=== PATIENT | male | born 1950 | race Caucasian/White ===

== ENCOUNTER 2020-03-23 11:56 | Inpatient (IN) ==
--- NOTE | 2020-03-23 12:41 | Emergency Department Note ---
Impression & Plan COVID-19, Breath shortness, Atrial fibrillation with RVR, Diarrhea, Febrile ED Provider Note NAME: HAILEE ROBERTS AGE: 69 SEX: M : 1950 ARRIVES VIA: Walk-In INFORMANT: Patient ED PROVIDER(S): Michael Tyler DO CHIEF COMPLAINT: Shortness of breath HPI: Patient is a 69-year-old male who presents to the ER for shortness of breath. This started a week ago. Has been fairly constant. He notes it is worse with up moving around. If he lays flat he also becomes short of breath. He denies any chest pain. No belly pain, nausea, vomiting or diarrhea. No dysuria, urgency or frequency. He was tested for Covid yesterday at [facility]. He does admit to a cough and congestion as well. He notes he is feeling very fatigued and rundown. He does get up and move around he becomes very lightheaded and feels as though he is going to pass out. Has not missed any doses of his Pradaxa. ROS: See above HPI for pertinent positives & negatives. A total of 10 systems reviewed and were otherwise negative. PAST MEDICAL HISTORY:See Below PAST SURGICAL HISTORY:See Below FAMILY HISTORY:See Below SOCIAL HISTORY:See Below HOME MEDICATIONS:See Below ALLERGIES:See Below VITALS:See Below PHYSICAL EXAMINATION: GENERAL: Sitting up in bed, alert, ill-appearing, slightly dyspneic with conversation EYE EXAM: normal conjunctiva. OROPHARYNX: no exudate, no erythema, lips, buccal mucosa, and tongue normal and mucous membranes are moist NECK: supple, no nuchal rigidity, no adenopathy, non-tender LUNGS: Clear to auscultation. Normal chest wall mechanics HEART: no murmurs, S1 normal and S2 normal ABDOMEN: abdomen soft, non-tender, normo-active bowel sounds, no masses, no rebound or guarding. UPPER EXTREMITIES: upper extremities are grossly normal. LOWER EXTREMITIES: mild Edema in bilateral lower extremities NEURO EXAM: Normal sensorium, cranial nerves II-XII grossly intact, normal speech, no gross weakness of arms, no gross weakness of legs. MEDICAL DECISION MAKING: Patient is a 69-year-old male who presents the ER for diarrhea, shortness of breath, dizziness without moving around associated with weakness. IV was established blood work was obtained. 90 to 93% on room air. When he ambulated he nearly passed out. Labs show no significant leukocytosis or anemia. INR 1.3. D-dimer was elevated. BMP with mild hyponatremia at 130. Lactate was normal. Troponin was detectable but not positive. Lipase was normal. Tony navirus was positive. He was given IV fluids and his heart rate trended down from the 120s A. fib RVR to 100-1 10. Chest x-ray supports infiltrates in the bases. CT angio confirms no PEs but bilateral infiltrates. He was covered with IV Levaquin. Discussed with the hospitalist for admission and further work-up. EKG was nondiagnostic. Sepsis work-up was not initially ordered as patient did not become febrile until just prior to admission. Triage Nursing notes reviewed. Prior medical records reviewed Vital Signs: reviewed and remarkable for tachy Differential diagnosis: Differential diagnosis includes etiologies such as sepsis, UTI, pneumonia, metabolic, electrolyte abnormalities, cardiac sources, intracerebral event, toxicologic, neurological, as well as others were entertained. ER treatment provided: See below Diagnostics interpreted by me: ECG: A. fib RVR rate 124 Left axis Septal Q waves No PVCs Cardiac Monitoring: An order was placed for continuous cardiac monitoring. The monitor shows a rate of 110 with A. fib RVR rhythm. Laboratory studies: As stated above and show below. Imaging studies: CT angio with bilateral infiltrates Double AP upright 1 view of the chest shows lower lobe infiltrates Consultation(s): Discussed with Dr. Erlinda Pereira for further evaluation ED COURSE: Procedures: none Critical Care: None Past Med/Surg History Medical History (Updated 03/23/20 @ 17:02 by Erlinda Pereira MD) Atrial fibrillation Basal cell carcinoma of dorsum of nose BPH (benign prostatic hyperplasia) Chronic diastolic heart failure due to hypertrophic obstructive cardiomyopathy Congestive heart failure Elevated PSA GERD (gastroesophageal reflux disease) Gout Hyperlipidemia Hypertension Idiopathic peripheral neuropathy Polyp of colon Vitamin D deficiency Surgical History History of left knee replacement Family History Family/Other Prostate cancer cousin on fathers side Family/Other Hypertension paternal aunts Mother , age 75 COPD No problems noted. Father , age 41 complications of jungle rot WW2 Heart disease Son No problems noted. Son No problems noted. Daughter No problems noted. 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 Feels Safe at Home: Yes Childhood Exposure to Second-Hand Smoke: Yes caffeine: Yes (one cup coffee per day) during the past year weight has: remained stable Dental Care, Regularly: Yes Physical Activity Frequency: Daily Seatbelt Use: always Sunscreen Use: Yes Allergies Allergies Allergy/AdvReac Type Severity Reaction Status Date / Time amiodarone AdvReac Severe Pneumonitis Unverified 03/23/20 15:16 Home Meds Home Medications Medication Instructions Recorded Confirmed atorvastatin 20 mg tablet 20 mg PO HS 09/23/19 03/23/20 dabigatran etexilate 150 mg capsule 150 mg PO QAM 09/23/19 03/23/20 diltiazem HCl 120 mg 120 mg PO QAM 09/23/19 03/23/20 capsule,extended release 24 hr allopurinol 100 mg tablet 200 mg PO QAM 10/21/19 03/23/20 Super Beta Prostate 1 cap PO QAM 03/23/20 03/23/20 azithromycin 250 mg PO UD 03/23/20 03/23/20 bicalutamide 50 mg PO QAM 03/23/20 03/23/20 calcium carbonate 500 mg PO BID 03/23/20 03/23/20 cholecalciferol (vitamin D3) 1,000 unit PO QAM 03/23/20 03/23/20 colchicine [Colcrys] 0.6 mg PO UD 03/23/20 03/23/20 metoprolol succinate 100 mg PO QAM 03/23/20 03/23/20 Results & Data (ED) Vital Signs Vital Signs - 24 hr 03/23/20 12:01 03/23/20 12:14 03/23/20 12:26 Temperature 36.7 C Temperature Source Oral Pulse Rate 114 H 126 H Pulse Rate from SpO2 Sensor 114 H Respiratory Rate 22 15 Respiratory Effort / Characteristics Non-Labored Respiratory Depth Normal Blood Pressure 129/76 151/110 H Blood Pressure Mean 93 121 Pulse Oximetry 92 93 Oxygen Delivery Method Room Air Room Air Room Air Sepsis Recent Fever Within 48 Hours No Sepsis New/Unexplained Change in Mental Status N/A Sepsis Action Taken by Nursing No Action Required 03/23/20 12:30 03/23/20 13:00 03/23/20 13:15 Temperature Temperature Source Pulse Rate 128 H Pulse Rate from SpO2 Sensor 102 H Respiratory Rate 20 Respiratory Effort / Characteristics Spontaneous Respiratory Depth Blood Pressure 128/79 Blood Pressure Mean 85 Pulse Oximetry 92 92 Oxygen Delivery Method Room Air Room Air Room Air Sepsis Recent Fever Within 48 Hours Sepsis New/Unexplained Change in Mental Status Sepsis Action Taken by Nursing 03/23/20 13:27 03/23/20 13:35 03/23/20 14:00 Temperature Temperature Source Pulse Rate 108 H 115 H 119 H Pulse Rate from SpO2 Sensor 91 H 106 H Respiratory Rate 23 32 H 21 Respiratory Effort / Characteristics Respiratory Depth Blood Pressure 137/86 155/82 H 160/85 H Blood Pressure Mean 91 101 95 Pulse Oximetry 92 92 93 Oxygen Delivery Method Room Air Room Air Room Air Sepsis Recent Fever Within 48 Hours Sepsis New/Unexplained Change in Mental Status Sepsis Action Taken by Nursing 03/23/20 14:25 03/23/20 14:30 03/23/20 15:00 Temperature 39.5 C H Temperature Source Oral Pulse Rate 110 H 103 H Pulse Rate from SpO2 Sensor 123 H 104 H Respiratory Rate 24 22 Respiratory Effort / Characteristics Respiratory Depth Blood Pressure 169/104 H 178/110 H Blood Pressure Mean 139 147 Pulse Oximetry 92 95 Oxygen Delivery Method Sepsis Recent Fever Within 48 Hours Sepsis New/Unexplained Change in Mental Status Sepsis Action Taken by Nursing 03/23/20 15:49 03/23/20 15:50 03/23/20 16:00 Temperature Temperature Source Pulse Rate 119 H 110 H Pulse Rate from SpO2 Sensor 106 H 113 H 108 H Respiratory Rate 13 18 Respiratory Effort / Characteristics Respiratory Depth Blood Pressure 156/105 H 144/102 H Blood Pressure Mean 131 128 Pulse Oximetry 92 90 92 Oxygen Delivery Method Sepsis Recent Fever Within 48 Hours Sepsis New/Unexplained Change in Mental Status Sepsis Action Taken by Nursing Laboratory Data Result diagrams: 03/23/20 12:41 03/23/20 13:30 Lab Results 03/23/20 03/23/20 03/23/20 Range/Units 12:41 13:30 13:30 WBC 7.03 (4.8-10.8) K/uL RBC 4.83 (4.7-6.1) M/uL Hgb 16.1 (14.0-18.0) g/dL Hct 45.6 (42-52) % MCV 94.4 (80-100) fL MCH 33.3 (25-34) pg MCHC 35.3 (32-36) g/dL RDW Std Deviation 46.3 (36.4-46.3) fL RDW Coeff of Phyllis 13.3 (11.5-14.5) % Plt Count 144 (130-400) K/uL MPV 10.2 (7.4-10.4) fL Immature Gran % (Auto) 0.1 % Neut % (Auto) 71.9 % Lymph % (Auto) 16.1 % [place] % (Auto) 11.8 % Eos % (Auto) 0.0 % Baso % (Auto) 0.1 % Neut # (Auto) 5.05 (1.4-6.5) K/uL Lymph # (Auto) 1.13 L (1.2-3.4) K/uL [place] # (Auto) 0.83 H (0.11-0.59) K/uL Eos # (Auto) 0.00 (0-0.5) K/uL Baso # (Auto) 0.01 (0-0.2) K/uL Immature Gran # (Auto) 0.01 (0.00-0.02) K/uL PT 13.6 H (9.0-12.0) Seconds INR 1.3 H (0.9-1.1) APTT 38.4 H (21.0-31.0) Seconds PTT Ratio 1.4 D-Dimer 600 H* (0-500) ug/L FEU Sodium 130 L (136-145) mmol/L Potassium 4.1 (3.5-5.1) mmol/L Chloride 97 L (98-107) mmol/L Carbon Dioxide 25 (21-32) mmol/L Anion Gap 8.0 (3-11) BUN 27 H (7-18) mg/dl Creatinine 1.17 (0.6-1.4) mg/dl Est Cr Clr Drug Dosing 75.7 ml/min Est GFR ( Amer) 73.3 Est GFR (Non-Af Amer) 63.2 BUN/Creatinine Ratio 23.4 H (10-20) Glucose 103 H (70-99) mg/dl Lactate (0.4-2.0) mmol/L Calcium 8.5 (8.5-10.1) mg/dl Total Bilirubin 0.8 (0.2-1) mg/dl AST 71 H (15-37) U/L ALT 44 (12-78) U/L Alkaline Phosphatase 62 (45-117) U/L Troponin I 0.016 (0-0.045) ng/ml Total Protein 8.3 H (6.4-8.2) gm/dl Albumin 3.1 L (3.4-5.0) gm/dl Globulin 5.2 H (2.5-4.0) gm/dl Albumin/Globulin Ratio 0.6 L (0.9-2) Lipase 190 (73-393) U/L COVID-19 Eval Order SARS-CoV-2, RNA, NAAT (NEGATIVE) 03/23/20 03/23/20 03/23/20 Range/Units 14:05 14:05 14:42 WBC (4.8-10.8) K/uL RBC (4.7-6.1) M/uL Hgb (14.0-18.0) g/dL Hct (42-52) % MCV (80-100) fL MCH (25-34) pg MCHC (32-36) g/dL RDW Std Deviation (36.4-46.3) fL RDW Coeff of Phyllis (11.5-14.5) % Plt Count (130-400) K/uL MPV (7.4-10.4) fL Immature Gran % (Auto) % Neut % (Auto) % Lymph % (Auto) % [place] % (Auto) % Eos % (Auto) % Baso % (Auto) % Neut # (Auto) (1.4-6.5) K/uL Lymph # (Auto) (1.2-3.4) K/uL [place] # (Auto) (0.11-0.59) K/uL Eos # (Auto) (0-0.5) K/uL Baso # (Auto) (0-0.2) K/uL Immature Gran # (Auto) (0.00-0.02) K/uL PT (9.0-12.0) Seconds INR (0.9-1.1) APTT (21.0-31.0) Seconds PTT Ratio D-Dimer (0-500) ug/L FEU Sodium (136-145) mmol/L Potassium (3.5-5.1) mmol/L Chloride (98-107) mmol/L Carbon Dioxide (21-32) mmol/L Anion Gap (3-11) BUN (7-18) mg/dl Creatinine (0.6-1.4) mg/dl Est Cr Clr Drug Dosing ml/min Est GFR ( Amer) Est GFR (Non-Af Amer) BUN/Creatinine Ratio (10-20) Glucose (70-99) mg/dl Lactate 2.0 (0.4-2.0) mmol/L Calcium (8.5-10.1) mg/dl Total Bilirubin (0.2-1) mg/dl AST (15-37) U/L ALT (12-78) U/L Alkaline Phosphatase (45-117) U/L Troponin I (0-0.045) ng/ml Total Protein (6.4-8.2) gm/dl Albumin (3.4-5.0) gm/dl Globulin (2.5-4.0) gm/dl Albumin/Globulin Ratio (0.9-2) Lipase (73-393) U/L COVID-19 Eval Order Covid19 IDNow at[facility] SARS-CoV-2, RNA, NAAT POSITIVE A* (NEGATIVE) Administered Medications Diltiazem HCl 125 mg/ Dextrose 125 mls @ 5 mls/hr IV .Q24H ALAYNA; Protocol Stop: 04/22/20 13:59 Last Admin: 03/23/20 15:11 Dose: Not Given Documented by: [id number] Discontinued Medications Acetaminophen (Acetaminophen 500 Mg Tab) 1,000 mg PO NOW STA Stop: 03/23/20 14:30 Last Admin: 03/23/20 16:01 Dose: 1,000 mg Documented by: [id number] Dexamethasone (Dexamethasone Sod Inj 10 Mg/Ml Vial) 6 mg IV NOW ONE Stop: 03/23/20 16:16 Last Admin: 03/23/20 16:50 Dose: 6 mg Documented by: [id number] Diltiazem HCl (Diltiazem Hcl 5 Mg/Ml 5 Ml Vial) 10 mg IV NOW STA Stop: 03/23/20 13:59 Last Admin: 03/23/20 16:51 Dose: Not Given Documented by: [id number] Sodium Chloride (Nss 1000ml) 1,000 mls @ 999 mls/hr IV .Q1H1M ONE Stop: 03/23/20 14:58 Last Infusion: 03/23/20 16:01 Dose: 0 mls/hr Documented by: [id number] Admin: 03/23/20 14:26 Dose: 999 mls/hr Documented by: [id number] Levofloxacin/Dextrose (Levaquin/D5w) 750 mg in 150 mls @ 100 mls/hr IV NOW STA Stop: 03/23/20 15:58 Last Admin: 03/23/20 16:01 Dose: 100 mls/hr Documented by: [id number] Ioversol (Optiray 320 125ml) 120 ml IV ONCE ONE Stop: 03/23/20 15:30 Last Admin: 03/23/20 15:29 Dose: 120 ml Documented by: [id number] Miscellaneous (Stat Iv Infusion Titration Per Protocol) 1 ea N/A NOW STA Stop: 03/23/20 13:59 Last Admin: 03/23/20 15:11 Dose: Not Given Documented by: [id number] Discharge Plan Visit Data Chief Complaint: Shortness of Breath/Dyspnea Stated Complaint: CONGESTED, SOB, COUGH, FATIGUED, PENDING COVID ED Provider: Michael Tyler Discharge Problem: COVID-19, Breath shortness, Atrial fibrillation with RVR, Diarrhea, Febrile Forms Stand Alone Forms: My [facility] Prescriptions Prescriptions: No Action allopurinol 100 mg tablet 200 mg PO QAM RF: 0 Pradaxa 150 mg capsule 150 mg PO QAM RF: 0 diltiazem HCl [Cartia XT] 120 mg capsule,extended release 24hr 120 mg PO QAM RF: 0 atorvastatin [Lipitor] 20 mg tablet 20 mg PO HS RF: 0 bicalutamide 50 mg tablet 50 mg PO QAM RF: 0 azithromycin 250 mg tablet 250 mg PO UD RF: 0 metoprolol succinate 100 mg tablet extended release 24 hr 100 mg PO QAM RF: 0 calcium carbonate 500 mg calcium (1,250 mg) tablet 500 mg PO BID RF: 0 colchicine [Colcrys] 0.6 mg Tablet 0.6 mg PO UD RF: 0 cholecalciferol (vitamin D3) 25 mcg (1,000 unit) capsule 1,000 unit PO QAM RF: 0 Super Beta Prostate 1 cap PO QAM RF: 0 Discharge Problem: Diarrhea Qualifiers: Diarrhea type: unspecified type Qualified Code(s): R19.7 - Diarrhea, unspecified Febrile Qualifiers: Fever type: unspecified Qualified Code(s): R50.9 - Fever, unspecified
[2020-03-23] MEDS ORDERED: dilTIAZem HCl 5 MG/ML 5 ML VIAL IV STA (13:58)
[2020-03-23] MEDS ORDERED: SODIUM CHLORIDE 0.9% 1000ML 1,000 ML IV ONE (13:58)
[2020-03-23] MEDS ORDERED: STAT IV Infusion **Titration per Protocol STA (13:58)
[2020-03-23 14:00] LABS: INR 1.3 (0.9-1.1); Partial Thromboplastin Ratio 1.4; Partial Thromboplastin Time 38.4 Seconds (21.0-31.0); Prothrombin Time 13.6 Seconds (9.0-12.0)
[2020-03-23] MEDS ORDERED: dilTIAZem HCL 125 MG in DEXTROSE 5% 100 ML IV SCH (14:00)
[2020-03-23 14:05] LABS: D Dimer 600 ug/L FEU (0-500)
[2020-03-23 14:24] LABS: Albumin Globulin Ratio 0.6 (0.9-2); Albumin Level 3.1 gm/dl (3.4-5.0); BUN Creatinine Ratio 23.4 (10-20); Bilirubin,Total 0.8 mg/dl (0.2-1); Calcium 8.5 mg/dl (8.5-10.1); Creatinine Clr Calc Pharmacy 75.7 ml/min; Est GFR (African American) 73.3; Est GFR (Non-African American) 63.2; Globulin 5.2 gm/dl (2.5-4.0); Potassium 4.1 mmol/L (3.5-5.1); Total Protein 8.3 gm/dl (6.4-8.2); Troponin I 0.016 ng/ml (0-0.045)
--- NOTE | 2020-03-23 14:27 | XRay Report ---
XR chest 1V portable CLINICAL HISTORY: Chest Pain COMPARISON STUDY: Chest radiograph December 26, 2016. FINDINGS: There is mild elevation of the left hemidiaphragm. Linear left basilar opacity favors atele ctasis. There is minimal right basilar opacity. Note is made of cardiomegaly without evidence for pul monary edema. Note is made of a sclerotic lesion within the coracoid process of the right scapula whi ch corresponds to a focus of radiotracer uptake on bone scan of October 20, 2019. This represents metast atic disease. IMPRESSION: 1. Mild bibasilar opacities. Left basilar opacity favors atelectasis. Right basilar opacity favors at electasis although an infectious process could appear similar. 2. Cardiomegaly without evidence for pulmonary edema. 3. Sclerotic metastasis within the coracoid process of the right scapula. ACT 112: Negative or not required by law. Electronically signed by: Fred Hensley M.D. 03/23/2020 2:25 PM
[2020-03-23] MEDS ORDERED: levoFLOXacin/D5W 750 MG/150 ML BAG IV STA (14:29)
[2020-03-23] MEDS ORDERED: ACETAMINOPHEN 500 MG TAB PO STA (14:29)
[2020-03-23 14:30] LABS: Basophils # (auto) 0.01 K/uL (0-0.2); Basophils % (auto) 0.1 %; Hematocrit (blood only) 45.6 % (42-52); Hemoglobin 16.1 g/dL (14.0-18.0); Immature Granulocytes # (auto) 0.01 K/uL (0.00-0.02); Immature Granulocytes % (auto) 0.1 %; Lymphocytes # (auto) 1.13 K/uL (1.2-3.4); Lymphocytes % (auto) 16.1 %; Mean Corpuscular Hemoglobin 33.3 pg (25-34); Mean Corpuscular Hgb Conc 35.3 g/dL (32-36); Mean Corpuscular Volume 94.4 fL (80-100); Mean Platelet Volume 10.2 fL (7.4-10.4); Monocytes # (auto) 0.83 K/uL (0.11-0.59); Monocytes % (auto) 11.8 %; Neutrophils # (auto) 5.05 K/uL (1.4-6.5); Neutrophils % (auto) 71.9 %; Platelet Count 144 K/uL (130-400); RDW Coefficient of Variation 13.3 % (11.5-14.5); RDW Standard Deviation 46.3 fL (36.4-46.3); Red Blood Count 4.83 M/uL (4.7-6.1); White Blood Count 7.03 K/uL (4.8-10.8)
[2020-03-23] MEDS ORDERED: OPTIRAY 320 125ml IV ONE (15:29)
--- NOTE | 2020-03-23 15:44 | CT Scan Report ---
CT ANGIOGRAPHY OF THE CHEST, PULMONARY EMBOLUS PROTOCOL CLINICAL HISTORY: Covid. Chest pain. COMPARISON STUDY: Chest radiograph December 26, 2006 and March 23, 2020. TECHNIQUE: Following IV administration of Optiray-320, helical axial images of the chest were obtaine d utilizing the pulmonary embolus protocol. Maximal intensity projections and sagittal and coronal r eformats were viewed on an independent 3D workstation. IV contrast was administered without complica tion. Automated exposure control was utilized for the study. A dose lowering technique was utilized adhering to the principles of ALARA. CT DOSE: 759.19 mGy.cm FINDINGS: No pulmonary emboli are identified. There is moderate cardiomegaly. No pericardial effusio n is present. Ascending aorta is dilated, measuring 4.4 cm at the level of the main pulmonary artery. There is extensive coronary artery calcification. There are multiple mildly enlarged mediastinal lym ph nodes. Index right paratracheal lymph node on image 181 of 273 measures 2.6 x 1.2 cm. Prominent ri ght hilar lymph nodes are noted. No pneumothorax or pleural effusion is noted. The central airways ar e patent. Extensive multifocal groundglass opacities within the lungs are noted. There is no confluen t consolidation. Note is made of numerous sclerotic skeletal lesions, the largest of which is partial ly imaged within the right scapula. No pathologic fracture is identified. Visualized portions of the upper abdomen demonstrate hepatic steatosis. IMPRESSION: 1. No pulmonary emboli identified. 2. Extensive multifocal groundglass opacities within the lungs consistent with viral pneumonia. 3. Numerous blastic skeletal metastases. 4. Moderate cardiomegaly and extensive coronary artery calcification. 5. Mildly enlarged mediastinal and right hilar lymph nodes. These are nonspecific and may be reactive . A follow-up chest CT in 6 months is recommended. 6. Mildly dilated ascending aorta, measuring 4.4 cm. ACT 112: Negative or not required by law. Electronically signed by: Fred Hensley M.D. 03/23/2020 3:42 PM
--- NOTE | 2020-03-23 16:03 | History & Physical Report ---
Date of Service March 23, 2020 History of Present Illness Primary Care Provider: Shyann Kwon MD Allergies Allergy/AdvReac Type Severity Reaction Status Date / Time amiodarone AdvReac Severe Pneumonitis Unverified 03/23/20 15:16 Home Medications Medication Instructions Recorded Confirmed Type atorvastatin 20 mg tablet 20 mg PO HS 09/23/19 03/23/20 History dabigatran etexilate 150 mg capsule 150 mg PO QAM 09/23/19 03/23/20 History diltiazem HCl 120 mg 120 mg PO QAM 09/23/19 03/23/20 History capsule,extended release 24 hr allopurinol 100 mg tablet 200 mg PO QAM 10/21/19 03/23/20 History Super Beta Prostate 1 cap PO QAM 03/23/20 03/23/20 History azithromycin 250 mg PO UD 03/23/20 03/23/20 History bicalutamide 50 mg PO QAM 03/23/20 03/23/20 History calcium carbonate 500 mg PO BID 03/23/20 03/23/20 History cholecalciferol (vitamin D3) 1,000 unit PO QAM 03/23/20 03/23/20 History colchicine [Colcrys] 0.6 mg PO UD 03/23/20 03/23/20 History metoprolol succinate 100 mg PO QAM 03/23/20 03/23/20 History Past Med/Surg History Medical History Atrial fibrillation Basal cell carcinoma of dorsum of nose BPH (benign prostatic hyperplasia) Chronic diastolic heart failure due to hypertrophic obstructive cardiomyopathy Congestive heart failure Elevated PSA GERD (gastroesophageal reflux disease) Gout Hyperlipidemia Hypertension Idiopathic peripheral neuropathy Polyp of colon Vitamin D deficiency Surgical History History of left knee replacement Family History Family/Other Prostate cancer cousin on fathers side Family/Other Hypertension paternal aunts Mother , age 75 COPD No problems noted. Father , age 41 complications of jungle rot WW2 Heart disease Son No problems noted. Son No problems noted. Daughter No problems noted. 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 Feels Safe at Home: Yes Childhood Exposure to Second-Hand Smoke: Yes caffeine: Yes (one cup coffee per day) during the past year weight has: remained stable Dental Care, Regularly: Yes Physical Activity Frequency: Daily Seatbelt Use: always Sunscreen Use: Yes Results & Data Results & Data ([facility]) Vital Signs (Past 12 Hours) Vital Signs Temp Pulse Resp BP Pulse Ox 03/23/20 15:00 103 H 22 178/110 H 95 03/23/20 14:30 110 H 24 169/104 H 92 03/23/20 14:25 39.5 C H 03/23/20 14:00 119 H 21 160/85 H 93 03/23/20 13:35 115 H 32 H 155/82 H 92 03/23/20 13:27 108 H 23 137/86 92 03/23/20 13:15 92 03/23/20 12:30 128 H 20 128/79 92 03/23/20 12:14 126 H 15 151/110 H 93 03/23/20 12:01 36.7 C 114 H 22 129/76 92 PG Care Time/CCT Total # of Minutes Spent Total Time Spent with Patient: Total time spent is greater than 50% in coordination of care (as documented) at patient's floor/unit and/or counseling patient: Coding
[2020-03-23] MEDS ORDERED: DEXAMETHASONE SOD INJ 10 MG/ML VIAL IV ONE (16:15)
--- NOTE | 2020-03-23 16:22 | History & Physical Report ---
Date of Service March 23, 2020 Assessment & Plan (1) COVID-19: Symptoms of shortness of breath and fatigue along with diarrhea seem to have started within 1 week of admission. He tested positive for Covid-19 initially on 03/22 at [facility]. He has no idea where he got Covid-19. He reports that his at home is not sick. Here with mild hypoxia down to 90% on room air at rest but apparently dropped to the mid 80s with ambulation and almost passed out in the ER. He is febrile here in the ER. Procalcitonin is negative, lactate is negative, and he has a normal WBC count with lymphopenia. AST mildly elevated and D-dimer elevated at 600. Troponin within normal limits. With underlying restrictive lung disease, chronic diastolic CHF, metastatic prostate cancer on chemotherapy, hypertension, rapid atrial fibrillation here, and obesity-he has many risk factors for severe disease. -Admit to PCU for telemetry monitoring given rapid A. fib which is now improved with IV fluid hydration and IV diltiazem -Meets criteria for severe disease-he is agreeable to receiving convalescent plasma, remdesivir x5-day course, and IV dexamethasone x10-day course -Supplemental O2 as needed to keep pulse ox greater than 92% -Give IV fluids for mild dehydration from fever and diarrhea and tachycardia -Tylenol as needed for fever or pain/myalgias -He does not need any further antibiotics as procalcitonin is negative and this is not likely bacterial pneumonia-he did receive 1 dose of IV Levaquin in the ER -Follow daily CBC, CMP, ESR, CRP, ferritin, LDH, D-dimer, magnesium, phosphorus (2) Acute respiratory failure with hypoxia: As noted above, secondary to Covid-19, dropped pulse ox to the mid 80s with minimal ambulation Supplemental O2 as needed Treating with dexamethasone and Remdesivir as above (3) Atrial fibrillation with RVR: With rapid atrial fibrillation to the 120s upon admission secondary to fever and dehydration Treated initially with IV diltiazem which is now been discontinued, as well as IV fluids Continue IV fluids Monitor on telemetry Continue home p.o. diltiazem and metoprolol Continue Pradaxa for anticoagulation (4) Hyponatremia: Sodium 130 upon admission, likely secondary to dehydration Hydrated with normal saline Follow BMP in the morning (5) Diarrhea: Secondary to Covid-19 as above IV fluids and supportive care Monitor electrolytes Could give Imodium as needed if severe (6) Prostate cancer: Continue daily bicalutamide, Lupron as an outpatient No acute issues (7) Vitamin D deficiency: Continue home vitamin D supplementation (8) Hypertension: Blood pressures are mildly elevated Continue home diltiazem and metoprolol (9) Gout: No acute issues Continue allopurinol (10) Hyperlipidemia: Continue atorvastatin (11) GERD (gastroesophageal reflux disease): Not on medications currently for this We will start him on daily Protonix especially in the setting of receiving daily corticosteroids (12) Restrictive lung disease: Noted on PFTs in outpatient PCP notes. PFTs also noted that he was responsive to bronchodilators We will give albuterol every 6 hours (13) Chronic diastolic CHF (congestive heart failure): He is dehydrated at this time-hold chlorthalidone He follows with Dr. Patterson for cardiology PCP notes state that most recent echocardiogram from 2018 shows LVEF 50%, no valvular disease, diastolic dysfunction Follow I's and O's, daily weights Okay to give IV fluids for now (14) DVT prophylaxis: Pradaxa Disposition-admit to PCU Full code History of Present Illness Chief Complaint: Dizziness, shortness of breath, fever Primary Care Provider: Shyann Kwon MD This patient is a 69-year-old male with a history of metastatic prostate cancer on Lupron therapy in October 2019 and Xgeva in November with monthly Xgeva injections and daily Biclutamide. Next dose of Lupron per chart review is scheduled for April. Patient also has history of HLD, HTN, Afib on Pradaxa and diltiazem (amiodarone DC'd secondary to restrictive lung disease), Colon polyps, GERD, and Gout. Patient came to the EMD today for worsening shortness of breath and feeling very fatigued as well as dizziness with walking. The shortness of breath has been ongoing for 1 week. Patient notes that it is worse when up and moving around and improves when he is at rest. Patient was tested for COVID-19 in [place] on Mar 22, 2020 and was positive. Patient symptoms are associated with mildly productive cough and dizziness. He denies any nausea or vomiting, but did start having some nonbloody diarrhea. He feels quite fatigued. He has low appetite but has been eating and drinking. He is making urine. In the ER, when he ambulated to the bathroom in his room, his pulse ox dropped to the mid 80s although it is not documented and he had near syncope as per ER MD. In the EMD patient was given 1 L of 0.9% Saline, tylenol, 10mg diltiazem bolus followed by drip at 5mg/hour for rate control <110 which was then quickly discontinued. CTA of the chest was performed and negative for pulmonary embolism, however did show bilateral ground glass opacities throughout. Patient was also given a dose of Levaquin 750 mg IV and started on Decadron 6mg IV for COVID-19 with hypoxia. Patient will be admitted to COVID 19 PCU negative pressure room as available. Continue with supportive care, patient to self rotate in bed to help with lung r ecruitment, rate control, and will be typed and crossed for convalescent plasma as well as treated with Remdesivir and dexamethasone as per our discussion. Allergies Allergy/AdvReac Type Severity Reaction Status Date / Time amiodarone AdvReac Severe Pneumonitis Unverified 03/23/20 15:16 Home Medications Medication Instructions Recorded Confirmed Type atorvastatin 20 mg tablet 20 mg PO HS 09/23/19 03/23/20 History dabigatran etexilate 150 mg capsule 150 mg PO BID 09/23/19 03/23/20 History diltiazem HCl 120 mg 120 mg PO QAM 09/23/19 03/23/20 History capsule,extended release 24 hr allopurinol 100 mg tablet 200 mg PO QAM 10/21/19 03/23/20 History Super Beta Prostate 1 cap PO QAM 03/23/20 03/23/20 History azithromycin 250 mg PO UD 03/23/20 03/23/20 History bicalutamide 50 mg PO QAM 03/23/20 03/23/20 History calcium carbonate 500 mg PO BID 03/23/20 03/23/20 History cholecalciferol (vitamin D3) 1,000 unit PO QAM 03/23/20 03/23/20 History colchicine [Colcrys] 0.6 mg PO UD 03/23/20 03/23/20 History metoprolol succinate 100 mg PO QAM 03/23/20 03/23/20 History Past Med/Surg History Medical History (Updated 03/24/20 @ 00:52 by Erlinda Pereira MD) Atrial fibrillation Basal cell carcinoma of dorsum of nose BPH (benign prostatic hyperplasia) Chronic diastolic CHF (congestive heart failure) Chronic diastolic heart failure due to hypertrophic obstructive cardiomyopathy Congestive heart failure Elevated PSA GERD (gastroesophageal reflux disease) Gout Hyperlipidemia Hypertension Idiopathic peripheral neuropathy Polyp of colon Prostate cancer Restrictive lung disease Vitamin D deficiency Surgical History History of left knee replacement Family History Family/Other Prostate cancer cousin on fathers side Family/Other Hypertension paternal aunts Mother , age 75 COPD No problems noted. Father , age 41 complications of jungle rot WW2 Heart disease Son No problems noted. Son No problems noted. Daughter No problems noted. 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 Feels Safe at Home: Yes Childhood Exposure to Second-Hand Smoke: Yes caffeine: Yes (one cup coffee per day) during the past year weight has: remained stable Dental Care, Regularly: Yes Physical Activity Frequency: Daily Seatbelt Use: always Sunscreen Use: Yes Assistive Devices: Denture - Upper and Denture - Lower Review of Systems Review of Systems: All systems reviewed & are unremarkable except as noted in HPI & below Physical Exam Constitutional: WD/WN, vitals as above + ill appearing (Mildly ill- appearing), + obese and cooperative; no acute distress, no altered mental status and not lethargic Eyes: PERRL, conjunctivae normal, anicteric sclerae ENMT: external ear and nose normal, oropharynx normal Neck: trachea midline, no thyromegaly Respiratory: normal respiratory effort; no cough Auscultation: + crackles (Mild at the bases); no rhonchi and no wheezes Cardiovascular: Rate/Rhythm: + tachycardic and + irregularly irregular Heart Sounds: no murmur Extremities: no calf tenderness and no edema Chest (Breasts): Chest: normal inspection of chest Gastrointestinal (Abdomen): normal bowel sounds, soft, nontender, no hepatosplenomegaly Musculoskeletal: Extremities: extremities normal to inspection; no cyanosis and no clubbing Skin: no rashes, warm and dry Neurologic: moves all extremities and awake; no focal motor deficits Psychiatric: A+Ox3, euthymic affect Lymphatic: no lymphedema Results & Data Results & Data ([facility]) Vital Signs (Past 12 Hours) Vital Signs Temp Pulse Resp BP Pulse Ox 03/23/20 16:00 110 H 18 144/102 H 92 03/23/20 15:50 119 H 13 156/105 H 90 03/23/20 15:49 92 03/23/20 15:00 103 H 22 178/110 H 95 03/23/20 14:30 110 H 24 169/104 H 92 03/23/20 14:25 39.5 C H 03/23/20 14:00 119 H 21 160/85 H 93 03/23/20 13:35 115 H 32 H 155/82 H 92 03/23/20 13:27 108 H 23 137/86 92 03/23/20 13:15 92 03/23/20 12:30 128 H 20 128/79 92 03/23/20 12:14 126 H 15 151/110 H 93 03/23/20 12:01 36.7 C 114 H 22 129/76 92 Laboratory Results 03/23/20 03/23/20 03/23/20 Range/Units 14:42 14:05 14:05 WBC (4.8-10.8) K/uL RBC (4.7-6.1) M/uL Hgb (14.0-18.0) g/dL Hct (42-52) % MCV (80-100) fL MCH (25-34) pg MCHC (32-36) g/dL RDW Std Deviation (36.4-46.3) fL RDW Coeff of Phyllis (11.5-14.5) % Plt Count (130-400) K/uL MPV (7.4-10.4) fL Immature Gran % (Auto) % Neut % (Auto) % Lymph % (Auto) % [place] % (Auto) % Eos % (Auto) % Baso % (Auto) % Neut # (Auto) (1.4-6.5) K/uL Lymph # (Auto) (1.2-3.4) K/uL [place] # (Auto) (0.11-0.59) K/uL Eos # (Auto) (0-0.5) K/uL Baso # (Auto) (0-0.2) K/uL Immature Gran # (Auto) (0.00-0.02) K/uL PT (9.0-12.0) Seconds INR (0.9-1.1) APTT (21.0-31.0) Seconds PTT Ratio D-Dimer (0-500) ug/L FEU Sodium (136-145) mmol/L Potassium (3.5-5.1) mmol/L Chloride (98-107) mmol/L Carbon Dioxide (21-32) mmol/L Anion Gap (3-11) BUN (7-18) mg/dl Creatinine (0.6-1.4) mg/dl Est Cr Clr Drug Dosing ml/min Est GFR ( Amer) Est GFR (Non-Af Amer) BUN/Creatinine Ratio (10-20) Glucose (70-99) mg/dl Lactate 2.0 (0.4-2.0) mmol/L Calcium (8.5-10.1) mg/dl Total Bilirubin (0.2-1) mg/dl AST (15-37) U/L ALT (12-78) U/L Alkaline Phosphatase (45-117) U/L Troponin I (0-0.045) ng/ml Total Protein (6.4-8.2) gm/dl Albumin (3.4-5.0) gm/dl Globulin (2.5-4.0) gm/dl Albumin/Globulin Ratio (0.9-2) Lipase (73-393) U/L COVID-19 Eval Order Covid19 [facility]Now [facility] SARS-CoV-2, RNA, NAAT POSITIVE A* (NEGATIVE) 03/23/20 03/23/20 03/23/20 Range/Units 13:30 13:30 12:41 WBC 7.03 (4.8-10.8) K/uL RBC 4.83 (4.7-6.1) M/uL Hgb 16.1 (14.0-18.0) g/dL Hct 45.6 (42-52) % MCV 94.4 (80-100) fL MCH 33.3 (25-34) pg MCHC 35.3 (32-36) g/dL RDW Std Deviation 46.3 (36.4-46.3) fL RDW Coeff of Phyllis 13.3 (11.5-14.5) % Plt Count 144 (130-400) K/uL MPV 10.2 (7.4-10.4) fL Immature Gran % (Auto) 0.1 % Neut % (Auto) 71.9 % Lymph % (Auto) 16.1 % [place] % (Auto) 11.8 % Eos % (Auto) 0.0 % Baso % (Auto) 0.1 % Neut # (Auto) 5.05 (1.4-6.5) K/uL Lymph # (Auto) 1.13 L (1.2-3.4) K/uL [place] # (Auto) 0.83 H (0.11-0.59) K/uL Eos # (Auto) 0.00 (0-0.5) K/uL Baso # (Auto) 0.01 (0-0.2) K/uL Immature Gran # (Auto) 0.01 (0.00-0.02) K/uL PT 13.6 H (9.0-12.0) Seconds INR 1.3 H (0.9-1.1) APTT 38.4 H (21.0-31.0) Seconds PTT Ratio 1.4 D-Dimer 600 H* (0-500) ug/L FEU Sodium 130 L (136-145) mmol/L Potassium 4.1 (3.5-5.1) mmol/L Chloride 97 L (98-107) mmol/L Carbon Dioxide 25 (21-32) mmol/L Anion Gap 8.0 (3-11) BUN 27 H (7-18) mg/dl Creatinine 1.17 (0.6-1.4) mg/dl Est Cr Clr Drug Dosing 75.7 ml/min Est GFR ( Amer) 73.3 Est GFR (Non-Af Amer) 63.2 BUN/Creatinine Ratio 23.4 H (10-20) Glucose 103 H (70-99) mg/dl Lactate (0.4-2.0) mmol/L Calcium 8.5 (8.5-10.1) mg/dl Total Bilirubin 0.8 (0.2-1) mg/dl AST 71 H (15-37) U/L ALT 44 (12-78) U/L Alkaline Phosphatase 62 (45-117) U/L Troponin I 0.016 (0-0.045) ng/ml Total Protein 8.3 H (6.4-8.2) gm/dl Albumin 3.1 L (3.4-5.0) gm/dl Globulin 5.2 H (2.5-4.0) gm/dl Albumin/Globulin Ratio 0.6 L (0.9-2) Lipase 190 (73-393) U/L COVID-19 Eval Order SARS-CoV-2, RNA, NAAT (NEGATIVE) Diagnostic Findings CT ANGIOGRAPHY OF THE CHEST, PULMONARY EMBOLUS PROTOCOL CLINICAL HISTORY: Covid. Chest pain. COMPARISON STUDY: Chest radiograph December 26, 2006 and March 23, 2020. TECHNIQUE: Following IV administration of Optiray-320, helical axial images of the chest were obtained utilizing the pulmonary embolus protocol. Maximal intensity projections and sagittal and coronal reformats were viewed on an independent 3D workstation. IV contrast was administered without complication. Automated exposure control was utilized for the study. A dose lowering technique was utilized adhering to the principles of ALARA. CT DOSE: 759.19 mGy.cm FINDINGS: No pulmonary emboli are identified. There is moderate cardiomegaly. No pericardial effusion is present. Ascending aorta is dilated, measuring 4.4 cm at the level of the main pulmonary artery. There is extensive coronary artery calcification. There are multiple mildly enlarged mediastinal lymph nodes. Index right paratracheal lymph node on image 181 of 273 measures 2.6 x 1.2 cm. Prominent right hilar lymph nodes are noted. No pneumothorax or pleural effusion is noted. The central airways are patent. Extensive multifocal groundglass opacities within the lungs are noted. There is no confluent consolidation. Note is made of numerous sclerotic skeletal lesions, the largest of which is parti ally imaged within the right scapula. No pathologic fracture is identified. Visualized portions of the upper abdomen demonstrate hepatic steatosis. IMPRESSION: 1. No pulmonary emboli identified. 2. Extensive multifocal groundglass opacities within the lungs consistent with viral pneumonia. 3. Numerous blastic skeletal metastases. 4. Moderate cardiomegaly and extensive coronary artery calcification. 5. Mildly enlarged mediastinal and right hilar lymph nodes. These are nonspecific and may be reactive. A follow-up chest CT in 6 months is recommended. 6. Mildly dilated ascending aorta, measuring 4.4 cm. Chest x-ray image personally reviewed by me and agree with the following report: XR chest 1V portable CLINICAL HISTORY: Chest Pain COMPARISON STUDY: Chest radiograph December 26, 2016. FINDINGS: There is mild elevation of the left hemidiaphragm. Linear left basilar opacity favors atelectasis. There is minimal right basilar opacity. Note is made of cardiomegaly without evidence for pulmonary edema. Note is made of a sclerotic lesion within the coracoid process of the right scapula which corresponds to a focus of radiotracer uptake on bone scan of October 20, 2019. This represents metastatic disease. IMPRESSION: 1. Mild bibasilar opacities. Left basilar opacity favors atelectasis. Right basilar opacity favors atelectasis although an infectious process could appear similar. 2. Cardiomegaly without evidence for pulmonary edema. 3. Sclerotic metastasis within the coracoid process of the right scapula. ECG Additional Comments: ECG on 03/23/2020 at 1324 with atrial fibrillation with RVR, rate 124, left axis deviation, no ischemic changes Code Status & VTE Plan Code Status Full code VTE Prophylaxis Plan VTE Prophylaxis will be ordered: Yes PG Care Time/CCT Total # of Minutes Spent Total Time Spent with Patient: Total time spent is greater than 50% in coordination of care (as documented) at patient's floor/unit and/or counseling patient: Coding Level of Care Code 08125 Initial Inpt Care Lvl 3 Diagnoses COVID-19 U07.1 Acute respiratory failure with hypoxia J96.01 Atrial fibrillation with RVR I48.91 Hyponatremia E87.1 Diarrhea R19.7 Diarrhea type: unspecified type Prostate cancer C61 Vitamin D deficiency E55.9 Hypertension I10 Gout M10.9 Hyperlipidemia E78.5 GERD (gastroesophageal reflux disease) K21.9 Restrictive lung disease J98.4 Chronic diastolic CHF (congestive heart failure) I50.32 DVT prophylaxis Z29.9 (1) Diarrhea Diarrhea type: unspecified type Qualified Code(s): R19.7 - Diarrhea, unspecified
[2020-03-23] MEDS ORDERED: SODIUM CHLORIDE 0.9% 500 ML IV ONE (16:59)
--- NOTE | 2020-03-23 17:04 | Electrocardiogram Report ---
Test Reason : Blood Pressure : / mmHG Vent. Rate : 124 BPM Atrial Rate : 125 BPM P-R Int : 000 ms QRS Dur : 114 ms QT Int : 344 ms P-R-T Axes : 000 -44 005 degrees QTc Int : 494 ms Atrial fibrillation with rapid ventricular response Left axis deviation Abnormal ECG When compared with ECG of 26-DEC-2006 16:17, Atrial fibrillation has replaced Sinus rhythm Vent. rate has increased BY 53 BPM Confirmed by Walter Hobson ([id number]) on 03/23/2020 5:03:44 PM Referred By: REFERRED SELF Confirmed By:Walter Hobson
[2020-03-23] MEDS ORDERED: REMDESIVIR 200 MG in SODIUM CHLORIDE 0.9% 210 ML IV STA (17:41)
[2020-03-23] MEDS ORDERED: ACETAMINOPHEN 325 MG TAB PO PRN (21:15)
[2020-03-23] MEDS ORDERED: ONDANSETRON INJ 2 MG/ML 2 ML VIAL IV PRN (21:15)
[2020-03-23] MEDS ORDERED: SODIUM CHLORIDE 0.9% 1000ML 1,000 ML IV SCH (21:15)
[2020-03-23] MEDS: SODIUM CHLORIDE 0.9% 10ML FLUSH IV SCH (21:16)
[2020-03-23] MEDS: CALCIUM 600MG + VIT D 400 IU TAB PO SCH (22:11)
[2020-03-23] MEDS: ATORVASTATIN 20 MG TAB PO SCH (22:11)
[2020-03-23] MEDS: DABIGATRAN ETEXILATE 75 MG CAP PO SCH (22:12)
[2020-03-24] MEDS: ALBUTEROL HFA 8 GM INHALER INH SCH ×4 (01:59→20:17)
[2020-03-24 07:55] LABS: Basophils # (auto) 0.01 K/uL (0-0.2); Basophils % (auto) 0.2 %; Hematocrit (blood only) 45.5 % (42-52); Immature Granulocytes # (auto) 0.01 K/uL (0.00-0.02); Immature Granulocytes % (auto) 0.2 %; Lymphocytes # (auto) 0.93 K/uL (1.2-3.4); Lymphocytes % (auto) 20.7 %; Mean Corpuscular Hemoglobin 33.4 pg (25-34); Mean Corpuscular Hgb Conc 35.2 g/dL (32-36); Mean Platelet Volume 10.5 fL (7.4-10.4); Monocytes # (auto) 0.58 K/uL (0.11-0.59); Monocytes % (auto) 12.9 %; Neutrophils # (auto) 2.96 K/uL (1.4-6.5); Platelet Count 150 K/uL (130-400); RDW Coefficient of Variation 13.5 % (11.5-14.5); RDW Standard Deviation 46.6 fL (36.4-46.3); Red Blood Count 4.79 M/uL (4.7-6.1); White Blood Count 4.49 K/uL (4.8-10.8)
[2020-03-24] MEDS: DABIGATRAN ETEXILATE 75 MG CAP PO SCH ×2 (08:10→20:09)
[2020-03-24] MEDS: allopurinoL 100 MG TAB PO SCH (08:11)
[2020-03-24] MEDS: CHOLECALCIFEROL 1,000 UNITS 25 MCG TAB PO SCH (08:11)
[2020-03-24] MEDS: BICALUTAMIDE 50 MG TAB PO SCH (08:11)
[2020-03-24] MEDS: dilTIAZem HCL 120 MG CAPCR PO SCH (08:12)
[2020-03-24] MEDS: CALCIUM 600MG + VIT D 400 IU TAB PO SCH ×2 (08:12→20:08)
[2020-03-24] MEDS: METOPROLOL SUCC 50MG EXT REL TAB PO SCH (08:12)
[2020-03-24 08:21] LABS: D Dimer 520 ug/L FEU (0-500)
[2020-03-24 08:32] LABS: Albumin Globulin Ratio 0.6 (0.9-2); Albumin Level 2.8 gm/dl (3.4-5.0); BUN Creatinine Ratio 22.2 (10-20); Bilirubin,Total 0.5 mg/dl (0.2-1); C Reactive Protein 4.92 mg/dl (0-0.29); Calcium 8.3 mg/dl (8.5-10.1); Creatinine Clr Calc Pharmacy 115.3 ml/min; Est GFR (African American) 107.3; Est GFR (Non-African American) 92.6; Ferritin 2570.6 ng/ml (8-388); Magnesium 2.1 mg/dl (1.8-2.4); Phosphorus 2.3 mg/dl (2.5-4.9); Potassium 4.4 mmol/L (3.5-5.1); Total Protein 7.8 gm/dl (6.4-8.2)
[2020-03-24] MEDS: PANTOprazole 40 MG TAB PO SCH (11:18)
[2020-03-24] MEDS: REMDESIVIR 100 MG in SODIUM CHLORIDE 0.9% 230 ML IV SCH (17:15)
[2020-03-24] MEDS: dexAMETHasone 6 MG in SYRINGE 0 ML IV SCH (17:16)
[2020-03-24] MEDS: SODIUM CHLORIDE 0.9% 10ML FLUSH IV SCH (19:56)
[2020-03-24] MEDS: ATORVASTATIN 20 MG TAB PO SCH (20:08)
--- NOTE | 2020-03-24 20:23 | Hospitalist Progress Note ---
Date of Service March 24, 2020 Assessment & Plan (1) Acute respiratory failure with hypoxia: Secondary to Covid-19 pneumonia. Wean O2 as tolerated. (2) Pneumonia due to COVID-19 virus: Extensive, but clinically stable. s/p convalescent plasma. Day #2 of 10 - decadron. Day #2 of 5 - remdesivir. Cont pulmonary toilet. Incentive michael/flutter valve. Wean O2 as tolerated. (3) Atrial fibrillation with RVR: Improved with resolution of fever. Cont diltiazem and metoprolol Cont Pradaxa for anticoagulation (4) Hyponatremia: Sodium 130 upon admission Now 134 stop IVF BMP am (5) Diarrhea: Secondary to Covid-19 Improving (6) Prostate cancer: stage 4, mets to bones. Continue daily bicalutamide (7) Vitamin D deficiency: Continue home vitamin D supplementation (8) Hypertension: Continue home diltiazem and metoprolol (9) Gout: Continue allopurinol prophylaxis (10) Hyperlipidemia: Continue atorvastatin (11) GERD (gastroesophageal reflux disease): Not on medications for this at home. Cont daily Protonix in the setting of receiving daily corticosteroids for COVID. (12) Restrictive lung disease: Noted on PFTs in outpatient PCP notes. PFTs also noted that he was responsive to bronchodilators Cont albuterol every 6 hours (13) Chronic diastolic CHF (congestive heart failure): Hold diuretics Was dehydrated on admission compensated today (14) DVT prophylaxis: Pradaxa PT, OT evals updated pt's by phone this evening Admission and Anticipated Discharge Date Admission Date: March 23, 2020 Subjective tele overnight - a.fib,rates improved to <100. patient states "I feel a little better today." still coughing. but dyspnea improved. no chest tightness/pain. no vomiting or diarrhea. appetite still poor. Review of Systems 2 Constitutional: + fatigue and + anorexia; no fever and no chills Ear, Nose, Mouth, Throat: loss of taste/smell improved Respiratory: no wheezing Cardiovascular: no chest pain Gastrointestinal: no abdominal pain Physical Exam Constitutional: + obese; no acute distress and no altered mental status looks good today ENMT: external ear and nose normal, oropharynx normal Respiratory: no respiratory distress Auscultation: + rales (diffuse b/l, multiple lung segments); no wheezes Cardiovascular: Rate/Rhythm: regular rate and + irregularly irregular Heart Sounds: normal S1 and normal S2; no murmur Vessels: posterior tibial pulses present and dorsalis pedis pulses present; no JVD Extremities: no edema Gastrointestinal (Abdomen): normal bowel sounds, soft, nontender, no hepatosplenomegaly Psychiatric: A+Ox3, euthymic affect Results & Data Results & Data ([facility]) Vital Signs (Past 12 Hours) Vital Signs Temp Pulse Resp BP Pulse Ox 03/24/20 20:17 96 H 20 95 03/24/20 18:39 137/87 03/24/20 16:03 36.5 C 90 20 168/109 H 94 03/24/20 15:06 90 18 92 03/24/20 11:57 36.6 C 85 19 151/86 H 95 labs reviewed - dimer about 500 lymphopenic Na 134 PG Care Time/CCT Total # of Minutes Spent Total Time Spent with Patient: Total time spent is greater than 50% in coordination of care (as documented) at patient's floor/unit and/or counseling patient: Coding Level of Care Code 53299 Subseq Hosp Care Lvl 3 Diagnoses Acute respiratory failure with hypoxia J96.01 Pneumonia due to COVID-19 virus U07.1; J12.89 Atrial fibrillation with RVR I48.91 Hyponatremia E87.1 Diarrhea R19.7 Diarrhea type: unspecified type Prostate cancer C61 Vitamin D deficiency E55.9 Hypertension I10 Gout M10.9 Hyperlipidemia E78.5 GERD (gastroesophageal reflux disease) K21.9 Restrictive lung disease J98.4 Chronic diastolic CHF (congestive heart failure) I50.32 DVT prophylaxis Z29.9 (1) Diarrhea Diarrhea type: unspecified type Qualified Code(s): R19.7 - Diarrhea, unspecified
[2020-03-24] MEDS ORDERED: KETOROLAC TROMETHAMINE 15 MG/ML VIAL IV ONE (21:50)
[2020-03-25] MEDS: ALBUTEROL HFA 8 GM INHALER INH SCH ×4 (00:22→19:22)
[2020-03-25 07:29] LABS: Basophils # (auto) 0.02 K/uL (0-0.2); Basophils % (auto) 0.2 %; Hematocrit (blood only) 44.5 % (42-52); Hemoglobin 15.4 g/dL (14.0-18.0); Immature Granulocytes # (auto) 0.04 K/uL (0.00-0.02); Immature Granulocytes % (auto) 0.5 %; Lymphocytes # (auto) 0.88 K/uL (1.2-3.4); Mean Corpuscular Hemoglobin 32.8 pg (25-34); Mean Corpuscular Hgb Conc 34.6 g/dL (32-36); Mean Corpuscular Volume 94.7 fL (80-100); Mean Platelet Volume 10.4 fL (7.4-10.4); Monocytes # (auto) 0.71 K/uL (0.11-0.59); Monocytes % (auto) 8.1 %; Neutrophils # (auto) 7.16 K/uL (1.4-6.5); Neutrophils % (auto) 81.2 %; Platelet Count 166 K/uL (130-400); RDW Coefficient of Variation 13.5 % (11.5-14.5); RDW Standard Deviation 47.2 fL (36.4-46.3); White Blood Count 8.81 K/uL (4.8-10.8)
[2020-03-25 07:32] LABS: D Dimer 400 ug/L FEU (0-500)
[2020-03-25] MEDS: DABIGATRAN ETEXILATE 75 MG CAP PO SCH ×2 (07:39→20:43)
[2020-03-25] MEDS: BICALUTAMIDE 50 MG TAB PO SCH (07:40)
[2020-03-25] MEDS: PANTOprazole 40 MG TAB PO SCH (07:40)
[2020-03-25] MEDS: METOPROLOL SUCC 50MG EXT REL TAB PO SCH (07:40)
[2020-03-25] MEDS: allopurinoL 100 MG TAB PO SCH (07:40)
[2020-03-25] MEDS: dilTIAZem HCL 120 MG CAPCR PO SCH (07:41)
[2020-03-25] MEDS: CHOLECALCIFEROL 1,000 UNITS 25 MCG TAB PO SCH (07:42)
[2020-03-25] MEDS: CALCIUM 600MG + VIT D 400 IU TAB PO SCH ×2 (07:42→20:44)
[2020-03-25 07:52] LABS: Creatinine Clr Calc Pharmacy 115.7 ml/min; Est GFR (African American) 107.3; Est GFR (Non-African American) 92.6
[2020-03-25 07:53] LABS: Creatinine Clr Calc Pharmacy 115.7 ml/min; Est GFR (African American) 107.3; Est GFR (Non-African American) 92.6; Potassium 4.5 mmol/L (3.5-5.1)
[2020-03-25] MEDS ORDERED: SENNA 8.6 MG TAB PO PRN (16:07)
[2020-03-25] MEDS: SODIUM CHLORIDE 0.9% 10ML FLUSH IV SCH (17:45)
[2020-03-25] MEDS: dexAMETHasone 6 MG in SYRINGE 0 ML IV SCH (18:00)
[2020-03-25] MEDS: REMDESIVIR 100 MG in SODIUM CHLORIDE 0.9% 230 ML IV SCH (18:28)
--- NOTE | 2020-03-25 20:29 | Hospitalist Progress Note ---
Date of Service March 25, 2020 Assessment & Plan (1) Acute respiratory failure with hypoxia: Secondary to Covid-19 pneumonia. Wean O2 as tolerated. Slowly improving. (2) Pneumonia due to COVID-19 virus: Extensive, but clinically stable and improving slowly. s/p convalescent plasma. Day #3 of 10 - decadron. Day #3 of 5 - remdesivir. Cont pulmonary toilet. Incentive michael/flutter valve. Wean O2 as tolerated. (3) Atrial fibrillation with RVR: Resolved. Rates controlled. Cont diltiazem and metoprolol. Cont Pradaxa for anticoagulation. (4) Hyponatremia: Sodium 130 upon admission resolved BMP am (5) Diarrhea: 2nd COVID resolved (6) Prostate cancer: stage 4, mets to bones. Continue daily bicalutamide (7) Vitamin D deficiency: Continue home vitamin D supplementation (8) Hypertension: Continue home diltiazem and metoprolol (9) Gout: Continue allopurinol prophylaxis (10) Hyperlipidemia: Continue atorvastatin daily AST/ALT due to remdesivir Rx (11) GERD (gastroesophageal reflux disease): Cont daily Protonix in the setting of receiving daily corticosteroids for COVID (12) Restrictive lung disease: Noted on PFTs in outpatient PCP notes. PFTs also noted that he was responsive to bronchodilators Cont albuterol every 6 hours (13) Chronic diastolic CHF (congestive heart failure): compensated (14) DVT prophylaxis: Pradaxa PT, OT evals appreciated updated pt's by phone 03/24 and 03/25 Admission and Anticipated Discharge Date Admission Date: March 23, 2020 Subjective patient again feeling better. appetite for the first time in several days modestly improved. still coughing. no sputum. minimal HARRISON. no dyspnea at rest. no abdominal pain, nausea, emesis. tele - a.fib with rates <100. Review of Systems Constitutional: + fatigue; no fever, no chills and no weakness Respiratory: + cough; no wheezing Cardiovascular: no chest pain Gastrointestinal: no abdominal pain, no nausea and no vomiting Physical Exam Constitutional: + obese; no acute distress and no altered mental status ENMT: external ear and nose normal, oropharynx normal Respiratory: no respiratory distress Auscultation: + rales (b/l - modestly improved ); no wheezes Cardiovascular: Rate/Rhythm: regular rate and + irregularly irregular Heart Sounds: normal S1 and normal S2; no murmur Vessels: posterior tibial pulses present and dorsalis pedis pulses present; no JVD Extremities: no edema Gastrointestinal (Abdomen): normal bowel sounds, soft, nontender, no hepatosplenomegaly Psychiatric: A+Ox3, euthymic affect Results & Data Results & Data ([facility]) Vital Signs (Past 12 Hours) Vital Signs Temp Pulse Pulse Resp BP BP Pulse Ox 03/25/20 19:28 36.5 C 89 20 127/73 92 03/25/20 19:22 83 16 93 03/25/20 16:00 99 H 03/25/20 15:26 36.5 C 89 20 113/61 92 03/25/20 13:35 97 H 18 90 03/25/20 12:14 36.5 C 85 21 163/99 H 93 Laboratory Results Laboratory Results - last 24 hr 03/23/20 03/25/20 03/25/20 19:34 06:21 06:21 WBC 8.81 RBC 4.70 Hgb 15.4 Hct 44.5 MCV 94.7 MCH 32.8 MCHC 34.6 RDW Std Deviation 47.2 H RDW Coeff of Phyllis 13.5 Plt Count 166 MPV 10.4 Immature Gran % (Auto) 0.5 Neut % (Auto) 81.2 Lymph % (Auto) 10.0 [place] % (Auto) 8.1 Eos % (Auto) 0.0 Baso % (Auto) 0.2 Neut # (Auto) 7.16 H Lymph # (Auto) 0.88 L [place] # (Auto) 0.71 H Eos # (Auto) 0.00 Baso # (Auto) 0.02 Immature Gran # (Auto) 0.04 H D-Dimer Sodium Potassium Chloride Carbon Dioxide Anion Gap BUN Creatinine 0.77 Est Cr Clr Drug Dosing 115.7 Est GFR ( Amer) 107.3 Est GFR (Non-Af Amer) 92.6 BUN/Creatinine Ratio Glucose Calcium AST 51 H ALT 38 Blood Type A Positive Antibody Screen NEGATIVE 03/25/20 03/25/20 06:21 06:21 WBC RBC Hgb Hct MCV MCH MCHC RDW Std Deviation RDW Coeff of Phyllis Plt Count MPV Immature Gran % (Auto) Neut % (Auto) Lymph % (Auto) [place] % (Auto) Eos % (Auto) Baso % (Auto) Neut # (Auto) Lymph # (Auto) [place] # (Auto) Eos # (Auto) Baso # (Auto) Immature Gran # (Auto) D-Dimer 400 Sodium 136 Potassium 4.5 Chloride 105 Carbon Dioxide 26 Anion Gap 5.0 BUN 17 Creatinine 0.77 Est Cr Clr Drug Dosing 115.7 Est GFR ( Amer) 107.3 Est GFR (Non-Af Amer) 92.6 BUN/Creatinine Ratio 22.0 H Glucose 140 H Calcium 8.0 L AST ALT Blood Type Antibody Screen PG Care Time/CCT Total # of Minutes Spent Total Time Spent with Patient: Total time spent is greater than 50% in coordination of care (as documented) at patient's floor/unit and/or counseling patient: Coding Level of Care Code 32361 Subseq Hosp Care Lvl 2 Diagnoses Acute respiratory failure with hypoxia J96.01 Pneumonia due to COVID-19 virus U07.1; J12.89 Atrial fibrillation with RVR I48.91 Hyponatremia E87.1 Diarrhea R19.7 Diarrhea type: unspecified type Prostate cancer C61 Vitamin D deficiency E55.9 Hypertension I10 Gout M10.9 Hyperlipidemia E78.5 GERD (gastroesophageal reflux disease) K21.9 Restrictive lung disease J98.4 Chronic diastolic CHF (congestive heart failure) I50.32 DVT prophylaxis Z29.9 (1) Diarrhea Diarrhea type: unspecified type Qualified Code(s): R19.7 - Diarrhea, unspecified
[2020-03-25] MEDS: ATORVASTATIN 20 MG TAB PO SCH (20:42)
[2020-03-26] MEDS: ALBUTEROL HFA 8 GM INHALER INH SCH ×4 (00:02→19:23)
[2020-03-26 07:20] LABS: Creatinine Clr Calc Pharmacy 101.2 ml/min; Est GFR (African American) 101.6; Est GFR (Non-African American) 87.6
[2020-03-26] MEDS: allopurinoL 100 MG TAB PO SCH (08:00)
[2020-03-26] MEDS: BICALUTAMIDE 50 MG TAB PO SCH (08:02)
[2020-03-26] MEDS: DABIGATRAN ETEXILATE 75 MG CAP PO SCH ×2 (08:02→21:00)
[2020-03-26] MEDS: PANTOprazole 40 MG TAB PO SCH (08:03)
[2020-03-26] MEDS: dilTIAZem HCL 120 MG CAPCR PO SCH (08:03)
[2020-03-26] MEDS: CHOLECALCIFEROL 1,000 UNITS 25 MCG TAB PO SCH (08:03)
[2020-03-26] MEDS: CALCIUM 600MG + VIT D 400 IU TAB PO SCH ×2 (08:03→21:25)
[2020-03-26] MEDS: METOPROLOL SUCC 50MG EXT REL TAB PO SCH (08:04)
[2020-03-26] MEDS: REMDESIVIR 100 MG in SODIUM CHLORIDE 0.9% 230 ML IV SCH (17:52)
[2020-03-26] MEDS: dexAMETHasone 6 MG in SYRINGE 0 ML IV SCH (17:52)
--- NOTE | 2020-03-26 20:38 | Hospitalist Progress Note ---
Date of Service March 26, 2020 Assessment & Plan (1) Acute respiratory failure with hypoxia: Secondary to Covid-19 pneumonia. Improving nicely. Still requiring minimal amount of O2. Continue to wean O2 as tolerated. (2) Pneumonia due to COVID-19 virus: Extensive radiographically, but clinically stable and improving very nicely. s/p convalescent plasma. Day #4 of 10 - decadron. Day #4 of 5 - remdesivir. Cont pulmonary toilet. Incentive michael/flutter valve. Wean O2 as tolerated. (3) Atrial fibrillation with RVR: Resolved. Rates controlled. Cont diltiazem and metoprolol. Cont Pradaxa for anticoagulation. (4) Hyponatremia: Sodium 130 upon admission resolved BMP am (5) Diarrhea: 2nd COVID resolved (6) Prostate cancer: stage 4, mets to bones. Continue daily bicalutamide (7) Vitamin D deficiency: Continue home vitamin D supplementation (8) Hypertension: Continue home diltiazem and metoprolol (9) Gout: Continue allopurinol prophylaxis (10) Hyperlipidemia: Continue atorvastatin daily AST/ALT due to remdesivir Rx (11) GERD (gastroesophageal reflux disease): Cont daily Protonix in the setting of receiving daily corticosteroids for COVID (12) Restrictive lung disease: Noted on PFTs in outpatient PCP notes. PFTs also noted that he was responsive to bronchodilators Cont albuterol every 6 hours (13) Chronic diastolic CHF (congestive heart failure): remains compensated (14) DVT prophylaxis: Pradaxa PT, OT evals appreciated - cleared for home updated pt's by phone 03/24, 03/25 and 03/26 home tomorrow following last dose of remdesivir?? Admission and Anticipated Discharge Date Admission Date: March 23, 2020 Subjective tele - rate controlled a.fib "I'm feeling good - back to normal" eating better minimal cough scant HARRISON with walking with PT did have desats to upper 80s in RA with working with PT no abd pain no nausea no emesis no diarrhea moving bowels Review of Systems Constitutional: no fever, no chills, no body aches, no fatigue, no weakness and no anorexia Ear, Nose, Mouth, Throat: no nasal congestion and no sore throat Respiratory: no wheezing Cardiovascular: no chest pain Physical Exam Constitutional: + obese; no acute distress and no altered mental status ENMT: external ear and nose normal, oropharynx normal Respiratory: no respiratory distress Auscultation: + rales (b/l - bases - soft/faint); no diminished lung sounds and no wheezes Cardiovascular: Rate/Rhythm: regular rate and + irregularly irregular Heart Sounds: normal S1 and normal S2; no murmur Vessels: posterior tibial pulses present and dorsalis pedis pulses present; no JVD Extremities: + edema (trace b/l ) Gastrointestinal (Abdomen): normal bowel sounds, soft, nontender, no hepatosplenomegaly Psychiatric: A+Ox3, euthymic affect Results & Data Results & Data ([facility]) Vital Signs (Past 12 Hours) Vital Signs Temp Pulse Resp BP Pulse Ox 03/26/20 19:46 36.6 C 85 21 141/82 H 92 03/26/20 15:59 36.6 C 74 20 123/67 92 03/26/20 13:53 72 16 93 03/26/20 11:32 36.6 C 79 18 106/72 91 Laboratory Results Laboratory Results - last 24 hr 03/23/20 03/26/20 19:34 06:25 Creatinine 0.88 Est Cr Clr Drug Dosing 101.2 Est GFR ( Amer) 101.6 Est GFR (Non-Af Amer) 87.6 AST 54 H ALT 41 Blood Type A Positive Antibody Screen NEGATIVE PG Care Time/CCT Total # of Minutes Spent Total Time Spent with Patient: Total time spent is greater than 50% in coordination of care (as documented) at patient's floor/unit and/or counseling patient: Coding Level of Care Code 56160 Subseq Hosp Care Lvl 2 Diagnoses Acute respiratory failure with hypoxia J96.01 Pneumonia due to COVID-19 virus U07.1; J12.89 Atrial fibrillation with RVR I48.91 Hyponatremia E87.1 Diarrhea R19.7 Diarrhea type: unspecified type Prostate cancer C61 Vitamin D deficiency E55.9 Hypertension I10 Gout M10.9 Hyperlipidemia E78.5 GERD (gastroesophageal reflux disease) K21.9 Restrictive lung disease J98.4 Chronic diastolic CHF (congestive heart failure) I50.32 DVT prophylaxis Z29.9 (1) Diarrhea Diarrhea type: unspecified type Qualified Code(s): R19.7 - Diarrhea, unspecified
[2020-03-26] MEDS: ATORVASTATIN 20 MG TAB PO SCH (21:25)
[2020-03-26] MEDS: SODIUM CHLORIDE 0.9% 10ML FLUSH IV SCH (21:27)
[2020-03-27] MEDS: ALBUTEROL HFA 8 GM INHALER INH SCH ×3 (01:12→13:22)
[2020-03-27 07:25] LABS: BUN Creatinine Ratio 24.1 (10-20); Calcium 8.6 mg/dl (8.5-10.1); Creatinine Clr Calc Pharmacy 98.9 ml/min; Est GFR (African American) 100.6; Est GFR (Non-African American) 86.8; Potassium 4.2 mmol/L (3.5-5.1)
[2020-03-27] MEDS: PANTOprazole 40 MG TAB PO SCH (08:36)
[2020-03-27] MEDS: allopurinoL 100 MG TAB PO SCH (08:36)
[2020-03-27] MEDS: CHOLECALCIFEROL 1,000 UNITS 25 MCG TAB PO SCH (08:37)
[2020-03-27] MEDS: dilTIAZem HCL 120 MG CAPCR PO SCH (08:37)
[2020-03-27] MEDS: BICALUTAMIDE 50 MG TAB PO SCH (08:37)
[2020-03-27] MEDS: METOPROLOL SUCC 50MG EXT REL TAB PO SCH (08:37)
[2020-03-27] MEDS: CALCIUM 600MG + VIT D 400 IU TAB PO SCH (08:38)
[2020-03-27] MEDS: DABIGATRAN ETEXILATE 75 MG CAP PO SCH (08:38)
--- NOTE | 2020-03-27 14:50 | Discharge Summary ---
Date of Service date of admission - March 23, 2020 date of discharge - March 27, 2020 Admission HPI Per Admitting Provider This patient is a 69-year-old male with a history of metastatic prostate cancer on Lupron therapy in October 2019 and Xgeva in November with monthly Xgeva injections and daily Biclutamide. Next dose of Lupron per chart review is scheduled for April. Patient also has history of HLD, HTN, Afib on Pradaxa and diltiazem (amiodarone DC'd secondary to restrictive lung disease), Colon polyps, GERD, and Gout. Patient came to the EMD today for worsening shortness of breath and feeling very fatigued as well as dizziness with walking. The shortness of breath has been ongoing for 1 week. Patient notes that it is worse when up and moving around and improves when he is at rest. Patient was tested for COVID-19 in [place] on Mar 22, 2020 and was positive. Patient symptoms are associated with mildly productive cough and dizziness. He denies any nausea or vomiting, but did start having some nonbloody diarrhea. He feels quite fatigued. He has low appetite but has been eating and drinking. He is making urine. In the ER, when he ambulated to the bathroom in his room, his pulse ox dropped to the mid 80s although it is not documented and he had near syncope as per ER MD. In the EMD patient was given 1 L of 0.9% Saline, tylenol, 10mg diltiazem bolus followed by drip at 5mg/hour for rate control <110 which was then quickly discontinued. CTA of the chest was performed and negative for pulmonary embolism, however did show bilateral ground glass opacities throughout. Patient was also given a dose of Levaquin 750 mg IV and started on Decadron 6mg IV for COVID-19 with hypoxia. Patient will be admitted to COVID 19 PCU negative pressure room as available. Continue with supportive care, patient to self rotate in bed to help with lung recruitment, rate control, and will be typed and crossed for convalescent plasma as well as treated with Remdesivir and dexamethasone as per our discussion. Principal Diagnosis acute hypoxic respiratory failure 2nd to COVID-19 pneumonia Discharge Exam Constitutional + obese; no acute distress and no altered mental status ENMT external ear and nose normal, oropharynx normal Respiratory no respiratory distress Auscultation: + rales (b/l - bases - soft/faint); no diminished lung sounds and no wheezes Cardiovascular Rate/Rhythm: regular rate and + irregularly irregular Heart Sounds: normal S1 and normal S2; no murmur Vessels: posterior tibial pulses present and dorsalis pedis pulses present; no JVD Extremities: + edema (trace b/l ) Gastrointestinal (Abdomen) normal bowel sounds, soft, nontender, no hepatosplenomegaly Psychiatric A+Ox3, euthymic affect Discharge Data Allergies Allergy/AdvReac Type Severity Reaction Status Date / Time amiodarone AdvReac Severe Pneumonitis Unverified 03/23/20 15:16 Consultations PT, OT Procedures Performed 1. convalescent plasma 2. remdesivir treatment x 5 days 3. two-step oxygen test showing need for ambulatory oxygen, 2 liters, with walking Ordered Studies 03/23/20 14:14 CT angio chest PE protocol Stat IMPRESSION: 1. No pulmonary emboli identified. 2. Extensive multifocal groundglass opacities within the lungs consistent with viral pneumonia. 3. Numerous blastic skeletal metastases. 4. Moderate cardiomegaly and extensive coronary artery calcification. 5. Mildly enlarged mediastinal and right hilar lymph nodes. These are nonspecific and may be reactive. A follow-up chest CT in 6 months is recommended. 6. Mildly dilated ascending aorta, measuring 4.4 cm. Hospital Course (1) Acute respiratory failure with hypoxia: Secondary to Covid-19 pneumonia. Improved with supportive care, steroids, remdesivir, etc. Still requiring minimal amount of O2 at discharge; 2-step showed need for 2 L NC O2 with ambulation. (2) Pneumonia due to COVID-19 virus: Extensive radiographically, but clinically stable and improved during his stay. s/p convalescent plasma. s/p 5-day course of remdesivir. Received 5 days of IV/PO decadron - will finish 5 days more after discharge. No obvious superimposed bacterial pneumonia. 2-step oxygen test showed need for ambulatory oxygen, 2 L NC O2 with activity. (3) Atrial fibrillation with RVR: Resolved. Rates controlled with diltiazem and metoprolol. Cont Pradaxa for anticoagulation. (4) Hyponatremia: Sodium 130 upon admission Sodium 137 at discharge Hypovolemic hyponatremia (5) Prostate cancer: stage 4, mets to bones. Continue daily bicalutamide (6) Vitamin D deficiency: Continue home vitamin D supplementation (7) Hypertension: Continue home diltiazem and metoprolol (8) Gout: Continue allopurinol prophylaxis (9) Hyperlipidemia: Continue atorvastatin daily AST/ALT due to remdesivir showed mild transaminitis (10) GERD (gastroesophageal reflux disease): Cont daily Protonix in the setting of receiving daily corticosteroids for COVID (11) Restrictive lung disease: Noted on PFTs in outpatient PCP notes. PFTs also noted that he was responsive to bronchodilators Cont albuterol every 6 hours (12) Chronic diastolic CHF (congestive heart failure): compensated during the stay (13) Transaminitis: mild elevation in AST during the stay likely due to COVID-19 infection itself monitor as outpatient for resolution (14) Ascending aortic aneurysm: 4.4cm recommend ongoing surveillance Total Time Total Time Spent Total Time Spent (In Minutes): 45 Total Time Includes: Examination of the Patient, Discharge Planning and Medication Reconciliation Discharge Plan Discharge Items Patient Disposition: Home - Self-Care Reason For Visit: COVID-19 Pneumonia Discharge Diagnosis: COVID-19 (coronavirus) pneumonia - improved/resolving Activity: As commented below Activity Comment: GRADUALLY increase your activities over the next 7 days Non-emergency contact: Primary Care Provider Call non-emergency contact if: you have any medication questions, your symptoms worsen and you have a fever Follow-up/Referrals: Shyann Kwon MD [Primary Care Provider] - (please schedule a virtual or "telehealth" visit within [address] Kwon) Diet: Heart Healthy Addtl Attending Provider Instructions: You were treated for pneumonia and dehydration both due to COVID-19 infection. You received plasma, remdesivir, and steroids for the COVID-19. IV fluids were given for your dehydration. All of your labs normalized. Your a.fib was largely under good control while here. We were able to wean you off oxygen at rest. However, you will need to use 2 liters of oxygen with walking and ambulation. You may need this for the next few weeks. It is challenging to know when you are no longer contagious to others. I would plan on spending the NEXT 3 DAYS in isolation at home to be on the safe side. Please avoid others during this time period, do not have visitors, and do not leave your home. After 3 days you can begin to leave your home but please continue to wear a mask at all times. In a few weeks please consider getting a flu shot. Medication recommendations: 1. dexamethasone steroid - 6mg daily for 5 days starting TOMORROW. Take with food. 2. omeprazole 40mg once daily for 7 days to protect your stomach. Start this TOMORROW. 3. albuterol via spacer device - 2 puffs every 6 hours as needed for cough, wheeze, shortness of breath. 4. oxygen, 2 liters, with ambulation/walking. Ok to take off at rest and while sleeping. 5. stop any previously given antibiotic. Follow-up - please schedule a "virtual" visit with your family doctor within 5 days. Return to any hospital if - * you experience recurrent fevers over 100 degrees * you develop recurrent, worsening shortness of breath * you have chest pain * any other concerns It was my pleasure caring for you! Continue to feel better! Stay well! -Dr Mason Pending Studies at Discharge: No Stand-Alone Forms: My [facility] [email or web address], Smoking Cessation Medications and DC Order Prescriptions: New (DME) Oxygen Home Liters Per Minute 1 ea .Route .prn Qty: 1 RF: 0 albuterol sulfate [Ventolin HFA] 90 mcg/actuation HFA aerosol inhaler 2 inh inhalation Q6H PRN (Reason: shortness of breath or wheezing) Qty: 18 RF: 0 Continued allopurinol 100 mg tablet 200 mg PO QAM RF: 0 Pradaxa 150 mg capsule 150 mg PO BID RF: 0 diltiazem HCl [Cartia XT] 120 mg capsule,extended release 24hr 120 mg PO QAM RF: 0 atorvastatin [Lipitor] 20 mg tablet 20 mg PO HS RF: 0 bicalutamide 50 mg tablet 50 mg PO QAM RF: 0 metoprolol succinate 100 mg tablet extended release 24 hr 100 mg PO QAM RF: 0 calcium carbonate 500 mg calcium (1,250 mg) tablet 500 mg PO BID RF: 0 colchicine [Colcrys] 0.6 mg Tablet 0.6 mg PO UD RF: 0 cholecalciferol (vitamin D3) 25 mcg (1,000 unit) capsule 1,000 unit PO QAM RF: 0 Super Beta Prostate 1 cap PO QAM RF: 0 Discontinued azithromycin 250 mg tablet 250 mg PO UD RF: 0 Discharge Orders: Discharge Order (Routine); Ordered 03/27/20 Ordered By: Kade Mason Admission Data Admit Date/Time: 03/23/20 17:41 Attending Provider: Kade Mason Admit Provider: Erlinda Pereira Primary Care Provider: Shyann Kwon Other Providers: Erlinda Pereira Other Interventions: Discharge Summary Assessment (RN) Last Done: 03/27/20 16:33 Coding Level of Care Code D/C Day Management >30 mins Diagnoses Acute respiratory failure with hypoxia J96.01 Pneumonia due to COVID-19 virus U07.1; J12.89 Atrial fibrillation with RVR I48.91 Hyponatremia E87.1 Prostate cancer C61 Vitamin D deficiency E55.9 Hypertension I10 Gout M10.9 Hyperlipidemia E78.5 GERD (gastroesophageal reflux disease) K21.9 Restrictive lung disease J98.4 Chronic diastolic CHF (congestive heart failure) I50.32 Transaminitis R74.01 Ascending aortic aneurysm I71.2
[2020-03-27] MEDS: REMDESIVIR 100 MG in SODIUM CHLORIDE 0.9% 230 ML IV SCH (15:17)
== END 2020-03-27 18:22 | disposition home or self-care (01) | DRG 177 ==
LOC: ED 11:56 → 2E 17:41 → SUATTDRO 17:41 → 2E 18:49

== ENCOUNTER 2021-01-17 00:33 | Inpatient (IN) ==
[2021-01-17] MEDS ORDERED: ACETAMINOPHEN 500 MG TAB PO STA (01:10)
[2021-01-17 01:11] LABS: Basophils # (auto) 0.02 K/uL (0-0.2); Basophils % (auto) 0.1 %; Eosinophils # (auto) 0.01 K/uL (0-0.5); Eosinophils % (auto) 0.1 %; Hematocrit (blood only) 43.4 % (42-52); Hemoglobin 15.2 g/dL (14.0-18.0); Immature Granulocytes # (auto) 0.03 K/uL (0.00-0.02); Immature Granulocytes % (auto) 0.2 %; Lymphocytes # (auto) 0.96 K/uL (1.2-3.4); Lymphocytes % (auto) 5.8 %; Mean Corpuscular Hemoglobin 33.3 pg (25-34); Mean Platelet Volume 9.1 fL (7.4-10.4); Monocytes # (auto) 1.37 K/uL (0.11-0.59); Monocytes % (auto) 8.3 %; Neutrophils # (auto) 14.13 K/uL (1.4-6.5); Neutrophils % (auto) 85.5 %; Platelet Count 260 K/uL (130-400); RDW Coefficient of Variation 13.3 % (11.5-14.5); Red Blood Count 4.57 M/uL (4.7-6.1); White Blood Count 16.52 K/uL (4.8-10.8)
[2021-01-17 01:30] LABS: Albumin Level 3.6 gm/dl (3.4-5.0); BUN Creatinine Ratio 17.9 (10-20); Calcium 9.2 mg/dl (8.5-10.1); Creatinine Clr Calc Pharmacy 80.9 ml/min; Est GFR (African American) 78.4 ml/min; Est GFR (Non-African American) 67.7 ml/min
[2021-01-17 01:33] LABS: Albumin Globulin Ratio 0.7 (0.9-2); Bilirubin,Total 0.9 mg/dl (0.2-1); Globulin 4.8 gm/dl (2.5-4.0); Total Protein 8.4 gm/dl (6.4-8.2)
[2021-01-17] MEDS ORDERED: SODIUM CHLORIDE 0.9% 1000ML 1,000 ML IV ONE (02:31)
[2021-01-17] MEDS ORDERED: CEFEPIME 2,000 MG/20 ML VIAL IV STA (02:32)
[2021-01-17 03:46] LABS: Appearance Urine Clear (Clear); Bacteria Urine Automated Negative (Negative); Bilirubin Urine Negative (Negative); Blood Urine 2+ (Negative); Color Urine Yellow; Epithelial Cell Urine Auto 0-5 /lpf (0-5); Glucose Urine UA Negative (Negative); Ketones Urine Trace (Negative); Leukocyte Esterase Urine Negative (Negative); Nitrite Urine Negative (Negative); Protein Urine 1+ (Negative); Specific Gravity Urine 1.025 (1.000-1.030); Urobilinogen Urine Negative (Negative); WBC Urine Automated 0 /hpf (0-5)
--- NOTE | 2021-01-17 04:56 | History & Physical Report ---
Date of Service January 17, 2021 Assessment & Plan (1) Sepsis: Plan: 70-year-old male presenting with sepsisfever, tachycardia, leukocytosis (WBC = 16.52 with elevated neutrophils, decreased lymphocytes) elevated lactate initially of 2.8. Unclear source at this time. Patient's history does not suggest a source of infection. Chest x-ray and urinalysis did not suggest infection. Question of tickborne illness versus developing a right lower extremity cellulitis. Of note, patient states that he was bitten by a rattlesnake on the right lower extremity when he was a child and he has chronic edema and redness. He does not feel that his current presentation is much of baseline. Repeat lactate normal at 1.6 after receiving approximately 300 mL of IV fluid. Covid testing is negative. Admit to medical with telemetry Follow cultures Marked area of redness on right lower extremity to monitor for possible infection source Check Lyme and anaplasmosis Empiric doxycycline 100 mg twice daily (2) Atrial fibrillation: Plan: Patient with longstanding history of atrial fibrillation, presently in RVR with heart rate of 130. Heart rate did improve with IV fluids administered in ER. During my encounter, rate was in the 1 teens. Patient did not get his evening medications. Continue IV fluids, LR at 125 x 1 L Continue Toprol-XL 100 mg p.o. every morning. Will administer now Continue diltiazem 120 mg p.o. daily Continue dabigatran 150 mg p.o. twice daily for anticoagulation (3) Prostate cancer: Plan: Patient with history of metastatic prostate cancer on bicalutamide 50 mg p.o. daily as well as Xgeva injections monthly and Lupron injections every 3 months. He follows with both urology and oncology/hematology. Continue bicalutamide Continue outpatient follow-up as arranged (4) Chronic diastolic heart failure due to hypertrophic obstructive cardiomyopathy: Plan: Patient appears clinically dry at present Continue metoprolol Cautious use of IV fluids (5) Gout: Plan: Chronic. Continue allopurinol 200 mg p.o. every morning Plan: FENLR at 125 mL/h x 1 L, electrolytes within normal limits, heart healthy diet as tolerated Prophylaxispatient on dabigatran anticoagulation for history of atrial fibrillation. We will continue Codefull per discussion with patient Dispoobservation to medical with telemetry History of Present Illness Chief Complaint: Fever, rigors Primary Care Provider: Shyann Kwon MD Last [place] is a pleasant 70-year-old male with history of atrial fibrillation on dabigatran anticoagulation, prostate cancer, prior Covid infection in March and CHF presenting with acute onset rigors, confusion and fever. Patient was in his usual state of health today. 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 He took a nap and felt slightly better however, became confused again after he woke up. He reports fevers, chills, rigors and stuffy nose. Otherwise denies headache, visual changes, pain or stiffness in the neck, chest pain, palpitations, shortness of breath, cough, wheeze, abdominal pain, nausea, vomiting, diarrhea, constipation, dysuria, rashes, joint pain. No dental pain. No tick bites recently however, he has had tick bites in the past. No additional complaints at this time. In the ER he was febrile, tachycardic, blood pressure stable. He was administered cefepime and normal saline. States that he feels much better after these therapies. ER course: Cefepime, normal saline, Tylenol Allergies Allergy/AdvReac Type Severity Reaction Status Date / Time amiodarone AdvReac Severe Pneumonitis Unverified 01/17/21 02:52 Home Medications Medication Instructions Recorded Confirmed Type atorvastatin 20 mg tablet (Lipitor) 20 mg PO HS 09/23/19 01/17/21 History dabigatran etexilate 150 mg 150 mg PO BID 09/23/19 01/17/21 History capsule (Pradaxa) diltiazem HCl 120 mg 120 mg PO QAM 09/23/19 01/17/21 History capsule,extended release 24 hr (Cartia XT) allopurinol 100 mg tablet 200 mg PO QAM 10/21/19 01/17/21 History bicalutamide 50 mg tablet 50 mg PO QAM 03/23/20 01/17/21 History calcium carbonate 500 mg calcium 500 mg PO BID 03/23/20 01/17/21 History (1,250 mg) tablet cholecalciferol (vitamin D3) 25 1,000 unit PO QAM 03/23/20 01/17/21 History mcg (1,000 unit) capsule colchicine 0.6 mg tablet (Colcrys) 0.6 mg PO UD 03/23/20 01/17/21 History metoprolol succinate 100 mg 100 mg PO QAM 03/23/20 01/17/21 History tablet,extended release 24 hr Oxygen Home #1 ea 03/27/20 01/17/21 Rx albuterol sulfate 90 mcg/actuation 2 inh INHALATION Q6H PRN #18 g 03/27/20 01/17/21 Rx aerosol inhaler (Ventolin HFA) Past Med/Surg History Medical History (Updated 01/17/21 @ 05:12 by Nimo Cardenas DO) Atrial fibrillation Atrial fibrillation with RVR Basal cell carcinoma of dorsum of nose BPH (benign prostatic hyperplasia) Chronic diastolic heart failure due to hypertrophic obstructive cardiomyopathy Congestive heart failure Elevated PSA Gout Idiopathic peripheral neuropathy Polyp of colon Prostate cancer Surgical History History of left knee replacement Family History Family/Other Prostate cancer cousin on fathers side Family/Other Hypertension paternal aunts Mother , age 75 COPD No problems noted. Father , age 41 complications of jungle rot WW2 Heart disease Son No problems noted. Son No problems noted. Daughter No problems noted. 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 Redness and warmth of right lower extremity. Nontender. Patient states this is chronic and unchanged from baseline. HEENT: NC/AT, PERRL, EOMI, anicteric sclera, conjunctiva without injection, external ear normal to inspection and nontender, nares patent, dry mucus membranes, edentulous, no oropharyngeal lesions, neck supple, trachea midline, no LAD, no thyromegaly, no JVD Heart: +S1/S2, irregularly irregular, tachycardic, no m/r/g Lungs: equal air entry bilaterally, faint crackles in bilateral bases, no rhonchi or wheezes Abd: +BS, soft, NT/ND, no masses/organomegaly/ascites Ext: warm, 2+ pulses in UE/LE bilaterally, trace pitting edema, redness and warmth of right lower extremity to mid calf, nontender Neuro: nonfocal, patient AA&O x 4, speech intact, no facial droop, moving all extremities on command with equal strength 5/5 Results & Data Results & Data ([facility]) Vital Signs (Past 12 Hours) Vital Signs Temp Pulse Pulse Resp BP BP Pulse Ox 01/17/21 03:37 38.2 C H 01/17/21 03:31 130 H 119/84 94 01/17/21 03:00 130 H 21 131/83 93 01/17/21 02:31 130 H 148/89 H 93 01/17/21 02:17 144 H 30 H 148/97 H 92 01/17/21 02:16 39.4 C H 131 H 28 H 148/97 H 93 01/17/21 01:03 92 01/17/21 00:43 39.5 C H 135 H 20 191/105 H 90 Laboratory Results Laboratory Results WBC 16.52 K/uL (4.8-10.8) H 01/17/21 00:59 RBC 4.57 M/uL (4.7-6.1) L 01/17/21 00:59 Hgb 15.2 g/dL (14.0-18.0) 01/17/21 00:59 Hct 43.4 % (42-52) 01/17/21 00:59 MCV 95.0 fL (80-100) 01/17/21 00:59 MCH 33.3 pg (25-34) 01/17/21 00:59 MCHC 35.0 g/dL (32-36) 01/17/21 00:59 RDW Std Deviation 46.0 fL (36.4-46.3) 01/17/21 00:59 RDW Coeff of Phyllis 13.3 % (11.5-14.5) 01/17/21 00:59 Plt Count 260 K/uL (130-400) 01/17/21 00:59 MPV 9.1 fL (7.4-10.4) 01/17/21 00:59 Immature Gran % (Auto) 0.2 % 01/17/21 00:59 Neut % (Auto) 85.5 % 01/17/21 00:59 Lymph % (Auto) 5.8 % 01/17/21 00:59 [place] % (Auto) 8.3 % 01/17/21 00:59 Eos % (Auto) 0.1 % 01/17/21 00:59 Baso % (Auto) 0.1 % 01/17/21 00:59 Neut # (Auto) 14.13 K/uL (1.4-6.5) H 01/17/21 00:59 Lymph # (Auto) 0.96 K/uL (1.2-3.4) L 01/17/21 00:59 [place] # (Auto) 1.37 K/uL (0.11-0.59) H 01/17/21 00:59 Eos # (Auto) 0.01 K/uL (0-0.5) 01/17/21 00:59 Baso # (Auto) 0.02 K/uL (0-0.2) 01/17/21 00:59 Immature Gran # (Auto) 0.03 K/uL (0.00-0.02) H 01/17/21 00:59 Sodium 135 mmol/L (136-145) L 01/17/21 00:59 Potassium 4.0 mmol/L (3.5-5.1) 01/17/21 00:59 Chloride 100 mmol/L (98-107) 01/17/21 00:59 Carbon Dioxide 25 mmol/L (21-32) 01/17/21 00:59 Anion Gap 10.0 (3-11) 01/17/21 00:59 BUN 20 mg/dl (7-18) H 01/17/21 00:59 Creatinine 1.10 mg/dl (0.6-1.4) 01/17/21 00:59 Est Cr Clr Drug Dosing 80.9 ml/min 01/17/21 00:59 Est GFR ( Amer) 78.4 ml/min 01/17/21 00:59 Est GFR (Non-Af Amer) 67.7 ml/min 01/17/21 00:59 BUN/Creatinine Ratio 17.9 (10-20) 01/17/21 00:59 Glucose 114 mg/dl (70-99) H 01/17/21 00:59 Lactate 1.6 mmol/L (0.4-2.0) 01/17/21 04:13 Calcium 9.2 mg/dl (8.5-10.1) 01/17/21 00:59 Total Bilirubin 0.9 mg/dl (0.2-1) 01/17/21 00:59 AST 23 U/L (15-37) 01/17/21 00:59 ALT 25 U/L (12-78) 01/17/21 00:59 Alkaline Phosphatase 83 U/L (45-117) 01/17/21 00:59 Troponin I < 0.015 ng/ml (0-0.045) 01/17/21 04:13 Total Protein 8.4 gm/dl (6.4-8.2) H 01/17/21 00:59 Albumin 3.6 gm/dl (3.4-5.0) 01/17/21 00:59 Globulin 4.8 gm/dl (2.5-4.0) H 01/17/21 00:59 Albumin/Globulin Ratio 0.7 (0.9-2) L 01/17/21 00:59 Urine Color Yellow 01/17/21 03:30 Urine Appearance Clear (Clear) 01/17/21 03:30 Urine pH 6.0 (4.5-7.5) 01/17/21 03:30 Ur Specific [place] 1.025 (1.000-1.030) 01/17/21 03:30 Urine Protein 1+ (Negative) H 01/17/21 03:30 Urine Glucose (UA) Negative (Negative) 01/17/21 03:30 Urine Ketones Trace (Negative) H 01/17/21 03:30 Urine Blood 2+ (Negative) H 01/17/21 03:30 Urine Nitrite Negative (Negative) 01/17/21 03:30 Urine Bilirubin Negative (Negative) 01/17/21 03:30 Urine Urobilinogen Negative (Negative) 01/17/21 03:30 Ur Leukocyte Esterase Negative (Negative) 01/17/21 03:30 Urine WBC (Auto) 0 /hpf (0-5) 01/17/21 03:30 Urine RBC (Auto) 10-30 /hpf (0-4) H 01/17/21 03:30 U Hyaline Cast (Auto) 1-5 /lpf (0-5) 01/17/21 03:30 U Epithel Cells (Auto) 0-5 /lpf (0-5) 01/17/21 03:30 Urine Bacteria (Auto) Negative (Negative) 01/17/21 03:30 COVID-19 Eval Order Covid19 at [facility] 01/17/21 01:11 SARS-CoV-2 (PCR) NEGATIVE (Negative) 01/17/21 01:11 Code Status & VTE Plan VTE Prophylaxis Plan VTE Prophylaxis will be ordered: Yes PG Care Time/CCT Total # of Minutes Spent Total Time Spent with Patient: Total time spent is greater than 50% in c oordination of care (as documented) at patient's floor/unit and/or counseling patient: Coding Level of Care Code INT OBSERVATION CARE 70M LVL 3 Diagnoses Chronic diastolic heart failure due to hypertrophic obstructive cardiomyopathy I50.32; I42.1 Atrial fibrillation I48.91 Sepsis A41.9 Gout M10.9 Prostate cancer C61
[2021-01-17] MEDS ORDERED: ONDANSETRON INJ 2 MG/ML 2 ML VIAL IV PRN (06:02)
[2021-01-17] MEDS ORDERED: LACTATED RINGER'S 1,000 ML IV SCH (06:02)
[2021-01-17] MEDS ORDERED: ALBUTEROL HFA 8 GM INHALER INH PRN (06:02)
--- NOTE | 2021-01-17 06:39 | Emergency Department Note ---
Impression & Plan Sepsis, Atrial fibrillation with rapid ventricular response Admit to the [facility] ED Provider Note NAME: HAILEE ROBERTS AGE: 70 SEX: M ARRIVES VIA: Ambulance INFORMANT: Patient, and his daughter ED PROVIDER(S): Kisha Saldana DO CHIEF COMPLAINT: Weakness and fever PLAN: Disposition: Admit to the [facility] Condition: Stable MEDICAL DECISION MAKING: This is a 70-year-old male patient who presents to the emergency department with sudden onset of weakness, shakiness and altered mental status. The patient was found to be septic with no specific source identified. The patient was treated with IV cefepime and normal saline. Patient has a history of A. fib and was then a rapid rate. He is receiving IV fluids. I discussed the case with the [facility] and they will evaluate for further management. Triage Nursing notes reviewed and agree with them. Additional history obtained from the patient's daughter Prior medical records reviewed Vital Signs: reviewed and remarkable for fever and tachycardia Differential diagnosis: A. fib with RVR, cardiac ischemia, sepsis, UTI, pneumonia, COVID-19, cellulitis ER treatment provided: IV normal saline IV cefepime Tylenol p.o. Diagnostics interpreted by me: ECG: Atrial fibrillation with rapid ventricular response at a rate of 152. There is no obvious ST segment elevation or signs of ischemia. There is no ectopy. Cardiac Monitoring: A. fib at 122 Laboratory studies: See below Imaging studies: As per my interpretation Chest x-ray: No acute pulmonary infiltrates appreciated. There is cardiomegaly HPI: 70/M arrives for evaluation of altered mental status and weakness. 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 His altered mental status persisted and he was transported here for evaluation. The patient had COVID-19 in March 2020. He had plan to get the Covid vaccine this fall prior to going on a hunting trip. ROS: See above HPI for pertinent positives & negatives. A total of 10 systems reviewed and were otherwise negative. PAST MEDICAL HISTORY:See Below PAST SURGICAL HISTORY:See Below FAMILY HISTORY:See Below SOCIAL HISTORY:See Below HOME MEDICATIONS:See list ALLERGIES:See list VITALS:See Below PHYSICAL EXAMINATION: HEENT: Head - normocephalic and atraumatic. Pupils are equal, round, and reactive to light. Extraocular eye muscles are intact, and sclera are anicteric. Nose - moist nasal mucosa without discharge. Mouth - moist buccal mucosa. Oropharynx is nonerythematous and there is no tonsillar exudate or edema noted. Neck: Supple; no JVD, nuchal rigidity, cervical lymphadenopathy, or auscultated bruits. Heart: Tachycardic rate irregularly irregular rhythm. There is a normal S1 and S2 with no murmurs, clicks, or gallops appreciated. Lungs: Clear to auscultation bilaterally with no wheezes, rales, or rhonchi. Abdomen: Soft, completely nontender, nondistended, with good bowel sounds. There are no palpable pulsatile masses or hepatosplenomegaly. There is no guarding, rigidity, or rebound noted. Extremities: No evidence of cyanosis, clubbing, or edema. There are easily palpable peripheral pulses. Skin: warm and dry with good turgor and no rashes. Neuro: The patient is awake and alert. He is oriented to date time and place. His neuro exam is nonfocal. ED COURSE: Times/Reassessments: 0120: The patient was evaluated in room A4. A complete history and physical was performed. A septic protocol was performed. Laboratory studies were drawn as above. An order was placed for continuous cardiac monitoring. The patient was in a rapid A. fib at a rate of 122. A portable chest x-ray was performed. I do not complete PPE as there was concern for COVID-19. The patient was swabbed for Covid. The patient was bolused with normal saline solution. He was given Tylenol for his fever. He was started on cefepime. He was reevaluated and given results. He remained hemodynamically stable. I have personally spent greater than 45 minutes of critical care time in the direct management of this patient. This includes bedside care, interpretation of diagnostic studies, and testing, discussion with consultants, patient, and family members, and other required patient management activities. This 45 minutes is in excess of all separately billable procedures. Kisha Saldana DO Past Med/Surg History Medical History (Updated 01/18/21 @ 16:13 by Kisha Saldana DO) Atrial fibrillation Atrial fibrillation with RVR Basal cell carcinoma of dorsum of nose BPH (benign prostatic hyperplasia) Chronic diastolic heart failure due to hypertrophic obstructive cardiomyopathy Congestive heart failure Elevated PSA Gout Idiopathic peripheral neuropathy Polyp of colon Prostate cancer Surgical History History of left knee replacement Family History Family/Other Prostate cancer cousin on fathers side Family/Other Hypertension paternal aunts Mother , age 75 COPD No problems noted. Father , age 41 complications of jungle rot WW2 Heart disease Son No problems noted. Son No problems noted. Daughter No problems noted. 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 Feels Safe at Home: Yes Childhood Exposure to Second-Hand Smoke: Yes caffeine: Yes (one cup coffee per day) during the past year weight has: remained stable Dental Care, Regularly: Yes Physical Activity Frequency: Daily Seatbelt Use: always Sunscreen Use: Yes Assistive Devices: None Allergies Allergies Allergy/AdvReac Type Severity Reaction Status Date / Time amiodarone AdvReac Severe Pneumonitis Unverified 01/17/21 02:52 Home Meds Home Medications Medication Instructions Recorded Confirmed atorvastatin 20 mg tablet (Lipitor) 20 mg PO HS 09/23/19 01/17/21 dabigatran etexilate 150 mg 150 mg PO BID 09/23/19 01/17/21 capsule (Pradaxa) diltiazem HCl 120 mg 120 mg PO QAM 09/23/19 01/17/21 capsule,extended release 24 hr (Cartia XT) allopurinol 100 mg tablet 200 mg PO QAM 10/21/19 01/17/21 bicalutamide 50 mg tablet 50 mg PO QAM 03/23/20 01/17/21 calcium carbonate 500 mg calcium 500 mg PO BID 03/23/20 01/17/21 (1,250 mg) tablet cholecalciferol (vitamin D3) 25 1,000 unit PO QAM 03/23/20 01/17/21 mcg (1,000 unit) capsule colchicine 0.6 mg tablet (Colcrys) 0.6 mg PO UD 03/23/20 01/17/21 metoprolol succinate 100 mg 100 mg PO QAM 03/23/20 01/17/21 tablet,extended release 24 hr Previous Rx's Medication Instructions Recorded Oxygen Home #1 ea 03/27/20 albuterol sulfate 90 mcg/actuation 2 inh INHALATION Q6H PRN #18 g 03/27/20 aerosol inhaler (Ventolin HFA) Results & Data (ED) Vital Signs Vital Signs - 24 hr 01/17/21 00:43 01/17/21 01:03 01/17/21 02:16 Temperature 39.5 C H 39.4 C H Temperature Source Oral Oral Pulse Rate 135 H Pulse Rate [Apical] 131 H Pulse Rate from SpO2 Sensor Respiratory Rate 20 28 H Blood Pressure 191/105 H Blood Pressure [Right Arm] 148/97 H Blood Pressure Mean 133 Blood Pressure Mean [Right Arm] 114 Blood Pressure Position Lying Blood Pressure Position [Right Arm] Lying Pulse Oximetry 90 92 93 Oxygen Delivery Method Room Air Room Air Room Air Sepsis Recent Fever Within 48 Hours Yes Sepsis New/Unexplained Change in Mental Status No Sepsis Action Taken by Nursing No Action Required 01/17/21 02:17 01/17/21 02:31 01/17/21 03:00 Temperature Temperature Source Pulse Rate 144 H 130 H 130 H Pulse Rate [Apical] Pulse Rate from SpO2 Sensor 121 H 110 H 130 H Respiratory Rate 30 H 21 Blood Pressure 148/97 H 148/89 H 131/83 Blood Pressure [Right Arm] Blood Pressure Mean 114 108 99 Blood Pressure Mean [Right Arm] Blood Pressure Position Blood Pressure Position [Right Arm] Pulse Oximetry 92 93 93 Oxygen Delivery Method Sepsis Recent Fever Within 48 Hours Sepsis New/Unexplained Change in Mental Status Sepsis Action Taken by Nursing 01/17/21 03:31 01/17/21 03:37 01/17/21 04:30 Temperature 38.2 C H Temperature Source Oral Pulse Rate 130 H 121 H Pulse Rate [Apical] Pulse Rate from SpO2 Sensor 112 H Respiratory Rate 22 Blood Pressure 119/84 Blood Pressure [Right Arm] Blood Pressure Mean 95 Blood Pressure Mean [Right Arm] Blood Pressure Position Blood Pressure Position [Right Arm] Pulse Oximetry 94 93 Oxygen Delivery Method Room Air Sepsis Recent Fever Within 48 Hours Sepsis New/Unexplained Change in Mental Status Sepsis Action Taken by Nursing Laboratory Data Result diagrams: 01/18/21 05:49 01/18/21 05:49 Lab Results 01/17/21 01/17/21 01/17/21 Range/Units 00:59 00:59 00:59 WBC 16.52 H (4.8-10.8) K/uL RBC 4.57 L (4.7-6.1) M/uL Hgb 15.2 (14.0-18.0) g/dL Hct 43.4 (42-52) % MCV 95.0 (80-100) fL MCH 33.3 (25-34) pg MCHC 35.0 (32-36) g/dL RDW Std Deviation 46.0 (36.4-46.3) fL RDW Coeff of Phyllis 13.3 (11.5-14.5) % Plt Count 260 (130-400) K/uL MPV 9.1 (7.4-10.4) fL Immature Gran % (Auto) 0.2 % Neut % (Auto) 85.5 % Lymph % (Auto) 5.8 % Blanco % (Auto) 8.3 % Eos % (Auto) 0.1 % Baso % (Auto) 0.1 % Neut # (Auto) 14.13 H (1.4-6.5) K/uL Lymph # (Auto) 0.96 L (1.2-3.4) K/uL [place] # (Auto) 1.37 H (0.11-0.59) K/uL Eos # (Auto) 0.01 (0-0.5) K/uL Baso # (Auto) 0.02 (0-0.2) K/uL Immature Gran # (Auto) 0.03 H (0.00-0.02) K/uL Sodium 135 L (136-145) mmol/L Potassium 4.0 (3.5-5.1) mmol/L Chloride 100 (98-107) mmol/L Carbon Dioxide 25 (21-32) mmol/L Anion Gap 10.0 (3-11) BUN 20 H (7-18) mg/dl Creatinine 1.10 (0.6-1.4) mg/dl Est Cr Clr Drug Dosing 80.9 ml/min Est GFR ( Amer) 78.4 ml/min Est GFR (Non-Af Amer) 67.7 ml/min BUN/Creatinine Ratio 17.9 (10-20) Glucose 114 H (70-99) mg/dl Lactate (0.4-2.0) mmol/L Calcium 9.2 (8.5-10.1) mg/dl Magnesium (1.8-2.4) mg/dl Total Bilirubin 0.9 (0.2-1) mg/dl AST 23 (15-37) U/L ALT 25 (12-78) U/L Alkaline Phosphatase 83 (45-117) U/L Troponin I (0-0.045) ng/ml Total Protein 8.4 H (6.4-8.2) gm/dl Albumin 3.6 (3.4-5.0) gm/dl Globulin 4.8 H (2.5-4.0) gm/dl Albumin/Globulin Ratio 0.7 L (0.9-2) Urine Color Urine Appearance (Clear) Urine pH (4.5-7.5) Ur Specific [place] (1.000-1.030) Urine Protein (Negative) Urine Glucose (UA) (Negative) Urine Ketones (Negative) Urine Blood (Negative) Urine Nitrite (Negative) Urine Bilirubin (Negative) Urine Urobilinogen (Negative) Ur Leukocyte Esterase (Negative) Urine WBC (Auto) (0-5) /hpf Urine RBC (Auto) (0-4) /hpf U Hyaline Cast (Auto) (0-5) /lpf U Epithel Cells (Auto) (0-5) /lpf Urine Bacteria (Auto) (Negative) Anaplasma Smear See Comment Lyme Disease IgG Ab (Negative) Lyme Disease IgM Ab (Negative) COVID-19 Eval Order SARS-CoV-2 (PCR) (Negative) 01/17/21 01/17/21 01/17/21 Range/Units 01:11 01:11 01:32 WBC (4.8-10.8) K/uL RBC (4.7-6.1) M/uL Hgb (14.0-18.0) g/dL Hct (42-52) % MCV (80-100) fL MCH (25-34) pg MCHC (32-36) g/dL RDW Std Deviation (36.4-46.3) fL RDW Coeff of Phyllis (11.5-14.5) % Plt Count (130-400) K/uL MPV (7.4-10.4) fL Immature Gran % (Auto) % Neut % (Auto) % Lymph % (Auto) % [place] % (Auto) % Eos % (Auto) % Baso % (Auto) % Neut # (Auto) (1.4-6.5) K/uL Lymph # (Auto) (1.2-3.4) K/uL [place] # (Auto) (0.11-0.59) K/uL Eos # (Auto) (0-0.5) K/uL Baso # (Auto) (0-0.2) K/uL Immature Gran # (Auto) (0.00-0.02) K/uL Sodium (136-145) mmol/L Potassium (3.5-5.1) mmol/L Chloride (98-107) mmol/L Carbon Dioxide (21-32) mmol/L Anion Gap (3-11) BUN (7-18) mg/dl Creatinine (0.6-1.4) mg/dl Est Cr Clr Drug Dosing ml/min Est GFR ( Amer) ml/min Est GFR (Non-Af Amer) ml/min BUN/Creatinine Ratio (10-20) Glucose (70-99) mg/dl Lactate (0.4-2.0) mmol/L Calcium (8.5-10.1) mg/dl Magnesium (1.8-2.4) mg/dl Total Bilirubin (0.2-1) mg/dl AST (15-37) U/L ALT (12-78) U/L Alkaline Phosphatase (45-117) U/L Troponin I (0-0.045) ng/ml Total Protein (6.4-8.2) gm/dl Albumin (3.4-5.0) gm/dl Globulin (2.5-4.0) gm/dl Albumin/Globulin Ratio (0.9-2) Urine Color Urine Appearance (Clear) Urine pH (4.5-7.5) Ur Specific [place] (1.000-1.030) Urine Protein (Negative) Urine Glucose (UA) (Negative) Urine Ketones (Negative) Urine Blood (Negative) Urine Nitrite (Negative) Urine Bilirubin (Negative) Urine Urobilinogen (Negative) Ur Leukocyte Esterase (Negative) Urine WBC (Auto) (0-5) /hpf Urine RBC (Auto) (0-4) /hpf U Hyaline Cast (Auto) (0-5) /lpf U Epithel Cells (Auto) (0-5) /lpf Urine Bacteria (Auto) (Negative) Anaplasma Smear Lyme Disease IgG Ab Negative (Negative) Lyme Disease IgM Ab Negative (Negative) COVID-19 Eval Order Covid19 at [facility] SARS-CoV-2 (PCR) NEGATIVE (Negative) 01/17/21 01/17/21 01/17/21 Range/Units 01:38 03:30 04:13 WBC (4.8-10.8) K/uL RBC (4.7-6.1) M/uL Hgb (14.0-18.0) g/dL Hct (42-52) % MCV (80-100) fL MCH (25-34) pg MCHC (32-36) g/dL RDW Std Deviation (36.4-46.3) fL RDW Coeff of Phyllis (11.5-14.5) % Plt Count (130-400) K/uL MPV (7.4-10.4) fL Immature Gran % (Auto) % Neut % (Auto) % Lymph % (Auto) % [place] % (Auto) % Eos % (Auto) % Baso % (Auto) % Neut # (Auto) (1.4-6.5) K/uL Lymph # (Auto) (1.2-3.4) K/uL [place] # (Auto) (0.11-0.59) K/uL Eos # (Auto) (0-0.5) K/uL Baso # (Auto) (0-0.2) K/uL Immature Gran # (Auto) (0.00-0.02) K/uL Sodium (136-145) mmol/L Potassium (3.5-5.1) mmol/L Chloride (98-107) mmol/L Carbon Dioxide (21-32) mmol/L Anion Gap (3-11) BUN (7-18) mg/dl Creatinine (0.6-1.4) mg/dl Est Cr Clr Drug Dosing ml/min Est GFR ( Amer) ml/min Est GFR (Non-Af Amer) ml/min BUN/Creatinine Ratio (10-20) Glucose (70-99) mg/dl Lactate 2.8 H* 1.6 (0.4-2.0) mmol/L Calcium (8.5-10.1) mg/dl Magnesium (1.8-2.4) mg/dl Total Bilirubin (0.2-1) mg/dl AST (15-37) U/L ALT (12-78) U/L Alkaline Phosphatase (45-117) U/L Troponin I (0-0.045) ng/ml Total Protein (6.4-8.2) gm/dl Albumin (3.4-5.0) gm/dl Globulin (2.5-4.0) gm/dl Albumin/Globulin Ratio (0.9-2) Urine Color Yellow Urine Appearance Clear (Clear) Urine pH 6.0 (4.5-7.5) Ur Specific [place] 1.025 (1.000-1.030) Urine Protein 1+ H (Negative) Urine Glucose (UA) Negative (Negative) Urine Ketones Trace H (Negative) Urine Blood 2+ H (Negative) Urine Nitrite Negative (Negative) Urine Bilirubin Negative (Negative) Urine Urobilinogen Negative (Negative) Ur Leukocyte Esterase Negative (Negative) Urine WBC (Auto) 0 (0-5) /hpf Urine RBC (Auto) 10-30 H (0-4) /hpf U Hyaline Cast (Auto) 1-5 (0-5) /lpf U Epithel Cells (Auto) 0-5 (0-5) /lpf Urine Bacteria (Auto) Negative (Negative) Anaplasma Smear Lyme Disease IgG Ab (Negative) Lyme Disease IgM Ab (Negative) COVID-19 Eval Order SARS-CoV-2 (PCR) (Negative) 01/17/21 01/17/21 Range/Units 04:13 04:13 WBC (4.8-10.8) K/uL RBC (4.7-6.1) M/uL Hgb (14.0-18.0) g/dL Hct (42-52) % MCV (80-100) fL MCH (25-34) pg MCHC (32-36) g/dL RDW Std Deviation (36.4-46.3) fL RDW Coeff of Phyllis (11.5-14.5) % Plt Count (130-400) K/uL MPV (7.4-10.4) fL Immature Gran % (Auto) % Neut % (Auto) % Lymph % (Auto) % [place] % (Auto) % Eos % (Auto) % Baso % (Auto) % Neut # (Auto) (1.4-6.5) K/uL Lymph # (Auto) (1.2-3.4) K/uL [place] # (Auto) (0.11-0.59) K/uL Eos # (Auto) (0-0.5) K/uL Baso # (Auto) (0-0.2) K/uL Immature Gran # (Auto) (0.00-0.02) K/uL Sodium (136-145) mmol/L Potassium (3.5-5.1) mmol/L Chloride (98-107) mmol/L Carbon Dioxide (21-32) mmol/L Anion Gap (3-11) BUN (7-18) mg/dl Creatinine (0.6-1.4) mg/dl Est Cr Clr Drug Dosing ml/min Est GFR ( Amer) ml/min Est GFR (Non-Af Amer) ml/min BUN/Creatinine Ratio (10-20) Glucose (70-99) mg/dl Lactate (0.4-2.0) mmol/L Calcium (8.5-10.1) mg/dl Magnesium 1.6 L (1.8-2.4) mg/dl Total Bilirubin (0.2-1) mg/dl AST (15-37) U/L ALT (12-78) U/L Alkaline Phosphatase (45-117) U/L Troponin I < 0.015 (0-0.045) ng/ml Total Protein (6.4-8.2) gm/dl Albumin (3.4-5.0) gm/dl Globulin (2.5-4.0) gm/dl Albumin/Globulin Ratio (0.9-2) Urine Color Urine Appearance (Clear) Urine pH (4.5-7.5) Ur Specific [place] (1.000-1.030) Urine Protein (Negative) Urine Glucose (UA) (Negative) Urine Ketones (Negative) Urine Blood (Negative) Urine Nitrite (Negative) Urine Bilirubin (Negative) Urine Urobilinogen (Negative) Ur Leukocyte Esterase (Negative) Urine WBC (Auto) (0-5) /hpf Urine RBC (Auto) (0-4) /hpf U Hyaline Cast (Auto) (0-5) /lpf U Epithel Cells (Auto) (0-5) /lpf Urine Bacteria (Auto) (Negative) Anaplasma Smear Lyme Disease IgG Ab (Negative) Lyme Disease IgM Ab (Negative) COVID-19 Eval Order SARS-CoV-2 (PCR) (Negative) Administered Medications Acetaminophen (Acetaminophen 325 Mg Tab) 650 mg PO Q4H PRN PRN Reason: pain or fever Stop: 02/16/21 06:01 Last Admin: 01/17/21 15:53 Dose: 650 mg Documented by: [id number] Admin: 01/17/21 11:07 Dose: 650 mg Documented by: [id number] Allopurinol (Allopurinol 100 Mg Tab) 200 mg PO QAM [facility] Stop: 02/16/21 08:59 Last Admin: 01/18/21 08:50 Dose: 200 mg Documented by: [id number] Cosigned by: [id number] Admin: 01/17/21 09:34 Dose: 200 mg Documented by: [id number] Atorvastatin Calcium (Atorvastatin 20 Mg Tab) 20 mg PO HS [facility] Stop: 02/16/21 20:59 Last Admin: 01/17/21 20:03 Dose: 20 mg Documented by: [id number] Bicalutamide (Bicalutamide 50 Mg Tab) 50 mg PO QAM [facility] Stop: 02/16/21 08:59 Last Admin: 01/18/21 08:51 Dose: 50 mg Documented by: [id number] Cosigned by: [id number] Admin: 01/17/21 10:16 Dose: 50 mg Documented by: [id number] Cosigned by: [id number] Dabigatran (Dabigatran Etexilate 75 Mg Cap) 150 mg PO BID [facility] Stop: 02/16/21 08:59 Last Admin: 01/18/21 08:51 Dose: 150 mg Documented by: [id number] Cosigned by: [id number] Admin: 01/17/21 20:03 Dose: 150 mg Documented by: [id number] Admin: 01/17/21 09:35 Dose: 150 mg Documented by: [id number] Diltiazem HCl (Diltiazem Hcl 120 Mg Capcr) [facility] [place] Stop: 02/16/21 08:59 Last Admin: 01/18/21 08:50 Dose: 120 mg Documented by: [id number] Cosigned by: [id number] Admin: 01/17/21 09:35 Dose: 120 mg Documented by: [id number] Ceftriaxone Sodium 2,000 mg/ (Dextrose) 70 mls @ 100 mls/hr IV Q24H ALAYNA; Protocol Stop: 01/31/21 14:59 Last Infusion: 01/18/21 15:26 Dose: 0 mls/hr Documented by: [id number] Admin: 01/18/21 14:40 Dose: 100 mls/hr Documented by: [id number] Infusion: 01/17/21 16:10 Dose: 0 mls/hr Documented by: [id number] Admin: 01/17/21 15:27 Dose: 100 mls/hr Documented by: [id number] Metoprolol Succinate (Metoprolol Succ 50mg Ext Rel Tab) 100 mg PO QAM ALAYNA Stop: 02/16/21 06:29 Last Admin: 01/18/21 08:51 Dose: 100 mg Documented by: [id number] Cosigned by: [id number] Admin: 01/17/21 07:07 Dose: 100 mg Documented by: [id number] Discontinued Medications Acetaminophen (Acetaminophen 500 Mg Tab) 1,000 mg PO NOW STA Stop: 01/17/21 01:11 Last Admin: 01/17/21 01:36 Dose: 1,000 mg Documented by: [id number] Doxycycline Hyclate (Doxycycline Hyclate 100 Mg Cap) 100 mg PO BID ALAYNA Stop: 01/19/21 08:59 Last Admin: 01/17/21 20:03 Dose: 100 mg Documented by: [id number] Admin: 01/17/21 09:34 Dose: 100 mg Documented by: [id number] Sodium Chloride (Nss 1000ml) 1,000 mls @ 999 mls/hr IV .Q1H1M ONE Stop: 01/17/21 03:31 Last Infusion: 01/17/21 04:35 Dose: 0 mls/hr Documented by: [id number] Admin: 01/17/21 03:03 Dose: 999 mls/hr Documented by: [id number] Cefepime HCl (Maxipime) 2,000 mg in 20 mls @ 5 mls/min IV NOW STA; Protocol Stop: 01/17/21 02:35 Last Admin: 01/17/21 02:59 Dose: 5 mls/min Documented by: [id number] Lactated Ringer's (Lr) 1,000 mls @ 125 mls/hr IV .Q8H ALAYNA Stop: 01/17/21 14:01 Last Infusion: 01/17/21 14:34 Dose: 0 mls/hr Documented by: [id number] Admin: 01/17/21 06:18 Dose: 125 mls/hr Documented by: [id number] Magnesium Sulfate/Dextrose (Magnesium Sulfate / D5w) 1 gm in 100 mls @ 50 mls/hr IV Q2H ALAYNA Stop: 01/17/21 14:49 Last Infusion: 01/17/21 15:22 Dose: 0 mls/hr Documented by: [id number] Admin: 01/17/21 13:08 Dose: 50 mls/hr Documented by: [id number] Infusion: 01/17/21 13:08 Dose: 0 mls/hr Documented by: [id number] Admin: 01/17/21 11:08 Dose: 50 mls/hr Documented by: [id number] Cefazolin Sodium (Ancef 2000mg) 2,000 mg in 15 mls @ 3.75 mls/min IV Q8H ALAYNA Stop: 01/31/21 14:29 Last Admin: 01/17/21 14:50 Dose: Not Given Documented by: [id number] Vancomycin HCl 2,500 mg/ (Sodium Chloride) 550 mls @ 180 mls/hr IV NOW ONE Stop: 01/17/21 17:48 Last Infusion: 01/17/21 19:51 Dose: 0 mls/hr Documented by: [id number] Admin: 01/17/21 16:19 Dose: 180 mls/hr Documented by: [id number] Vancomycin HCl 1,250 mg/ (Sodium Chloride) 275 mls @ 200 mls/hr IV Q12H ALAYNA Stop: 02/01/21 02:59 Last Admin: 01/18/21 15:05 Dose: Not Given Documented by: [id number] Infusion: 01/18/21 04:40 Dose: 0 mls/hr Documented by: [id number] Admin: 01/18/21 02:17 Dose: 200 mls/hr Documented by: [id number] Discharge Plan Visit Data Chief Complaint: Weakness Stated Complaint: WEAKNESS ED Provider: Kisha Saldana Discharge Problem: Sepsis, Atrial fibrillation with rapid ventricular response Patient Disposition: Admitted As Inpatient Discharge Instructions Interventions: ED Discharge Assessment Last Done: 01/17/21 05:56 Discharge Problem: Sepsis Qualifiers: Sepsis type: sepsis due to unspecified organism Sepsis acute organ dysfunction status: without acute organ dysfunction Qualified Code(s): A41.9 - Sepsis, unspecified organism
[2021-01-17] MEDS: METOPROLOL SUCC 50MG EXT REL TAB PO SCH (07:07)
[2021-01-17 07:21] LABS: Lyme Ab IgG w/WB Rflx Negative (Negative); Lyme Ab IgM w/WB Rflx Negative (Negative)
--- NOTE | 2021-01-17 07:21 | XRay Report ---
XR chest 1V portable HISTORY: 70 years-old Male Fever acute fever COMPARISON: Chest radiograph and CTA chest 03/23/2020 TECHNIQUE: Portable AP view of the chest FINDINGS: Cardiac silhouette is enlarged. No pneumothorax, large pleural effusion or overt pulmonary edema. Unc hanged left hemidiaphragmatic elevation with left greater than right bibasilar atelectasis. No lobar airspace consolidation. Degenerative changes of the shoulders and spine. Sclerotic metastasis of the right scapula redemonstrated. IMPRESSION: 1. Cardiomegaly without overt pulmonary edema. 2. Unchanged left hemidiaphragm elevation with bibasilar atelectasis. 3. Sclerotic osseous metastasis redemonstrated. ACT 112: Negative or not required by law. The above report was generated using voice recognition software. It may contain grammatical, syntax o r spelling errors. Electronically signed by: Jose Molina M.D. 01/17/2021 7:20 AM
[2021-01-17] MEDS: DOXYCYCLINE HYCLATE 100 MG CAP PO SCH ×2 (09:34→20:03)
[2021-01-17] MEDS: allopurinoL 100 MG TAB PO SCH (09:34)
[2021-01-17] MEDS: dilTIAZem HCL 120 MG CAPCR PO SCH (09:35)
[2021-01-17] MEDS: DABIGATRAN ETEXILATE 75 MG CAP PO SCH ×2 (09:35→20:03)
[2021-01-17] MEDS: BICALUTAMIDE 50 MG TAB PO SCH (10:16)
[2021-01-17] MEDS: ACETAMINOPHEN 325 MG TAB PO PRN ×2 (11:07→15:53)
[2021-01-17] MEDS: MAGNESIUM SULFATE / D5W 1 GM/100 ML BAG IV SCH ×2 (11:08→13:08)
[2021-01-17] MEDS ORDERED: ceFAZolin 2000MG 2,000 MG/15 ML SYR IV SCH (14:30)
[2021-01-17] MEDS ORDERED: VANCOMYCIN CONSULT ACTIVE PRN (14:36)
[2021-01-17] MEDS ORDERED: VANCOMYCIN HCL 2,500 MG in SODIUM CHLORIDE 0.9% 500 ML IV ONE (14:45)
[2021-01-17] MEDS ORDERED: DAPTOmycin 550 MG in SYRINGE 0 ML IV ONE (15:00)
--- NOTE | 2021-01-17 15:11 | Pharmacy Report ---
Pharmacy Abx Dose Short Note - Date of Service January 17, 2021 - Assessment & Plan Assessment 70 year old M receiving ceftriaxone/vancomycin/doxy for treatment of bacteremia/sepsis- unknown source Day # 1 of antimicrobial therapy. Tmax 39.5,tachycardic, WBC 16.5. Unknown source, covering for tick born illness, ? possible developing cellulitis. 1/4 blood cultures gram positive cocci in chains. Plan Vancomycin * Loading dose of 2500 mg x1 * Start maintenance dose of 1250 mg q12H (10 mg/kg) * patient at risk for accumulation d/t BMI > 35, crcl is likely an overestimate of renal function * Goal trough level for 15-20 mcg/mL * Will reassess in AM and order level prior to steady state if vancomycin continued. Pharmacy will continue to follow and will adjust dose/frequency as necessary. Thank you.
[2021-01-17] MEDS: cefTRIAXone SODIUM 2,000 MG in DEXTROSE 5% 50 ML IV SCH (15:27)
--- NOTE | 2021-01-17 15:37 | Electrocardiogram Report ---
Test Reason : Blood Pressure : / mmHG Vent. Rate : 152 BPM Atrial Rate : 250 BPM P-R Int : 000 ms QRS Dur : 104 ms QT Int : 310 ms P-R-T Axes : 000 -43 034 degrees QTc Int : 492 ms Atrial fibrillation with rapid ventricular response Left axis deviation Nonspecific ST abnormality Abnormal ECG When compared with ECG of 23-MAR-2020 13:24, No significant change was found Confirmed by Walter Hobson ([id number]) on 01/17/2021 3:37:16 PM Referred By: REFERRED SELF Confirmed By:Walter Hobson
--- NOTE | 2021-01-17 15:46 | Electrocardiogram Report ---
Test Reason : Blood Pressure : / mmHG Vent. Rate : 123 BPM Atrial Rate : 468 BPM P-R Int : 000 ms QRS Dur : 106 ms QT Int : 342 ms P-R-T Axes : 000 089 072 degrees QTc Int : 489 ms Atrial fibrillation with rapid ventricular response Nonspecific ST abnormality Abnormal ECG When compared with ECG of 17-JAN-2021 00:41, (unconfirmed) QRS axis Shifted right Confirmed by Walter Hobson ([id number]) on 01/17/2021 3:45:53 PM Referred By: REFERRED SELF Confirmed By:Walter Hobson
[2021-01-17] MEDS: ATORVASTATIN 20 MG TAB PO SCH (20:03)
[2021-01-18] MEDS: VANCOMYCIN HCL 1,250 MG in SODIUM CHLORIDE 0.9% 250 ML IV SCH ×2 (02:17→15:05)
[2021-01-18 06:22] LABS: Basophils # (auto) 0.01 K/uL (0-0.2); Basophils % (auto) 0.1 %; Hematocrit (blood only) 41.5 % (42-52); Hemoglobin 14.4 g/dL (14.0-18.0); Immature Granulocytes # (auto) 0.03 K/uL (0.00-0.02); Immature Granulocytes % (auto) 0.2 %; Lymphocytes # (auto) 1.28 K/uL (1.2-3.4); Lymphocytes % (auto) 10.5 %; Mean Corpuscular Hgb Conc 34.7 g/dL (32-36); Mean Platelet Volume 9.1 fL (7.4-10.4); Monocytes # (auto) 1.35 K/uL (0.11-0.59); Monocytes % (auto) 11.1 %; Neutrophils # (auto) 9.48 K/uL (1.4-6.5); Neutrophils % (auto) 78.1 %; Platelet Count 222 K/uL (130-400); RDW Coefficient of Variation 13.4 % (11.5-14.5); RDW Standard Deviation 46.7 fL (36.4-46.3); Red Blood Count 4.37 M/uL (4.7-6.1); White Blood Count 12.15 K/uL (4.8-10.8)
[2021-01-18 06:55] LABS: BUN Creatinine Ratio 15.3 (10-20); Calcium 8.4 mg/dl (8.5-10.1); Creatinine Clr Calc Pharmacy 41.2 ml/min; Est GFR (African American) 100.4 ml/min; Est GFR (Non-African American) 86.6 ml/min; Magnesium 2.1 mg/dl (1.8-2.4); Potassium 3.9 mmol/L (3.5-5.1)
--- NOTE | 2021-01-18 07:27 | Communication Note ---
Date of Service: January 17, 2021 Patient and seen and examined the same day as admission therefore no billing for this encounter. GPC in chains in blood cultures. Most likely source is his leg with cellulitis. Switched antibiotics to vancomycin and ceftriaxone. No symptoms or signs of meningitis.
[2021-01-18] MEDS: dilTIAZem HCL 120 MG CAPCR PO SCH (08:50)
[2021-01-18] MEDS: allopurinoL 100 MG TAB PO SCH (08:50)
[2021-01-18] MEDS: METOPROLOL SUCC 50MG EXT REL TAB PO SCH (08:51)
[2021-01-18] MEDS: DABIGATRAN ETEXILATE 75 MG CAP PO SCH ×2 (08:51→20:44)
[2021-01-18] MEDS: BICALUTAMIDE 50 MG TAB PO SCH (08:51)
[2021-01-18] MEDS: cefTRIAXone SODIUM 2,000 MG in DEXTROSE 5% 50 ML IV SCH (14:40)
--- NOTE | 2021-01-18 15:08 | Hospitalist Progress Note ---
Date of Service January 18, 2021 Assessment & Plan (1) Sepsis: Plan: Source - cellulitis RLE although mostly resolved today with just underlying venous stasis changes now present (2) Bacteremia: Plan: Group G strep 1/2 blood cultures. However given patient improvement would consider this a true bacteremia. Stop vancomycin. Continue on ceftriaxone 2g IV daily. Repeat blood cultures in AM TTE ordered to assess for endocarditis Consult ID (3) Atrial fibrillation: Plan: Rate controlled Continue Toprol-XL 100 mg p.o. every morning. Continue diltiazem 120 mg p.o. daily Continue dabigatran 150 mg p.o. twice daily for anticoagulation (4) Prostate cancer: Plan: Patient with history of metastatic prostate cancer on bicalutamide 50 mg p.o. daily as well as Xgeva injections monthly and Lupron injections every 3 months. He follows with both urology and oncology/hematology. Continue bicalutamide Continue outpatient follow-up as arranged (5) Chronic diastolic heart failure due to hypertrophic obstructive cardiomyopathy: Plan: Currently euvolemic Continue metoprolol Cautious use of IV fluids, stopped for now (6) Gout: Plan: Chronic. Continue allopurinol 200 mg p.o. every morning Plan: FEN heart healthy diet as tolerated Prophylaxispatient on dabigatran anticoagulation for history of atrial fibrillation. We will continue Codefull per prior provider discussion Dispocontinue on med/tele Admission and Anticipated Discharge Date Admission Date: January 17, 2021 Subjective Much improved overnight. Alert and much more awake in chair today. Bright erythema on admission resolved today. Review of Systems Review of Systems: All systems reviewed & are unremarkable except as noted in HPI & below Physical Exam Constitutional: WD/WN, vitals as above Cardiovascular: Rate/Rhythm: regular rate and + irregularly irregular Heart Sounds: no murmur Extremities: + pedal edema (1+ pre-tibial b/l equal) Skin: petechiae present on bilateral upper extremities - pt reports new with current illness. No splinter hemorrhages or [place] lesions on fingers/toes Psychiatric: A+Ox3, euthymic affect Results & Data Results & Data ([facility]) Vital Signs (Past 12 Hours) Vital Signs Temp Pulse Resp BP Pulse Ox 01/18/21 11:07 36.7 C 97 H 20 114/77 95 01/18/21 08:01 36.9 C 113 H 20 118/72 94 09/14/21 04:56 37.9 C H 102 H 22 158/83 H 91 PG Care Time/CCT Total # of Minutes Spent Total Time Spent with Patient: Total time spent is greater than 50% in coordination of care (as documented) at patient's floor/unit and/or counseling patient: Coding Level of Care Code 51404 Subseq Hosp Care Lvl 2 Diagnoses Sepsis A41.9 Atrial fibrillation I48.91 Prostate cancer C61 Chronic diastolic heart failure due to hypertrophic obstructive cardiomyopathy I50.32; I42.1 Gout M10.9 Bacteremia R78.81
[2021-01-18] MEDS: ACETAMINOPHEN 325 MG TAB PO PRN (20:43)
[2021-01-18] MEDS: ATORVASTATIN 20 MG TAB PO SCH (20:44)
[2021-01-19] MEDS: dilTIAZem HCL 120 MG CAPCR PO SCH (07:58)
[2021-01-19] MEDS: BICALUTAMIDE 50 MG TAB PO SCH (07:58)
[2021-01-19] MEDS: allopurinoL 100 MG TAB PO SCH (07:58)
[2021-01-19] MEDS: DABIGATRAN ETEXILATE 75 MG CAP PO SCH ×2 (07:59→19:55)
[2021-01-19] MEDS: METOPROLOL SUCC 50MG EXT REL TAB PO SCH (07:59)
[2021-01-19 09:14] LABS: BUN Creatinine Ratio 18.6 (10-20); Calcium 8.9 mg/dl (8.5-10.1); Creatinine Clr Calc Pharmacy 93.1 ml/min; Est GFR (African American) 94.8 ml/min; Est GFR (Non-African American) 81.8 ml/min; Potassium 3.8 mmol/L (3.5-5.1)
--- NOTE | 2021-01-19 11:15 | Hospitalist Progress Note ---
Date of Service January 19, 2021 Assessment & Plan (1) Sepsis: Plan: Source - cellulitis RLE although now appears resolved he was bacteremic therefore will continue on IV antibiotics with repeat blood cultures taken today pending ID consult (see below) XR 1st toe to assess for osteomyelitis (2) Bacteremia: Plan: Group G strep 1/2 blood cultures. However given patient improvement would consider this a true bacteremia. Continue on ceftriaxone 2g IV daily. Repeat blood cultures 01/19 pending TTE - no valvular vegetations identified ID consult pending (3) Atrial fibrillation: Plan: Rate controlled Continue Toprol-XL 100 mg p.o. every morning. Continue diltiazem 120 mg p.o. daily Continue dabigatran 150 mg p.o. twice daily for anticoagulation (4) Prostate cancer: Plan: Patient with history of metastatic prostate cancer on bicalutamide 50 mg p.o. daily as well as Xgeva injections monthly and Lupron injections every 3 months. He follows with both urology and oncology/hematology. Continue bicalutamide Continue outpatient follow-up as arranged (5) Chronic diastolic heart failure due to hypertrophic obstructive cardiomyopathy: Plan: Currently euvolemic Continue metoprolol (6) Gout: Plan: Chronic. Continue allopurinol 200 mg p.o. every morning Plan: FEN heart healthy diet as tolerated VTE Prophylaxisdabigatran as above Codefull Dispostable for transfer off telemetry Admission and Anticipated Discharge Date Admission Date: January 17, 2021 Subjective Patient feeling mostly back to his baseline. Alert and much more awake in chair today. Noted ulcer on 1st toe has been ongoing for a long time but was draining for the day prior to admission. Telemetry: a. fib in 80s Review of Systems Review of Systems: All systems reviewed & are unremarkable except as noted in HPI & below Physical Exam Constitutional: WD/WN, vitals as above Respiratory: normal respiratory effort, lungs clear to auscultation Cardiovascular: Rate/Rhythm: regular rate and + irregularly irregular Heart Sounds: no murmur Extremities: + pedal edema (1+ pre-tibial b/l equal) Gastrointestinal (Abdomen): normal bowel sounds, soft, nontender, no hepatosplenomegaly Skin: Cellulitis area around venous stasis up to knee has now resolved leaving just venous stasis pre-tibial discoloration Notable area originally did not appear to originate from 1st toe although there is a soft tissue ulcer on medial 1st toe without surrounding erythema Psychiatric: A+Ox3, euthymic affect Results & Data Results & Data ([facility]) Vital Signs (Past 12 Hours) Vital Signs Temp Pulse Resp BP BP Pulse Ox 01/19/21 07:02 36.3 C L 87 20 127/91 96 01/19/21 03:24 36.4 C L 88 18 145/74 H 94 PG Care Time/CCT Total # of Minutes Spent Total Time Spent with Patient: Total time spent is greater than 50% in coordination of care (as documented) at patient's floor/unit and/or counseling patient: Coding Level of Care Code 15502 Subseq Hosp Care Lvl 2 Diagnoses Sepsis A41.9 Bacteremia R78.81 Atrial fibrillation I48.91 Prostate cancer C61 Chronic diastolic heart failure due to hypertrophic obstructive cardiomyopathy I50.32; I42.1 Gout M10.9
--- NOTE | 2021-01-19 13:25 | XCELERA ---
[id number]
[2021-01-19] MEDS ORDERED: POLYETHYLENE (MIRALAX) 17 GM PACK PO PRN (13:37)
[2021-01-19] MEDS ORDERED: VANCOMYCIN TROUGH ONE (14:30)
[2021-01-19] MEDS: cefTRIAXone SODIUM 2,000 MG in DEXTROSE 5% 50 ML IV SCH (15:27)
--- NOTE | 2021-01-19 15:39 | XRay Report ---
XR toe(s) RT min 2V HISTORY: 70 years-old Male right distal 1st toe ulcer ?osteomyelitis patient presents with soft tiss ue ulcer of the right great toe COMPARISON: None TECHNIQUE: 3 views of the right great toe FINDINGS: Moderate hallux without venous. Mild multifocal osteoarthritis. Body and formation of the first metat arsal head with a few adjacent punctate soft tissue calcifications. There is a suggested soft tissue ulcer of the medial great toe at the level of the interphalangeal joint. No acute fracture, dislocati on or osseous erosion identified. Arterial calcifications. IMPRESSION: 1. Soft tissue ulcer of the medial great toe at the level of the interphalangeal joint. No evidence o f osteomyelitis. 2. Moderate hallux valgus. ACT 112: Negative or not required by law. The above report was generated using voice recognition software. It may contain grammatical, syntax o r spelling errors. Electronically signed by: Jose Molina M.D. 01/19/2021 3:37 PM
[2021-01-19] MEDS: ATORVASTATIN 20 MG TAB PO SCH (19:57)
[2021-01-19] MEDS: ACETAMINOPHEN 325 MG TAB PO PRN (20:11)
[2021-01-20 06:51] LABS: Basophils # (auto) 0.04 K/uL (0-0.2); Basophils % (auto) 0.5 %; Eosinophils # (auto) 0.15 K/uL (0-0.5); Eosinophils % (auto) 1.7 %; Hematocrit (blood only) 40.1 % (42-52); Immature Granulocytes # (auto) 0.03 K/uL (0.00-0.02); Immature Granulocytes % (auto) 0.3 %; Lymphocytes # (auto) 1.91 K/uL (1.2-3.4); Lymphocytes % (auto) 21.7 %; Mean Corpuscular Hemoglobin 32.9 pg (25-34); Mean Corpuscular Hgb Conc 34.9 g/dL (32-36); Mean Corpuscular Volume 94.1 fL (80-100); Mean Platelet Volume 9.1 fL (7.4-10.4); Monocytes # (auto) 1.14 K/uL (0.11-0.59); Neutrophils # (auto) 5.52 K/uL (1.4-6.5); Neutrophils % (auto) 62.8 %; Platelet Count 234 K/uL (130-400); RDW Coefficient of Variation 13.8 % (11.5-14.5); RDW Standard Deviation 47.2 fL (36.4-46.3); Red Blood Count 4.26 M/uL (4.7-6.1); White Blood Count 8.79 K/uL (4.8-10.8)
[2021-01-20 07:19] LABS: BUN Creatinine Ratio 19.9 (10-20); Calcium 8.8 mg/dl (8.5-10.1); Creatinine Clr Calc Pharmacy 104.2 ml/min; Est GFR (African American) 102.8 ml/min; Est GFR (Non-African American) 88.7 ml/min
[2021-01-20] MEDS: allopurinoL 100 MG TAB PO SCH (09:05)
[2021-01-20] MEDS: BICALUTAMIDE 50 MG TAB PO SCH (09:05)
[2021-01-20] MEDS: DABIGATRAN ETEXILATE 75 MG CAP PO SCH ×2 (09:06→21:02)
[2021-01-20] MEDS: dilTIAZem HCL 120 MG CAPCR PO SCH (09:06)
[2021-01-20] MEDS: METOPROLOL SUCC 50MG EXT REL TAB PO SCH (09:06)
[2021-01-20] MEDS: cefTRIAXone SODIUM 2,000 MG in DEXTROSE 5% 50 ML IV SCH (15:23)
--- NOTE | 2021-01-20 16:24 | Hospitalist Progress Note ---
Date of Service January 20, 2021 Assessment & Plan (1) Sepsis: Plan: Source - cellulitis RLE although now appears resolved he was bacteremic therefore will continue on IV antibiotics with repeat blood cultures taken today pending ID consult (see below) XR toe negative for osteomyelitis (2) Bacteremia: Plan: Group G strep 1/2 blood cultures. However given patient improvement would consider this a true bacteremia. Continue on ceftriaxone 2g IV daily. Repeat blood cultures 01/19 pending TTE - no valvular vegetations identified ID consult - requesting MRI cervical/thoracic/lumbar spine to assess for deep seated infection (3) Atrial fibrillation: Plan: Rate controlled Continue Toprol-XL 100 mg p.o. every morning. Continue diltiazem 120 mg p.o. daily Continue dabigatran 150 mg p.o. twice daily for anticoagulation (4) Prostate cancer: Plan: Patient with history of metastatic prostate cancer on bicalutamide 50 mg p.o. daily as well as Xgeva injections monthly and Lupron injections every 3 months. He follows with both urology and oncology/hematology. Continue bicalutamide Continue outpatient follow-up as arranged (5) Chronic diastolic heart failure due to hypertrophic obstructive cardiomyopathy: Plan: Currently euvolemic Continue metoprolol (6) Gout: Plan: Chronic. Continue allopurinol 200 mg p.o. every morning Plan: FEN heart healthy diet as tolerated VTE Prophylaxisdabigatran as above Codefull Dispocontinue on med/surg Admission and Anticipated Discharge Date Admission Date: January 19, 2021 Subjective Patient reports feeling at baseline. He has some back pain but reports this is chronic and he has known metastatic disease in his back. Review of Systems Review of Systems: All systems reviewed & are unremarkable except as noted in HPI & below Physical Exam Constitutional: WD/WN, vitals as above Respiratory: normal respiratory effort, lungs clear to auscultation Cardiovascular: Rate/Rhythm: regular rate and + irregularly irregular Heart Sounds: no murmur Extremities: + pedal edema (1+ pre-tibial b/l equal) Gastrointestinal (Abdomen): normal bowel sounds, soft, nontender, no hepatosplenomegaly Skin: venous stasis changes b/l LE R more erythematous than left. cracked ulcer on tip of 1st right toe Psychiatric: A+Ox3, euthymic affect Results & Data Results & Data ([facility]) Vital Signs (Past 12 Hours) Vital Signs Temp Pulse Resp BP Pulse Ox 01/20/21 16:12 36.5 C 80 16 119/78 93 01/20/21 07:54 36.6 C 101 H 16 166/96 H 94 PG Care Time/CCT Total # of Minutes Spent Total Time Spent with Patient: Total time spent is greater than 50% in coordination of care (as documented) at patient's floor/unit and/or counseling patient: Coding Level of Care Code 51996 Subseq Hosp Care Lvl 2 Diagnoses Sepsis A41.9 Bacteremia R78.81 Atrial fibrillation I48.91 Prostate cancer C61 Chronic diastolic heart failure due to hypertrophic obstructive cardiomyopathy I50.32; I42.1 Gout M10.9
[2021-01-20] MEDS ORDERED: LORazepam 0.5 MG/1 ML VIAL IV PRN (19:52)
[2021-01-20] MEDS: ATORVASTATIN 20 MG TAB PO SCH (21:01)
--- NOTE | 2021-01-21 08:21 | Magnetic Resonance Report ---
MRI OF THE THORACIC SPINE WITHOUT CONTRAST CLINICAL HISTORY: bacteremia ?source, ?discitis. Prostate cancer. COMPARISON: Bone scan October 20, 2019. Chest CT March 23, 2020. TECHNIQUE: Utilizing a 1.5 Chelsi magnet and dedicated coil, multiplanar, multiecho imaging of the th oracic spine was performed without IV contrast. FINDINGS: A 2.8 cm T1 and T2 hypointense lesion within the right anterior aspect of the T12 vertebral body is similar to CT of March 23, 2020. This represents a skeletal metastasis. No additional foc i of suspicious marrow replacement within the thoracic spine are present. Exam is mildly compromised by motion artifact although is diagnostic. Thoracic cord signal and caliber are normal. There is no i ntracanalicular mass or fluid collection. Paravertebral soft tissues are unremarkable. Note is made o f a central disc protrusion at T12-L1 indents the ventral aspect of the cord. This results in moderat e central canal stenosis. There is increased T2 signal within the T8-T9 disc. However, the adjacent e ndplates are intact. There is no paravertebral edema. There is no convincing evidence for discitis wi thin the thoracic spine. IMPRESSION: 1. No definite evidence for an acute infectious process within the thoracic spine by MRI. 2. Increased T2 signal within the T8-T9 disc. However, adjacent endplates are intact and there is no paravertebral edema. Discitis is considered unlikely however if progressive back pain, short-term fol low-up MRI of the thoracic spine is recommended. 3. Redemonstration of the T12 vertebral body metastasis, similar to chest CT of March 23, 2020. 4. Central disc protrusion at T12-L1 results in moderate central canal stenosis. ACT 112: Negative or not required by law. Electronically signed by: Fred Hensley M.D. 01/21/2021 8:20 AM
[2021-01-21] MEDS: allopurinoL 100 MG TAB PO SCH (09:47)
[2021-01-21] MEDS: BICALUTAMIDE 50 MG TAB PO SCH (09:47)
[2021-01-21] MEDS: DABIGATRAN ETEXILATE 75 MG CAP PO SCH (09:47)
[2021-01-21] MEDS: METOPROLOL SUCC 50MG EXT REL TAB PO SCH (09:48)
[2021-01-21] MEDS: dilTIAZem HCL 120 MG CAPCR PO SCH (09:48)
--- NOTE | 2021-01-21 13:52 | Magnetic Resonance Report ---
MR CERVICAL SPINE WO CON HISTORY: 70 years-old Male bacteremia ?source, ?discitis acute bacteremia with possible discitis. Hi story of metastatic prostate cancer. COMPARISON: MRI thoracic spine study of same day, CTA of the chest 03/23/2020, bone scan 10/20/2019 TECHNIQUE: Multiplanar multisequence MRI of the cervical spine was obtained without the use of IV con trast. FINDINGS: Mildly motion degraded exam. Signal within the brainstem, cervical and imaged thoracic spinal cord is within normal limits. No acute fracture, subluxation, bone marrow or soft tissue edema. Trace fluid is noted at the C1-C2 interspace which is likely secondary to the associated moderate degeneration at this level. No endplate erosions. 4 mm anterolisthesis C7 on T1, likely degenerative. C2-C3: Uncovertebral spurring with moderate facet arthrosis. No central canal or neural foraminal addie rowing. C3-C4: Uncovertebral spurring with small posterior annular disc bulge and moderate facet arthrosis. F lattening of the ventral thecal sac without significant central canal stenosis. Mild right with moder ate left neural foraminal narrowing. C4-C5: Mild to moderate intervertebral disc space narrowing with uncovertebral spurring and posterior disc osteophyte complex with moderate facet arthrosis. Mild central canal stenosis with the AP dimen cody of the thecal sac measuring 8 mm. Severe bilateral neural foraminal narrowing. C5-C6: Mild to moderate intervertebral disc space narrowing with uncovertebral spurring and posterior disc osteophyte complex with moderate facet arthrosis. Mild central canal stenosis, AP dimension of the thecal sac measuring 8 mm. Moderate to severe right with severe left neural foraminal narrowing. C6-C7: Mild intervertebral disc space narrowing with uncovertebral spurring and moderate facet arthro sis. The central canal is patent. Mild right with moderate left neural foraminal narrowing. C7-T1: Likely degenerative grade 1 anterolisthesis measures 4 mm. Mild uncovertebral spurring with di sc space uncovering and severe facet arthrosis. The central canal and neural foramen are patent. IMPRESSION: 1. Discogenic degenerative changes with facet arthrosis as detailed above. No evidence of discitis or osteomyelitis. 2. Mild central canal narrowing at C4-C5 and C5-C6. 3. Multilevel neural foraminal narrowing, severe bilaterally at C4-C5. 4. Grade 1 anterolisthesis C7 on T1 is likely secondary to chronic facet arthrosis. ACT 112: Negative or not required by law. The above report was generated using voice recognition software. It may contain grammatical, syntax o r spelling errors. Dictated: 01/21/2021 10:09 AM Transcribed: 01/21/2021 1:30 PM Staci [id number] Electronically signed by: Jose Molina M.D. 01/21/2021 1:51 PM
--- NOTE | 2021-01-21 14:01 | Discharge Summary ---
Date of Service January 21, 2021 Admission HPI Per Admitting Provider Last Westbrook is a pleasant 70-year-old male with history of atrial fibrillation on dabigatran anticoagulation, prostate cancer, prior Covid infection in March and CHF presenting with acute onset rigors, confusion and fever. Patient was in his usual state of health today. 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 He took a nap and felt slightly better however, became confused again after he woke up. He reports fevers, chills, rigors and stuffy nose. Otherwise denies headache, visual changes, pain or stiffness in the neck, chest pain, palpitations, shortness of breath, cough, wheeze, abdominal pain, nausea, vomiting, diarrhea, constipation, dysuria, rashes, joint pain. No dental pain. No tick bites recently however, he has had tick bites in the past. No additional complaints at this time. In the ER he was febrile, tachycardic, blood pressure stable. He was administered cefepime and normal saline. States that he feels much better after these therapies. ER course: Cefepime, normal saline, Tylenol Principal Diagnosis Sepsis Group G beta strep bacteremia Discharge Exam Constitutional WD/WN, vitals as above Respiratory normal respiratory effort, lungs clear to auscultation Cardiovascular Rate/Rhythm: regular rate and + irregularly irregular Heart Sounds: no murmur Extremities: + pedal edema (1+ pre-tibial b/l equal) Gastrointestinal (Abdomen) normal bowel sounds, soft, nontender, no hepatosplenomegaly Psychiatric A+Ox3, euthymic affect Discharge Data Allergies Allergy/AdvReac Type Severity Reaction Status Date / Time amiodarone AdvReac Severe Pneumonitis Unverified 01/17/21 02:52 Consultations 01/18/21 15:04 Consult Infectious Diseases Routine Ordered Studies 01/20/21 14:48 MR cervical spine wo con Routine HISTORY: 70 years-old Male bacteremia ?source, ?discitis acute bacteremia with possible discitis. History of metastatic prostate cancer. COMPARISON: MRI thoracic spine study of same day, CTA of the chest 03/23/2020, bone scan 10/20/2019 TECHNIQUE: Multiplanar multisequence MRI of the cervical spine was obtained without the use of IV contrast. FINDINGS: Mildly motion degraded exam. Signal within the brainstem, cervical and imaged thoracic spinal cord is within normal limits. No acute fracture, subluxation, bone marrow or soft tissue edema. Trace fluid is noted at the C1-C2 interspace which is likely secondary to the associated moderate degeneration at this level. No endplate erosions. 4 mm anterolisthesis C7 on T1, likely degenerative. C2-C3: Uncovertebral spurring with moderate facet arthrosis. No central canal or neural foraminal narrowing. C3-C4: Uncovertebral spurring with small posterior annular disc bulge and moderate facet arthrosis. Flattening of the ventral thecal sac without significant central canal stenosis. Mild right with moderate left neural foraminal narrowing. C4-C5: Mild to moderate intervertebral disc space narrowing with uncovertebral spurring and posterior disc osteophyte complex with moderate facet arthrosis. Mild central canal stenosis with the AP dimension of the thecal sac measuring 8 mm. Severe bilateral neural foraminal narrowing. C5-C6: Mild to moderate intervertebral disc space narrowing with uncovertebral spurring and posterior disc osteophyte complex with moderate facet arthrosis. Mild central canal stenosis, AP dimension of the thecal sac measuring 8 mm. Moderate to severe right with severe left neural foraminal narrowing. C6-C7: Mild intervertebral disc space narrowing with uncovertebral spurring and moderate facet arthrosis. The central canal is patent. Mild right with moderate left neural foraminal narrowing. C7-T1: Likely degenerative grade 1 anterolisthesis measures 4 mm. Mild uncovertebral spurring with disc space uncovering and severe facet arthrosis. The central canal and neural foramen are patent. IMPRESSION: 1. Discogenic degenerative changes with facet arthrosis as detailed above. No evidence of discitis or osteomyelitis. 2. Mild central canal narrowing at C4-C5 and C5-C6. 3. Multilevel neural foraminal narrowing, severe bilaterally at C4-C5. 4. Grade 1 anterolisthesis C7 on T1 is likely secondary to chronic facet arthrosis. MR thoracic spine wo con Routine CLINICAL HISTORY: bacteremia ?source, ?discitis. Prostate cancer. COMPARISON: Bone scan October 20, 2019. Chest CT March 23, 2020. TECHNIQUE: Utilizing a 1.5 Chelsi magnet and dedicated coil, multiplanar, multiecho imaging of the thoracic spine was performed without IV contrast. FINDINGS: A 2.8 cm T1 and T2 hypointense lesion within the right anterior aspect of the T12 vertebral body is similar to CT of March 23, 2020. This represents a skeletal metastasis. No additional foci of suspicious marrow replacement within the thoracic spine are present. Exam is mildly compromised by motion artifact although is diagnostic. Thoracic cord signal and caliber are normal. There is no intracanalicular mass or fluid collection. Paravertebral soft tissues are unremarkable. Note is made of a central disc protrusion at T12-L1 indents the ventral aspect of the cord. This results in moderate central canal stenosis. There is increased T2 signal within the T8-T9 disc. However, the adjacent endplates are intact. There is no paravertebral edema. There is no convincing evidence for discitis within the thoracic spine. IMPRESSION: 1. No definite evidence for an acute infectious process within the thoracic spine by MRI. 2. Increased T2 signal within the T8-T9 disc. However, adjacent endplates are intact and there is no paravertebral edema. Discitis is considered unlikely however if progressive back pain, short-term follow-up MRI of the thoracic spine is recommended. 3. Redemonstration of the T12 vertebral body metastasis, similar to chest CT of March 23, 2020. 4. Central disc protrusion at T12-L1 results in moderate central canal stenosis. 01/21/21 14:48 MR lumbar spine wo/w con Routine Patient unable to complete Hospital Course (1) Sepsis: Last Westbrook is a 70 year old male admitted to [facility] from January 17 - 2020 due to fever and generalized weakness. He was diagnosed with Group G Beta Strep bacteremia. Most likely source is his cellulitis in right lower extremity however workup not fully complete due to unable to complete back MRI. There was some increased signal in T8-9 disc however adjacent endplates are intact and no paravertebral edema makes discitis unlikely here. If progressive back pain in this area short-term follow up MRI is recommended. Given no diagnosis of a deep seated infection has been made, only one out of two blood cultures were positive and his symptoms resolved quickly recommend 2 weeks total of intravenous ceftriaxone with the last day January 30. An ultrasound guided intravenous line can be used for the duration of these antibiotics. Please follow up with your primary care physician within the next 1-2 weeks for follow up. 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: (6) Gout: Total Time Total Time Spent Total Time Spent (In Minutes): 35 Discharge Plan Discharge Items Patient Disposition: Home - Home Health Services Reason For Visit: FEVER, SEPSIS Discharge Diagnosis: Sepsis Group G beta strep bacteremia Activity: Resume your previous activity Non-emergency contact: Primary Care Provider Call non-emergency contact if: you have any medication questions, your symptoms worsen and your temperature is above 101 Follow-up/Referrals: Shyann Kwon MD [Primary Care Provider] - 01/24/21 10:40 am Diet: Heart Healthy Addtl Attending Provider Instructions: You were admitted to [facility] from January 17 - 2020 due to fever and generalized weakness. You were diagnosed with Group G Beta Strep. Most likely from cellulitis in right lower extremity however workup not fully complete due to unable to complete back MRI. There was some increased signal in T8-9 disc however adjacent endplates are intact and no paravertebral edema makes discitis unlikely here. However if progressive back pain in this area short-term follow up MRI is recommended. Given no diagnosis of a deep seated infection has been made, only one out of two blood cultures were positive and your symptoms resolved quickly recommend 2 weeks total of intravnous ceftriaxone with the last day January 30. An ultrasound guided intravenous line can be used for the duration of these antibiotics. Please follow up with your primary care physician within the next 1-2 weeks for follow up. Pending Studies at Discharge: No Stand-Alone Forms: My [facility], Smoking Cessation Medications and DC Order Prescriptions: Continued allopurinol 100 mg tablet 200 mg PO QAM RF: 0 Pradaxa 150 mg capsule 150 mg PO BID RF: 0 diltiazem HCl [Cartia XT] 120 mg capsule,extended release 24hr 120 mg PO QAM RF: 0 atorvastatin [Lipitor] 20 mg tablet 20 mg PO HS RF: 0 bicalutamide 50 mg tablet 50 mg PO QAM RF: 0 metoprolol succinate 100 mg tablet extended release 24 hr 100 mg PO QAM RF: 0 calcium carbonate 500 mg calcium (1,250 mg) tablet 500 mg PO BID RF: 0 colchicine [Colcrys] 0.6 mg Tablet 0.6 mg PO UD RF: 0 cholecalciferol (vitamin D3) 25 mcg (1,000 unit) capsule 1,000 unit PO QAM RF: 0 (DME) Oxygen Home Liters Per Minute 1 ea .Route .prn Qty: 1 RF: 0 albuterol sulfate [Ventolin HFA] 90 mcg/actuation HFA aerosol inhaler 2 inh inhalation Q6H PRN (Reason: shortness of breath or wheezing) Qty: 18 RF: 0 Discharge Orders: Discharge Order (Routine); Ordered 01/21/21 Ordered By: Kade Dillon/Other Patient Handouts: Understanding Sepsis, ED Bacteremia, Suspected (Adult) Admission Data Admit Date/Time: 01/19/21 11:11 Attending Provider: Kade Lou Admit Provider: Kade Lou Primary Care Provider: Shyann Kwon Other Providers: Neal Blount ; Hetal Zamorano ; Sheng Cardenas I. ; Bulmaro iSerra II ; Fauzia Head ; Sawyer Elizabeth ; [facility] Other Interventions: Discharge Summary Assessment (RN) Last Done: 01/21/21 14:56 Coding Level of Care Code D/C DAY MANAGEMENT >30 MINS Diagnoses Sepsis A41.9 Bacteremia R78.81 Atrial fibrillation I48.91 Prostate cancer C61 Chronic diastolic heart failure due to hypertrophic obstructive cardiomyopathy I50.32; I42.1 Gout M10.9
[2021-01-21] MEDS: cefTRIAXone SODIUM 2,000 MG in DEXTROSE 5% 50 ML IV SCH (14:45)
== END 2021-01-21 17:03 | disposition home health service (06) | DRG 872 ==
LOC: EDINP 00:33 → ED 00:33 → SUATTDRO 04:55 → EDINP 05:56 → 2N 14:17 → 3N 01-20 01:35

== ENCOUNTER 2021-02-27 12:22 | Inpatient (IN) ==
[2021-02-27] MEDS ORDERED: SODIUM CHLORIDE 0.9% 1000ML 1,000 ML IV ONE ×2 (12:28→13:34)
--- NOTE | 2021-02-27 12:34 | Emergency Department Note ---
Impression & Plan Generalized weakness, Acidosis, lactic ED Provider Note Name: HAILEE ROBERTS Age: 70 Sex: M Arrives Via: Ambulance Informant: Patient, EMS ED Provider: Howie Ludwig MD Chief Complaint: Weakness Impression: As per Impression Above Medical Decision Makin yr old male that I suspect is early sepsis arrives with generalized weakness, tachycardia and loss of bladder control he is so weak. Mild hypoxia with some crackles lungs but no overt shortness of breath nor infiltrate on CXR. Sepsis labs ordered with elevated Lactate. Empiric Abx given post blood cultures. He is feeling better after fluid bolus. He is not septic shock. Afib RVR which is likely more dehydration/infection and I do not feel anti-arrhythmic yet indicated. He is breathing comfortably requiring 2 L NC in no distress. Abdominal exam is benign, urine unremarkable and I do not feel left leg erythema is consistent with cellulitis at this time. Prior Medical Record and Triage/Nursing Notes reviewed by Me Additional history obtained from chart Differentials:Infection, dehydration, metabolic abnormality, hypo/hyperglycemia, electrolyte disturbance, anemia, hypoxia, cardiac sources, intracerebral event, toxicologic, neurologic, as well as other pathologies. Vital Signs: reviewed and remarkable for no significant abnormalities Interventions: See Below Labs:Reviewed and remarkable for no significant abnormalities Imaging:See Below EKG:Per My Interpretation: Indication Weakness: Afib RVR 133 bpm, qtc 482. No Ischemia. Compared to EKG 01/17/21, no significant changes. Cardiac/Tele Monitoring: Cardiac Monitoring: An Order was placed for continuous cardiac monitoring. The monitor shows a rate of 110 with a Afib RVR rhythm. Consults:Hospitalist (Dr Ortega) Plan: Disposition:Hospitalization. Condition: Fair History of Present Illness:70 yr old male arrives for evaluation of illness. Patient with several days of exhaustion. Worsening weakness last 24 hours. Notes worsening diaphoresis, lightheadedness, and instability. Denies headache, neuro deficits, nor falls. States he just feels completely wiped out. Denies fevers, chills, vomiting, syncope, headache, neck pain, neuro deficits, vision changes, chest pain, palpitations, abdominal pain, back pain, urinary/bowel symptoms, leg swelling (right leg chronically swollen), rashes (right leg chronically red), nor other symptoms. No medications prior to arrival. Nothing makes better nor worse. Notes he was admitted for sepsis last month without clear source of infection. States he has Afib and is on a blood thinner. ROS: See above HPI for pertinent positives & negatives. A total of 10 systems reviewed and were otherwise negative. Past Medical History:See Below Past Surgical History:See Below Family History:See Below Social History:See Below Home Medications:See Below Allergies:amiodarone Vitals:Blood Pressure: 132/83, Pulse 130, RR 22, T 37.1C, O2 88% on RA Physical Exam: GENERAL: Patient is ill appearing and in moderate distress. Diaphoretic, pale EYES: No scleral icterus, unremarkable pupils. ENT: Mucous membranes moist, no nasal congestion. NECK: No masses appreciated, nomeningismus, trachea is midline. RESPIRATORY: No dyspnea. Clear to auscultation and equal bilaterally. No wheeze, no rhonchi. CARDIOVASCULAR: Irregular.No murmurs, rubs, gallops appreciated. GASTROINTESTINAL: Abdomen soft, non-tender, no peritonitis.Bowel sounds positive.No masses appreciated. BACK: No midline tenderness, no CVA tenderness EXTREMITIES: Normal motion all extremities, no cyanosis, no edema. NEUROLOGIC: Alert and oriented, no acute motor or sensory deficits, no focal weakness, cranial nerves grossly intact. SKIN: No rash, no jaundice, ++ diaphoresis. PSYCH: Appropriate GCS: 15 ED Course: Times/Reassessments: stable, breathing comfortably on 2L NC, improved with NSS bolus and feeling better Howie Ludwig MD Past Med/Surg History Medical History Atrial fibrillation Atrial fibrillation with RVR Basal cell carcinoma of dorsum of nose BPH (benign prostatic hyperplasia) Chronic diastolic heart failure due to hypertrophic obstructive cardiomyopathy Congestive heart failure Elevated PSA Gout Idiopathic peripheral neuropathy Polyp of colon Prostate cancer Surgical History History of left knee replacement Family History Family/Other Prostate cancer cousin on fathers side Family/Other Hypertension paternal aunts Mother , age 75 COPD No problems noted. Father , age 41 complications of jungle rot WW2 Heart disease Son No problems noted. Son No problems noted. Daughter No problems noted. 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 Feels Safe at Home: Yes Childhood Exposure to Second-Hand Smoke: Yes caffeine: Yes (one cup coffee per day) during the past year weight has: remained stable Dental Care, Regularly: Yes Physical Activity Frequency: Daily Seatbelt Use: always Sunscreen Use: Yes Assistive Devices: None Allergies Allergies Allergy/AdvReac Type Severity Reaction Status Date / Time amiodarone AdvReac Severe Pneumonitis Unverified 02/27/21 12:56 Home Meds Home Medications Medication Instructions Recorded Confirmed atorvastatin 20 mg tablet (Lipitor) 20 mg PO HS 09/23/19 02/27/21 dabigatran etexilate 150 mg 150 mg PO BID 09/23/19 02/27/21 capsule (Pradaxa) diltiazem HCl 120 mg 120 mg PO QAM 09/23/19 02/27/21 capsule,extended release 24 hr (Cartia XT) allopurinol 100 mg tablet 200 mg PO QAM 10/21/19 02/27/21 (Zyloprim) bicalutamide 50 mg tablet (Casodex) 50 mg PO QAM 03/23/20 02/27/21 cholecalciferol (vitamin D3) 25 1,000 unit PO QAM 03/23/20 02/27/21 mcg (1,000 unit) capsule (Vitamin D3) colchicine 0.6 mg tablet (Colcrys) 0.6 mg PO UD 03/23/20 02/27/21 metoprolol succinate 100 mg 100 mg PO QAM 03/23/20 02/27/21 tablet,extended release 24 hr (Toprol XL) calcium carbonate 600 mg calcium 600 mg PO QAM 02/27/21 02/27/21 (1,500 mg) tablet (Calcium) Previous Rx's Medication Instructions Recorded Oxygen Home #1 ea 03/27/20 Results & Data (ED) Vital Signs Vital Signs - 24 hr 02/27/21 12:35 02/27/21 13:00 02/27/21 13:10 Temperature 37.1 C Temperature Source Oral Pulse Rate 120 H 105 H Pulse Rate from SpO2 Sensor 98 H Respiratory Rate 23 32 H Respiratory Effort / Characteristics Non-Labored Spontaneous Respiratory Depth Normal Blood Pressure 119/71 127/71 Blood Pressure Mean 87 89 Blood Pressure Position Lying Pulse Oximetry 93 87 L 88 L Oxygen Delivery Method Room Air Room Air Room Air Oxygen Flow Rate 0 Sepsis Recent Fever Within 48 Hours No Sepsis New/Unexplained Change in Mental Status No Sepsis Action Taken by Nursing Physician Notified Oxygen Flow Rate - Titration 2 Pulse Oximetry Post Tiitration 94 02/27/21 13:30 02/27/21 14:00 02/27/21 14:30 Temperature Temperature Source Pulse Rate 107 H 114 H Pulse Rate from SpO2 Sensor 96 H 108 H Respiratory Rate 29 H 21 29 H Respiratory Effort / Characteristics Respiratory Depth Blood Pressure 116/64 129/79 Blood Pressure Mean 81 95 Blood Pressure Position Pulse Oximetry 90 92 94 Oxygen Delivery Method Nasal Cannula Nasal Cannula Nasal Cannula Oxygen Flow Rate 2 2 Sepsis Recent Fever Within 48 Hours Sepsis New/Unexplained Change in Mental Status Sepsis Action Taken by Nursing Oxygen Flow Rate - Titration Pulse Oximetry Post Tiitration 02/27/21 15:00 02/27/21 15:30 Temperature Temperature Source Pulse Rate 115 H 105 H Pulse Rate from SpO2 Sensor Respiratory Rate 23 22 Respiratory Effort / Characteristics Respiratory Depth Blood Pressure 132/83 Blood Pressure Mean 99 Blood Pressure Position Pulse Oximetry 95 95 Oxygen Delivery Method Nasal Cannula Nasal Cannula Oxygen Flow Rate 2 2 Sepsis Recent Fever Within 48 Hours Sepsis New/Unexplained Change in Mental Status Sepsis Action Taken by Nursing Oxygen Flow Rate - Titration Pulse Oximetry Post Tiitration Laboratory Data Result diagrams: 02/27/21 12:47 02/27/21 12:47 Lab Results 02/27/21 02/27/21 02/27/21 Range/Units 12:47 12:47 12:47 WBC 15.61 H (4.8-10.8) K/uL RBC 4.73 (4.7-6.1) M/uL Hgb 15.6 (14.0-18.0) g/dL Hct 43.6 (42-52) % MCV 92.2 (80-100) fL MCH 33.0 (25-34) pg MCHC 35.8 (32-36) g/dL RDW Std Deviation 45.9 (36.4-46.3) fL RDW Coeff of Phyllis 13.6 (11.5-14.5) % Plt Count 238 (130-400) K/uL MPV 9.1 (7.4-10.4) fL Immature Gran % (Auto) 0.3 % Neut % (Auto) 90.9 % Lymph % (Auto) 4.2 % [place] % (Auto) 4.4 % Eos % (Auto) 0.1 % Baso % (Auto) 0.1 % Neut # (Auto) 14.20 H (1.4-6.5) K/uL Lymph # (Auto) 0.65 L (1.2-3.4) K/uL [place] # (Auto) 0.69 H (0.11-0.59) K/uL Eos # (Auto) 0.01 (0-0.5) K/uL Baso # (Auto) 0.01 (0-0.2) K/uL Immature Gran # (Auto) 0.05 H (0.00-0.02) K/uL ESR (0-20) mm/hr PT 13.0 H (9.0-12.0) Seconds INR 1.3 H (0.9-1.1) APTT 38.9 H (21.0-31.0) Seconds PTT Ratio 1.5 Sodium (136-145) mmol/L Potassium (3.5-5.1) mmol/L Chloride (98-107) mmol/L Carbon Dioxide (21-32) mmol/L Anion Gap (3-11) BUN (7-18) mg/dl Creatinine (0.6-1.4) mg/dl Est Cr Clr Drug Dosing ml/min Est GFR ( Amer) ml/min Est GFR (Non-Af Amer) ml/min BUN/Creatinine Ratio (10-20) Glucose (70-99) mg/dl Lactate 2.2 H* (0.4-2.0) mmol/L Calcium (8.5-10.1) mg/dl Phosphorus (2.5-4.9) mg/dl Magnesium (1.8-2.4) mg/dl Total Bilirubin (0.2-1) mg/dl Direct Bilirubin (0-0.2) mg/dl AST (15-37) U/L ALT (12-78) U/L Alkaline Phosphatase (45-117) U/L Troponin I (0-0.045) ng/ml C-Reactive Protein (0-0.29) mg/dl Total Protein (6.4-8.2) gm/dl Albumin (3.4-5.0) gm/dl Lipase (73-393) U/L Procalcitonin (0-0.5) ng/ml Urine Color Urine Appearance (Clear) Urine pH (4.5-7.5) Ur Specific [place] (1.000-1.030) Urine Protein (Negative) Urine Glucose (UA) (Negative) Urine Ketones (Negative) Urine Blood (Negative) Urine Nitrite (Negative) Urine Bilirubin (Negative) Urine Urobilinogen (Negative) Ur Leukocyte Esterase (Negative) Urine WBC (Auto) (0-5) /hpf Urine RBC (Auto) (0-4) /hpf U Hyaline Cast (Auto) (0-5) /lpf U Epithel Cells (Auto) (0-5) /lpf Urine Bacteria (Auto) (Negative) COVID-19 Eval Order SARS-CoV-2 (PCR) (Negative) 02/27/21 02/27/21 02/27/21 Range/Units 12:47 12:47 12:47 WBC (4.8-10.8) K/uL RBC (4.7-6.1) M/uL Hgb (14.0-18.0) g/dL Hct (42-52) % MCV (80-100) fL MCH (25-34) pg MCHC (32-36) g/dL RDW Std Deviation (36.4-46.3) fL RDW Coeff of Phyllis (11.5-14.5) % Plt Count (130-400) K/uL MPV (7.4-10.4) fL Immature Gran % (Auto) % Neut % (Auto) % Lymph % (Auto) % [place] % (Auto) % Eos % (Auto) % Baso % (Auto) % Neut # (Auto) (1.4-6.5) K/uL Lymph # (Auto) (1.2-3.4) K/uL [place] # (Auto) (0.11-0.59) K/uL Eos # (Auto) (0-0.5) K/uL Baso # (Auto) (0-0.2) K/uL Immature Gran # (Auto) (0.00-0.02) K/uL ESR 87 H (0-20) mm/hr PT (9.0-12.0) Seconds INR (0.9-1.1) APTT (21.0-31.0) Seconds PTT Ratio Sodium 132 L (136-145) mmol/L Potassium 3.7 (3.5-5.1) mmol/L Chloride 100 (98-107) mmol/L Carbon Dioxide 23 (21-32) mmol/L Anion Gap 9.0 (3-11) BUN 20 H (7-18) mg/dl Creatinine 1.20 (0.6-1.4) mg/dl Est Cr Clr Drug Dosing 72.7 ml/min Est GFR ( Amer) 70.6 ml/min Est GFR (Non-Af Amer) 60.9 ml/min BUN/Creatinine Ratio 16.4 (10-20) Glucose 123 H (70-99) mg/dl Lactate (0.4-2.0) mmol/L Calcium 9.2 (8.5-10.1) mg/dl Phosphorus 1.2 L* (2.5-4.9) mg/dl Magnesium 1.8 (1.8-2.4) mg/dl Total Bilirubin 0.6 (0.2-1) mg/dl Direct Bilirubin 0.1 (0-0.2) mg/dl AST 30 (15-37) U/L ALT 30 (12-78) U/L Alkaline Phosphatase 85 (45-117) U/L Troponin I < 0.015 (0-0.045) ng/ml C-Reactive Protein 3.38 H (0-0.29) mg/dl Total Protein 8.6 H (6.4-8.2) gm/dl Albumin 3.3 L (3.4-5.0) gm/dl Lipase 115 (73-393) U/L Procalcitonin 0.46 (0-0.5) ng/ml Urine Color Urine Appearance (Clear) Urine pH (4.5-7.5) Ur Specific [place] (1.000-1.030) Urine Protein (Negative) Urine Glucose (UA) (Negative) Urine Ketones (Negative) Urine Blood (Negative) Urine Nitrite (Negative) Urine Bilirubin (Negative) Urine Urobilinogen (Negative) Ur Leukocyte Esterase (Negative) Urine WBC (Auto) (0-5) /hpf Urine RBC (Auto) (0-4) /hpf U Hyaline Cast (Auto) (0-5) /lpf U Epithel Cells (Auto) (0-5) /lpf Urine Bacteria (Auto) (Negative) COVID-19 Eval Order SARS-CoV-2 (PCR) (Negative) 02/27/21 02/27/21 02/27/21 Range/Units 14:11 14:31 Unknown WBC (4.8-10.8) K/uL RBC (4.7-6.1) M/uL Hgb (14.0-18.0) g/dL Hct (42-52) % MCV (80-100) fL MCH (25-34) pg MCHC (32-36) g/dL RDW Std Deviation (36.4-46.3) fL RDW Coeff of Phyllis (11.5-14.5) % Plt Count (130-400) K/uL MPV (7.4-10.4) fL Immature Gran % (Auto) % Neut % (Auto) % Lymph % (Auto) % [place] % (Auto) % Eos % (Auto) % Baso % (Auto) % Neut # (Auto) (1.4-6.5) K/uL Lymph # (Auto) (1.2-3.4) K/uL [place] # (Auto) (0.11-0.59) K/uL Eos # (Auto) (0-0.5) K/uL Baso # (Auto) (0-0.2) K/uL Immature Gran # (Auto) (0.00-0.02) K/uL ESR (0-20) mm/hr PT (9.0-12.0) Seconds INR (0.9-1.1) APTT (21.0-31.0) Seconds PTT Ratio Sodium (136-145) mmol/L Potassium (3.5-5.1) mmol/L Chloride (98-107) mmol/L Carbon Dioxide (21-32) mmol/L Anion Gap (3-11) BUN (7-18) mg/dl Creatinine (0.6-1.4) mg/dl Est Cr Clr Drug Dosing ml/min Est GFR ( Amer) ml/min Est GFR (Non-Af Amer) ml/min BUN/Creatinine Ratio (10-20) Glucose (70-99) mg/dl Lactate 1.6 (0.4-2.0) mmol/L Calcium (8.5-10.1) mg/dl Phosphorus (2.5-4.9) mg/dl Magnesium (1.8-2.4) mg/dl Total Bilirubin (0.2-1) mg/dl Direct Bilirubin (0-0.2) mg/dl AST (15-37) U/L ALT (12-78) U/L Alkaline Phosphatase (45-117) U/L Troponin I (0-0.045) ng/ml C-Reactive Protein (0-0.29) mg/dl Total Protein (6.4-8.2) gm/dl Albumin (3.4-5.0) gm/dl Lipase (73-393) U/L Procalcitonin (0-0.5) ng/ml Urine Color Dark Yellow Urine Appearance Clear (Clear) Urine pH 5.0 (4.5-7.5) Ur Specific [place] 1.025 (1.000-1.030) Urine Protein 2+ H (Negative) Urine Glucose (UA) Negative (Negative) Urine Ketones Trace H (Negative) Urine Blood 3+ H (Negative) Urine Nitrite Negative (Negative) Urine Bilirubin Negative (Negative) Urine Urobilinogen Negative (Negative) Ur Leukocyte Esterase Negative (Negative) Urine WBC (Auto) 1-5 (0-5) /hpf Urine RBC (Auto) >30 H (0-4) /hpf U Hyaline Cast (Auto) 10-30 H (0-5) /lpf U Epithel Cells (Auto) 20-30 H (0-5) /lpf Urine Bacteria (Auto) Negative (Negative) COVID-19 Eval Order Covid19 at [facility] SARS-CoV-2 (PCR) (Negative) 02/27/21 Range/Units Unknown WBC (4.8-10.8) K/uL RBC (4.7-6.1) M/uL Hgb (14.0-18.0) g/dL Hct (42-52) % MCV (80-100) fL MCH (25-34) pg MCHC (32-36) g/dL RDW Std Deviation (36.4-46.3) fL RDW Coeff of Phyllis (11.5-14.5) % Plt Count (130-400) K/uL MPV (7.4-10.4) fL Immature Gran % (Auto) % Neut % (Auto) % Lymph % (Auto) % [place] % (Auto) % Eos % (Auto) % Baso % (Auto) % Neut # (Auto) (1.4-6.5) K/uL Lymph # (Auto) (1.2-3.4) K/uL [place] # (Auto) (0.11-0.59) K/uL Eos # (Auto) (0-0.5) K/uL Baso # (Auto) (0-0.2) K/uL Immature Gran # (Auto) (0.00-0.02) K/uL ESR (0-20) mm/hr PT (9.0-12.0) Seconds INR (0.9-1.1) APTT (21.0-31.0) Seconds PTT Ratio Sodium (136-145) mmol/L Potassium (3.5-5.1) mmol/L Chloride (98-107) mmol/L Carbon Dioxide (21-32) mmol/L Anion Gap (3-11) BUN (7-18) mg/dl Creatinine (0.6-1.4) mg/dl Est Cr Clr Drug Dosing ml/min Est GFR ( Amer) ml/min Est GFR (Non-Af Amer) ml/min BUN/Creatinine Ratio (10-20) Glucose (70-99) mg/dl Lactate (0.4-2.0) mmol/L Calcium (8.5-10.1) mg/dl Phosphorus (2.5-4.9) mg/dl Magnesium (1.8-2.4) mg/dl Total Bilirubin (0.2-1) mg/dl Direct Bilirubin (0-0.2) mg/dl AST (15-37) U/L ALT (12-78) U/L Alkaline Phosphatase (45-117) U/L Troponin I (0-0.045) ng/ml C-Reactive Protein (0-0.29) mg/dl Total Protein (6.4-8.2) gm/dl Albumin (3.4-5.0) gm/dl Lipase (73-393) U/L Procalcitonin (0-0.5) ng/ml Urine Color Urine Appearance (Clear) Urine pH (4.5-7.5) Ur Specific [place] (1.000-1.030) Urine Protein (Negative) Urine Glucose (UA) (Negative) Urine Ketones (Negative) Urine Blood (Negative) Urine Nitrite (Negative) Urine Bilirubin (Negative) Urine Urobilinogen (Negative) Ur Leukocyte Esterase (Negative) Urine WBC (Auto) (0-5) /hpf Urine RBC (Auto) (0-4) /hpf U Hyaline Cast (Auto) (0-5) /lpf U Epithel Cells (Auto) (0-5) /lpf Urine Bacteria (Auto) (Negative) COVID-19 Eval Order SARS-CoV-2 (PCR) NEGATIVE (Negative) Administered Medications Discontinued Medications Sodium Chloride (Nss 1000ml) 1,000 mls @ 999 mls/hr IV .Q1H1M ONE Stop: 02/27/21 13:28 Last Infusion: 02/27/21 15:44 Dose: 0 mls/hr Documented by: [id number] Admin: 02/27/21 12:42 Dose: 999 mls/hr Documented by: [id number] Sodium Chloride (Nss 1000ml) 1,000 mls @ 999 mls/hr IV .Q1H1M ONE Stop: 02/27/21 14:34 Last Infusion: 02/27/21 15:44 Dose: 0 mls/hr Documented by: [id number] Admin: 02/27/21 14:09 Dose: 999 mls/hr Documented by: [id number] Cefepime HCl (Maxipime) 2,000 mg in 20 mls @ 5 mls/min IV NOW STA; Protocol Stop: 02/27/21 13:54 Last Admin: 02/27/21 14:01 Dose: 5 mls/min Documented by: [id number] Vancomycin HCl 2,000 mg/ (Sodium Chloride) 540 mls @ 200 mls/hr IV NOW ONE Stop: 02/27/21 16:32 Last Admin: 02/27/21 14:06 Dose: 200 mls/hr Documented by: [id number] Imaging Data Radiologist's Impression: Chest X-Ray 02/27/21 12:29 XR chest 1V portable CLINICAL HISTORY: generalized weakness TECHNIQUE: Single frontal radiograph of the chest was obtained. Comparison: Comparison is made to chest one view 01/17/2021 FINDINGS: No lines and tubes are seen. Cardiomegaly is noted. The lungs are clear. No evidence of pleural effusion or pneumothorax. IMPRESSION: No acute chest disease. ACT 112: Negative or not required by law. Electronically signed by: Shane Engel M.D. 02/27/2021 12:57 PM Discharge Plan Visit Data Chief Complaint: Weakness ED Provider: Howie Ludwig Discharge Problem: Generalized weakness, Acidosis, lactic Forms Stand Alone Forms: [facility] [employer] Prescriptions Prescriptions: No Action allopurinol [Zyloprim] 100 mg tablet 200 mg PO QAM RF: 0 Pradaxa 150 mg capsule 150 mg PO BID RF: 0 diltiazem HCl [Cartia XT] 120 mg capsule,extended release 24hr 120 mg PO QAM RF: 0 atorvastatin [Lipitor] 20 mg tablet 20 mg PO HS RF: 0 bicalutamide [Casodex] 50 mg tablet 50 mg PO QAM RF: 0 metoprolol succinate [Toprol XL] 100 mg tablet extended release 24 hr 100 mg PO QAM RF: 0 colchicine [Colcrys] 0.6 mg Tablet 0.6 mg PO UD RF: 0 cholecalciferol (vitamin D3) [Vitamin D3] 25 mcg (1,000 unit) capsule 1,000 unit PO QAM RF: 0 (DME) Oxygen Home Liters Per Minute 1 ea .Route .prn Qty: 1 RF: 0 calcium carbonate [Calcium 600] 600 mg calcium (1,500 mg) Tablet 600 mg PO QAM RF: 0 Referrals Referrals: Shyann Kwon MD [Primary Care Provider] -
--- NOTE | 2021-02-27 12:59 | XRay Report ---
XR chest 1V portable CLINICAL HISTORY: generalized weakness TECHNIQUE: Single frontal radiograph of the chest was obtained. Comparison: Comparison is made to chest one view 01/17/2021 FINDINGS: No lines and tubes are seen. Cardiomegaly is noted. The lungs are clear. No evidence of pleural effus ion or pneumothorax. IMPRESSION: No acute chest disease. ACT 112: Negative or not required by law. Electronically signed by: Shane Engel M.D. 02/27/2021 12:57 PM
[2021-02-27 13:00] LABS: Basophils # (auto) 0.01 K/uL (0-0.2); Basophils % (auto) 0.1 %; Eosinophils # (auto) 0.01 K/uL (0-0.5); Eosinophils % (auto) 0.1 %; Hematocrit (blood only) 43.6 % (42-52); Hemoglobin 15.6 g/dL (14.0-18.0); Immature Granulocytes # (auto) 0.05 K/uL (0.00-0.02); Immature Granulocytes % (auto) 0.3 %; Lymphocytes # (auto) 0.65 K/uL (1.2-3.4); Lymphocytes % (auto) 4.2 %; Mean Corpuscular Hgb Conc 35.8 g/dL (32-36); Mean Corpuscular Volume 92.2 fL (80-100); Mean Platelet Volume 9.1 fL (7.4-10.4); Monocytes # (auto) 0.69 K/uL (0.11-0.59); Monocytes % (auto) 4.4 %; Neutrophils % (auto) 90.9 %; Platelet Count 238 K/uL (130-400); RDW Coefficient of Variation 13.6 % (11.5-14.5); RDW Standard Deviation 45.9 fL (36.4-46.3); Red Blood Count 4.73 M/uL (4.7-6.1); White Blood Count 15.61 K/uL (4.8-10.8)
[2021-02-27 13:12] LABS: INR 1.3 (0.9-1.1); Partial Thromboplastin Ratio 1.5; Partial Thromboplastin Time 38.9 Seconds (21.0-31.0)
[2021-02-27 13:19] LABS: Alanine Aminotransferase 30 U/L (12-78); Albumin Level 3.3 gm/dl (3.4-5.0); Aspartate Aminotransferase 30 U/L (15-37); BUN Creatinine Ratio 16.4 (10-20); Bilirubin Direct 0.1 mg/dl (0-0.2); Blood Urea Nitrogen 20 mg/dl (7-18); Calcium 9.2 mg/dl (8.5-10.1); Carbon Dioxide 23 mmol/L (21-32); Chloride 100 mmol/L (98-107); Creatinine Clr Calc Pharmacy 72.7 ml/min; Est GFR (African American) 70.6 ml/min; Est GFR (Non-African American) 60.9 ml/min; Glucose 123 mg/dl (70-99); Lipase 115 U/L (73-393); Magnesium 1.8 mg/dl (1.8-2.4); Potassium 3.7 mmol/L (3.5-5.1); Sodium 132 mmol/L (136-145)
[2021-02-27 13:25] LABS: Alkaline Phosphatase 85 U/L (45-117); Bilirubin,Total 0.6 mg/dl (0.2-1); Total Protein 8.6 gm/dl (6.4-8.2); Troponin I < 0.015 ng/ml (0-0.045)
[2021-02-27] MEDS ORDERED: VANCOMYCIN CONSULT ACTIVE PRN ×2 (13:51→19:37)
[2021-02-27] MEDS ORDERED: CEFEPIME 2,000 MG/20 ML VIAL IV STA (13:51)
[2021-02-27] MEDS ORDERED: VANCOMYCIN HCL 2,000 MG in SODIUM CHLORIDE 0.9% 500 ML IV ONE (13:51)
[2021-02-27 15:01] LABS: Appearance Urine Clear (Clear); Bacteria Urine Automated Negative (Negative); Bilirubin Urine Negative (Negative); Blood Urine 3+ (Negative); Color Urine Dark Yellow; Epithelial Cell Urine Auto 20-30 /lpf (0-5); Glucose Urine UA Negative (Negative); Ketones Urine Trace (Negative); Leukocyte Esterase Urine Negative (Negative); Nitrite Urine Negative (Negative); Protein Urine 2+ (Negative); RBC Urine Automated >30 /hpf (0-4); Specific Gravity Urine 1.025 (1.000-1.030); Urobilinogen Urine Negative (Negative)
[2021-02-27 15:41] LABS: C Reactive Protein 3.38 mg/dl (0-0.29); Phosphorus 1.2 mg/dl (2.5-4.9)
--- NOTE | 2021-02-27 15:41 | History & Physical Report ---
Date of Service February 27, 2021 Assessment & Plan (1) SIRS (systemic inflammatory response syndrome): Plan: SIRS response with unknown source- RLE erythema appears unchanged and chronic - will continue Vancomycin empiric and Cefepime for RLE - Await blood culture - Follow clinical course - No focal neurological deficits, no pain to abdomen with palpation, no pain with urination, BM this morning- normal, no joints inflamed, no areas on feet or between toes, no sinus pain or drainage. - Continue to evaluate for source (2) Weakness: Plan: Phos level checked- 1.2 - 30 mmol of NAPO4 - recheck in morning - Check B12 and Folate - follow symptoms (3) Atrial fibrillation with rapid ventricular response: Plan: Responded to crystalloid replacment - Follow - Replete Mag - Continue Dilt and Metoprolol (4) Gout: Plan: Chronic- no acute appearing joints - continue propgy treatment prn and daily allopurinol (5) Prostate cancer: Plan: Follows with Urology - Continue with bicalutamide - no pain with urination or retention - Continue with Lupron injections with hem/onc q 3 months (6) Ascending aortic aneurysm: (7) Chronic diastolic heart failure due to hypertrophic obstructive cardiomyopathy: History of Present Illness Chief Complaint: weakness Primary Care Provider: Shyann Kwon MD 70 YOM with past medical history of: Afib, gout, BPH, prostate cancer, nuropathy, HFpEF, COPD. Patient comes in today for complaints of generalized weakness and falls x2 while he was outside. Patient states he was feeling well until last night where he may have had some fevers and increase in fatigue. He was noted to have a HR at 120 in the ED with normal blood pressure and oxygenation. Routine labs were done which revealed an elevated WBC count and increase in NLR. HE was mildly hyponatremic at 132. Lactate was normal. He had a CXR done that did not reveal an acute process. UA was obtained with no bacteria noted, but positive for hyaline casts and RBC. Patient denies any pain with urination or flank pain. His PCT was mildly elevated at 0.46. Due to his recent admission for Group G Strep he was started on Cefepime and Vancomycin. He was given 2Liters of crystalloid with decrease in HR. Hospitalist service was consulted for admission. He denies any headaches and exhibits no meningismus and has no focal weakness on exam or back pain. He was recently admitted on 01/17/21 for confusion, and Sepsis with unknown source, he had one group of GGS blood cultures and completed course of Rocephin for this. He has had some back pain on the last admission and underwent imaging to rule out discitis that was negative. Again as above he presents with unknown source and elevated WBC. Continue to follow cultures and continue antibiotics. Inflammatory markers pending. With his weakness will check PO4 level and review other electrolytes as no focal deficits Patient COVID test on admission is: NEGATIVE Allergies Allergy/AdvReac Type Severity Reaction Status Date / Time amiodarone AdvReac Severe Pneumonitis Unverified 02/27/21 12:56 Home Medications Medication Instructions Recorded Confirmed Type atorvastatin 20 mg tablet (Lipitor) 20 mg PO HS 09/23/19 02/27/21 History dabigatran etexilate 150 mg 150 mg PO BID 09/23/19 02/27/21 History capsule (Pradaxa) diltiazem HCl 120 mg 120 mg PO QAM 09/23/19 02/27/21 History capsule,extended release 24 hr (Cartia XT) allopurinol 100 mg tablet 200 mg PO QAM 10/21/19 02/27/21 History (Zyloprim) bicalutamide 50 mg tablet (Casodex) 50 mg PO QAM 03/23/20 02/27/21 History cholecalciferol (vitamin D3) 25 1,000 unit PO QAM 03/23/20 02/27/21 History mcg (1,000 unit) capsule (Vitamin D3) colchicine 0.6 mg tablet (Colcrys) 0.6 mg PO UD 03/23/20 02/27/21 History metoprolol succinate 100 mg 100 mg PO QAM 03/23/20 02/27/21 History tablet,extended release 24 hr (Toprol XL) Oxygen Home #1 ea 03/27/20 01/17/21 Rx calcium carbonate 600 mg calcium 600 mg PO QAM 02/27/21 02/27/21 History (1,500 mg) tablet (Calcium) Past Med/Surg History Medical History Atrial fibrillation Atrial fibrillation with RVR Basal cell carcinoma of dorsum of nose BPH (benign prostatic hyperplasia) Chronic diastolic heart failure due to hypertrophic obstructive cardiomyopathy Congestive heart failure Elevated PSA Gout Idiopathic peripheral neuropathy Polyp of colon Prostate cancer Surgical History History of left knee replacement Family History Family/Other Prostate cancer cousin on fathers side Family/Other Hypertension paternal aunts Mother , age 75 COPD No problems noted. Father , age 41 complications of jungle rot WW2 Heart disease Son No problems noted. Son No problems noted. Daughter No problems noted. 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 Feels Safe at Home: Yes Safety Concerns: Feels Safe At This Time Childhood Exposure to Second-Hand Smoke: Yes caffeine: Yes (one cup coffee per day) during the past year weight has: remained stable Dental Care, Regularly: Yes Physical Activity Frequency: Daily Seatbelt Use: always Sunscreen Use: Yes Assistive Devices: Denture - Upper and Denture - Lower Assistive Devices Comment: dentures do not fit currently patient states since he has cancer Review of Systems Review of Systems: REVIEW OF SYSTEMS: Constitutional: (+) fever, sweats or chills Eyes: No diplopia, no worsening or blurred vision ENT: normal hearing, no trouble swallowing Respiratory: No cough, sputum, dyspnea at rest or on exertion Cardiovascular: No chest pain, tightness or palpitations Abdomen: No pain, nausea, vomiting, diarrhea or constipation Musculoskeletal: (+) generalized weakness, No back pain calf pain, swelling Neurologic: No weakness, numbness/tingling, or balance problems Psychiatric: No anxiety or depression Skin: No rash or itch Physical Exam Physical Exam: PHYSICAL EXAM: General: awake, alert, no apparent distress Head: Normocephalic, atraumatic ENT: PERRLA, EOMI, no pharyngeal exudate, mucous membranes moist Neuro: AAO x 3, speech clear and appropriate, strength intact bilaterally 5/5, sensation intact and equal all extremities and dermatomes, no pronator drift, no paraesthesia, no neck pain Chest: equal rise and fall of the chest, no accessory muscle use, no heaves or thrills, decreased in bases, on room air, Cardiac: Regular rate and rhythm, telemetry reviewed, skin warm dry, cap refill <3 seconds, peripheral pulses +2 no JVD, no murmur, no JVD, no edema GI: NABS x 4 quadrants, soft, nontender to palpation, no rebound, guarding or tenderness : Spontaneously voiding, no pain, no CVA tenderness, Extremities: errythema and chronic venous stasis to right lower leg Psych: Normal mood and affect Results & Data Results & Data ([facility]) Vital Signs (Past 12 Hours) Vital Signs Temp Pulse Resp BP Pulse Ox 02/27/21 14:00 114 H 21 129/79 92 02/27/21 13:30 107 H 29 H 116/64 90 02/27/21 13:10 88 L 02/27/21 13:00 105 H 32 H 127/71 87 L 02/27/21 12:35 37.1 C 120 H 23 119/71 93 Laboratory Results Abnormal lab results 02/27/21 02/27/21 02/27/21 Range/Units 12:47 12:47 12:47 WBC 15.61 H (4.8-10.8) K/uL Neut # (Auto) 14.20 H (1.4-6.5) K/uL Lymph # (Auto) 0.65 L (1.2-3.4) K/uL Pender # (Auto) 0.69 H (0.11-0.59) K/uL Immature Gran # (Auto) 0.05 H (0.00-0.02) K/uL ESR (0-20) mm/hr PT 13.0 H (9.0-12.0) Seconds INR 1.3 H (0.9-1.1) APTT 38.9 H (21.0-31.0) Seconds Sodium (136-145) mmol/L BUN (7-18) mg/dl Glucose (70-99) mg/dl Lactate 2.2 H* (0.4-2.0) mmol/L Phosphorus (2.5-4.9) mg/dl C-Reactive Protein (0-0.29) mg/dl Total Protein (6.4-8.2) gm/dl Albumin (3.4-5.0) gm/dl Urine Protein (Negative) Urine Ketones (Negative) Urine Blood (Negative) Urine RBC (Auto) (0-4) /hpf U Hyaline Cast (Auto) (0-5) /lpf U Epithel Cells (Auto) (0-5) /lpf 02/27/21 02/27/21 02/27/21 Range/Units 12:47 12:47 14:11 WBC (4.8-10.8) K/uL Neut # (Auto) (1.4-6.5) K/uL Lymph # (Auto) (1.2-3.4) K/uL Pender # (Auto) (0.11-0.59) K/uL Immature Gran # (Auto) (0.00-0.02) K/uL ESR 87 H (0-20) mm/hr PT (9.0-12.0) Seconds INR (0.9-1.1) APTT (21.0-31.0) Seconds Sodium 132 L (136-145) mmol/L BUN 20 H (7-18) mg/dl Glucose 123 H (70-99) mg/dl Lactate (0.4-2.0) mmol/L Phosphorus 1.2 L* (2.5-4.9) mg/dl C-Reactive Protein 3.38 H (0-0.29) mg/dl Total Protein 8.6 H (6.4-8.2) gm/dl Albumin 3.3 L (3.4-5.0) gm/dl Urine Protein 2+ H (Negative) Urine Ketones Trace H (Negative) Urine Blood 3+ H (Negative) Urine RBC (Auto) >30 H (0-4) /hpf U Hyaline Cast (Auto) 10-30 H (0-5) /lpf U Epithel Cells (Auto) 20-30 H (0-5) /lpf Diagnostic Findings Chest X-Ray 02/27/21 12:29 XR chest 1V portable CLINICAL HISTORY: generalized weakness TECHNIQUE: Single frontal radiograph of the chest was obtained. Comparison: Comparison is made to chest one view 01/17/2021 FINDINGS: No lines and tubes are seen. Cardiomegaly is noted. The lungs are clear. No evidence of pleural effusion or pneumothorax. IMPRESSION: No acute chest disease. ACT 112: Negative or not required by law. Electronically signed by: Shane Engel M.D. 02/27/2021 12:57 PM Medications Administered Vancomycin HCl 2,000 mg/ (Sodium Chloride) 540 mls @ 200 mls/hr IV NOW ONE Stop: 02/27/21 16:32 Last Admin: 02/27/21 14:06 Dose: 200 mls/hr Documented by: [id number] Discontinued Medications Sodium Chloride (Nss 1000ml) 1,000 mls @ 999 mls/hr IV .Q1H1M ONE Stop: 02/27/21 13:28 Last Infusion: 02/27/21 15:44 Dose: 0 mls/hr Documented by: [id number] Admin: 02/27/21 12:42 Dose: 999 mls/hr Documented by: [id number] Sodium Chloride (Nss 1000ml) 1,000 mls @ 999 mls/hr IV .Q1H1M ONE Stop: 02/27/21 14:34 Last Infusion: 02/27/21 15:44 Dose: 0 mls/hr Documented by: [id number] Admin: 02/27/21 14:09 Dose: 999 mls/hr Documented by: [id number] Cefepime HCl (Maxipime) 2,000 mg in 20 mls @ 5 mls/min IV NOW STA; Protocol Stop: 02/27/21 13:54 Last Admin: 02/27/21 14:01 Dose: 5 mls/min Documented by: [id number] Home Medications atorvastatin 20 mg tablet (Lipitor) 20 mg PO HS 09/23/19 [History Confirmed 02/27/21] dabigatran etexilate 150 mg capsule (Pradaxa) 150 mg PO BID 09/23/19 [History Confirmed 02/27/21] diltiazem HCl 120 mg capsule,extended release 24 hr (Cartia XT) 120 mg PO QAM 09/23/19 [History Confirmed 02/27/21] allopurinol 100 mg tablet (Zyloprim) 200 mg PO QAM 10/21/19 [History Confirmed 02/27/21] bicalutamide 50 mg tablet (Casodex) 50 mg PO QAM 03/23/20 [History Confirmed 02/27/21] cholecalciferol (vitamin D3) 25 mcg (1,000 unit) capsule (Vitamin D3) 1,000 unit PO QAM 03/23/20 [History Confirmed 02/27/21] colchicine 0.6 mg tablet (Colcrys) 0.6 mg PO UD 03/23/20 [History Confirmed 02/27/21] metoprolol succinate 100 mg tablet,extended release 24 hr (Toprol XL) 100 mg PO QAM 03/23/20 [History Confirmed 02/27/21] Oxygen Home #1 ea 03/27/20 [Rx Confirmed 01/17/21] calcium carbonate 600 mg calcium (1,500 mg) tablet (Calcium) 600 mg PO QAM 02/27/21 [History Confirmed 02/27/21] Active Medications Vancomycin HCl 2,000 mg/ (Sodium Chloride) 540 mls @ 200 mls/hr IV NOW ONE Stop: 02/27/21 16:32 Last Admin: 02/27/21 14:06 Dose: 200 mls/hr Documented by: Magnesium Sulfate/Dextrose (Magnesium Sulfate / D5w) 1 gm in 100 mls @ 100 mls/hr IV Q1H ALAYNA Stop: 02/27/21 17:14 Miscellaneous Information (Vancomycin Consult Active) 1 ea N/A UD PRN PRN Reason: Consult Stop: 03/29/21 13:50 ECG Additional Comments: Atrial fibrillation with rapid ventricular response Left axis deviation Cannot rule out Anterior infarct , age undetermined Abnormal ECG When compared with ECG of 17-JAN-2021 06:24, QRS axis Shifted left T wave amplitude has increased in Lateral lead Code Status & VTE Plan Code Status CODE: FULL VTE: Apixaban, SCDs Supervising Physician Co-Signing Physician Notes 70 yo male is seen and examined at bedside. During face to face encounter with patient, obtained a history and physical examination. Discussed case with HARPAL Pires and answered all of the patient's questions. I reviewed above note and agree with it. Patient admitted under observation with generalized weakness. May be due to electrolyte iblance. Empirrically started on antibiotics for possible cellulitis PG Care Time/CCT Total # of Minutes Spent Total Time Spent with Patient: Total time spent is greater than 50% in coordination of care (as documented) at patient's floor/unit and/or counseling patient: Coding Level of Care Code INT OBSERVATION CARE 70M LVL 3 Diagnoses SIRS (systemic inflammatory response syndrome) R65.10 Atrial fibrillation with rapid ventricular response I48.91 Gout M10.9 Prostate cancer C61 Ascending aortic aneurysm I71.2 Chronic diastolic heart failure due to hypertrophic obstructive cardiomyopathy I50.32; I42.1 Weakness R53.1
[2021-02-27] MEDS ORDERED: LACTATED RINGER'S 1,000 ML IV ONE (16:10)
[2021-02-27] MEDS ORDERED: SODIUM PHOSPHATE 3 MMOL/1 ML 5 ML VIAL IV ONE (16:10)
[2021-02-27] MEDS ORDERED: SODIUM PHOSPHATE 30 MMOL in SODIUM CHLORIDE 0.9% 500 ML IV ONE (16:30)
[2021-02-27 17:28] LABS: Folate (Folic Acid) 13.4 ng/ml (>5.38)
[2021-02-27] MEDS: MAGNESIUM SULFATE / D5W 1 GM/100 ML BAG IV SCH ×2 (17:38→18:26)
[2021-02-27] MEDS ORDERED: ONDANSETRON INJ 2 MG/ML 2 ML VIAL IV PRN (19:37)
[2021-02-27] MEDS ORDERED: COLCHICINE 0.6 MG TAB PO PRN (19:37)
[2021-02-27] MEDS ORDERED: POLYETHYLENE (MIRALAX) 17 GM PACK PO PRN (19:37)
--- NOTE | 2021-02-27 21:22 | Pharmacy Report ---
Pharmacy Vanc AUC Short Note - Date of Service February 27, 2021 - Assessment & Plan Assessment 70 year old M receiving vancomycin and cefepime for SIRS/unknown source, possible RLE erythema. Blood cultures are pending Plan Vancomycin * AUC/NASIR is the preferred PK/PD target for vancomycin * AUC guided dosing is effective and associated with decreased risk of nephrotoxicity compared to traditional trough targets * Plan to utilize vancomycin dose of 750 mg iv q 12 hrs based upon AUC dosing * Trough level of ~18 mcg/mL is predicted to achieve target AUC/NASIR of 400-600 mg/L.hr and may be associated with a 14 % risk of nephrotoxicity * Will order trough if continued >48 hrs Pharmacy will continue to follow and will adjust dose/frequency as necessary. Thank you.
[2021-02-27] MEDS: ATORVASTATIN 20 MG TAB PO SCH (21:36)
[2021-02-27] MEDS: DABIGATRAN ETEXILATE 75 MG CAP PO SCH (21:36)
[2021-02-27] MEDS: CEFEPIME 1,000 MG in SYRINGE 0 ML IV SCH (21:37)
[2021-02-27] MEDS: ACETAMINOPHEN 325 MG TAB PO PRN (22:41)
[2021-02-28] MEDS ORDERED: VANCOMYCIN HCL 750 MG in SODIUM CHLORIDE 0.9% 250 ML IV SCH
[2021-02-28] MEDS ORDERED: IBUPROFEN 200 MG TAB PO STA (02:03)
[2021-02-28] MEDS: CEFEPIME 1,000 MG in SYRINGE 0 ML IV SCH ×3 (06:25→21:04)
[2021-02-28 07:46] LABS: Creatinine Clr Calc Pharmacy 112.9 ml/min; Est GFR (Non-African American) 91.5 ml/min; Phosphorus 3.6 mg/dl (2.5-4.9)
[2021-02-28] MEDS ORDERED: INFLUENZA VACCINE HIGH DOSE PF 65+ 0.7 ML SYR IM ONE (08:00)
[2021-02-28] MEDS ORDERED: VANCOMYCIN HCL 1 MG in SODIUM CHLORIDE 0.9% 250 ML IV SCH (09:00)
[2021-02-28] MEDS: DABIGATRAN ETEXILATE 75 MG CAP PO SCH ×2 (09:24→20:43)
[2021-02-28] MEDS: BICALUTAMIDE 50 MG TAB PO SCH (09:25)
[2021-02-28] MEDS: METOPROLOL SUCC 50MG EXT REL TAB PO SCH (09:25)
[2021-02-28] MEDS: allopurinoL 100 MG TAB PO SCH (09:25)
[2021-02-28] MEDS: dilTIAZem HCL 120 MG CAPCR PO SCH (09:25)
[2021-02-28] MEDS: VANCOMYCIN HCL 1,000 MG in SODIUM CHLORIDE 0.9% 250 ML IV SCH ×2 (10:58→21:05)
[2021-02-28] MEDS: CYANOCOBALAMIN 500 MCG TABLET (VITAMIN B-12) PO SCH (10:58)
--- NOTE | 2021-02-28 11:00 | Hospitalist Progress Note ---
Date of Service February 28, 2021 Assessment & Plan (1) Gram-negative bacteremia: Plan: Continue cefepime. Gram positive cocci in clusters likely contaminant but given recent strep bacteremia will wait for full identification prior to stopping vancomycin (2) SIRS (systemic inflammatory response syndrome): Plan: Source - bacteremia (3) Weakness: Plan: Suspect from bacteremia +/- reaction to COVID vaccine (4) Atrial fibrillation with rapid ventricular response: Plan: Improved with IV fluids - Follow - Replete Mag - Continue Dilt and Metoprolol (5) Gout: Plan: Chronic- no acute appearing joints - continue allopurinol (6) Prostate cancer: Plan: Follows with Urology - Continue with bicalutamide - no pain with urination or retention - Continue with Lupron injections with hem/onc q 3 months (7) Ascending aortic aneurysm: (8) Chronic diastolic heart failure due to hypertrophic obstructive cardiomyopathy: Admission and Anticipated Discharge Date Admission Date: February 28, 2021 Subjective Generalized weakness and falls. Rapid return to his baseline today. Similar to last hospitalization in January when he rapidly returned to his baseline. Had COVID-19 vaccination on Sunday morning and feels it may have been a reaction to this. Episode occurred all of a sudden while sitting at his desk, he was incoherent, couldn't add up properly. He was unable to complete MRI C/T/L to assess for osteomyelitis on last occasion and still feels he is unable to complete this. Blood cultures growing GPC in clusters and GNB. Previously bacteremic with Group G Beta strep - treated with 2 weeks of IV ceftriaxone. Review of Systems Review of Systems: All systems reviewed & are unremarkable except as noted in HPI & below Physical Exam Constitutional: WD/WN, vitals as above Respiratory: normal respiratory effort, lungs clear to auscultation Cardiovascular: Rate/Rhythm: regular rate and + irregularly irregular Heart Sounds: no murmur Extremities: + pedal edema (1+ pre-tibial b/l equal) Gastrointestinal (Abdomen): normal bowel sounds, soft, nontender, no hepatosplenomegaly Skin: venous stasis changes b/l LE R more erythematous than left. cracked ulcer on tip of 1st right toe - improving from last admission Psychiatric: A+Ox3, euthymic affect Results & Data Results & Data ([facility]) Vital Signs (Past 12 Hours) Vital Signs Temp Pulse Resp BP BP Pulse Ox 10/25/21 07:52 36.8 C 90 18 138/79 98 02/28/21 03:29 36.9 C 97 H 18 131/86 94 PG Care Time/CCT Total # of Minutes Spent Total Time Spent with Patient: Total time spent is greater than 50% in coordination of care (as documented) at patient's floor/unit and/or counseling patient: Coding Level of Care Code 57349 Subseq Hosp Care Lvl 2 Diagnoses SIRS (systemic inflammatory response syndrome) R65.10 Weakness R53.1 Atrial fibrillation with rapid ventricular response I48.91 Gout M10.9 Prostate cancer C61 Ascending aortic aneurysm I71.2 Chronic diastolic heart failure due to hypertrophic obstructive cardiomyopathy I50.32; I42.1 Gram-negative bacteremia R78.81
[2021-02-28] MEDS: ATORVASTATIN 20 MG TAB PO SCH (20:43)
[2021-02-28] MEDS: ACETAMINOPHEN 325 MG TAB PO PRN (21:39)
--- NOTE | 2021-03-01 04:42 | Electrocardiogram Report ---
Test Reason : Blood Pressure : / mmHG Vent. Rate : 133 BPM Atrial Rate : 156 BPM P-R Int : 000 ms QRS Dur : 104 ms QT Int : 324 ms P-R-T Axes : 000 -42 003 degrees QTc Int : 482 ms Atrial fibrillation with rapid ventricular response Left axis deviation Cannot rule out Anterior infarct , age undetermined Abnormal ECG When compared with ECG of 17-JAN-2021 06:24, QRS axis Shifted left T wave amplitude has increased in Lateral leads Confirmed by Ayden Lassiter ([id number]) on 03/01/2021 4:42:18 AM Referred By: Confirmed By:Ayden Lassiter
[2021-03-01] MEDS: CEFEPIME 1,000 MG in SYRINGE 0 ML IV SCH (05:34)
[2021-03-01 06:37] LABS: Basophils # (auto) 0.02 K/uL (0-0.2); Basophils % (auto) 0.3 %; Eosinophils # (auto) 0.21 K/uL (0-0.5); Hemoglobin 13.9 g/dL (14.0-18.0); Immature Granulocytes # (auto) 0.01 K/uL (0.00-0.02); Immature Granulocytes % (auto) 0.1 %; Lymphocytes # (auto) 1.47 K/uL (1.2-3.4); Lymphocytes % (auto) 20.9 %; Mean Corpuscular Hemoglobin 32.7 pg (25-34); Mean Corpuscular Hgb Conc 35.6 g/dL (32-36); Mean Corpuscular Volume 91.8 fL (80-100); Mean Platelet Volume 9.1 fL (7.4-10.4); Monocytes # (auto) 1.43 K/uL (0.11-0.59); Monocytes % (auto) 20.4 %; Neutrophils # (auto) 3.88 K/uL (1.4-6.5); Neutrophils % (auto) 55.3 %; Platelet Count 172 K/uL (130-400); RDW Coefficient of Variation 13.8 % (11.5-14.5); RDW Standard Deviation 46.6 fL (36.4-46.3); Red Blood Count 4.25 M/uL (4.7-6.1); White Blood Count 7.02 K/uL (4.8-10.8)
[2021-03-01 07:05] LABS: BUN Creatinine Ratio 20.1 (10-20); Calcium 8.7 mg/dl (8.5-10.1); Creatinine Clr Calc Pharmacy 117.9 ml/min; Est GFR (African American) 107.7 ml/min; Est GFR (Non-African American) 92.9 ml/min; Potassium 3.7 mmol/L (3.5-5.1)
[2021-03-01] MEDS: METOPROLOL SUCC 50MG EXT REL TAB PO SCH (07:47)
[2021-03-01] MEDS: dilTIAZem HCL 120 MG CAPCR PO SCH (07:47)
[2021-03-01] MEDS: CYANOCOBALAMIN 500 MCG TABLET (VITAMIN B-12) PO SCH (07:47)
[2021-03-01] MEDS: BICALUTAMIDE 50 MG TAB PO SCH (07:48)
[2021-03-01] MEDS: allopurinoL 100 MG TAB PO SCH (07:48)
[2021-03-01] MEDS ORDERED: CEFEPIME 1,000 MG in SYRINGE 0 ML IV ONE (08:15)
[2021-03-01] MEDS: DABIGATRAN ETEXILATE 75 MG CAP PO SCH ×2 (10:24→20:06)
[2021-03-01] MEDS: VANCOMYCIN HCL 1,000 MG in SODIUM CHLORIDE 0.9% 250 ML IV SCH ×2 (10:27→22:06)
--- NOTE | 2021-03-01 15:37 | Hospitalist Progress Note ---
Date of Service March 01, 2021 Assessment & Plan (1) Gram-negative bacteremia: Plan: Continue cefepime for GNB Continue vacomycin for Coag negative staph Consult ID given polymicrobial bacteremia - unclear what is contaminant given GPC, GPB and GNB growing in both blood culture bottles Ideally would get MRI cervical/thoracic/lumbar spine but patient unable to go through with this Repeat blood cultures (2) SIRS (systemic inflammatory response syndrome): Plan: Source - bacteremia (3) Weakness: Plan: Suspect from bacteremia +/- reaction to COVID vaccine (4) Atrial fibrillation with rapid ventricular response: Plan: Improved with IV fluids - Follow - Replete Mag - Continue Dilt and Metoprolol - Anticoagulation with dabigatran (5) Gout: Plan: Chronic- no acute appearing joints - continue allopurinol (6) Prostate cancer: Plan: Follows with Urology - Continue with bicalutamide - no pain with urination or retention - Continue with Lupron injections with hem/onc q 3 months (7) Ascending aortic aneurysm: (8) Chronic diastolic heart failure due to hypertrophic obstructive cardiomyopathy: Admission and Anticipated Discharge Date Admission Date: February 28, 2021 Subjective Back to his baseline. No urinary complaints, no new back pain, no URI symptoms, no abdominal pain or diarrhea. Review of Systems Review of Systems: All systems reviewed & are unremarkable except as noted in HPI & below Physical Exam Constitutional: WD/WN, vitals as above Respiratory: normal respiratory effort, lungs clear to auscultation Cardiovascular: Rate/Rhythm: regular rate and + irregularly irregular Heart Sounds: no murmur Extremities: + pedal edema (1+ pre-tibial b/l equal) Gastrointestinal (Abdomen): normal bowel sounds, soft, nontender, no hepatosplenomegaly Skin: healing ulcer on right 1st toe Psychiatric: A+Ox3, euthymic affect Results & Data Results & Data ([facility]) Vital Signs (Past 12 Hours) Vital Signs Temp Pulse Resp BP Pulse Ox 03/01/21 14:56 36.5 C 87 18 151/93 H 95 03/01/21 11:13 36.4 C L 96 H 20 160/89 H 95 PG Care Time/CCT Total # of Minutes Spent Total Time Spent with Patient: Total time spent is greater than 50% in coordination of care (as documented) at patient's floor/unit and/or counseling patient: Coding Level of Care Code 19225 Subseq Hosp Care Lvl 2 Diagnoses Gram-negative bacteremia R78.81 SIRS (systemic inflammatory response syndrome) R65.10 Weakness R53.1 Atrial fibrillation with rapid ventricular response I48.91 Gout M10.9 Prostate cancer C61 Ascending aortic aneurysm I71.2 Chronic diastolic heart failure due to hypertrophic obstructive cardiomyopathy I50.32; I42.1
[2021-03-01] MEDS: CEFEPIME 2,000 MG in SYRINGE 0 ML IV SCH ×2 (15:54→23:38)
[2021-03-01] MEDS ORDERED: diphenhydrAMINE Capsule 25 MG CAP PO ONE (19:53)
[2021-03-01] MEDS ORDERED: MELATONIN 3 MG TAB PO PRN (19:53)
[2021-03-01] MEDS: ATORVASTATIN 20 MG TAB PO SCH (20:06)
[2021-03-01] MEDS ORDERED: ZOLPIDEM TARTRATE 5 MG TAB PO PRN (20:28)
[2021-03-01] MEDS ORDERED: VANCOMYCIN TROUGH ONE (21:30)
[2021-03-02 06:08] LABS: Basophils # (auto) 0.02 K/uL (0-0.2); Basophils % (auto) 0.2 %; Eosinophils # (auto) 0.25 K/uL (0-0.5); Eosinophils % (auto) 2.5 %; Hematocrit (blood only) 40.3 % (42-52); Hemoglobin 14.2 g/dL (14.0-18.0); Immature Granulocytes # (auto) 0.02 K/uL (0.00-0.02); Immature Granulocytes % (auto) 0.2 %; Lymphocytes # (auto) 2.19 K/uL (1.2-3.4); Lymphocytes % (auto) 21.9 %; Mean Corpuscular Hemoglobin 32.7 pg (25-34); Mean Corpuscular Hgb Conc 35.2 g/dL (32-36); Mean Corpuscular Volume 92.9 fL (80-100); Mean Platelet Volume 9.2 fL (7.4-10.4); Monocytes # (auto) 1.57 K/uL (0.11-0.59); Monocytes % (auto) 15.7 %; Neutrophils # (auto) 5.95 K/uL (1.4-6.5); Neutrophils % (auto) 59.5 %; Platelet Count 206 K/uL (130-400); RDW Coefficient of Variation 13.6 % (11.5-14.5); RDW Standard Deviation 46.6 fL (36.4-46.3); Red Blood Count 4.34 M/uL (4.7-6.1)
[2021-03-02 06:53] LABS: Calcium 9.4 mg/dl (8.5-10.1); Creatinine Clr Calc Pharmacy 107.8 ml/min; Est GFR (African American) 103.8 ml/min; Est GFR (Non-African American) 89.6 ml/min; Potassium 4.2 mmol/L (3.5-5.1)
[2021-03-02] MEDS ORDERED: VANCOMYCIN HCL 1,500 MG in SODIUM CHLORIDE 0.9% 500 ML IV SCH (08:00)
[2021-03-02] MEDS: CEFEPIME 2,000 MG in SYRINGE 0 ML IV SCH ×3 (08:30→22:33)
[2021-03-02] MEDS: METOPROLOL SUCC 50MG EXT REL TAB PO SCH (09:05)
[2021-03-02] MEDS: DABIGATRAN ETEXILATE 75 MG CAP PO SCH ×2 (09:05→21:03)
[2021-03-02] MEDS: allopurinoL 100 MG TAB PO SCH (09:05)
[2021-03-02] MEDS: dilTIAZem HCL 120 MG CAPCR PO SCH (09:05)
[2021-03-02] MEDS: CYANOCOBALAMIN 500 MCG TABLET (VITAMIN B-12) PO SCH (09:05)
[2021-03-02] MEDS: BICALUTAMIDE 50 MG TAB PO SCH (09:06)
[2021-03-02] MEDS: DICLOFENAC SOD 1% GEL 100 GM TUBE EXT SCH ×2 (09:06→21:03)
--- NOTE | 2021-03-02 09:25 | Pharmacy Report ---
Pharmacy Abx Dose Short Note - Date of Service March 02, 2021 - Assessment & Plan Assessment 70 year old M receiving vancomycin/cefepime for bacteremia Day # 4 of antimicrobial therapy. Plan Vancomycin * Trough level last evening resulted in ~11 mcg/ml (goal closer ~15-20 mcg/ml) * Per [facility] - recommended to increase dose to 1500 mg iv q 12 hrs to achieve estimated trough ~17 mcg/ml * AUC goal 400-600, toxicity ~13% * Dose had been increased this morning, will continue to follow - will order level in next 1-2 days to reassess Pharmacy will continue to follow and will adjust dose/frequency as necessary. Thank you.
[2021-03-02] MEDS ORDERED: VANCOMYCIN TROUGH ONE (09:30)
[2021-03-02] MEDS ORDERED: LORazepam 1 MG/2 ML VIAL IV PRN ×2 (12:30→19:27)
--- NOTE | 2021-03-02 12:45 | Hospitalist Progress Note ---
Date of Service March 02, 2021 Assessment & Plan (1) Gram-negative bacteremia: Plan: Continue cefepime for GNB Per ID given lack of source will d/c vancomycin and not cover coag negative staph. Will place back on daptomycin if coag neg staph appears on repeat cultur es however. Given only back pain is in his lower back persuaded patient to go back in MRI just for lumbar spine views w/wo contrast. Will need to time Ativan better this time as it had come out of his system last time he tried this. If MRI back normal will consider toe MRI to again look for osteomyelitis. Appreciate ID consult - vancomycin dc/d as above. (2) SIRS (systemic inflammatory response syndrome): Plan: Source - bacteremia (3) Weakness: Plan: Suspect from bacteremia +/- reaction to COVID vaccine (4) Atrial fibrillation with rapid ventricular response: Plan: Improved with IV fluids - Follow - Replete Mag - Continue Dilt and Metoprolol - Anticoagulation with dabigatran (5) Gout: Plan: Chronic- no acute appearing joints - continue allopurinol (6) Prostate cancer: Plan: Follows with Urology - Continue with bicalutamide - no pain with urination or retention - Continue with Lupron injections with hem/onc q 3 months (7) Ascending aortic aneurysm: (8) Chronic diastolic heart failure due to hypertrophic obstructive cardiomyopa thy: Admission and Anticipated Discharge Date Admission Date: February 28, 2021 Subjective At baseline. No current symptoms. No current concerns or questions. Seen by ID today. Review of Systems Review of Systems: All systems reviewed & are unremarkable except as noted in HPI & below Physical Exam Constitutional: WD/WN, vitals as above Respiratory: normal respiratory effort, lungs clear to auscultation Cardiovascular: Rate/Rhythm: regular rate and + irregularly irregular Heart Sounds: no murmur Extremities: + pedal edema (1+ pre-tibial b/l equal) Gastrointestinal (Abdomen): normal bowel sounds, soft, nontender, no hepatosplenomegaly Musculoskeletal: No back pain on palpation Psychiatric: A+Ox3, euthymic affect Results & Data Results & Data ([facility]) Vital Signs (Past 12 Hours) Vital Signs Temp Pulse Resp BP Pulse Ox 03/02/21 07:02 36.6 C 88 20 160/92 H 93 03/02/21 03:25 36.5 C 102 H 20 155/86 H 95 PG Care Time/CCT Total # of Minutes Spent Total Time Spent with Patient: Total time spent is greater than 50% in coordination of care (as documented) at patient's floor/unit and/or counseling patient: Coding Level of Care Code 03545 Subseq Hosp Care Lvl 2 Diagnoses Gram-negative bacteremia R78.81 SIRS (systemic inflammatory response syndrome) R65.10 Weakness R53.1 Atrial fibrillation with rapid ventricular response I48.91 Gout M10.9 Prostate cancer C61 Ascending aortic aneurysm I71.2 Chronic diastolic heart failure due to hypertrophic obstructive cardiomyopathy I50.32; I42.1
[2021-03-02] MEDS: ATORVASTATIN 20 MG TAB PO SCH (21:03)
[2021-03-02] MEDS: ACETAMINOPHEN 325 MG TAB PO PRN (22:31)
[2021-03-03 05:55] LABS: Basophils # (auto) 0.08 K/uL (0-0.2); Basophils % (auto) 0.8 %; Eosinophils # (auto) 0.26 K/uL (0-0.5); Eosinophils % (auto) 2.6 %; Hematocrit (blood only) 42.4 % (42-52); Hemoglobin 14.8 g/dL (14.0-18.0); Immature Granulocytes # (auto) 0.05 K/uL (0.00-0.02); Immature Granulocytes % (auto) 0.5 %; Lymphocytes # (auto) 2.84 K/uL (1.2-3.4); Lymphocytes % (auto) 28.2 %; Mean Corpuscular Hemoglobin 32.5 pg (25-34); Mean Corpuscular Hgb Conc 34.9 g/dL (32-36); Mean Platelet Volume 9.2 fL (7.4-10.4); Monocytes # (auto) 1.05 K/uL (0.11-0.59); Monocytes % (auto) 10.4 %; Neutrophils # (auto) 5.79 K/uL (1.4-6.5); Neutrophils % (auto) 57.5 %; Platelet Count 217 K/uL (130-400); RDW Coefficient of Variation 13.7 % (11.5-14.5); RDW Standard Deviation 46.6 fL (36.4-46.3); Red Blood Count 4.56 M/uL (4.7-6.1); White Blood Count 10.07 K/uL (4.8-10.8)
[2021-03-03] MEDS ORDERED: GADOBUTROL 65ML VIAL IV ONE (06:23)
[2021-03-03 06:25] LABS: BUN Creatinine Ratio 21.4 (10-20); C Reactive Protein 2.08 mg/dl (0-0.29); Calcium 9.6 mg/dl (8.5-10.1); Creatinine Clr Calc Pharmacy 91.1 ml/min; Est GFR (African American) 91.3 ml/min; Est GFR (Non-African American) 78.8 ml/min; Potassium 4.1 mmol/L (3.5-5.1)
[2021-03-03] MEDS: DABIGATRAN ETEXILATE 75 MG CAP PO SCH ×2 (08:40→22:04)
[2021-03-03] MEDS: allopurinoL 100 MG TAB PO SCH (08:41)
[2021-03-03] MEDS: METOPROLOL SUCC 50MG EXT REL TAB PO SCH (08:42)
[2021-03-03] MEDS: CEFEPIME 2,000 MG in SYRINGE 0 ML IV SCH ×2 (08:42→16:22)
[2021-03-03] MEDS: BICALUTAMIDE 50 MG TAB PO SCH (08:42)
[2021-03-03] MEDS: CYANOCOBALAMIN 500 MCG TABLET (VITAMIN B-12) PO SCH (08:42)
[2021-03-03] MEDS: dilTIAZem HCL 120 MG CAPCR PO SCH (08:42)
[2021-03-03] MEDS: DICLOFENAC SOD 1% GEL 100 GM TUBE EXT SCH ×2 (08:46→22:04)
--- NOTE | 2021-03-03 08:58 | Magnetic Resonance Report ---
MR lumbar spine wo/w con CLINICAL HISTORY: r/o osteomyelitis/discitis TECHNIQUE: 3 plane localizer images, sagittal T2, sagittal T1, sagittal STIR, axial T1, axial T2 aleyda g with postcontrast axial T1 and sagittal T1 fat-saturated sequences were obtained of the lumbar spin e, before and after intravenous administration of 12 mL of MultiHance. Comparison: None available at the time of this dictation. FINDINGS: The conus medullaris terminates at the level of L1 there is grade 1 retrolisthesis of L2-L3 and grade 1 anterolisthesis of L4-L5. There is anterior wedge deformity at L1 and posterior wedge deformity of L4. Multilevel degenerative changes are seen in the discs. L1-L2: Moderate posterior disc bulge results in moderate canal stenosis. There is mild facet arthropa thy resulting in mild bilateral neural foraminal stenosis. L2-L3: Moderate posterior disc bulge and retrolisthesis results in moderate spinal stenosis. Mild lorenza ateral neural foraminal stenosis is seen. L3-L4: Small midline posterior disc bulge with no significant spinal canal stenosis. Neuroforamina ar e patent. L4-L5: Small posterior disc bulge with no significant L5-S1: No neuroforaminal or canal stenosis. The spinal ligaments are intact, without evidence of disruption or abnormal signal intensity. The spi nal cord is normal in signal intensity and there is no evidence of cord contusion. There is no eviden ce of an extradural, intradural, extramedullary or intramedullary lesion. Mild soft tissue edema is i n the posterior midline. Atrophy of the paravertebral musculature is noted. IMPRESSION: Moderate degenerative changes as above. No evidence of osteomyelitis. ACT 112: Negative or not required by law. Electronically signed by: Shane Engel M.D. 03/03/2021 8:57 AM
--- NOTE | 2021-03-03 14:56 | Hospitalist Progress Note ---
Date of Service March 03, 2021 Assessment & Plan (1) Gram-negative bacteremia: Plan: Alcaligenes faecalis growing on blood cultures. Repeat blood cultures negative at 48 hours. Discussed with infectious disease - given lack of source recommend continuing cefepime for total 10 days. last day would be March 09. No source on MRI lumbar spine. Will get CT A/P with IV contrast to assess for prostatic abscess given prostate cancer. TTE to again assess for endocarditis although low likelihood given GNB. Will discuss ANIL with cardiology. Otherwise will place US guided line and ask case management to set up antibiotics with home health at home. (2) Sepsis: Plan: Source - bacteremia Present on Admission?: Yes (3) Weakness: Plan: Now resolved. Patient at baseline. Suspect from bacteremia +/- reaction to COVID vaccine (4) Atrial fibrillation with rapid ventricular response: Plan: Improved with IV fluids - Follow - Replete Mag - Continue Dilt and Metoprolol - Anticoagulation with dabigatran (5) Gout: Plan: Chronic- no acute appearing joints - continue allopurinol (6) Prostate cancer: Plan: Follows with Urology - Continue with bicalutamide - no pain with urination or retention - Continue with Lupron injections with hem/onc q 3 months (7) Ascending aortic aneurysm: (8) Chronic diastolic heart failure due to hypertrophic obstructive cardiomyopathy: Plan: On not diuretics for this Plan: VTE prophylaxis - Pradaxa Diet - T2DM Disposition - continue on med/surg, need to finish bacteremia workup as above and set up antibiotics at home Admission and Anticipated Discharge Date Admission Date: February 28, 2021 Subjective At baseline. No current symptoms. No current concerns or questions. Lower back pain at baseline. Able to make it through MRI yesterday without any problems. Review of Systems Review of Systems: All systems reviewed & are unremarkable except as noted in HPI & below Physical Exam Constitutional: WD/WN, vitals as above Eyes: + anicteric sclerae; normal pupil size Respiratory: normal respiratory effort, lungs clear to auscultation Cardiovascular: Rate/Rhythm: regular rate and + irregularly irregular Heart Sounds: no murmur Extremities: + pedal edema (1+ pre-tibial b/l equal) Gastrointestinal (Abdomen): normal bowel sounds, soft, nontender, no hepatosplenomegaly Skin: venous stasis changes of RLE Psychiatric: A+Ox3, euthymic affect Results & Data Results & Data ([facility]) Vital Signs (Past 12 Hours) Vital Signs Temp Pulse Resp BP Pulse Ox 03/03/21 14:48 36.5 C 80 20 130/84 93 03/03/21 07:34 36.6 C 98 H 18 152/91 H 93 PG Care Time/CCT Total # of Minutes Spent Total Time Spent with Patient: Total time spent is greater than 50% in coordination of care (as documented) at patient's floor/unit and/or counseling patient: Coding Level of Care Code 19565 Subseq Hosp Care Lvl 2 Diagnoses Gram-negative bacteremia R78.81 Weakness R53.1 Atrial fibrillation with rapid ventricular response I48.91 Gout M10.9 Prostate cancer C61 Ascending aortic aneurysm I71.2 Chronic diastolic heart failure due to hypertrophic obstructive cardiomyopathy I50.32; I42.1 Sepsis A41.9
[2021-03-03] MEDS ORDERED: OPTIRAY 320 100ml IV ONE (16:02)
--- NOTE | 2021-03-03 16:18 | CT Scan Report ---
CT abd pelvis IV con only CLINICAL HISTORY: bacteremia ?source, assess for prostatic abscess TECHNIQUE: Helical axial images of the abdomen and pelvis were obtained and displayed. Automated dose lowering techniques and/or adjustment according to patient size were utilized for this exam. This e xam was performed with intravenous contrast. COMPARISON: Comparison is made to CT abdomen and pelvis 10/20/2019 FINDINGS: Lower chest: No acute abnormality Liver: Unremarkable. No focal lesions are seen. Gallbladder and biliary tree: No calcified gallstones. Normal caliber wall. No intra- or extrahepatic biliary ductal dilation. Pancreas: Unremarkable, no focal lesions. Spleen: Unremarkable. Adrenals: Unremarkable. Kidneys and ureters: Unremarkable. Bladder: Unremarkable. Reproductive organs: Unremarkable. Bowel: Unremarkable. Lymph nodes Retroperitoneal: Unremarkable. Mesenteric: Unremarkable. Pelvic: Multiple subcentimeter nodes are seen in the external iliac chain. Peritoneum: Normal Vessels: Atherosclerotic calcifications are seen. Abdominal wall: Unremarkable. Bones: Degenerative changes in the visualized spine. IMPRESSION: No acute abnormalities. No evidence of prostatic abscess or other focal infectious process. ACT 112: Negative or not required by law. Electronically signed by: Shane Engel M.D. 03/03/2021 4:16 PM
[2021-03-03] MEDS: ATORVASTATIN 20 MG TAB PO SCH (22:04)
[2021-03-04] MEDS: CEFEPIME 2,000 MG in SYRINGE 0 ML IV SCH ×4 (00:14→23:18)
[2021-03-04 06:36] LABS: Est GFR (African American) 94.8 ml/min; Est GFR (Non-African American) 81.8 ml/min
[2021-03-04] MEDS: DABIGATRAN ETEXILATE 75 MG CAP PO SCH ×2 (08:21→20:18)
[2021-03-04] MEDS: CYANOCOBALAMIN 500 MCG TABLET (VITAMIN B-12) PO SCH (08:22)
[2021-03-04] MEDS: METOPROLOL SUCC 50MG EXT REL TAB PO SCH (08:22)
[2021-03-04] MEDS: BICALUTAMIDE 50 MG TAB PO SCH (08:23)
[2021-03-04] MEDS: allopurinoL 100 MG TAB PO SCH (08:23)
[2021-03-04] MEDS: dilTIAZem HCL 120 MG CAPCR PO SCH (08:23)
[2021-03-04] MEDS: DICLOFENAC SOD 1% GEL 100 GM TUBE EXT SCH ×2 (08:24→20:18)
--- NOTE | 2021-03-04 11:32 | XCELERA ---
[id number] \\[id number]
--- NOTE | 2021-03-04 12:56 | Hospitalist Progress Note ---
Date of Service March 04, 2021 Assessment & Plan (1) Gram-negative bacteremia: Plan: Alcaligenes faecalis growing on blood cultures. Repeat blood cultures negative at 48 hours. Other GPC/GPB suspected to be contaminants. No source found on exam and multiple imaging studies. I do not feel a ANIL is warranted given lack of peripheral stigmata and GNB. Most likely source is his toe ulcer although this is highly questionable as has been improving. I do not feel an MRI of this area is needed to assess for OM since a different bacteria is growing from prior hospitalization therefore it is not a recurrent infection. Will complete total 10 days antibiotics, US guided IV placed yesterday to complete this at home. (2) Sepsis: Plan: Source - bacteremia (3) Weakness: Plan: Now resolved. Patient at baseline. Suspect from bacteremia +/- reaction to COVID vaccine (4) Atrial fibrillation with rapid ventricular response: Plan: Improved with IV fluids - Follow - Continue Dilt and Metoprolol - Anticoagulation with dabigatran (5) Gout: Plan: Chronic- no acute appearing joints - continue allopurinol (6) Prostate cancer: Plan: Follows with Urology - Continue with bicalutamide - no pain with urination or retention - Continue with Lupron injections with hem/onc q 3 months (7) Ascending aortic aneurysm: (8) Chronic diastolic heart failure due to hypertrophic obstructive cardiomyopathy: Plan: On not diuretics for this Plan: VTE prophylaxis - Pradaxa Diet - T2DM Disposition - continue on med/surg, medically stable once antibiotics can be set up at home Admission and Anticipated Discharge Date Admission Date: February 28, 2021 Subjective No new symptoms. Patient at baseline. Awaiting setup at home for completion of antibiotics. Review of Systems Review of Systems: All systems reviewed & are unremarkable except as noted in HPI & below Physical Exam Constitutional: WD/WN, vitals as above Eyes: + anicteric sclerae; normal pupil size Respiratory: normal respiratory effort, lungs clear to auscultation Cardiovascular: Rate/Rhythm: regular rate and + irregularly irregular Heart Sounds: no murmur Extremities: + pedal edema (1+ pre-tibial b/l equal) Gastrointestinal (Abdomen): normal bowel sounds, soft, nontender, no hepatosplenomegaly Psychiatric: A+Ox3, euthymic affect Results & Data Results & Data ([facility]) Vital Signs (Past 12 Hours) Vital Signs Temp Pulse Resp BP Pulse Ox 03/04/21 08:00 36.4 C L 98 H 18 123/78 93 PG Care Time/CCT Total # of Minutes Spent Total Time Spent with Patient: Total time spent is greater than 50% in coordination of care (as documented) at patient's floor/unit and/or counseling patient: Coding Level of Care Code 79058 Subseq Hosp Care Lvl 1 Diagnoses Gram-negative bacteremia R78.81 Sepsis A41.9 Weakness R53.1 Atrial fibrillation with rapid ventricular response I48.91 Gout M10.9 Prostate cancer C61 Ascending aortic aneurysm I71.2 Chronic diastolic heart failure due to hypertrophic obstructive cardiomyopathy I50.32; I42.1
[2021-03-04] MEDS: ATORVASTATIN 20 MG TAB PO SCH (20:17)
[2021-03-04 23:08] VITALS: TEMP 97.9
[2021-03-05 08:00] VITALS: O2SAT 93
[2021-03-05 08:55] LABS: Creatinine Clr Calc Pharmacy 86.7 ml/min; Est GFR (African American) 85.9 ml/min; Est GFR (Non-African American) 74.1 ml/min
[2021-03-05] MEDS: BICALUTAMIDE 50 MG TAB PO SCH (09:28)
[2021-03-05] MEDS: DABIGATRAN ETEXILATE 75 MG CAP PO SCH (09:28)
[2021-03-05] MEDS: METOPROLOL SUCC 50MG EXT REL TAB PO SCH (09:28)
[2021-03-05] MEDS: dilTIAZem HCL 120 MG CAPCR PO SCH (09:28)
[2021-03-05] MEDS: allopurinoL 100 MG TAB PO SCH (09:29)
[2021-03-05] MEDS: CYANOCOBALAMIN 500 MCG TABLET (VITAMIN B-12) PO SCH (09:29)
[2021-03-05] MEDS: DICLOFENAC SOD 1% GEL 100 GM TUBE EXT SCH (09:31)
[2021-03-05 09:33] VITALS: PULSE 89
[2021-03-05] MEDS: CEFEPIME 2,000 MG in SYRINGE 0 ML IV SCH (09:39)
--- NOTE | 2021-03-05 11:04 | Discharge Summary ---
Date of Service March 05, 2021 Admission HPI Per Admitting Provider 70 YOM with past medical history of: Afib, gout, BPH, prostate cancer, nuropathy, HFpEF, COPD. Patient comes in today for complaints of generalized weakness and falls x2 while he was outside. Patient states he was feeling well until last night where he may have had some fevers and increase in fatigue. He was noted to have a HR at 120 in the ED with normal blood pressure and oxygenation. Routine labs were done which revealed an elevated WBC count and increase in NLR. HE was mildly hyponatremic at 132. Lactate was normal. He had a CXR done that did not reveal an acute process. UA was obtained with no b acteria noted, but positive for hyaline casts and RBC. Patient denies any pain with urination or flank pain. His PCT was mildly elevated at 0.46. Due to his recent admission for Group G Strep he was started on Cefepime and Vancomycin. He was given 2Liters of crystalloid with decrease in HR. Hospitalist service was consulted for admission. He denies any headaches and exhibits no meningismus and has no focal weakness on exam or back pain. He was recently admitted on 01/17/21 for confusion, and Sepsis with unknown source, he had one group of GGS blood cultures and completed course of Rocephin for this. He has had some back pain on the last admission and underwent imaging to rule out discitis that was negative. Again as above he presents with unknown source and elevated WBC. Continue to follow cultures and continue antibiotics. Inflammatory markers pending. With his weakness will check PO4 level and review other electrolytes as no focal deficits Patient COVID test on admission is: NEGATIVE Principal Diagnosis Bacteremia - Alcaligenes faecalis Discharge Exam Constitutional WD/WN, vitals as above Eyes + anicteric sclerae; normal pupil size Respiratory normal respiratory effort, lungs clear to auscultation Cardiovascular Rate/Rhythm: regular rate and + irregularly irregular Heart Sounds: no murmur Extremities: + pedal edema (1+ pre-tibial b/l equal) Gastrointestinal (Abdomen) normal bowel sounds, soft, nontender, no hepatosplenomegaly Psychiatric A+Ox3, euthymic affect Discharge Data Allergies Allergy/AdvReac Type Severity Reaction Status Date / Time amiodarone AdvReac Severe Pneumonitis Unverified 02/27/21 12:56 Consultations 02/27/21 14:35 ED Decision to Admit Stat 03/01/21 12:58 Consult Infectious Diseases Routine Ordered Studies 03/03/21 12:30 MR lumbar spine wo/w con Routine IMPRESSION: Moderate degenerative changes as above. No evidence of osteomyelitis. 03/03/21 15:16 CT abd pelvis IV con only Routine IMPRESSION: No acute abnormalities. No evidence of prostatic abscess or other focal infectious process. Hospital Course (1) Gram-negative bacteremia: Last [place] is a 70 year old male admitted to [facility] from February 27 - 2020 due to generalized weakness. He was diagnosed with sepsis and bacteremia of unknown source. Blood cultures grew Alcaligenes faecalis. No source was found on CXR, MRI lumbar spine, CT A/P. Most likely source is his healing toe ulcer. On consultation with infectious disease recommend a total of 10 days of cefepime. This will be completed at home via US guided IV line. He was also diagnosed with a mild B12 deficiency although do not suspect he is having any significant symptoms related to this. Supplementation has been prescribed as below. (2) Sepsis: (3) Weakness: (4) Atrial fibrillation with rapid ventricular response: (5) Gout: (6) Prostate cancer: (7) Ascending aortic aneurysm: (8) Chronic diastolic heart failure due to hypertrophic obstructive cardiomyopathy: Total Time Total Time Spent Total Time Spent (In Minutes): 35 Discharge Plan Discharge Items Patient Disposition: Home - Home Health Services Reason For Visit: sirs,afib Discharge Diagnosis: Bacteremia Activity: Resume your previous activity Non-emergency contact: Primary Care Provider Call non-emergency contact if: you have any medication questions and your symptoms worsen Follow-up/Referrals: Shyann Kwon MD [Primary Care Provider] - (PLEASE CALL YOUR PRIMARY CARE PROVIDER TO SET UP A DISCHARGE FOLLOW-UP APPOINTMENT WITHIN 7-10 DAYS.) Diet: Carb Consistent or DM2 Addtl Attending Provider Instructions: You were admitted to [facility] from February 27 - 2020 due to generalized weakness. You were diagnosed with sepsis and bacteremia of unknown source. Blood cultures grew Alcalgenes faecalis. On consultation with infectious disease recommend a total of 10 days of cefepime. This will be completed at home via your US guided IV line. You were also diagnosed with a mild B12 deficiency although not suspect to have any significant symptoms from this supplementation has been started. Pending Studies at Discharge: Yes (Full blood culture results) Stand-Alone Forms: My [facility], Smoking Cessation Medications and DC Order Prescriptions: New cyanocobalamin (vitamin B-12) 500 mcg Tablet 500 mcg PO QAM Qty: 30 RF: 0 cefepime 2 gram recon soln 2,000 mg IV Q8H 4 Days RF: 0 Continued allopurinol [Zyloprim] 100 mg tablet 200 mg PO QAM RF: 0 Pradaxa 150 mg capsule 150 mg PO BID RF: 0 diltiazem HCl [Cartia XT] 120 mg capsule,extended release 24hr 120 mg PO QAM RF: 0 atorvastatin [Lipitor] 20 mg tablet 20 mg PO HS RF: 0 bicalutamide [Casodex] 50 mg tablet 50 mg PO QAM RF: 0 metoprolol succinate [Toprol XL] 100 mg tablet extended release 24 hr 100 mg PO QAM RF: 0 colchicine [Colcrys] 0.6 mg Tablet 0.6 mg PO UD RF: 0 cholecalciferol (vitamin D3) [Vitamin D3] 25 mcg (1,000 unit) capsule 1,000 unit PO QAM RF: 0 (DME) Oxygen Home Liters Per Minute 1 ea .Route .prn Qty: 1 RF: 0 calcium carbonate [Calcium 600] 600 mg calcium (1,500 mg) Tablet 600 mg PO QAM RF: 0 Discharge Orders: Discharge Order (Routine); Ordered 03/05/21 Ordered By: Kade Lou Admission Data Admit Date/Time: 02/28/21 09:31 Attending Provider: Kade Lou Admit Provider: Zaid Ortega Primary Care Provider: Shyann Kwon Other Providers: Zaid Ortega ; Neal Blount ; Hetal Zamorano ; Sheng Cardenas I. ; Bulmaro Sierra II ; Fauzia Head ; Sawyer Elizabeth ; Odilon Dickens ; [facility] Other Interventions: Discharge Summary Assessment (RN) Last Done: 03/05/21 11:50 Coding Level of Care Code D/C DAY MANAGEMENT >30 MINS Diagnoses Gram-negative bacteremia R78.81 Sepsis A41.9 Weakness R53.1 Atrial fibrillation with rapid ventricular response I48.91 Gout M10.9 Prostate cancer C61 Ascending aortic aneurysm I71.2 Chronic diastolic heart failure due to hypertrophic obstructive cardiomyopathy I50.32; I42.1
[2021-03-05 11:53] VITALS: BP 128/84
== END 2021-03-05 13:37 | disposition home health service (06) | DRG 872 ==
LOC: 2W 12:22 → ED 12:22 → SUATTDRO 16:00 → 2W 18:23 → 2N 03-01 17:32

== ENCOUNTER 2022-08-04 14:56 | Inpatient (IN) ==
--- NOTE | 2022-08-04 15:12 | Emergency Department Note ---
Impression & Plan Atrial fibrillation with rapid ventricular response, Weakness ED Provider Note NAME: HAILEE ROBERTS AGE: 72 SEX: M : 1950 ARRIVES VIA: Ambulance INFORMANT: Patient ED PROVIDER(S): Michael Tyler DO CHIEF COMPLAINT: weakness HPI: Patient is a 72-year-old male with a past medical history of gram-negative bacteremia, A-fib RVR, prostate cancer, ascending aortic aneurysm and heart failure who presents to the ER for inability to pee since Sunday. He notes he feels very weak and rundown. He can no longer stand and walk. He just started chemo on Sunday. He has notes he has not been eating and drinking much. Denies any headache or change in vision. No chest pain or shortness of breath. Admits to swelling in his legs but is not sure if it is worse than usual. No dysuria, urgency, or frequency. No other exacerbating or remitting factors. PAST MEDICAL HISTORY:See Below PAST SURGICAL HISTORY:See Below FAMILY HISTORY:See Below SOCIAL HISTORY:See Below HOME MEDICATIONS:See Below ALLERGIES:See Below VITALS:See Below PHYSICAL EXAMINATION: GENERAL: Sitting up in bed, alert, disheveled, chronically ill-appearing, unable to stand or move without complete support EYE EXAM: normal conjunctiva. PERRL and EOM's grossly intact. OROPHARYNX: mucous membranes are moist NECK: supple, no nuchal rigidity, no adenopathy, non-tender LUNGS: Clear to auscultation. Normal chest wall mechanics HEART: no murmurs, S1 normal and S2 normal ABDOMEN: abdomen soft, non-tender, normo-active bowel sounds, no masses, no rebound or guarding. UPPER EXTREMITIES: upper extremities are grossly normal. LOWER EXTREMITIES: No pitting edema. NEURO EXAM: Normal sensorium, cranial nerves II-XII intact, normal speech, no weakness of arms, no weakness of legs. No drift. Finger to nose intact. Gross sensation intact. MEDICAL DECISION MAKING: Patient is a 72-year-old male who presents ER for above-stated complaint. IV was established blood work was obtained. External records were reviewed. Labs show no significant leukocytosis or anemia. BMP with mild hyponatremia 132. LFTs was unremarkable. T. bili slightly up at 1.4. Calcium mildly low at 8.2. Troponin negative. Lipase negative. UA was clean. COVID-negative. Chest x- ray without focal infiltrate. EKG consistent with A-fib RVR. He was placed on Cardizem drip and this titrated up to 15. He was given a bolus of 10 of Cardizem. Heart rate was still in the low 140s and consequently was given Lopressor 5 mg x 2 and trend down to the low 100s. Discussed with the hospitalist for further evaluation management and treatment. Triage Nursing notes reviewed. Limited review of prior medical records performed Vital Signs: reviewed and remarkable for no significant abnormalities Differential diagnosis: Infection, dehydration, metabolic abnormality, hypo/hyperglycemia, electrolyte disturbance, anemia, hypoxia, cardiac sources, intracerebral event, toxicologic, neurologic, as well as other pathologies. ER treatment provided: See below Diagnostics interpreted by me include EKG and cardiac monitoring as listed below: -Cardiac Monitoring: An order was placed for continuous cardiac monitoring. The monitor shows a rate of 100 with sinus rhythm. -ECG: A-fib RVR rate of 178 Left axis No PVCs Nonspecific ST wave changes in the high lateral leads QTc 444 -Laboratory studies:Interpreted by me as stated above in MDM and shown below. Imaging studies: Xrays: As interpreted by me: Portable AP upright 1 view of the chest shows no focal infiltrate CTs show: none Consultation(s): As described in [facility] Procedures:none Critical Care: I have personally spent 32 minutes of critical care time in the direct management of this patient. This includes bedside care, interpretation of diagnostic studies, and testing, discussion with consultants, patient, and family members, and other required patient management activities. This 32 mi nutes is in excess of all separately billable procedures. 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 Father , age 41 complications of jungle rot WW2 Heart disease Son No problems noted. Son No problems noted. Daughter No problems noted. 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 Feels Safe at Home: Yes Childhood Exposure to Second-Hand Smoke: Yes caffeine: Yes (one cup coffee per day) during the past year weight has: remained stable Dental Care, Regularly: Yes Physical Activity Frequency: Daily Seatbelt Use: always Sunscreen Use: Yes Assistive Devices: None Allergies Allergies Allergy/AdvReac Type Severity Reaction Status Date / Time amiodarone AdvReac Severe Pneumonitis Unverified 08/04/22 20:56 Home Meds Home Medications Medication Instructions Recorded Confirmed atorvastatin 20 mg tablet (Lipitor) 20 mg PO HS 09/23/19 08/04/22 dabigatran etexilate 150 mg 150 mg PO BID 09/23/19 08/04/22 capsule (Pradaxa) diltiazem HCl 120 mg 120 mg PO QAM 09/23/19 08/04/22 capsule,extended release 24 hr (Cartia XT) allopurinol 100 mg tablet 200 mg PO QAM 10/21/19 08/04/22 (Zyloprim) cholecalciferol (vitamin D3) 25 1,000 unit PO QAM 03/23/20 08/04/22 mcg (1,000 unit) capsule (Vitamin D3) colchicine 0.6 mg tablet (Colcrys) 0.6 mg PO UD gout 03/23/20 08/04/22 metoprolol succinate 100 mg 100 mg PO QAM 03/23/20 08/04/22 tablet,extended release 24 hr (Toprol XL) calcium carbonate 600 mg calcium 600 mg PO QAM 02/27/21 08/04/22 (1,500 mg) tablet (Calcium) Previous Rx's Medication Instructions Recorded cyanocobalamin (vitamin B-12) 500 500 mcg PO QAM #30 tabs 03/05/21 mcg tablet Results & Data (ED) Vital Signs Vital Signs - 24 hr 08/04/22 15:06 08/04/22 15:30 08/04/22 15:35 Temperature 37.0 C Temperature Source Temporal Artery Scan Pulse Rate 100 H 176 H Pulse Rate [Left Apical] Pulse Rhythm [Left Apical] Respiratory Rate 20 Respiratory Effort / Characteristics Non-Labored Respiratory Depth Normal Respiratory Pattern Blood Pressure 138/61 Blood Pressure [Right Arm] Blood Pressure Mean 86 Blood Pressure Mean [Right Arm] Blood Pressure Position [Right Arm] Pulse Oximetry 93 93 Oxygen Delivery Method Room Air Room Air Oxygen Flow Rate Sepsis Recent Fever Within 48 Hours No Sepsis New/Unexplained Change in Mental Status N/A Sepsis Action Taken by Nursing No Action Required 08/04/22 15:37 08/04/22 15:46 08/04/22 16:06 Temperature Temperature Source Pulse Rate Pulse Rate [Left Apical] 189 H 165 H 176 H Pulse Rhythm [Left Apical] Irregular Irregular Respiratory Rate 20 20 28 H Respiratory Effort / Characteristics Non-Labored Spontaneous Non-Labored Spontaneous Spontaneous Respiratory Depth Normal Normal Respiratory Pattern Regular Blood Pressure Blood Pressure [Right Arm] 134/85 121/68 146/83 H Blood Pressure Mean Blood Pressure Mean [Right Arm] 101 85 104 Blood Pressure Position [Right Arm] Lying Pulse Oximetry 93 93 91 Oxygen Delivery Method Room Air Room Air Room Air Oxygen Flow Rate Sepsis Recent Fever Within 48 Hours Sepsis New/Unexplained Change in Mental Status Sepsis Action Taken by Nursing 08/04/22 16:59 08/04/22 17:25 08/04/22 18:07 Temperature Temperature Source Pulse Rate 165 H 133 H Pulse Rate [Left Apical] 143 H Pulse Rhythm [Left Apical] Respiratory Rate Respiratory Effort / Characteristics Respiratory Depth Respiratory Pattern Blood Pressure 120/75 138/92 Blood Pressure [Right Arm] Blood Pressure Mean Blood Pressure Mean [Right Arm] Blood Pressure Position [Right Arm] Pulse Oximetry Oxygen Delivery Method Oxygen Flow Rate Sepsis Recent Fever Within 48 Hours Sepsis New/Unexplained Change in Mental Status Sepsis Action Taken by Nursing 08/04/22 18:24 08/04/22 19:31 08/04/22 20:02 Temperature Temperature Source Pulse Rate 118 H Pulse Rate [Left Apical] 124 H 120 H Pulse Rhythm [Left Apical] Regular Respiratory Rate 25 H 26 H Respiratory Effort / Characteristics Spontaneous Non-Labored Spontaneous Respiratory Depth Normal Respiratory Pattern Tachypnea Tachypnea Blood Pressure Blood Pressure [Right Arm] 138/92 131/53 L Blood Pressure Mean Blood Pressure Mean [Right Arm] 107 79 Blood Pressure Position [Right Arm] Lying Pulse Oximetry 95 95 Oxygen Delivery Method Nasal Cannula Nasal Cannula Oxygen Flow Rate 2 2 Sepsis Recent Fever Within 48 Hours Sepsis New/Unexplained Change in Mental Status Sepsis Action Taken by Nursing 08/04/22 21:02 Temperature Temperature Source Pulse Rate Pulse Rate [Left Apical] 135 H Pulse Rhythm [Left Apical] Respiratory Rate 25 H Respiratory Effort / Characteristics Spontaneous Respiratory Depth Normal Respiratory Pattern Tachypnea Blood Pressure Blood Pressure [Right Arm] 137/88 Blood Pressure Mean Blood Pressure Mean [Right Arm] 104 Blood Pressure Position [Right Arm] Lying Pulse Oximetry 95 Oxygen Delivery Method Nasal Cannula Oxygen Flow Rate 2 Sepsis Recent Fever Within 48 Hours Sepsis New/Unexplained Change in Mental Status Sepsis Action Taken by Nursing Laboratory Data 08/04/22 15:20 08/04/22 15:20 Lab Results 08/04/22 08/04/22 08/04/22 Range/Units 15:20 15:20 15:36 WBC 7.59 (4.8-10.8) K/ul RBC 4.41 L (4.70-6.10) M/uL Hgb 14.1 (14.0-18.0) g/dl POC Hgb (14.0-18.0) g/dl Hct 39.3 L (42.0-52.0) % POC Hct (42-52) % MCV 89.1 (80.0-100.0) fL MCH 32.0 (25.0-34.0) pg MCHC 35.9 (32.0-36.0) g/dL RDW Std Deviation 42.2 (36.4-46.3) fL RDW Coeff of Phyllis 12.8 (11.5-14.5) % Plt Count 194 (130-400) K/uL MPV 9.8 (9.4-12.4) fL Immature Gran % (Auto) 1.1 % Neut % (Auto) 86.2 % Lymph % (Auto) 10.9 % Grayson % (Auto) 1.1 % Eos % (Auto) 0.3 % Baso % (Auto) 0.4 % Neut # (Auto) 6.55 H (1.40-6.50) K/uL Lymph # (Auto) 0.83 L (1.2-3.4) K/uL Grayson # (Auto) 0.08 L (0.11-0.59) K/uL Eos # (Auto) 0.02 (0-0.50) K/uL Baso # (Auto) 0.03 (0-0.2) K/uL Immature Gran # (Auto) 0.08 (0.01-0.20) K/uL POC Sodium (135-144) mmol/L Sodium 132 L (136-145) mmol/L POC Potassium (3.3-5.0) mmol/L Potassium 4.2 (3.5-5.1) mmol/L POC Chloride (101-112) mmol/L Chloride 98 (98-107) mmol/L Carbon Dioxide 25 (21-32) mmol/L POC Total CO2 (24-31) mmol/L Anion Gap 9 (3-11) POC Anion Gap (16-25) mmol/L POC BUN (7-18) mg/dl BUN 20 (6-23) mg/dl Creatinine 0.72 (0.6-1.4) mg/dl POC Creatinine (0.6-1.3) mg/dl Est Cr Clr Drug Dosing 119.3 ml/min Est GFR ( Amer) 108.0 ml/min Est GFR (Non-Af Amer) 93.2 ml/min BUN/Creatinine Ratio 27.8 H (10-20) Glucose 120 H (70-99(Fasting)) mg/dl POC Glucose (other) (70-99) mg/dl Calcium 8.2 L (8.6-10.3) mg/dl POC Ioniz Calcium Westley (1.12-1.32) mmol/l Magnesium 1.7 (1.7-2.4) mg/dl Total Bilirubin 1.4 H (0.2-1.0) mg/dl AST 37 (13-39) U/L ALT 37 (7-52) U/L Alkaline Phosphatase 235 H (34-104) U/L Troponin I High Sens 17.1 (0-20) pg/ml Total Protein 6.6 (6.0-8.3) gm/dl Albumin 3.6 (3.4-5.0) gm/dl Globulin 3.0 (2.5-4.0) gm/dl Albumin/Globulin Ratio 1.2 (0.9-2) Lipase 41 (11-82) U/L Urine Color Urine Appearance (Clear) Urine pH (4.5-7.5) Ur Specific [place] (1.000-1.030) Urine Protein (Negative) Urine Glucose (UA) (Negative) Urine Ketones (Negative) Urine Blood (Negative) Urine Nitrite (Negative) Urine Bilirubin (Negative) Urine Urobilinogen (Negative) Ur Leukocyte Esterase (Negative) Urine WBC (Auto) (0-5) /hpf Urine RBC (Auto) (0-4) /hpf U Hyaline Cast (Auto) (0-5) /lpf U Epithel Cells (Auto) (0-5) /lpf Urine Bacteria (Auto) (Negative) SARS-CoV-2, RNA, NAAT NEGATIVE (NEGATIVE) 08/04/22 08/04/22 Range/Units 15:38 16:05 WBC (4.8-10.8) K/ul RBC (4.70-6.10) M/uL Hgb (14.0-18.0) g/dl POC Hgb 13.9 L (14.0-18.0) g/dl Hct (42.0-52.0) % POC Hct 41 L (42-52) % MCV (80.0-100.0) fL MCH (25.0-34.0) pg MCHC (32.0-36.0) g/dL RDW Std Deviation (36.4-46.3) fL RDW Coeff of Phyllis (11.5-14.5) % Plt Count (130-400) K/uL MPV (9.4-12.4) fL Immature Gran % (Auto) % Neut % (Auto) % Lymph % (Auto) % [place] % (Auto) % Eos % (Auto) % Baso % (Auto) % Neut # (Auto) (1.40-6.50) K/uL Lymph # (Auto) (1.2-3.4) K/uL Grayson # (Auto) (0.11-0.59) K/uL Eos # (Auto) (0-0.50) K/uL Baso # (Auto) (0-0.2) K/uL Immature Gran # (Auto) (0.01-0.20) K/uL POC Sodium 133 L (135-144) mmol/L Sodium (136-145) mmol/L POC Potassium 4.4 (3.3-5.0) mmol/L Potassium (3.5-5.1) mmol/L POC Chloride 95 L (101-112) mmol/L Chloride (98-107) mmol/L Carbon Dioxide (21-32) mmol/L POC Total CO2 25 (24-31) mmol/L Anion Gap (3-11) POC Anion Gap 18.0 (16-25) mmol/L POC BUN 19 H (7-18) mg/dl BUN (6-23) mg/dl Creatinine (0.6-1.4) mg/dl POC Creatinine 0.6 (0.6-1.3) mg/dl Est Cr Clr Drug Dosing ml/min Est GFR ( Amer) ml/min Est GFR (Non-Af Amer) ml/min BUN/Creatinine Ratio (10-20) Glucose (70-99(Fasting)) mg/dl POC Glucose (other) 117 H (70-99) mg/dl Calcium (8.6-10.3) mg/dl POC Ioniz Calcium Westley 1.09 L (1.12-1.32) mmol/l Magnesium (1.7-2.4) mg/dl Total Bilirubin (0.2-1.0) mg/dl AST (13-39) U/L ALT (7-52) U/L Alkaline Phosphatase (34-104) U/L Troponin I High Sens (0-20) pg/ml Total Protein (6.0-8.3) gm/dl Albumin (3.4-5.0) gm/dl Globulin (2.5-4.0) gm/dl Albumin/Globulin Ratio (0.9-2) Lipase (11-82) U/L Urine Color Yellow Urine Appearance Clear (Clear) Urine pH 5.0 (4.5-7.5) Ur Specific [place] 1.020 (1.000-1.030) Urine Protein Negative (Negative) Urine Glucose (UA) Negative (Negative) Urine Ketones Negative (Negative) Urine Blood 2+ H (Negative) Urine Nitrite Negative (Negative) Urine Bilirubin Negative (Negative) Urine Urobilinogen Negative (Negative) Ur Leukocyte Esterase Negative (Negative) Urine WBC (Auto) 1-5 (0-5) /hpf Urine RBC (Auto) 10-30 H (0-4) /hpf U Hyaline Cast (Auto) 0 (0-5) /lpf U Epithel Cells (Auto) 10-20 H (0-5) /lpf Urine Bacteria (Auto) Negative (Negative) SARS-CoV-2, RNA, NAAT (NEGATIVE) Administered Medications Diltiazem HCl 125 mg/ Dextrose 125 mls @ 10 mls/hr IV .[id number] [facility]; Protocol Stop: 09/03/22 15:44 Last Titration: 08/04/22 17:26 Dose: 15 mg/hr, 15 mls/hr Documented By: REGINA Co-signed By: VASHTI Titration: 08/04/22 16:10 Dose: 10 mg/hr, 10 mls/hr Documented By: REGINA Co-signed By: HERMELINDO Admin: 08/04/22 15:59 Dose: 5 mg/hr, 5 mls/hr Documented By: REGINA Co-signed By: JUAN A Magnesium Sulfate/Dextrose (Magnesium Sulfate / D5w) 1 gm in 100 mls @ 50 mls/hr IV NOW STA Stop: 08/04/22 21:27 Last Admin: 08/04/22 20:04 Dose: 50 mls/hr Documented By: REGINA Discontinued Medications Diltiazem HCl (Diltiazem Hcl 5 Mg/Ml 5 Ml Vial) 10 mg IV NOW STA Stop: 08/04/22 15:36 Last Admin: 08/04/22 15:41 Dose: 10 mg Documented By: JUAN A Co-signed By: SOFIYA Metoprolol Tartrate (Metoprolol Tartrate 1 Mg/Ml Vial) 5 mg IV NOW STA Stop: 08/04/22 16:45 Last Admin: 08/04/22 16:59 Dose: 5 mg Documented By: REGINA Metoprolol Tartrate (Metoprolol Tartrate 1 Mg/Ml Vial) 5 mg IV NOW STA Stop: 08/04/22 17:54 Last Admin: 08/04/22 18:07 Dose: 5 mg Documented By: VASHTI Miscellaneous (Stat Iv Infusion Titration Per Protocol) 1 each N/A NOW STA Stop: 08/04/22 15:36 Last Admin: 08/04/22 16:15 Dose: Not Given Documented By: REGINA Imaging Data Radiologist's Impression: Chest X-Ray 08/04/22 15:09 XR chest 1V portable CLINICAL HISTORY: weak TECHNIQUE: Single frontal radiograph of the chest was obtained. Comparison: Comparison is made to chest radiograph 02/27/2021 FINDINGS: Exam is limited by underpenetration. Cardiomegaly is noted. The lungs are clear. No evidence of pleural effusion or pneumothorax. IMPRESSION: No acute chest disease. Cardiomegaly is noted. ACT 112: Negative or not required by law. Electronically signed by: Shane Engel M.D. 08/04/2022 3:35 PM Discharge Plan Visit Data Chief Complaint: Unable to Void Stated Complaint: UNABLE TO URINATE ED Provider: Michael Tyler Discharge Problem: Atrial fibrillation with rapid ventricular response, Weakness Forms Stand Alone Forms: [facility] Prescriptions Prescriptions: No Action allopurinol [Zyloprim] 100 mg tablet 200 mg PO QAM Pradaxa 150 mg capsule 150 mg PO BID diltiazem HCl [Cartia XT] 120 mg capsule,extended release 24hr 120 mg PO QAM atorvastatin [Lipitor] 20 mg tablet 20 mg PO HS metoprolol succinate [Toprol XL] 100 mg tablet extended release 24 hr 100 mg PO QAM colchicine [Colcrys] 0.6 mg Tablet 0.6 mg PO UD Rx Instructions: Take 2 tablets by mouth at first sign of gout. Repeat a pill in hour and then one pill daily until pain subsides. cholecalciferol (vitamin D3) [Vitamin D3] 25 mcg (1,000 unit) capsule 1,000 unit PO QAM calcium carbonate [Calcium 600] 600 mg calcium (1,500 mg) Tablet 600 mg PO QAM cyanocobalamin (vitamin B-12) 500 mcg Tablet 500 mcg PO QAM Qty: 30 0RF Referrals Referrals: Shyann Kwon MD [Primary Care Provider] -
[2022-08-04] MEDS ORDERED: dilTIAZem HCl 5 MG/ML 5 ML VIAL IV STA (15:35)
[2022-08-04] MEDS ORDERED: STAT IV Infusion **Titration per Protocol STA (15:35)
--- NOTE | 2022-08-04 15:36 | XRay Report ---
XR chest 1V portable CLINICAL HISTORY: weak TECHNIQUE: Single frontal radiograph of the chest was obtained. Comparison: Comparison is made to chest radiograph 02/27/2021 FINDINGS: Exam is limited by underpenetration. Cardiomegaly is noted. The lungs are clear. No evidence of pleur al effusion or pneumothorax. IMPRESSION: No acute chest disease. Cardiomegaly is noted. ACT 112: Negative or not required by law. Electronically signed by: Shane Engel M.D. 08/04/2022 3:35 PM
[2022-08-04 15:49] LABS: iSTAT Creatinine 0.6 mg/dl (0.6-1.3); iSTAT Hemoglobin 13.9 g/dl (14.0-18.0); iSTAT Ionized Calcium 1.09 mmol/l (1.12-1.32); iSTAT Potassium 4.4 mmol/L (3.3-5.0)
[2022-08-04] MEDS: dilTIAZem HCL 125 MG in DEXTROSE 5% 100 ML IV SCH (15:59)
[2022-08-04 16:03] LABS: Basophils # (auto) 0.03 K/uL (0-0.2); Basophils % (auto) 0.4 %; Eosinophils # (auto) 0.02 K/uL (0-0.50); Eosinophils % (auto) 0.3 %; Hematocrit (blood only) 39.3 % (42.0-52.0); Hemoglobin 14.1 g/dl (14.0-18.0); Immature Granulocytes # (auto) 0.08 K/uL (0.01-0.20); Immature Granulocytes % (auto) 1.1 %; Lymphocytes # (auto) 0.83 K/uL (1.2-3.4); Lymphocytes % (auto) 10.9 %; Mean Corpuscular Hgb Conc 35.9 g/dL (32.0-36.0); Mean Corpuscular Volume 89.1 fL (80.0-100.0); Mean Platelet Volume 9.8 fL (9.4-12.4); Monocytes # (auto) 0.08 K/uL (0.11-0.59); Monocytes % (auto) 1.1 %; Neutrophils # (auto) 6.55 K/uL (1.40-6.50); Neutrophils % (auto) 86.2 %; Platelet Count 194 K/uL (130-400); RDW Coefficient of Variation 12.8 % (11.5-14.5); RDW Standard Deviation 42.2 fL (36.4-46.3); Red Blood Count 4.41 M/uL (4.70-6.10); White Blood Count 7.59 K/ul (4.8-10.8)
--- NOTE | 2022-08-04 16:17 | Electrocardiogram Report ---
Test Reason : Blood Pressure : / mmHG Vent. Rate : 178 BPM Atrial Rate : 208 BPM P-R Int : 000 ms QRS Dur : 094 ms QT Int : 258 ms P-R-T Axes : 000 -39 063 degrees QTc Int : 444 ms Poor data quality, interpretation may be adversely affected Atrial fibrillation with rapid ventricular response Left axis deviation Possible Anterior infarct (cited on or before 27-FEB-2021) Abnormal ECG When compared with ECG of 27-FEB-2021 12:37, No significant change was found Confirmed by Walter Hobson ([id number]) on 08/04/2022 4:17:15 PM Referred By: Confirmed By:Walter Hobson
[2022-08-04 16:36] LABS: Albumin Globulin Ratio 1.2 (0.9-2); Albumin Level 3.6 gm/dl (3.4-5.0); BUN Creatinine Ratio 27.8 (10-20); Bilirubin,Total 1.4 mg/dl (0.2-1.0); Calcium 8.2 mg/dl (8.6-10.3); Creatinine Clr Calc Pharmacy 119.3 ml/min; Est GFR (Non-African American) 93.2 ml/min; Potassium 4.2 mmol/L (3.5-5.1); Total Protein 6.6 gm/dl (6.0-8.3)
[2022-08-04 16:39] LABS: Appearance Urine Clear (Clear); Bacteria Urine Automated Negative (Negative); Bilirubin Urine Negative (Negative); Blood Urine 2+ (Negative); Cast Urine Automated 0 /lpf (0-5); Color Urine Yellow; Glucose Urine UA Negative (Negative); Ketones Urine Negative (Negative); Leukocyte Esterase Urine Negative (Negative); Nitrite Urine Negative (Negative); Protein Urine Negative (Negative); Urobilinogen Urine Negative (Negative)
[2022-08-04 16:42] LABS: Troponin I High Sensitivity 17.1 pg/ml (0-20)
[2022-08-04] MEDS ORDERED: METOPROLOL TARTRATE 1 MG/ML VIAL IV STA ×2 (16:44→17:53)
--- NOTE | 2022-08-04 18:30 | History & Physical Report ---
Date of Service August 04, 2022 Assessment & Plan (1) Atrial fibrillation with rapid ventricular response: Plan: Last Westbrook is a 72-year-old male with a past medical history of gram- negative bacteremia, A-fib RVR, prostate cancer, ascending aortic aneurysm and heart failure who presented due to weakness and difficulty urinating for 4 days. Found to be in afib with RVR. Afib with RVR/chronic diastolic HF - Initially with rate up to 180s currently at 110s-120s - Given MTP tartrate 5mg IV x2, diltiazem 10mg IV x1, and started on dilt gtt in ED - Will continue dilt gtt at this time -- continue to monitor and consider additional dilt boluses if rate remains elevated - Plan to continue home MTP succinate 100mg daily in the AM - Magnesium at 1.7 -- will replete with goal of 2 - Echocardiogram ordered as most recent in our system is from February 2021 - Continue home Pradaxa 150mg BID - Admit to telemetry Urinary retention - Etiology likely bladder outlet obstruction vs chemo side effect -- no signs of infection or neurologic issues - Jarrett placed in ED -- continue at this time - Can consider Urology consult if not resolving Hyperbilirubinemia/elevated alk. phos - Asymptomatic with no concerning abd exam findings - Trend CMP Prostate cancer - Follows with [facility] - Continue Casodex daily Gout - No current signs of flare - Continue daily allopurinol HLD - Continue home atorvastatin DVT ppx: On Pradaxa for afib Diet: Heart healthy, low sodium Dispo: Admit to PCU CODE STATUS: Full (2) BPH (benign prostatic hyperplasia): (3) Prostate cancer: (4) Generalized weakness: (5) Chronic diastolic heart failure due to hypertrophic obstructive cardiomyopathy: (6) Hyperlipidemia: History of Present Illness Primary Care Provider: Shyann Kwon MD Last Westbrook is a 72-year-old male with a past medical history of gram- negative bacteremia, A-fib RVR, prostate cancer, ascending aortic aneurysm and heart failure who presented due to weakness and difficulty urinating for 4 days. He says Sunday he received chemotherapy for his prostate cancer at the [facility]. Ever since then he noted that he's been feeling sick and weak. Also noticed that he has been unable to fully empty his bladder in that timeframe, which is a new symptom for him. Says he did not feel dysuria or frequency/urgency but when he tried to urinate only had dribbling. Denies f/c, n/v, HOLLOWAY, dizziness, CP, palp, SOB, abd pain, stool changes, numbness, tingling, confusion. Mentions he forgot to take his meds this morning because of feeling sick/weak. In the ED he was found to be in afib with RVR up to 180s. He received metoprolol 5mg IV x2, diltiazem 10mg IV x1, and was then started on a diltiazem drip. His heart reat has improved, currently at 110s-120s. Lab work showed normal white count, normal hemoglobin, normal platelet count. Did have mild hyponatremia to 132, potassium 4.2, normal BUN and creatinine, mildly decreased Ca to 8.2 with ionized Ca of 1.09. T. bili elevated to 1.4 and alk phos elevated to 235. Troponin normal at 17.1. UA with 2+ blood, 10-30 RBC, 10-20 epithelial cells, no nitrites/LE. Allergies Allergy/AdvReac Type Severity Reaction Status Date / Time amiodarone AdvReac Severe Pneumonitis Unverified 08/04/22 20:56 Home Medications Medication Instructions Recorded Confirmed Type atorvastatin 20 mg tablet (Lipitor) 20 mg PO HS 09/23/19 08/04/22 History dabigatran etexilate 150 mg 150 mg PO BID 09/23/19 08/04/22 History capsule (Pradaxa) diltiazem HCl 120 mg 120 mg PO QAM 09/23/19 08/04/22 History capsule,extended release 24 hr (Cartia XT) allopurinol 100 mg tablet 200 mg PO QAM 10/21/19 08/04/22 History (Zyloprim) cholecalciferol (vitamin D3) 25 1,000 unit PO QAM 03/23/20 08/04/22 History mcg (1,000 unit) capsule (Vitamin D3) colchicine 0.6 mg tablet (Colcrys) 0.6 mg PO UD gout 03/23/20 08/04/22 History metoprolol succinate 100 mg 100 mg PO QAM 03/23/20 08/04/22 History tablet,extended release 24 hr (Toprol XL) calcium carbonate 600 mg calcium 600 mg PO QAM 10/24/21 03/31/23 History (1,500 mg) tablet (Calcium) cyanocobalamin (vitamin B-12) 500 500 mcg PO QAM #30 tabs 03/05/21 08/04/22 Rx mcg tablet Past Med/Surg History Medical History (Updated 08/04/22 @ 21:13 by Michael Tyler DO) Acute respiratory failure with hypoxia Atrial fibrillation Atrial fibrillation with RVR Basal cell carcinoma of dorsum of nose BPH (benign prostatic hyperplasia) Chronic diastolic CHF (congestive heart failure) Chronic diastolic heart failure due to hypertrophic obstructive cardiomyopathy Congestive heart failure Elevated PSA GERD (gastroesophageal reflux disease) Gout Gout Hyperlipidemia Hypertension Hyponatremia Idiopathic peripheral neuropathy Pneumonia due to COVID-19 virus Polyp of colon Prostate cancer Restrictive lung disease Vitamin D deficiency Surgical History History of left knee replacement Family History Family/Other Prostate cancer cousin on fathers side Family/Other Hypertension paternal aunts Mother , age 75 COPD No problems noted. Father , age 41 complications of jungle rot WW2 Heart disease Son No problems noted. Son No problems noted. Daughter No problems noted. 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 NAD. HEENT: PERRL, EOMI. Moist mucous membranes. NECK: No JVD. No lymphadenopathy. CHEST/LUNGS: CTAB A/P. No crackles, wheezes, rales, rhonchi. HEART: Irregularly irregular. No m/g/r. ABDOMEN: NT, somewhat distended abdomen which patient feels is baseline. Soft. BS+ x4 EXTREMITIES: 1+ pitting edema. No cyanosis, no clubbing. SKIN: Warm and dry. BLE skin with chronic stasis changes PSYCHIATRIC: Euthymic affect, no SI, no pressured speech, no hallucinations NEUROLOGIC: No FND. Results & Data Results & Data Vital Signs (Past 12 Hours) Vital Signs Temp Pulse Pulse Resp BP BP Pulse Ox 08/04/22 18:07 133 H 138/92 08/04/22 17:25 143 H 08/04/22 16:59 165 H 120/75 08/04/22 16:06 176 H 28 H 146/83 H 91 08/04/22 15:46 165 H 20 121/68 93 08/04/22 15:37 189 H 20 134/85 93 08/04/22 15:35 93 08/04/22 15:30 176 H 08/04/22 15:06 37.0 C 100 H 20 138/61 93 O2 Del Method 08/04/22 18:07 08/04/22 17:25 08/04/22 16:59 08/04/22 16:06 Room Air 08/04/22 15:46 Room Air 08/04/22 15:37 Room Air 08/04/22 15:35 Room Air 08/04/22 15:30 08/04/22 15:06 Room Air Supervising Physician Co-Signing Physician Notes Patient seen and examined, chart reviewed, case discussed with Dr. Monisha Herron MD and I agree with the assessment and plan as above except as otherwise noted Labs and images reviewed Last is a 72-year-old male with a history of A-fib with RVR, prostate cancer, aortic aneurysm, and heart failure who presented with difficulty urinating, and weakness and was found to be in A-fib RVR on arrival to the ER with rates [id number]. He is on [employer] diltiazem and metoprolol, last echo was with EF 50-55% in 2020. While in the ER he received metoprolol 5 mg IV x1, 10 mg diltiazem IV, and was started on diltiazem gtt. for inadequate rate control he did have improvement in rates down to approximately [id number]. Patient currently has prostate cancer on Casodex and following with CCP at bedside assessment he is not having chest pain, chest pressure, shortness of breath, lightheadedness, dizziness and reports he feels less weak than when he came in. Heart rate is irregular tachycardic, lungs are grossly clear. Agree with rate control as above, may need rebolus but is tolerating diltiazem well at time of admission and is not hypotensive. Continue home dosing of metoprolol, and use additional as needed for breakthrough. We will hold morning p.o. diltiazem while on drip and consolidate dosing, may need a dose increase from 120 p.o. a.m. Agree with management above, patient is on Pradaxa which is continued. Resident Activity Tracking Resident Involvement: Resident Care Provided Care Provided: Adult [facility] Medicine
[2022-08-04 19:14] LABS: Magnesium 1.7 mg/dl (1.7-2.4)
[2022-08-04] MEDS ORDERED: MAGNESIUM SULFATE / D5W 1 GM/100 ML BAG IV STA (19:28)
[2022-08-04] MEDS ORDERED: POLYETHYLENE (MIRALAX) 17 GM PACK PO PRN (22:50)
[2022-08-04] MEDS ORDERED: MAGNESIUM HYDROXIDE SUSP 30 ML UDC PO PRN (22:50)
[2022-08-05] MEDS: DABIGATRAN ETEXILATE 75 MG CAP PO SCH ×3 (00:02→21:13)
[2022-08-05] MEDS: ATORVASTATIN 20 MG TAB PO SCH ×2 (00:02→21:13)
[2022-08-05] MEDS: ONDANSETRON INJ 2 MG/ML 2 ML VIAL IV PRN ×2 (00:05→21:19)
[2022-08-05] MEDS: dilTIAZem HCL 125 MG in DEXTROSE 5% 100 ML IV SCH ×2 (00:25→10:26)
[2022-08-05] MEDS: ACETAMINOPHEN 325 MG TAB PO PRN (00:44)
[2022-08-05 07:42] LABS: Basophils % (auto) 2.8 %; Eosinophils # (auto) 0.03 K/uL (0-0.50); Eosinophils % (auto) 0.8 %; Hematocrit (blood only) 37.9 % (42.0-52.0); Hemoglobin 13.5 g/dl (14.0-18.0); Immature Granulocytes # (auto) 0.18 K/uL (0.01-0.20); Lymphocytes % (auto) 22.4 %; Mean Corpuscular Hemoglobin 32.4 pg (25.0-34.0); Mean Corpuscular Hgb Conc 35.6 g/dL (32.0-36.0); Mean Corpuscular Volume 90.9 fL (80.0-100.0); Monocytes # (auto) 0.14 K/uL (0.11-0.59); Monocytes % (auto) 3.9 %; Neutrophils # (auto) 2.32 K/uL (1.40-6.50); Neutrophils % (auto) 65.1 %; Platelet Count 187 K/uL (130-400); RDW Coefficient of Variation 13.1 % (11.5-14.5); RDW Standard Deviation 43.7 fL (36.4-46.3); Red Blood Count 4.17 M/uL (4.70-6.10); White Blood Count 3.57 K/ul (4.8-10.8)
[2022-08-05] MEDS: CHOLECALCIFEROL 1,000 UNITS 25 MCG TAB PO SCH (07:45)
[2022-08-05] MEDS: CYANOCOBALAMIN (B-12) 500 MCG TABLET PO SCH (07:45)
[2022-08-05] MEDS: METOPROLOL SUCC 50MG EXT REL TAB PO SCH (07:45)
[2022-08-05] MEDS: allopurinoL 100 MG TAB PO SCH (07:45)
[2022-08-05] MEDS: BICALUTAMIDE 50 MG TAB PO SCH (07:45)
[2022-08-05] MEDS: CALCIUM CARBONATE 1250MG TAB PO SCH (07:45)
[2022-08-05] MEDS: DICLOFENAC SOD 1% GEL 100 GM TUBE EXT SCH ×4 (07:46→21:14)
--- NOTE | 2022-08-05 07:46 | Hospitalist Progress Note ---
Date of Service August 05, 2022 Assessment & Plan (1) Atrial fibrillation with rapid ventricular response: Plan: 72yo male with a history of atrial fibrillation, CHF, ascending aortic aneurysm, prostate cancer, and history of gram-negative bacteremia presents with a four- day history of weakness and urinary retention, then found on admission to be in AFwRVR. Atrial fibrillation with rapid ventricular rate, CHF Patient with rates in the 180s on admission Received metoprolol 5mg IV (x2), diltiazem 10mg IV (x1), and started on diltiazem gtt in the ED Continue diltiazem gtt Echo ordered Replete magnesium until over 2.0, potassium until over 4.0 Continue home metoprolol succinate 100mg qAM Continue home pradaxa Urinary retention Suspected secondary to bladder outlet obstruction vs chemotherapy side effect Continue fermin for now Consider consulting urology if symptoms worsen or fail to improe Hyperbilirubinemia, elevated alkaline phosphatase Asymptomatic, no concerning GI findings on physical exam Trend daily CMP Prostate cancer [facility] Continue home casodex HLD: continue home atorvastatin Gout: continue home allopurinol FEN: heart healthy, low sodium diet Code status: full code DVT ppx: home pradaxa PT/OT: ordered Dispo: PCU, discharge pending sustained rate control (2) BPH (benign prostatic hyperplasia): (3) Prostate cancer: (4) Generalized weakness: (5) Chronic diastolic heart failure due to hypertrophic obstructive cardiomyopathy: (6) Hyperlipidemia: Admission and Anticipated Discharge Date Admission Date: August 04, 2022 Supervising Physician Co-Signing Physician Notes I personally examined the patient and verified all lara points of history and exam, discussed case, and agree with decision making with Dr Norton. Feels okay, main complaint is that the TV is not working and he would like to watch pain once again. Vitals noted, in general he is awake and alert pleasant no distress. HEENT normocephalic atraumatic mucous membranes moist. Breathing unlabored no accessory muscle use good effort. Skin shows no rashes no pallor or icterus. Unplugging and replugging in the TV appears to remedy his main acute problem when I am in the room. A-fib RVRdiltiazem driptransition to p.o. Hopefully home in the next day or so. Anticoagulated on Pradaxa Subjective Patient seen and evaluated at bedside this morning. Patient feels well at this time and has no concerns or complaints. Patient denies CP, SOB, and palpitations. Patient additionally denies abdominal pain, nausea, vomiting, lightheadedness, dizziness, and diarrhea. Review of Systems Review of Systems: See HPI Physical Exam Physical Exam: Constitutional: well-appearing, no acute distress CV: tachycardic, irregular rhythm, no murmur appreciated, extremities well- perfused Resp: CTABL, no wheezes/rales/rhonchi appreciated, no increased work of breathing GI: soft, nondistended, nontender, BS normoactive Neuro: alert, oriented, no focal neurologic deficit appreciated Results & Data Results & Data Vital Signs (Past 12 Hours) Vital Signs Temp Pulse Resp BP Pulse Ox O2 Del Method O2 Flow Rate 08/05/22 02:00 Nasal Cannula 2 08/05/22 03:18 36.8 C 114 H 18 135/80 95 Nasal Cannula 2 08/04/22 22:55 37 C 112 H 18 155/85 H 95 Nasal Cannula 08/04/22 21:02 135 H 25 H 137/88 95 Nasal Cannula 2 08/04/22 20:02 120 H 26 H 131/53 L 95 Nasal Cannula 2 Resident Activity Tracking Resident Involvement: Resident Care Provided Care Provided: Adult Hospital Medicine
[2022-08-05 08:29] LABS: Alanine Aminotransferase 32 U/L (7-52); Albumin Globulin Ratio 1.1 (0.9-2); Albumin Level 3.4 gm/dl (3.4-5.0); Alkaline Phosphatase 196 U/L (34-104); Anion Gap 7 (3-11); BUN Creatinine Ratio 23.9 (10-20); Bilirubin,Total 1.7 mg/dl (0.2-1.0); Blood Urea Nitrogen 17 mg/dl (6-23); Calcium 8.1 mg/dl (8.6-10.3); Carbon Dioxide 29 mmol/L (21-32); Chloride 97 mmol/L (98-107); Creatinine Clr Calc Pharmacy 134.6 ml/min; Est GFR (African American) 108.6 ml/min; Est GFR (Non-African American) 93.7 ml/min; Glucose 135 mg/dl (70-99(Fasting)); Magnesium 2.2 mg/dl (1.7-2.4); Sodium 133 mmol/L (136-145); Total Protein 6.4 gm/dl (6.0-8.3)
[2022-08-05 09:09] LABS: Potassium 4.4 mmol/L (3.5-5.1)
--- NOTE | 2022-08-05 10:28 | XCELERA ---
[id number] [id number]
[2022-08-05] MEDS ORDERED: dilTIAZem HCl 60 MG TAB PO ONE (16:59)
--- NOTE | 2022-08-05 17:00 | Billing Data ---
Date of Service August 05, 2022 Coding Level of Care Code 10224 SUB INP/OBS CARE
[2022-08-05] MEDS: dilTIAZem HCl 60 MG TAB PO SCH ×2 (17:58→21:15)
[2022-08-05] MEDS: MELATONIN 3 MG TAB PO PRN (22:18)
[2022-08-06] MEDS: ACETAMINOPHEN 325 MG TAB PO PRN ×2 (03:04→17:56)
[2022-08-06 07:11] LABS: Hematocrit (blood only) 36.2 % (42.0-52.0); Hemoglobin 12.7 g/dl (14.0-18.0); Mean Corpuscular Hemoglobin 32.3 pg (25.0-34.0); Mean Corpuscular Hgb Conc 35.1 g/dL (32.0-36.0); Mean Corpuscular Volume 92.1 fL (80.0-100.0); Mean Platelet Volume 9.8 fL (9.4-12.4); Platelet Count 187 K/uL (130-400); RDW Coefficient of Variation 12.8 % (11.5-14.5); RDW Standard Deviation 43.6 fL (36.4-46.3); Red Blood Count 3.93 M/uL (4.70-6.10); White Blood Count 1.22 K/ul (4.8-10.8)
[2022-08-06 07:26] LABS: Albumin Globulin Ratio 1.1 (0.9-2); Albumin Level 3.1 gm/dl (3.4-5.0); BUN Creatinine Ratio 26.2 (10-20); Bilirubin,Total 1.6 mg/dl (0.2-1.0); Calcium 7.7 mg/dl (8.6-10.3); Creatinine Clr Calc Pharmacy 157.1 ml/min; Est GFR (African American) 115.6 ml/min; Est GFR (Non-African American) 99.8 ml/min; Globulin 2.9 gm/dl (2.5-4.0); Potassium 4.2 mmol/L (3.5-5.1)
[2022-08-06] MEDS: CHOLECALCIFEROL 1,000 UNITS 25 MCG TAB PO SCH (08:11)
[2022-08-06] MEDS: METOPROLOL SUCC 50MG EXT REL TAB PO SCH ×2 (08:11→21:19)
[2022-08-06] MEDS: dilTIAZem HCl 60 MG TAB PO SCH ×4 (08:11→21:16)
[2022-08-06] MEDS: DICLOFENAC SOD 1% GEL 100 GM TUBE EXT SCH ×4 (08:11→21:19)
[2022-08-06] MEDS: CALCIUM CARBONATE 1250MG TAB PO SCH (08:11)
[2022-08-06] MEDS: DABIGATRAN ETEXILATE 75 MG CAP PO SCH ×2 (08:11→21:18)
[2022-08-06] MEDS: CYANOCOBALAMIN (B-12) 500 MCG TABLET PO SCH (08:11)
[2022-08-06] MEDS: BICALUTAMIDE 50 MG TAB PO SCH (08:11)
[2022-08-06] MEDS: allopurinoL 100 MG TAB PO SCH (08:11)
[2022-08-06] MEDS: ONDANSETRON INJ 2 MG/ML 2 ML VIAL IV PRN ×2 (09:25→21:13)
--- NOTE | 2022-08-06 09:25 | Hospitalist Progress Note ---
Date of Service August 06, 2022 Assessment & Plan (1) Atrial fibrillation with rapid ventricular response: Plan: 72yo male with a history of atrial fibrillation, CHF, ascending aortic aneurysm, prostate cancer, and history of gram-negative bacteremia presents with a four- day history of weakness and urinary retention, then found on admission to be in AFwRVR. Atrial fibrillation with rapid ventricular rate, CHF Patient with rates in the 180s on admission Received metoprolol 5mg IV (x2), diltiazem 10mg IV (x1), and started on diltiazem gtt in the ED Continue diltiazem gtt Echo ordered Replete magnesium until over 2.0, potassium until over 4.0 08/05: diltiazem gtt converted to diltiazem 60mg PO qid 08/06: patient has had per Continue home metoprolol succinate 100mg qAM Continue home pradaxa Urinary retention Suspected secondary to bladder outlet obstruction vs chemotherapy side effect Continue fermin for now Consider consulting urology if symptoms worsen or fail to improe Hyperbilirubinemia, elevated alkaline phosphatase Asymptomatic, no concerning GI findings on physical exam Trend daily CMP Leukopenia Suspected secondary to recent chemotherapy treatment CBC this morning ordered without differential - will obtain a differential to calculate ANC Trend CBC with diff Prostate cancer [facility] Continue home casodex HLD: continue home atorvastatin Gout: continue home allopurinol FEN: heart healthy, low sodium diet Code status: full code DVT ppx: home pradaxa PT/OT: ordered Dispo: PCU, discharge pending sustained rate control (2) BPH (benign prostatic hyperplasia): (3) Prostate cancer: (4) Generalized weakness: (5) Chronic diastolic heart failure due to hypertrophic obstructive cardiomyopathy: (6) Hyperlipidemia: Admission and Anticipated Discharge Date Admission Date: August 04, 2022 Supervising Physician Co-Signing Physician Notes I personally examined the patient and verified all lara points of history and exam, discussed case, and agree with decision making with Dr Norton. TV still not working. no other complaints Vitals noted, in general he is awake and alert pleasant no distress. HEENT normocephalic atraumatic mucous membranes moist. Breathing unlabored no accessory muscle use good effort. Skin shows no rashes no pallor or icterus. RVR ~120 on monitor for most of the day today A-fib RVRdiltiazem drip> PO yesterday. rates suboptimal. metoprolol increased earlier - still ~120's. PO dilt increased further. continue to follow. urinary retention - voiding trial neutropenia - relates to chemo (d/w oncology - expected hernando from docetaxel 5-9 days after administration - was given on 07/31) - filgrastim daily if ANC <500 per oncology discussion otherwise as above Subjective Patient seen and evaluated at bedside this morning. Review of telemetry overnight shows patient was in afib with rates in the 110-120s. Today, patient feels well and has no complaints. Patient denies CP, SOB, and palpitations. Patient engaged well with physical therapy this morning. Patient has no additional concerns or complaints at this time. Patient denies abdominal pain, nausea, vomiting, lightheadedness, dizziness, and diarrhea. Review of Systems Review of Systems: See HPI Physical Exam Physical Exam: Constitutional: well-appearing, no acute distress, laying in bed CV: tachycardic, irregular rhythm, no murmur appreciated, extremities well- perfused Resp: CTABL, no increased work of breathing Neuro: alert, oriented, no focal neurologic deficit appreciated Results & Data Results & Data Vital Signs (Past 12 Hours) Vital Signs Temp Pulse Pulse Resp BP Pulse Ox O2 Del Method 08/06/22 07:49 36.7 C 126 H 22 123/70 95 Room Air 08/06/22 03:13 37.3 C 145 H 20 150/81 H 93 Room Air 08/05/22 22:06 111 H 08/05/22 22:00 37.2 C 92 H 20 145/72 H 94 Room Air Resident Activity Tracking Resident Involvement: Resident Care Provided Care Provided: Adult Hospital Medicine
[2022-08-06] MEDS ORDERED: METOPROLOL SUCC 50MG EXT REL TAB PO STA (10:32)
[2022-08-06 10:50] LABS: Hematocrit (blood only) 35.9 % (42.0-52.0); Hemoglobin 12.7 g/dl (14.0-18.0); Mean Corpuscular Hemoglobin 32.2 pg (25.0-34.0); Mean Corpuscular Hgb Conc 35.4 g/dL (32.0-36.0); Mean Corpuscular Volume 91.1 fL (80.0-100.0); Mean Platelet Volume 9.9 fL (9.4-12.4); Platelet Count 205 K/uL (130-400); RBC Morphology Unremarkable; RDW Coefficient of Variation 12.8 % (11.5-14.5); RDW Standard Deviation 42.5 fL (36.4-46.3); Red Blood Count 3.94 M/uL (4.70-6.10)
[2022-08-06 10:51] LABS: Basophils # (auto) 0.02 K/uL (0-0.2); Basophils % (auto) 2.2 %; Eosinophils # (auto) 0.01 K/uL (0-0.50); Eosinophils % (auto) 1.1 %; Immature Granulocytes # (auto) 0.04 K/uL (0.01-0.20); Immature Granulocytes % (auto) 4.3 %; Lymphocytes # (auto) 0.49 K/uL (1.2-3.4); Lymphocytes % (auto) 53.3 %; Monocytes # (auto) 0.27 K/uL (0.11-0.59); Monocytes % (auto) 29.3 %; Neutrophils # (auto) 0.09 K/uL (1.40-6.50); Neutrophils % (auto) 9.8 %; White Blood Count 0.92 K/ul (4.8-10.8)
[2022-08-06] MEDS: FILGRASTIM 480 MCG/1.6 ML VIAL SQ SCH (13:39)
--- NOTE | 2022-08-06 15:08 | Billing Data ---
Date of Service August 06, 2022 Coding Level of Care Code 29558 SUB INP/OBS CARE
[2022-08-06] MEDS ORDERED: VANCOMYCIN CONSULT ACTIVE PRN (18:22)
--- NOTE | 2022-08-06 19:11 | Communication Note ---
Date of Service: August 06, 2022 I was notified at 18:15 that patient had developed a fever of 38.1 in the setting of neutropenia (ANC 130) and recent chemotherapy. For empiric coverage for neutropenic fever in the setting of recent chemotherapy, I ordered vancomycin and cefepime in addition to a MRSA nares. Results pending. Mehrdad Norton PGY-3 Resident Activity Tracking Resident Involvement: Resident Care Provided Care Provided: Adult [place] [facility]
[2022-08-06] MEDS ORDERED: VANCOMYCIN HCL 2,750 MG in SODIUM CHLORIDE 0.9% 500 ML IV ONE (19:15)
--- NOTE | 2022-08-06 20:46 | Pharmacy Report ---
Pharmacy Vanc AUC Short Note - Date of Service August 06, 2022 - Assessment & Plan Assessment 72 year old M receiving vancomycin for empiric treatment. Day #1 of antimicrobial therapy: 08/06/2022 Plan Vancomycin * Load: Vancomycin 2,750 mg IV once on 08/06/2022 at 2003. * Maintenance: Vancomycin 1,500 mg IV q12h starting 08/07/2022 at 0900. * AUC/NASIR is the preferred PK/PD target for vancomycin * AUC guided dosing is effective and associated with decreased risk of nephrotoxicity compared to traditional trough targets * Trough level of 14.2 mcg/mL is predicted to achieve target AUC/NASIR of 400-600 mg/L.hr and may be associated with a 9% risk of nephrotoxicity * Random level ordered for: 08/08/22 with AM labs Pharmacy will continue to follow and will adjust dose/frequency as necessary. Thank you.
[2022-08-06] MEDS: ATORVASTATIN 20 MG TAB PO SCH (21:17)
[2022-08-06] MEDS: MELATONIN 3 MG TAB PO PRN (21:18)
[2022-08-06] MEDS: CEFEPIME 2,000 MG in SYRINGE 0 ML IV SCH (21:18)
[2022-08-07] MEDS: dilTIAZem HCl 60 MG TAB PO SCH ×7 (00:50→23:21)
[2022-08-07] MEDS: CEFEPIME 2,000 MG in SYRINGE 0 ML IV SCH ×3 (04:29→20:40)
[2022-08-07 07:00] LABS: Hematocrit (blood only) 37.6 % (42.0-52.0); Hemoglobin 13.4 g/dl (14.0-18.0); Mean Corpuscular Hemoglobin 32.3 pg (25.0-34.0); Mean Corpuscular Hgb Conc 35.6 g/dL (32.0-36.0); Mean Corpuscular Volume 90.6 fL (80.0-100.0); Mean Platelet Volume 9.7 fL (9.4-12.4); Nucleated RBC # (auto) 0.03 K/uL (0-0.12); Nucleated RBC % (auto) 1.4 %; Platelet Count 254 K/uL (130-400); RDW Coefficient of Variation 12.9 % (11.5-14.5); RDW Standard Deviation 42.7 fL (36.4-46.3); Red Blood Count 4.15 M/uL (4.70-6.10)
[2022-08-07 07:06] LABS: BUN Creatinine Ratio 30.6 (10-20); Calcium 7.9 mg/dl (8.6-10.3); Creatinine Clr Calc Pharmacy 154.6 ml/min; Est GFR (African American) 114.9 ml/min; Est GFR (Non-African American) 99.1 ml/min; Potassium 4.7 mmol/L (3.5-5.1)
[2022-08-07 07:26] LABS: Tear Drop Cells 1+
[2022-08-07 07:29] LABS: Basophils # (auto) 0.01 K/uL (0-0.2); Basophils % (auto) 0.5 %; Eosinophils # (auto) 0.01 K/uL (0-0.50); Eosinophils % (auto) 0.5 %; Immature Granulocytes # (auto) 0.08 K/uL (0.01-0.20); Immature Granulocytes % (auto) 3.8 %; Lymphocytes # (auto) 0.89 K/uL (1.2-3.4); Lymphocytes % (auto) 42.4 %; Monocytes # (auto) 0.89 K/uL (0.11-0.59); Monocytes % (auto) 42.4 %; Neutrophils # (auto) 0.22 K/uL (1.40-6.50); Neutrophils % (auto) 10.4 %
--- NOTE | 2022-08-07 08:05 | Hospitalist Progress Note ---
Date of Service August 07, 2022 Assessment & Plan (1) Atrial fibrillation with rapid ventricular response: Plan: 72yo male with a history of atrial fibrillation, CHF, ascending aortic aneurysm, prostate cancer, and history of gram-negative bacteremia presents with a four- day history of weakness and urinary retention, then found on admission to be in AFwRVR. Neutropenia with fever Suspected secondary to recent chemotherapy treatment Fever noted 08/06, started on cefepime vanc - MRSA nares negative, vanc d/c'd 08/07 -blood cultures from 08/07 pending, if negative in 24hr consider d/c cefepime -08/06 started on Filgrastim for 7 days or until ANC>500 Atrial fibrillation with rapid ventricular rate, CHF Patient with rates in the 180s on admission Received metoprolol 5mg IV (x2), diltiazem 10mg IV (x1), and started on diltiazem gtt in the ED initially started diltiazem gtt Echo EF >65% Replete magnesium until over 2.0, potassium until over 4.0 08/05: diltiazem gtt converted to diltiazem 60mg PO qid 08/06: increased metoprolol to 100mg BID, diltiazem 60mg q4h Continue home pradaxa Urinary retention Suspected secondary to bladder outlet obstruction vs chemotherapy side effect Continue fermin for now and reasses for voiding trial. Consider consulting urology if symptoms worsen or fail to improve Prostate cancer [facility] Continue home casodex HLD: continue home atorvastatin Gout: continue home allopurinol FEN: heart healthy, low sodium diet Code status: full code DVT ppx: home pradaxa PT/OT: ordered Dispo: PCU, discharge pending resolution of neutropenic fever (2) BPH (benign prostatic hyperplasia): (3) Prostate cancer: (4) Generalized weakness: (5) Chronic diastolic heart failure due to hypertrophic obstructive cardiomyopathy: (6) Hyperlipidemia: Admission and Anticipated Discharge Date Admission Date: August 04, 2022 Supervising Physician Co-Signing Physician Notes Resident Physician Supervision Note: I independently interviewed and examined the patient and verified the lara history and physical, reviewed labs and image studies and agree with resident findings and care plan. Subjective Patient seen at bedside, calm comfortable cooperative. Eating well, normal BM, denies any fever last night, states he is bored in the hospital. Patient understands he had a fever the previous night and we still have him on antibiotics. Physical Exam Constitutional: WD/WN, vitals as above Eyes: PERRL, conjunctivae normal, anicteric sclerae ENMT: external ear and nose normal, oropharynx normal Neck: trachea midline, no thyromegaly Respiratory: normal respiratory effort, lungs clear to auscultation Cardiovascular: Rate/Rhythm: + irregularly irregular Gastrointestinal (Abdomen): Inspection/Auscultation: abdomen normal to inspection Percussion/Palpation: abdomen soft; abdomen nontender Skin: no rashes, warm and dry Results & Data Results & Data Vital Signs (Past 12 Hours) Vital Signs Temp Pulse Pulse Resp BP Pulse Ox O2 Del Method 08/07/22 07:46 36.7 C 73 18 126/74 92 Room Air 08/07/22 02:59 37 C 93 H 18 133/85 93 Room Air 08/06/22 23:29 95 H 08/06/22 23:11 37 C 84 18 122/69 95 Room Air Resident Activity Tracking Resident Involvement: Resident Care Provided Care Provided: Adult Hospital Medicine
[2022-08-07] MEDS ORDERED: VANCOMYCIN HCL 1,500 MG in SODIUM CHLORIDE 0.9% 500 ML IV SCH (09:00)
[2022-08-07] MEDS: allopurinoL 100 MG TAB PO SCH (09:09)
[2022-08-07] MEDS: FILGRASTIM 480 MCG/1.6 ML VIAL SQ SCH (09:09)
[2022-08-07] MEDS: METOPROLOL SUCC 50MG EXT REL TAB PO SCH ×2 (09:09→20:36)
[2022-08-07] MEDS: CYANOCOBALAMIN (B-12) 500 MCG TABLET PO SCH (09:10)
[2022-08-07] MEDS: DICLOFENAC SOD 1% GEL 100 GM TUBE EXT SCH ×4 (09:10→20:37)
[2022-08-07] MEDS: BICALUTAMIDE 50 MG TAB PO SCH (09:10)
[2022-08-07] MEDS: DABIGATRAN ETEXILATE 75 MG CAP PO SCH ×2 (09:10→20:37)
[2022-08-07] MEDS: CALCIUM CARBONATE 1250MG TAB PO SCH (09:10)
[2022-08-07] MEDS: CHOLECALCIFEROL 1,000 UNITS 25 MCG TAB PO SCH (09:10)
[2022-08-07] MEDS: ONDANSETRON INJ 2 MG/ML 2 ML VIAL IV PRN (09:18)
[2022-08-07] MEDS ORDERED: COUGH DROP (SUGAR FREE) LOZ 24 LOZ/1 BOX BUCCAL ONE (14:00)
[2022-08-07] MEDS: ATORVASTATIN 20 MG TAB PO SCH (20:35)
[2022-08-08] MEDS: MELATONIN 3 MG TAB PO PRN (01:11)
[2022-08-08] MEDS: dilTIAZem HCl 60 MG TAB PO SCH ×4 (04:42→15:25)
[2022-08-08] MEDS: CEFEPIME 2,000 MG in SYRINGE 0 ML IV SCH (04:42)
--- NOTE | 2022-08-08 07:33 | Hospitalist Progress Note ---
Date of Service August 08, 2022 Assessment & Plan (1) Atrial fibrillation with rapid ventricular response: Plan: 72yo male with a history of atrial fibrillation, CHF, ascending aortic aneurysm, prostate cancer, and history of gram-negative bacteremia presents with a four- day history of weakness and urinary retention, then found on admission to be in AFwRVR. Neutropenia with fever Suspected secondary to recent chemotherapy treatment Fever noted 08/06, started on cefepime vanc - MRSA nares negative, vanc d/c'd 08/07 -blood cultures from 08/07 pending, if negative in 24hr consider d/c cefepime -08/06 started on Filgrastim for 7 days or until ANC>500 Atrial fibrillation with rapid ventricular rate, CHF Patient with rates in the 180s on admission Received metoprolol 5mg IV (x2), diltiazem 10mg IV (x1), and started on diltiazem gtt in the ED initially started diltiazem gtt Echo EF >65% Replete magnesium until over 2.0, potassium until over 4.0 08/05: diltiazem gtt converted to diltiazem 60mg PO qid 08/06: increased metoprolol to 100mg BID, diltiazem 60mg q4h Continue home pradaxa Urinary retention Suspected secondary to bladder outlet obstruction vs chemotherapy side effect Continue fermin for now and reasses for voiding trial. Consider consulting urology if symptoms worsen or fail to improve Prostate cancer [facility] Continue home casodex HLD: continue home atorvastatin Gout: continue home allopurinol FEN: heart healthy, low sodium diet Code status: full code DVT ppx: home pradaxa PT/OT: ordered Dispo: PCU, discharge pending resolution of neutropenic fever (2) BPH (benign prostatic hyperplasia): (3) Prostate cancer: (4) Generalized weakness: (5) Chronic diastolic heart failure due to hypertrophic obstructive cardiomyopathy: (6) Hyperlipidemia: Admission and Anticipated Discharge Date Admission Date: August 04, 2022 Subjective Patient seen at bedside, calm comfortable cooperative. States he ate slept well, no concerns as of this time. Patient aware he is still on antibiotics for his recent fever and we are waiting for his WBC count to increase at this time. Physical Exam Constitutional: WD/WN, vitals as above Eyes: PERRL, conjunctivae normal, anicteric sclerae ENMT: external ear and nose normal, oropharynx normal Neck: trachea midline, no thyromegaly Respiratory: normal respiratory effort, lungs clear to auscultation Cardiovascular: Rate/Rhythm: + irregularly irregular Gastrointestinal (Abdomen): Inspection/Auscultation: abdomen normal to inspection Percussion/Palpation: abdomen soft; abdomen nontender Skin: no rashes, warm and dry Results & Data Results & Data Vital Signs (Past 12 Hours) Vital Signs Temp Pulse Resp BP Pulse Ox O2 Del Method 08/08/22 04:44 36.6 C 91 H 18 126/80 95 Room Air 08/07/22 23:22 36.8 C 90 20 131/77 95 Room Air 08/07/22 20:06 37.4 C 94 H 20 102/68 94 Room Air
[2022-08-08] MEDS ORDERED: VANCOMYCIN LEVEL ONE (08:00)
[2022-08-08] MEDS: DABIGATRAN ETEXILATE 75 MG CAP PO SCH (08:03)
[2022-08-08] MEDS: CYANOCOBALAMIN (B-12) 500 MCG TABLET PO SCH (08:03)
[2022-08-08] MEDS: METOPROLOL SUCC 50MG EXT REL TAB PO SCH (08:03)
[2022-08-08] MEDS: CHOLECALCIFEROL 1,000 UNITS 25 MCG TAB PO SCH (08:04)
[2022-08-08] MEDS: allopurinoL 100 MG TAB PO SCH (08:04)
[2022-08-08] MEDS: DICLOFENAC SOD 1% GEL 100 GM TUBE EXT SCH ×2 (08:04→12:06)
[2022-08-08] MEDS: BICALUTAMIDE 50 MG TAB PO SCH (08:04)
[2022-08-08] MEDS: CALCIUM CARBONATE 1250MG TAB PO SCH (08:04)
[2022-08-08 08:08] LABS: Calcium 7.6 mg/dl (8.6-10.3); Creatinine Clr Calc Pharmacy 165.2 ml/min; Est GFR (African American) 118.1 ml/min; Est GFR (Non-African American) 101.9 ml/min
[2022-08-08] MEDS: FILGRASTIM 480 MCG/1.6 ML VIAL SQ SCH (08:09)
[2022-08-08 08:19] LABS: Hematocrit (blood only) 36.6 % (42.0-52.0); Hemoglobin 12.8 g/dl (14.0-18.0); Mean Corpuscular Volume 91.5 fL (80.0-100.0); Mean Platelet Volume 9.9 fL (9.4-12.4); Nucleated RBC % (auto) 1.4 %; Platelet Count 240 K/uL (130-400); RDW Coefficient of Variation 12.9 % (11.5-14.5); White Blood Count 7.25 K/ul (4.8-10.8)
[2022-08-08 08:43] LABS: ALC (manual) 2.61 K/uL (1.2-3.4); ANC (manual) 3.12 K/uL (1.4-6.5); Dohle Bodies 2+; Lymphocytes # (manual) 2.61 K/uL (1.2-3.4); Lymphocytes % (manual) 36 %; Metamyelocytes # (manual) 0.22 K/uL (0-0); Metamyelocytes % (manual) 3 %; Monocytes # (manual) 1.02 K/uL (0.11-0.59); Monocytes % (manual) 14 %; Myelocytes # (manual) 0.22 K/uL (0-0); Myelocytes % (manual) 3 %; Neutrophils # (manual) 3.12 K/uL (1.40-6.50); Neutrophils % (manual) 43 %; Polychromasia 1+; Promyelocytes # (manual) 0.15 K/uL (0-0); Promyelocytes % (manual) 2 %; Toxic Granulation 2+
--- NOTE | 2022-08-08 18:24 | Discharge Summary ---
Date of Service August 08, 2022 Admission HPI Per Admitting Provider Last Westbrook is a 72-year-old male with a past medical history of gram- negative bacteremia, A-fib RVR, prostate cancer, ascending aortic aneurysm and heart failure who presented due to weakness and difficulty urinating for 4 days. He says Sunday he received chemotherapy for his prostate cancer at the [facility]. Ever since then he noted that he's been feeling sick and weak. Also noticed that he has been unable to fully empty his bladder in that timeframe, which is a new symptom for him. Says he did not feel dysuria or frequency/urgency but when he tried to urinate only had dribbling. Denies f/c, n/v, HOLLOWAY, dizziness, CP, palp, SOB, abd pain, stool changes, numbness, tingling, confusion. Mentions he forgot to take his meds this morning because of feeling sick/weak. In the ED he was found to be in afib with RVR up to 180s. He received metoprolol 5mg IV x2, diltiazem 10mg IV x1, and was then started on a diltiazem drip. His heart reat has improved, currently at 110s-120s. Lab work showed normal white count, normal hemoglobin, normal platelet count. Did have mild hyponatremia to 132, potassium 4.2, normal BUN and creatinine, mildly decreased Ca to 8.2 with ionized Ca of 1.09. T. bili elevated to 1.4 and alk phos elevated to 235. Troponin normal at 17.1. UA with 2+ blood, 10-30 RBC, 10-20 epithelial cells, no nitrites/LE. Admission Exam Per Admitting Provider GENERAL: A&Ox3. NAD. HEENT: PERRL, EOMI. Moist mucous membranes. NECK: No JVD. No lymphadenopathy. CHEST/LUNGS: CTAB A/P. No crackles, wheezes, rales, rhonchi. HEART: Irregularly irregular. No m/g/r. ABDOMEN: NT, somewhat distended abdomen which patient feels is baseline. Soft. BS+ x4 EXTREMITIES: 1+ pitting edema. No cyanosis, no clubbing. SKIN: Warm and dry. BLE skin with chronic stasis changes PSYCHIATRIC: Euthymic affect, no SI, no pressured speech, no hallucinations NEUROLOGIC: No FND. Principal Diagnosis Afib RVR and Neutropenic Fever Discharge Exam Constitutional WD/WN, vitals as above Eyes PERRL, conjunctivae normal, anicteric sclerae ENMT external ear and nose normal, oropharynx normal Neck trachea midline, no thyromegaly Respiratory normal respiratory effort, lungs clear to auscultation Cardiovascular Rate/Rhythm: + irregularly irregular Gastrointestinal (Abdomen) Inspection/Auscultation: abdomen normal to inspection Percussion/Palpation: abdomen soft; abdomen nontender Skin no rashes, warm and dry Discharge Data Allergies Allergy/AdvReac Type Severity Reaction Status Date / Time amiodarone AdvReac Severe Pneumonitis Unverified 08/04/22 20:56 Consultations 08/04/22 17:05 ED Decision to Admit Stat Hospital Course (1) Atrial fibrillation with rapid ventricular response: 72yo male with a history of atrial fibrillation, CHF, ascending aortic aneurysm, prostate cancer, and history of gram-negative bacteremia presents with a four- day history of weakness and urinary retention, then found on admission to be in AFwRVR. Neutropenia with fever Suspected secondary to recent chemotherapy treatment Fever noted 08/06, started on cefepime vanc - MRSA nares negative, vanc d/c'd 08/07 -blood cultures from 08/07 negative in 24hr, d/c cefepime -08/06 started on Filgrastim, 08/08 ANC score>3000 filgrastim dc'd Atrial fibrillation with rapid ventricular rate, Chronic CHF Patient with rates in the 180s on admission - likely from hypovolemia sec to recent wk long diarrhea Received metoprolol 5mg IV (x2), diltiazem 10mg IV (x1), and started on diltiazem gtt in the ED Echo EF >65% 08/05: diltiazem gtt converted to diltiazem 60mg PO qid 2: increased metoprolol to 100mg BID, diltiazem 60mg q4h -will dc on Diltiazem 240mg daily, metoprolol 100mg BID Continue home pradaxa Urinary retention Suspected secondary to bladder outlet obstruction vs chemotherapy side effect - resolved Prostate cancer [facility] Continue home casodex HLD: continue home atorvastatin Gout: continue home allopurinol Morbid obesity, BMI 45.6 kg/m*m: To be addressed as outpatient (2) BPH (benign prostatic hyperplasia): (3) Prostate cancer: (4) Generalized weakness: (5) Chronic diastolic heart failure due to hypertrophic obstructive cardiomyopathy: (6) Hyperlipidemia: Total Time Total Time Spent Total Time Spent (In Minutes): see attending attestation Discharge Plan Discharge Items Patient Disposition: Home - Self-Care Reason For Visit: WEAKNESS, URINARY RETENTION Discharge Diagnosis: Atrial fibrillation with rapid ventricular rate, neutropenic fever Activity: Resume your previous activity Non-emergency contact: Primary Care Provider Call non-emergency contact if: you have any medication questions, your symptoms worsen, your pain is concerning for you and you have a fever Follow-up/Referrals: Shyann Kwon MD [Primary Care Provider] - 08/25/22 10:00 am (SOONER IF POSSIBLE) Diet: Regular Addtl Attending Provider Instructions: You were admitted to the hospital for atrial fibrillation. We adjusted your medication regimen to achieve better control of your heart rate. Your symptoms have improved and we feel it is safe for you to return home. A discharge summary will be sent to your primary care physician to ensure continuity of care. Please bring this discharge summary with you to your next office appointment so that your provider can review it at that time. Follow-up appointments: Make a follow-up appointment with your PCP within the next week. It is very important that you follow up with them shortly after discharge from the hospital. Keep all your follow-up appointments as already scheduled. If you cannot make an appointment, notify your provider. Medications: Your medication list has been reviewed and reconciled upon discharge to ensure accuracy and continuity of care. An updated list of all your medications is included with your hospital discharge paperwork. Please review this list closely, and make note of any changes. * We increased how much metoprolol you take each day. Take metoprolol (100mg) twice daily. This has been sent to your pharmacy. * We also increased your dose of diltiazem. STOP taking diltiazem 120mg daily (your previous dose) and, instead, take diltiazem 240mg daily. This has been sent to your pharmacy as well. Take your medications as instructed; do not skip a dose of your medicines. Make sure all of your doctors know every medicine you are taking (including [id number] medicines, vitamins, and supplements). Call your primary care provider before taking any new medicines (including [id number] medicines, vitamins, and supplements), because some of these may interact with your current medications, or may make your symptoms worse. Tell your primary care provider if you cannot afford your medications. CONTACT YOUR PRIMARY CARE PROVIDER if you experience any of the following: Palpitations Fever Difficulty following your treatment plan, or difficulty taking medications CALL 911 OR GO TO THE EMERGENCY DEPARTMENT if you experience any of the following: Sudden, severe abdominal pain or nausea/vomiting Severe chest pain, or chest pain that radiates (moves) to your jaw or arm Sudden, severe shortness of breath or difficulty breathing Thank you for allowing us to participate in your care. Pending Studies at Discharge: No Stand-Alone Forms: [facility] [place], Smoking Cessation Medications and DC Order Prescriptions: New metoprolol succinate 50 mg Tablet Extended Release 24 Hr 100 mg PO BID 30 Days Qty: 120 0RF diltiazem HCl 240 mg capsule,extended release 24 hr 240 mg PO DAILY Qty: 30 1RF Continued allopurinol [Zyloprim] 100 mg tablet 200 mg PO QAM Pradaxa 150 mg capsule 150 mg PO BID atorvastatin [Lipitor] 20 mg tablet 20 mg PO HS colchicine [Colcrys] 0.6 mg Tablet 0.6 mg PO UD Rx Instructions: Take 2 tablets by mouth at first sign of gout. Repeat a pill in hour and then one pill daily until pain subsides. cholecalciferol (vitamin D3) [Vitamin D3] 25 mcg (1,000 unit) capsule 1,000 unit PO QAM calcium carbonate [Calcium 600] 600 mg calcium (1,500 mg) Tablet 600 mg PO QAM cyanocobalamin (vitamin B-12) 500 mcg Tablet 500 mcg PO QAM Qty: 30 0RF Discontinued diltiazem HCl [Cartia XT] 120 mg capsule,extended release 24hr 120 mg PO QAM metoprolol succinate [Toprol XL] 100 mg tablet extended release 24 hr 100 mg PO QAM Discharge Orders: Discharge Order (Routine); Ordered 08/08/22 Ordered By: Mehrdad Norton Admission Data Admit Date/Time: 08/04/22 18:52 Attending Provider: Lima Arthur Admit Provider: Pepe Fonseca Primary Care Provider: Shyann Kwon Other Providers: Catarino Doe ; Vick Curry ; Michael King ; [facility] Other Interventions: Discharge Summary Assessment (RN) Last Done: 08/08/22 15:11 Supervising Physician Co-Signing Physician Notes Resident Physician Supervision Note: I independently interviewed and examined the patient and verified the lara history and physical, reviewed labs and image studies and agree with resident findings and care plan. Resident Activity Tracking Resident Involvement: Resident Care Provided Care Provided: Adult Hospital Medicine
== END 2022-08-08 17:13 | disposition home health service (06) | DRG 309 ==
LOC: ED 14:56 → SUATTDRO 18:52 → 2S 18:52

== ENCOUNTER 2023-05-04 04:47 | Inpatient (IN) ==
--- OUTSIDE RECORDS SUMMARY | 2023-05-04 04:52 | External Medical Summary | Continuity of Care Document ---
Author Name Unknown Organization [facility] Address [address] [place] [address] JULIO CESAR MARQUEZ [id number] Care Team Providers Care Roller Cleaner Name Role Phone Humphrey Shyann A Primary Care Physician [phone] Encounter [facility] [id number] Date(s): 11/22/22 - 11/22/22 [facility] [id number], [place] [address]- [phone] Encounter Diagnosis Prostate cancer metastatic to bone(Discharge Diagnosis) - 11/22/22 Discharge Disposition: Home or Self Care Attending Physician: MD Barajas Megan Referring Physician: MD Edwin, Jaz Allergies, Adverse Reactions, Alerts Substance Reaction Severity Status amiodarone SOB - Shortness of breath Severe Ac tive Medications abiraterone 500 mg oral tablet Start: 11/22/22 12:52:00 EDT, 60 tab Start Date: 11/22/22 Status: Ordered allopurinol 100 mg oral tablet Start: 11/22/22 12:52:00 EDT, 180 each, take 2 tablets by mouth once daily Start Date: 11/22/22 Status: Ordered dabigatran 150 mg oral capsule Start: 11/22/22 12:52:00 EDT, 60 each, take 1 capsule by mouth every 12 hours Start Date: 11/22/22 Status: Ordered dexamethasone 4 mg oral tablet Start: 11/22/22 12:52:00 EDT, 12 each, TAKE 2 TABLETS BY MOUTH TWICE DAILY THE DAY BEFORE, DAY OF AND DAY AFTER DOCETAXEL Start Date: 11/22/22 Status: Ordered DilTIAZem (Eqv-Tiazac) 240 mg/24 hours oral capsule, extended release Start: 11/22/22 12:52:00 EDT, 30 cap Start Date: 11/22/22 Status: Ordered LORazepam 1 mg oral tablet Start: 11/22/22 12:52:00 EDT, 9 each, TAKE 1 TABLET BY MOUTH 2- 3 TIMES A DAY NEEDED FOR ANXIETY Start Date: 11/22/22 Status: Ordered Metoprolol Succinate ER 100 mg oral tablet, extended release Start: 11/22/22 12:52:00 EDT, 90 each, take 1 tablet by mouth once daily Start Date: 11/22/22 Status: Ordered ondansetron 8 mg oral tablet Start: 11/22/22 12:52:00 EDT, 30 each, take 1 tablet by mouth every 8 hours if needed for nausea Start Date: 11/22/22 Status: Ordered Mental Status 11/22/22 Barriers to Learning one year None evide nt Mandatory Health Literacy Documentation Yes Health Literacy Communication Barriers N ever Primary Language Latvian Problem List Condition Confirmation Course Effective Dates Status Health St atus Informant Hypertension Confirmed Active Prostate cancer Confirmed Active Poor balance Confirmed Active Diagnosis Diagnosis Type Effective Dates Health Status Clinical Service Informant Prostate cancer metastatic to bone Discharge Diagnosis 11/22/22 Non-Specified Procedures Procedure Date Related Diagnosis Body Site Status Total replacement of left knee joint 2006 Completed Results Laboratory List Name Date Complete Blood Count w Differential (CBC ,DIFFH) 11/22/22 Comprehensive Metabolic Panel (COMP META B PANEL) 11/22/22 Prostate Specific Antigen (PSA, TOTAL) Total Testosterone, LC-MS/MS (TOTAL TEST OSTERONE) 11/22/22 Vitamin D, 25-Hydroxy Level, Total (25-H YDROXY VITAMIN D) 11/22/22 Most recent to oldest [Reference Range]: 1 eGFR CKD-EPI [>60 mL/min/1.73 m2] >90 mL /min/1.73 m2 (11/22/22 2:08 PM) Vitamin D, 25-Hydroxy [30-100 ng/mL] 46 ng/mL 1 (11/22/22 2:08 PM) PSA, Total [<6.51 ng/mL] 160.70 ng/mL *HI* (11/22/22 2:08 PM) MPV [9.0-12.2 fL] 8.4 fL *LOW* (11/22/22 2:08 PM) Immature Gran% 0.6 % (11/22/22 2:08 PM) Neut% 67.6 % (11/22/22 2:08 PM) Lymph% 16.1 % (11/22/22 2:08 PM) Luce% 12.0 % (11/22/22 2:08 PM) Baso% 0.9 % (11/22/22 2:08 PM) Eos% 2.8 % (11/22/22 2:08 PM) Immat Gran, Abs [0-0.4 K/uL] 0.05 K/uL (11/22/22 2:08 PM) Neut, Abs [2.0-7.7 K/uL] 6.12 K/uL (11/22/22 2:08 PM) Lymph, Abs [1.0-3.4 K/uL] 1.46 K/uL (11/22/22 2:08 PM) Luce, Abs [0-1.0 K/uL] 1.09 K/uL *HI* (11/22/22 2:08 PM) Baso, Abs [0-0.1 K/uL] 0.08 K/uL (11/22/22 2:08 PM) Eos, Abs [0-0.5 K/uL] 0.25 K/uL (11/22/22 2:08 PM) Type of Diff: AUTO *Unknown* (11/22/22 2:08 PM) RDW [11.5-14.2 %] 16.5 % *HI* (11/22/22 2:08 PM) Total Testosterone, LC-MS/MS [270-648 ng /dL] 20 ng/dL 2 *LOW* (11/22/22 2:08 PM) Anion Gap [5-14 mmol/L] 16 mmol/L *HI* (11/22/22 2:08 PM) Alb [3.5-5.2 g/dL] 3.6 g/dL (11/22/22 2:08 PM) Alk Phos [40-130 unit/L] 143 unit/L *HI* (11/22/22 2:08 PM) ALT [0-41 unit/L] 21 unit/L (11/22/22 2:08 PM) AST [0-40 unit/L] 40 unit/L (11/22/22 2:08 PM) BUN [6-23 mg/dL] 12 mg/dL (11/22/22 2:08 PM) Ca [8.4-10.2 mg/dL] 9.3 mg/dL (11/22/22:08 PM) Cl- [98-107 mmol/L] 98 mmol/L (11/22/22:08 PM) HCO3 [22-29 mmol/L] 24 mmol/L (11/22/22 2:08 PM) Cret [0.70-1.30 mg/dL] 0.65 mg/dL *LOW* (11/22/22:08 PM) Glu [74-109 mg/dL] 130 mg/dL 3 *HI* (11/22/22:08 PM) Hct [39-48 %] 42.2 % (11/22/22: PM) Hgb [13.0-17.0 g/dL] 14.1 g/dL (11/22/22:08 PM) K [3.5-5.1 mmol/L] 4.2 mmol/L (11/22/22:08 PM) MCH [28-33 pg] 31.9 pg (11/22/22:08 PM) MCHC [32-36 g/dL] 33.4 g/dL (11/22/22:08 PM) MCV [81-96 fL] 95.5 fL (11/22/22:08 PM) Na [136-145 mmol/L] 138 mmol/L (11/22/22:08 PM) Plts [150-350 K/uL] 286 K/uL (11/22/22:08 PM) RBC [4.40-5.60 M/uL] 4.42 M/uL (11/22/22:08 PM) T Bili [0.0-1.2 mg/dL] 0.7 mg/dL (11/22/22:08 PM) Prot [6.4-8.3 g/dL] 7.2 g/dL (11/22/22:08 PM) WBC [4.0-10.4 K/uL] 9.05 K/uL (11/22/22 2:08 PM) 1Result Comment: Deficiency: <20 ng/mL Insufficiency: 21-29 ng/mL Sufficiency: 30-100 ng/mL Potenial Toxicity: >150 ng/mL 2Result Comment: Reference Range Total Testosterone and Karthikeyan Stage FEMALE MALE PREMATURE (26 - 28 weeks) 5 - 14 ng/dL 53 - 133 ng/dL (31 - 35 weeks) 5 - 20 ng/dL 33 - 179 ng/dL PREMENOPAUSUAL (18y and older) 8 - 50 ng/dL n/a POSTMENOPAUSUAL 5 - 29 ng/dL n/a KARTHIKEYAN STAGE 1 2 - 15 ng/dL 2 - 14 ng/dL KARTHIKEYAN STAGE 2 5 - 36 ng/dL 3 - 273 ng/dL KARTHIKEYAN STAGE 3 9 - 57 ng/dL 9 - 766 ng/dL KARTHIKEYAN STAGE 4-5 10 - 56 ng/dL 146 - 762 ng/dL Total testosterone is measured by LC-MS/MS. Bioavailable and free testosterone concentrations are calculated based on total testosterone, sex hormone binding globulin, and albumin concentration using the James algorithm. The analytical measurement range is 2-2330 ng/dL. Serial measurements of testosterone that differ by more than 25% or 1 ng/dl (whichever is greater) are considered to represent clinically significant changes. Other steroids, hemolysis, lipemia, and icterus do not significantly interfere with this assay. This test was developed by the [facility]. The performance characteristics of the test have been determined by the [facility]. It has not been cleared or approved by the US Food and Drug Administration. The FDA does not require this test to go through premarket FDA review. This laboratory is certified under the Clinical Laboratory Improvement Amendments (CLIA) as qualified to perform high complexity clinical laboratory testing. 3Result Comment: ADA recommendation for FASTING Serum/Plasma Glucose: Normal: 70-100 mg/dL Prediabetes: 100-125 mg/dL Diabetes: 126 mg/dL or higher Vital Signs Most recent to oldest [Reference Range]: 1 Patient Weight 102 kg (11/22/22 12:58 PM) Temperature [36.5-37.9 DegC] 36.1 DegC *LOW* (11/22/22 12:58 PM) Heart Rate 111 bpm (11/22/22 12:58 PM) Respiratory Rate 16 br/min (11/22/22 12:58 PM) Blood Pressure 122/79mmHg (11/22/22 12:58 PM) Cuff Pulse Pressure 43 mmHg (11/22/22 12:58 PM) Social History Social History Type Response Smoking Status Never smoked cigaret jeff Sex Male Patient Care team information Care Team Personnel Name: MD Kwon Tracy A Position: Referring Member Role: Primary Care Provider Address: Address: [facility] [address] [place] [address], [address] [place] [address] [place]
--- OUTSIDE RECORDS SUMMARY | 2023-05-04 04:52 | External Medical Summary | Continuity of Care Document ---
Author Name Unknown Organization [facility] Address [address] [place] [address] [id number] Care Team Providers Care Sorority Supervisor Name Role Phone Shyann Kwon Primary Care Physician [phone] Encounter [facility] [id number] Date(s): 11/17/22 - 11/17/[address] [id number] [phone] Discharge Disposition: Home or Self Care Attending Physician: MD Barajas Megan Referring Physician: MD Barajas Megan Social History Social History Type Response Sex Male Patient Care team information Care Team Personnel Name: MD Kwon Tracy A Position: Referring Member Role: Primary Care Provider Address: Address: [facility] [address] [place] [address], [address]
[2023-05-04] MEDS ORDERED: SODIUM CHLORIDE 0.9% 1,000 ML IV ONE (06:17)
--- NOTE | 2023-05-04 06:23 | Urology Consultation ---
Date of Consultation May 04, 2023 Assessment & Plan (1) Urinary retention: Jarrett catheter was successfully placed at the bedside. Patient tolerated the procedure well. His son reports that Last has been having some dehydration and would like him to get some IV fluids. We will plan on 1 L of normal saline. Patient can be discharged home afterwards with outpatient follow-up. Catheter will stay in place. History of Present Illness Reason for Consultation: Urinary retention, inability to place Jarrett catheter History of Present Illness This is a 72-year-old male followed by urology for metastatic prostate cancer. He removed his Jarrett catheter on 05/03/2023. Staff at an outside emergency department were unable to replace the catheter, meeting resistance and getting return of blood. He was transferred to the [facility] for urology evaluation and catheter placement. At the bedside he was fairly comfortable. He was not having any fevers or chills. He reported a sense of suprapubic pressure. Jarrett catheter was placed in the following fashion: The patient was prepped and draped in the usual sterile fashion. I initially attempted to advance a 0.038 inch zip wire per urethra, however this met resistance at approximately the bulbar urethra. The flexible cystoscope was then obtained. Under direct visualization, the 16 Estonian cystoscope was advanced per urethra. There was a false passage at the bulbar urethra. On the anterior aspect, the true lumen could be identified and the scope advanced easily up to the bladder. A wire was advanced through the cystoscope and an appropriate amount was curled within the bladder. The scope was removed, leaving the wire in position. Over the wire I advanced a 18 Estonian councill catheter. Once in position, the balloon was inflated with 10 mL of normal saline. The catheter was attached to gravity drainage and there was immediate output of concentrated urine. Allergies Allergy/AdvReac Type Severity Reaction Status Date / Time amiodarone AdvReac Severe Pneumonitis Unverified 12/01/22 13:37 Home Medications Medication Instructions Recorded Confirmed Type atorvastatin 20 mg tablet (Lipitor) 20 mg PO HS 09/23/19 12/01/22 History dabigatran etexilate 150 mg 150 mg PO BID 09/23/19 12/01/22 History capsule (Pradaxa) allopurinol 100 mg tablet 100 mg PO BID 10/21/19 12/01/22 History (Zyloprim) cholecalciferol (vitamin D3) 25 1,000 unit PO QAM 03/23/20 12/01/22 History mcg (1,000 unit) capsule (Vitamin D3) colchicine 0.6 mg tablet (Colcrys) 0.6 mg PO UD gout 03/23/20 12/01/22 History calcium carbonate 600 mg calcium 600 mg PO QAM 02/27/21 12/01/22 History (1,500 mg) tablet (Calcium) cyanocobalamin (vitamin B-12) 500 500 mcg PO QAM #30 tabs 03/05/21 12/01/22 Rx mcg tablet digoxin 125 mcg (0.125 mg) tablet 125 mcg PO DAILY 10/18/22 12/01/22 History furosemide 20 mg tablet 20 mg PO QAM 12/01/22 12/01/22 History lorazepam 1 mg tablet 0.5 - 1 mg PO Q6 PRN Anxiety 12/01/22 12/01/22 History metoprolol succinate 100 mg 100 mg PO DAILY 12/01/22 12/01/22 History tablet,extended release 24 hr nystatin 100,000 unit/gram topical 1 applic topical DIRECTED 12/01/22 12/01/22 History powder (Nystop) Patient History Medical History Acute respiratory failure with hypoxia Atrial fibrillation Atrial fibrillation with RVR Basal cell carcinoma of dorsum of nose BPH (benign prostatic hyperplasia) Chronic diastolic CHF (congestive heart failure) 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 Father , age 41 complications of jungle rot WW2 Heart disease Son No problems noted. Son No problems noted. Daughter No problems noted. 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 Physical Exam Physical Exam: Frail-appearing, NAD Eyes: + anicteric sclerae; pupils not irregula r Respiratory: normal respiratory effort; no respiratory distress, does not use accessory muscles and no cough Cardiovascular: well perfused Gastrointestinal (Abdomen): Inspection/Auscultation: abdomen normal to inspection; abdomen not distended Musculoskeletal: Extremities: extremities normal to inspection Skin: normal turgor; no rashes and no lesions Neurologic: moves all extremities and awake Psychiatric: Orientation: alert and oriented x 3 Results & Data Vital Signs (Past 12 Hours) Vital Signs Temp Pulse Pulse Resp BP BP Pulse Ox 05/04/23 05:13 86 05/04/23 05:00 98 H 21 110/64 96 05/04/23 04:56 36.7 C 100 H 16 80/49 L 95 O2 Del Method 05/04/23 05:13 05/04/23 05:00 Room Air 05/04/23 04:56 Room Air PG Care Time/CCT Total # of Minutes Spent Total Time Spent with Patient: Total time spent is greater than 50% in coordination of care (as documented) at patient's floor/unit and/or counseling patient: Coding Level of Care Code 26534 OP VST NEW MOD 45-59 MIN Diagnoses Urinary retention R33.9 Time Spent (min) 55
[2023-05-04] MEDS ORDERED: CEFEPIME 2,000 MG/20 ML VIAL IV STA (09:42)
--- NOTE | 2023-05-04 10:03 | Emergency Department Note ---
Impression & Plan Acute confusion, Anemia, Hematuria, Hypomagnesemia, Acute dehydration, Elevated lactic acid level ED Provider Note NAME: HAILEE ROBERTS AGE: 72 SEX: M : 1950 ARRIVES VIA: Walk-In INFORMANT: [Patient][urology staff, nursing] ED PROVIDER(S): [New [place] MD] CHIEF COMPLAINT: Catheter replacement HISTORY OF PRESENT ILLNESS: The patient is a 72-year-old male who was accepted to this facility by urology, Dr. Manzanares. He had presented to the [place] ED after accidentally pulling out his Jarrett catheter. He has a chronic indwelling Jarrett catheter, he has metastatic prostate cancer. The staff at [place] were not able to place a catheter. He was sent to our facility for catheter placement. The patient was seen by Dr. Manzanares and a catheter was successfully placed. As per urology, the patient is more somnolent and altered than baseline. There was concern that there could be infection or something more happening than just the need for catheter replacement. I assumed care of the patient here in the ED. Laboratory testing was ordered. CT imaging was ordered. The patient is to receive IV antibiotics empirically for the possibility of sepsis. As per the laboratory testing from [place], his white count was around 11,000, he had a potassium of 3, no renal insufficiency. PMHx/PSHx/Social Hx: See Below PHYSICAL EXAM: GENERAL: Patient is in no acute distress. HEENT: No acute trauma, normocephalic atraumatic, mucous membranes moist, no nasal congestion. NECK: No stridor, no adenopathy, no meningismus, trachea is midline. LUNGS: Clear to auscultation bilaterally when listening anterior, no wheeze, no rhonchi, breath sounds equal. HEART: Without murmurs gallops or rubs, somewhat irregular rhythm, normal rate. ABDOMEN: Soft, nontender, no peritonitis. Jarrett catheter in place with bloody urine in the bag. EXTREMITIES: No cyanosis, full range of motion of all the joints without pain or difficulty. Mild bilateral pedal edema. NEUROLOGIC: Awake and alert, answers questions well. No speech slur. SKIN: No jaundice, no diaphoresis. Pale. DIFFERENTIAL DIAGNOSIS: Sepsis or bacteremia, UTI, urinary obstruction, anemia, electrolyte imbalance, among others. EMERGENCY DEPARTMENT PROCEDURES: MEDICAL DECISION MAKING: There is a mild leukocytosis, this could be consistent with infection. The patient was anemic. His hemoglobin today was lower than previously recorded. This anemia certainly could be secondary to ongoing hematuria. There was a normal platelet count. No renal failure. Potassium was low at 1.4. There were some liver enzyme elevations which have been documented before. Digoxin level was slightly high at 2.2. ECG showed atrial fibrillation consistent with his past history. Cardiac enzyme testing x 1 was not elevated making cardiac injury less likely. Chest x-ray did not show pneumonia, some effusions were seen. Abdominal and pelvis CT does not show any acute surgical pathology. Chronic changes were noted. The Jarrett catheter was within the bladder. Pleural effusions were seen. Urinalysis result is currently pending. The patient received 1.5 L of IV saline, he was given IV magnesium and IV cefepime. The cefepime was for empiric antibiotic coverage. The patient has had some increased confusion. He does appear dehydrated clinically. I do think he has improved mentally since the fluid resuscitation. Given the concerns for UTI, given his confusion, given the anemia and the low magnesium value, I do think hospitalization is indicated. I spoke with case management, I spoke with the patient, the on-call hospitalist was consulted. Prior/Outside records/notes reviewed: ED visit note from the [place] [facility] from last evening. This note discussed the difficulty placing his Jarrett catheter. ECG per my interpretation: Indication was possible sepsis or bacteremia. The ECG shows atrial fibrillation with a rate of 81. There is a potential old inferior infarct and old septal infarct. There is no ST elevation, no PVCs. The QTc is 429. Continuous Cardiac Monitoring per my interpretation: An order was placed for continuous cardiac monitoring. The monitor shows a rate of 80 with atrial fibrillation. Imaging/x-ray results per my interpretation: There is no obvious pneumonia, no CHF. There are some pleural effusions, greater on the left. Chronic Medical/Social conditions affecting care: Metastatic prostate cancer, chronic indwelling Jarrett catheter. Care/Management discussed with: Urology on-call here at [facility], case management and the on-call hospitalist. Level of care consideration(s): After review of the information above and other included data: --I believe the patient requires escalation of care to admission DISPOSITION: Admission Past Med/Surg History Medical History Weakness Gout Pneumonia due to COVID-19 virus Chronic diastolic CHF (congestive heart failure) Restrictive lung disease Acute respiratory failure with hypoxia Hyponatremia Atrial fibrillation with RVR Basal cell carcinoma of dorsum of nose Congestive heart failure Idiopathic peripheral neuropathy Hyperlipidemia Polyp of colon BPH (benign prostatic hyperplasia) GERD (gastroesophageal reflux disease) Vitamin D deficiency 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 Father , age 41 complications of jungle rot WW2 Heart disease Son No problems noted. Son No problems noted. Daughter No problems noted. 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 Feels Safe at Home: Yes Childhood Exposure to Second-Hand Smoke: Yes Diet: regular caffeine: Yes (one cup coffee per day) during the past year weight has: remained stable Dental Care, Regularly: Yes Physical Activity Frequency: Daily Seatbelt Use: always Sunscreen Use: Yes Do you think of yourself as: straight/heterosexual Gender Identity: Male Assistive Devices: Cane and Walker Allergies Allergies Allergy/AdvReac Type Severity Reaction Status Date / Time amiodarone AdvReac Severe Pneumonitis Unverified 05/04/23 10:20 Home Meds Home Medications Medication Instructions Recorded Confirmed allopurinol 100 mg tablet 200 mg PO DAILY 10/21/19 05/04/23 (Zyloprim) cholecalciferol (vitamin D3) 25 1,000 unit PO QAM 11/17/20 12/29/23 mcg (1,000 unit) capsule (Vitamin D3) calcium carbonate 600 mg calcium 600 mg PO QAM 02/27/21 05/04/23 (1,500 mg) tablet (Calcium) digoxin 125 mcg (0.125 mg) tablet 125 mcg PO DAILY 10/18/22 05/04/23 lorazepam 1 mg tablet 0.5 - 1 mg PO Q6 PRN Anxiety 12/01/22 05/04/23 Lactobacillus acidophilus 500 100 cell PO DAILY 05/04/23 05/04/23 million cell capsule Super Mushroom 1 packet PO DAILY 05/04/23 05/04/23 acetaminophen 500 mg tablet 500 mg PO Q6H PRN pain/fever 05/04/23 05/04/23 apixaban 5 mg tablet (Eliquis) 5 mg PO BID 05/04/23 05/04/23 folic acid 1 mg tablet 1 mg PO DAILY 05/04/23 05/04/23 furosemide 40 mg tablet 40 mg PO QAM 05/04/23 05/04/23 megestrol 400 mg/10 mL (40 mg/mL) 400 mg PO DAILY 05/04/23 05/04/23 oral suspension metoprolol succinate 100 mg 100 mg PO DAILY 05/04/23 05/04/23 tablet,extended release 24 hr mirtazapine 15 mg tablet 15 mg PO DAILY 05/04/23 05/04/23 ondansetron 4 mg disintegrating 4 mg PO Q4H PRN Nausea And Vomiting 05/04/23 05/04/23 tablet sodium di- and 1 tab PO DAILY 05/04/23 05/04/23 monophosphate-potassium phos monobasic 250 mg tablet (Phospha Neutral) Previous Rx's Medication Instructions Recorded cyanocobalamin (vitamin B-12) 500 500 mcg PO QAM #30 tabs 03/05/21 mcg tablet Results & Data (ED) Vital Signs Vital Signs - 24 hr 05/04/23 04:56 05/04/23 05:00 05/04/23 05:13 Temperature 36.7 C Temperature Source Temporal Artery Scan Pulse Rate 100 H 86 Pulse Rate [Apical] 98 H Pulse Rate from SpO2 Sensor Respiratory Rate 16 21 Respiratory Effort / Characteristics Non-Labored Respiratory Depth Normal Normal Blood Pressure 80/49 L Blood Pressure [Right Arm] 110/64 Blood Pressure Mean 59 Blood Pressure Mean [Right Arm] 79 Pulse Oximetry 95 96 Oxygen Delivery Method Room Air Room Air Sepsis Recent Fever Within 48 Hours No Sepsis New/Unexplained Change in Mental Status No Sepsis Action Taken by Nursing No Action Required 05/04/23 05:31 05/04/23 06:00 05/04/23 06:20 Temperature Temperature Source Pulse Rate 93 H 89 101 H Pulse Rate [Apical] Pulse Rate from SpO2 Sensor 90 Respiratory Rate 23 28 H 31 H Respiratory Effort / Characteristics Respiratory Depth Blood Pressure 110/64 104/63 Blood Pressure [Right Arm] Blood Pressure Mean 83 75 Blood Pressure Mean [Right Arm] Pulse Oximetry 96 93 Oxygen Delivery Method Room Air Room Air Sepsis Recent Fever Within 48 Hours Sepsis New/Unexplained Change in Mental Status Sepsis Action Taken by Nursing 05/04/23 06:30 05/04/23 06:30 05/04/23 06:40 Temperature Temperature Source Pulse Rate 94 H 85 Pulse Rate [Apical] Pulse Rate from SpO2 Sensor Respiratory Rate 24 22 Respiratory Effort / Characteristics Respiratory Depth Blood Pressure 98/64 L Blood Pressure [Right Arm] Blood Pressure Mean 72 Blood Pressure Mean [Right Arm] Pulse Oximetry Oxygen Delivery Method Sepsis Recent Fever Within 48 Hours Sepsis New/Unexplained Change in Mental Status Sepsis Action Taken by Nursing 05/04/23 06:50 05/04/23 07:00 05/04/23 07:00 Temperature Temperature Source Pulse Rate 85 98 H Pulse Rate [Apical] Pulse Rate from SpO2 Sensor 86 84 Respiratory Rate 21 23 Respiratory Effort / Characteristics Respiratory Depth Blood Pressure 98/65 L Blood Pressure [Right Arm] Blood Pressure Mean 79 Blood Pressure Mean [Right Arm] Pulse Oximetry 96 91 Oxygen Delivery Method Sepsis Recent Fever Within 48 Hours Sepsis New/Unexplained Change in Mental Status Sepsis Action Taken by Nursing 05/04/23 07:10 05/04/23 07:20 05/04/23 07:30 Temperature Temperature Source Pulse Rate 96 H 87 87 Pulse Rate [Apical] Pulse Rate from SpO2 Sensor 97 H 90 Respiratory Rate 25 H 28 H 20 Respiratory Effort / Characteristics Respiratory Depth Blood Pressure Blood Pressure [Right Arm] Blood Pressure Mean Blood Pressure Mean [Right Arm] Pulse Oximetry 96 95 Oxygen Delivery Method Sepsis Recent Fever Within 48 Hours Sepsis New/Unexplained Change in Mental Status Sepsis Action Taken by Nursing 05/04/23 07:30 05/04/23 07:40 05/04/23 07:50 Temperature Temperature Source Pulse Rate 82 94 H Pulse Rate [Apical] Pulse Rate from SpO2 Sensor Respiratory Rate 20 23 Respiratory Effort / Characteristics Respiratory Depth Blood Pressure 109/64 Blood Pressure [Right Arm] Blood Pressure Mean 82 Blood Pressure Mean [Right Arm] Pulse Oximetry Oxygen Delivery Method Sepsis Recent Fever Within 48 Hours Sepsis New/Unexplained Change in Mental Status Sepsis Action Taken by Nursing 05/04/23 08:00 05/04/23 08:00 05/04/23 08:10 Temperature Temperature Source Pulse Rate 80 83 Pulse Rate [Apical] Pulse Rate from SpO2 Sensor Respiratory Rate 16 25 H Respiratory Effort / Characteristics Respiratory Depth Blood Pressure 112/54 L Blood Pressure [Right Arm] Blood Pressure Mean 58 Blood Pressure Mean [Right Arm] Pulse Oximetry Oxygen Delivery Method Sepsis Recent Fever Within 48 Hours Sepsis New/Unexplained Change in Mental Status Sepsis Action Taken by Nursing 05/04/23 08:20 05/04/23 08:30 05/04/23 08:30 Temperature Temperature Source Pulse Rate 79 83 Pulse Rate [Apical] Pulse Rate from SpO2 Sensor Respiratory Rate 15 20 Respiratory Effort / Characteristics Respiratory Depth Blood Pressure 101/61 Blood Pressure [Right Arm] Blood Pressure Mean 73 Blood Pressure Mean [Right Arm] Pulse Oximetry Oxygen Delivery Method Sepsis Recent Fever Within 48 Hours Sepsis New/Unexplained Change in Mental Status Sepsis Action Taken by Nursing 05/04/23 08:40 05/04/23 08:50 05/04/23 09:00 Temperature Temperature Source Pulse Rate 88 95 H Pulse Rate [Apical] Pulse Rate from SpO2 Sensor Respiratory Rate 17 22 Respiratory Effort / Characteristics Respiratory Depth Blood Pressure 108/63 Blood Pressure [Right Arm] Blood Pressure Mean 67 Blood Pressure Mean [Right Arm] Pulse Oximetry Oxygen Delivery Method Sepsis Recent Fever Within 48 Hours Sepsis New/Unexplained Change in Mental Status Sepsis Action Taken by Nursing 05/04/23 09:00 05/04/23 09:05 05/04/23 09:10 Temperature Temperature Source Pulse Rate 81 80 103 H Pulse Rate [Apical] Pulse Rate from SpO2 Sensor 93 H Respiratory Rate 21 25 H Respiratory Effort / Characteristics Respiratory Depth Blood Pressure Blood Pressure [Right Arm] Blood Pressure Mean Blood Pressure Mean [Right Arm] Pulse Oximetry 93 Oxygen Delivery Method Sepsis Recent Fever Within 48 Hours Sepsis New/Unexplained Change in Mental Status Sepsis Action Taken by Nursing 05/04/23 09:20 05/04/23 09:30 05/04/23 09:30 Temperature Temperature Source Pulse Rate 92 H 80 Pulse Rate [Apical] Pulse Rate from SpO2 Sensor 87 87 Respiratory Rate 19 27 H Respiratory Effort / Characteristics Respiratory Depth Blood Pressure 115/57 L Blood Pressure [Right Arm] Blood Pressure Mean 68 Blood Pressure Mean [Right Arm] Pulse Oximetry 94 95 Oxygen Delivery Method Sepsis Recent Fever Within 48 Hours Sepsis New/Unexplained Change in Mental Status Sepsis Action Taken by Nursing 05/04/23 09:40 05/04/23 09:50 05/04/23 10:33 Temperature Temperature Source Pulse Rate 93 H 85 98 H Pulse Rate [Apical] Pulse Rate from SpO2 Sensor 96 H 88 Respiratory Rate 25 H 18 5 L Respiratory Effort / Characteristics Respiratory Depth Blood Pressure Blood Pressure [Right Arm] Blood Pressure Mean Blood Pressure Mean [Right Arm] Pulse Oximetry 95 96 Oxygen Delivery Method Sepsis Recent Fever Within 48 Hours Sepsis New/Unexplained Change in Mental Status Sepsis Action Taken by Nursing 05/04/23 10:33 05/04/23 10:40 05/04/23 10:50 Temperature Temperature Source Pulse Rate 81 81 Pulse Rate [Apical] Pulse Rate from SpO2 Sensor 84 87 Respiratory Rate 26 H 23 Respiratory Effort / Characteristics Respiratory Depth Blood Pressure 99/60 L Blood Pressure [Right Arm] Blood Pressure Mean 73 Blood Pressure Mean [Right Arm] Pulse Oximetry 94 95 Oxygen Delivery Method Room Air Sepsis Recent Fever Within 48 Hours Sepsis New/Unexplained Change in Mental Status Sepsis Action Taken by Nursing 05/04/23 13:02 05/04/23 13:37 Temperature Temperature Source Pulse Rate 90 Pulse Rate [Apical] 78 Pulse Rate from SpO2 Sensor Respiratory Rate 18 Respiratory Effort / Characteristics Respiratory Depth Blood Pressure Blood Pressure [Right Arm] 101/52 L Blood Pressure Mean Blood Pressure Mean [Right Arm] 68 Pulse Oximetry 94 Oxygen Delivery Method Room Air Sepsis Recent Fever Within 48 Hours Sepsis New/Unexplained Change in Mental Status Sepsis Action Taken by Retirement Medications Current Medication List: was personally reviewed by me Laboratory Data Attestation: I reviewed the patient's lab results. 05/04/23 10:23 05/04/23 10:23 Lab Results 05/04/23 05/04/23 05/04/23 Range/Units 10:23 12:40 13:36 WBC 11.07 H (4.8-10.8) K/ul RBC 3.07 L (4.70-6.10) M/uL Hgb 9.9 L (14.0-18.0) g/dl Hct 28.8 L (42.0-52.0) % MCV 93.8 (80.0-100.0) fL MCH 32.2 (25.0-34.0) pg MCHC 34.4 (32.0-36.0) g/dL RDW Std Deviation 56.4 H (36.4-46.3) fL RDW Coeff of Phyllis 16.8 H (11.5-14.5) % Plt Count 287 (130-400) K/uL MPV 8.7 L (9.4-12.4) fL Immature Gran % (Auto) 1.7 % Neut % (Auto) 66.8 % Lymph % (Auto) 15.7 % [place] % (Auto) 13.8 % Eos % (Auto) 1.6 % Baso % (Auto) 0.4 % Neut # (Auto) 7.39 H (1.40-6.50) K/uL Lymph # (Auto) 1.74 (1.20-3.40) K/uL [place] # (Auto) 1.53 H (0.11-0.59) K/uL Eos # (Auto) 0.18 (0.00-0.50) K/uL Baso # (Auto) 0.04 (0.00-0.20) K/uL Immature Gran # (Auto) 0.19 (0.01-0.20) K/uL Sodium 133 L (136-145) mmol/L Potassium 3.7 (3.5-5.1) mmol/L Chloride 92 L (98-107) mmol/L Carbon Dioxide 30 (21-32) mmol/L Anion Gap 11 (3-11) BUN 38 H (6-23) mg/dl Creatinine 0.68 (0.6-1.4) mg/dl Est Cr Clr Drug Dosing Not Reportable Est GFR ( Amer) 110.6 ml/min Est GFR (Non-Af Amer) 95.4 ml/min BUN/Creatinine Ratio 55.9 H (10-20) Glucose 72 (70-99(Fasting)) mg/dl POC Glucose 84 (70-99) mg/dl Lactate 2.6 H* 2.1 H* (0.4-2.0) mmol/L Calcium 8.3 L (8.6-10.3) mg/dl Magnesium 1.4 L (1.7-2.4) mg/dl Total Bilirubin 0.9 (0.2-1.0) mg/dl AST 49 H (13-39) U/L ALT 8 (7-52) U/L Alkaline Phosphatase 295 H (34-104) U/L Troponin I High Sens 14.0 (0-20) pg/ml Total Protein 6.2 (6.0-8.3) gm/dl Albumin 2.1 L (3.4-5.0) gm/dl Globulin 4.1 H (2.5-4.0) gm/dl Albumin/Globulin Ratio 0.5 L (0.9-2) Digoxin 2.2 H (0.8-2.0) ng/ml Administered Medications Magnesium Sulfate/Dextrose (Magnesium Sulfate / D5w) 1 gm in 100 mls @ 100 mls/hr IV Q1H ALAYNA Stop: 05/04/23 14:40 Last Admin: 05/04/23 13:32 Dose: 100 mls/hr Documented By: Infusion: 05/04/23 13:23 Dose: Infused Documented By: Admin: 05/04/23 12:23 Dose: 100 mls/hr Documented By: SIENNA Discontinued Medications Sodium Chloride (Nss) 1,000 mls @ 500 mls/hr IV .Q2H ONE Stop: 05/04/23 08:16 Last Infusion: 05/04/23 07:53 Dose: Infused Documented By: Admin: 05/04/23 06:53 Dose: 500 mls/hr Documented By: SAMUEL Cefepime HCl (Maxipime) 2,000 mg in 20 mls @ 5 mls/min IV NOW STA; Protocol Stop: 05/04/23 09:45 Last Admin: 05/04/23 11:19 Dose: 5 mls/min Documented By: SIENNA Sodium Chloride (Nss) 500 mls @ 999 mls/hr IV .Q31M ONE Stop: 05/04/23 10:39 Last Admin: 05/04/23 11:18 Dose: 999 mls/hr Documented By: SIENNA Imaging Data Radiologist's Impression: Abdomen/Pelvis CT 05/04/23 09:42 CT SCAN OF THE ABDOMEN AND PELVIS WITHOUT IV CONTRAST CLINICAL HISTORY: Generalized abdominal pain. Prostate cancer. COMPARISON STUDY: Abdominal CT dated 05/25/2022. Chest CT dated 04/06/2023. TECHNIQUE: CT scan of the abdomen and pelvis is performed from the lung bases to the proximal femora. Images are reviewed in the axial, sagittal, and coronal planes. IV contrast was not administered for this examination. Note that the examination was performed and significantly suboptimal fashion without oral and IV contrast. A dose lowering technique was utilized adhering to the principles of ALARA. CT DOSE: 1140.33 mGy.cm FINDINGS: Lung bases: The heart is enlarged and without pericardial effusion. The coronary arteries are densely calcified. There is aneurysmal dilatation of the ascending thoracic aorta which measures up to 4.6 cm in diameter. There are small right and moderate left pleural effusions with dependent consolidation. Liver: The unenhanced liver is cirrhotic in morphology and heterogeneous in attenuation. Attenuation is diffusely diminished indicating steatosis. Fatty sparing is seen adjacent to the gallbladder fossa. There is no intrahepatic biliary ductal dilatation. Coarse calcifications are seen in the right lobe. A 1.4 cm ovoid hyperdense focus in the left lobe on image #112 is nonspecific and could represent focal fatty sparing or hemangioma. Gallbladder: Unremarkable. Spleen: Normal in size and attenuation. Pancreas: The unenhanced pancreas is mildly atrophic and grossly unremarkable. Adrenal glands: Unremarkable. Kidneys: The unenhanced kidneys demonstrate mild cortical atrophy and are without hydronephrosis. There are no renal calculi identified. There is no evidence of contour deforming renal mass lesion. Abdominal vasculature: The abdominal aorta is normal in course and caliber noting mild to moderate atherosclerotic calcification. Bowel: There is no bowel obstruction. [id number] fecal retention is seen throughout the colon. The appendix is normal as visualized. Peritoneum: There is no intraperitoneal free air or abdominal ascites. There is a fat-containing umbilical hernia. Lymphadenopathy: There is bulky retroperitoneal lymphadenopathy which is new from 05/25/2022. A left periaortic geronimo aggregate on image #161 measures 2.7 x 2.4 cm. A left iliac chain node on image #220 measures 1.8 x 1.6 cm. Enlarged external iliac chain nodes are noted. The largest measures 1.4 x 1.3 cm. A prominent left groin node measures 1.4 x 1.2 cm. Pelvic viscera: The bladder is decompressed a round a Jarrett catheter and cannot be evaluated. Intraluminal gas is likely related to instrumentation. The prostate gland is diminutive and heterogeneous. Seminal vesicles are normal as imaged. Skeletal structures: There is extensive/diffuse multifocal osteoblastic metastatic disease, which has progressed from 05/25/2022. The largest lesion is centered in the left acetabulum, with a surrounding soft tissue component. There is moderate to advanced lumbosacral spondylosis. Bilateral pars defects are seen at L5. IMPRESSION: 1. No acute infectious or inflammatory findings are identified in the abdomen or pelvis. 2. No bowel obstruction. 3. There is retroperitoneal and iliac chain lymphadenopathy. This is new from 05/25/2022 and indicates progressive metastatic disease. 4. Extensive/diffuse osteoblastic metastatic disease has also progressed from previous. 5. Small right and moderate left pleural effusions with dependent consolidation. These are similar to the 04/06/[address] and new from 05/25/2022. 6. The liver is steatotic and cirrhotic in morphology. 7. Cardiomegaly with advanced coronary artery atherosclerosis. 8. There is aneurysmal dilatation of the ascending thoracic aorta which measures up to 4.6 cm. This is unchanged from the recent chest CT. 9. Additional findings as above. ACT 112: Negative or not required by law. Electronically signed by: New Hughes M.D. 05/04/2023 10:27 AM Chest X-Ray 05/04/23 09:42 XR chest 1V portable HISTORY: 72 years-old Male sob acute shortness of breath COMPARISON: Chest CT 04/06/2023 TECHNIQUE: AP view of the chest FINDINGS: Cardiac silhouette is enlarged. Small pleural effusions, left greater than right. No pneumothorax. Mild left basilar opacities. Degenerative changes of the shoulders and spine. IMPRESSION: 1. Cardiomegaly without acute process. 2. Small left greater than right pleural effusions with mild left basilar opacities again noted. ACT 112: Negative or not required by law. The above report was generated using voice recognition software. It may contain grammatical, syntax or spelling errors. Electronically signed by: Jose Molina M.D. 05/04/2023 10:21 AM Discharge Plan Visit Data Chief Complaint: Catheter Replacement Stated Complaint: catheter replacement,dehydrated ED Provider: New [place] Discharge Problem: Acute confusion, Anemia, Hematuria, Hypomagnesemia, Acute dehydration, Elevated lactic acid level Patient Disposition: Admitted As Inpatient Condition: Fair Forms Stand Alone Forms: [facility], Important Visit Information Prescriptions Prescriptions: Continued allopurinol [Zyloprim] 100 mg tablet 200 mg PO DAILY digoxin 125 mcg (0.125 mg) tablet 125 mcg PO DAILY cholecalciferol (vitamin D3) [Vitamin D3] 25 mcg (1,000 unit) capsule 1,000 unit PO QAM lorazepam 1 mg tablet 0.5 - 1 mg PO Q6 PRN (Reason: Anxiety) calcium carbonate [Calcium 600] 600 mg calcium (1,500 mg) Tablet 600 mg PO QAM cyanocobalamin (vitamin B-12) 500 mcg Tablet 500 mcg PO QAM Qty: 30 0RF No Action furosemide 40 mg tablet 40 mg PO QAM megestrol 400 mg/10 mL (40 mg/mL) suspension 400 mg PO DAILY metoprolol succinate 100 mg tablet extended release 24 hr 100 mg PO DAILY folic acid 1 mg tablet 1 mg PO DAILY mirtazapine 15 mg tablet 15 mg PO DAILY Eliquis 5 mg tablet 5 mg PO BID Lactobacillus acidophilus 500 million cell capsule 100 cell PO DAILY acetaminophen [Tylenol Ex Str Rapid Release] 500 mg Tablet 500 mg PO Q6H PRN (Reason: pain/fever) ondansetron 4 mg tablet,disintegrating 4 mg PO Q4H PRN (Reason: Nausea And Vomiting) Super Mushroom 1 packet PO DAILY Phospha 250 Neutral 250 mg Tablet 1 tab PO DAILY Referrals Referrals: Shyann Kwon MD [Primary Care Provider] - Discharge Problem: Anemia Qualifiers: Anemia type: unspecified type Qualified Code(s): D64.9 - Anemia, unspecified Hematuria Qualifiers: Hematuria type: gross Qualified Code(s): R31.0 - Gross hematuria
[2023-05-04] MEDS ORDERED: SODIUM CHLORIDE 0.9% 500 ML IV ONE (10:09)
--- NOTE | 2023-05-04 10:22 | XRay Report ---
XR chest 1V portable HISTORY: 72 years-old Male sob acute shortness of breath COMPARISON: Chest CT 04/06/2023 TECHNIQUE: AP view of the chest FINDINGS: Cardiac silhouette is enlarged. Small pleural effusions, left greater than right. No pneumothorax. Mi ld left basilar opacities. Degenerative changes of the shoulders and spine. IMPRESSION: 1. Cardiomegaly without acute process. 2. Small left greater than right pleural effusions with mild left basilar opacities again noted. ACT 112: Negative or not required by law. The above report was generated using voice recognition software. It may contain grammatical, syntax o r spelling errors. Electronically signed by: Jose Molnia M.D. 05/04/2023 10:21 AM
--- NOTE | 2023-05-04 10:28 | CT Scan Report ---
CT SCAN OF THE ABDOMEN AND PELVIS WITHOUT IV CONTRAST CLINICAL HISTORY: Generalized abdominal pain. Prostate cancer. COMPARISON STUDY: Abdominal CT dated 05/25/2022. Chest CT dated 04/06/2023. TECHNIQUE: CT scan of the abdomen and pelvis is performed from the lung bases to the proximal femora. Images are reviewed in the axial, sagittal, and coronal planes. IV contrast was not administered for this examination. Note that the examination was performed and significantly suboptimal fashion witho ut oral and IV contrast. A dose lowering technique was utilized adhering to the principles of ALARA. CT DOSE: 1140.33 mGy.cm FINDINGS: Lung bases: The heart is enlarged and without pericardial effusion. The coronary arteries are densely calcified. There is aneurysmal dilatation of the ascending thoracic aorta which measures up to 4.6 c m in diameter. There are small right and moderate left pleural effusions with dependent consolidation . Liver: The unenhanced liver is cirrhotic in morphology and heterogeneous in attenuation. Attenuation is diffusely diminished indicating steatosis. Fatty sparing is seen adjacent to the gallbladder fossa . There is no intrahepatic biliary ductal dilatation. Coarse calcifications are seen in the right lob e. A 1.4 cm ovoid hyperdense focus in the left lobe on image #112 is nonspecific and could represent focal fatty sparing or hemangioma. Gallbladder: Unremarkable. Spleen: Normal in size and attenuation. Pancreas: The unenhanced pancreas is mildly atrophic and grossly unremarkable. Adrenal glands: Unremarkable. Kidneys: The unenhanced kidneys demonstrate mild cortical atrophy and are without hydronephrosis. The re are no renal calculi identified. There is no evidence of contour deforming renal mass lesion. Abdominal vasculature: The abdominal aorta is normal in course and caliber noting mild to moderate at herosclerotic calcification. Bowel: There is no bowel obstruction. [id number]-[id number] fecal retention is seen throughout the colon. The appendix is normal as visualized. Peritoneum: There is no intraperitoneal free air or abdominal ascites. There is a fat-containing umbi lical hernia. Lymphadenopathy: There is bulky retroperitoneal lymphadenopathy which is new from 05/25/2022. A left p eriaortic geronimo aggregate on image #161 measures 2.7 x 2.4 cm. A left iliac chain node on image #220 measures 1.8 x 1.6 cm. Enlarged external iliac chain nodes are noted. The largest measures 1.4 x 1.3 cm. A prominent left groin node measures 1.4 x 1.2 cm. Pelvic viscera: The bladder is decompressed a round a Jarrett catheter and cannot be evaluated. Intralu maya gas is likely related to instrumentation. The prostate gland is diminutive and heterogeneous. S eminal vesicles are normal as imaged. Skeletal structures: There is extensive/diffuse multifocal osteoblastic metastatic disease, which has progressed from 05/25/2022. The largest lesion is centered in the left acetabulum, with a surrounding soft tissue component. There is moderate to advanced lumbosacral spondylosis. Bilateral pars defects are seen at L5. IMPRESSION: 1. No acute infectious or inflammatory findings are identified in the abdomen or pelvis. 2. No bowel obstruction. 3. There is retroperitoneal and iliac chain lymphadenopathy. This is new from 05/25/2022 and indicates progressive metastatic disease. 4. Extensive/diffuse osteoblastic metastatic disease has also progressed from previous. 5. Small right and moderate left pleural effusions with dependent consolidation. These are similar to the 04/06/[address] and new from 05/25/2022. 6. The liver is steatotic and cirrhotic in morphology. 7. Cardiomegaly with advanced coronary artery atherosclerosis. 8. There is aneurysmal dilatation of the ascending thoracic aorta which measures up to 4.6 cm. This i s unchanged from the recent chest CT. 9. Additional findings as above. ACT 112: Negative or not required by law. Electronically signed by: [place] Hughes M.D. 05/04/2023 10:27 AM
--- NOTE | 2023-05-04 11:15 | Electrocardiogram Report ---
Test Reason : Blood Pressure : / mmHG Vent. Rate : 081 BPM Atrial Rate : 000 BPM P-R Int : 000 ms QRS Dur : 104 ms QT Int : 370 ms P-R-T Axes : 000 -18 102 degrees QTc Int : 429 ms Atrial fibrillation possible Inferior infarct , age undetermined Poor R wave progression, consider anterior TX vs. lead placement vs. LVH Abnormal ECG When compared with ECG of 01-DEC-2022 13:41, ST no longer depressed in Anterior leads Nonspecific T wave abnormality no longer evident in Anterior leads Confirmed by Emilio Lopez ([id number]) on 05/04/2023 11:15:05 AM Referred By: Confirmed By:Aakash Lopez
[2023-05-04 11:18] LABS: Basophils # (auto) 0.04 K/uL (0.00-0.20); Basophils % (auto) 0.4 %; Eosinophils # (auto) 0.18 K/uL (0.00-0.50); Eosinophils % (auto) 1.6 %; Hematocrit (blood only) 28.8 % (42.0-52.0); Hemoglobin 9.9 g/dl (14.0-18.0); Immature Granulocytes # (auto) 0.19 K/uL (0.01-0.20); Immature Granulocytes % (auto) 1.7 %; Lymphocytes # (auto) 1.74 K/uL (1.20-3.40); Lymphocytes % (auto) 15.7 %; Mean Corpuscular Hemoglobin 32.2 pg (25.0-34.0); Mean Corpuscular Hgb Conc 34.4 g/dL (32.0-36.0); Mean Corpuscular Volume 93.8 fL (80.0-100.0); Mean Platelet Volume 8.7 fL (9.4-12.4); Monocytes # (auto) 1.53 K/uL (0.11-0.59); Monocytes % (auto) 13.8 %; Neutrophils # (auto) 7.39 K/uL (1.40-6.50); Neutrophils % (auto) 66.8 %; Platelet Count 287 K/uL (130-400); RDW Coefficient of Variation 16.8 % (11.5-14.5); RDW Standard Deviation 56.4 fL (36.4-46.3); Red Blood Count 3.07 M/uL (4.70-6.10); White Blood Count 11.07 K/ul (4.8-10.8)
[2023-05-04 11:23] LABS: Alanine Aminotransferase 8 U/L (7-52); Albumin Globulin Ratio 0.5 (0.9-2); Albumin Level 2.1 gm/dl (3.4-5.0); Alkaline Phosphatase 295 U/L (34-104); Anion Gap 11 (3-11); Aspartate Aminotransferase 49 U/L (13-39); BUN Creatinine Ratio 55.9 (10-20); Bilirubin,Total 0.9 mg/dl (0.2-1.0); Blood Urea Nitrogen 38 mg/dl (6-23); Calcium 8.3 mg/dl (8.6-10.3); Carbon Dioxide 30 mmol/L (21-32); Chloride 92 mmol/L (98-107); Est GFR (African American) 110.6 ml/min; Est GFR (Non-African American) 95.4 ml/min; Globulin 4.1 gm/dl (2.5-4.0); Glucose 72 mg/dl (70-99(Fasting)); Magnesium 1.4 mg/dl (1.7-2.4); Potassium 3.7 mmol/L (3.5-5.1); Sodium 133 mmol/L (136-145); Total Protein 6.2 gm/dl (6.0-8.3)
[2023-05-04] MEDS: MAGNESIUM SULFATE / D5W 1 GM/100 ML BAG IV SCH ×3 (12:23→17:08)
[2023-05-04] MEDS ORDERED: LACTATED RINGER'S 1,000 ML IV ONE (12:52)
--- NOTE | 2023-05-04 13:09 | History & Physical Report ---
Date of Service May 04, 2023 Assessment & Plan (1) AMS (altered mental status): Plan: -Admit to med/tele -Currently stable but pleasantly confused per his baseline given by family -Patient was transferred from the [place] ED to [facility] ED and accepted by the [facility] Urology team for initial chronic fermin replacement -Fermin was successfully replaced by Urology but there were cancers for confusion and dehydration -Patient currently oriented to self only, no other focal neuro defects on exam -Patient's daughter states that he is normally oriented to person, place, month, and typically year -Broad differential at this time including CVA, brain metastases from active prostate cancer, acute dehydration, unidentified infection, acute anemia, polypharmacy, metabolic derrangement -BSG noted to be 70 on arrival this am, will have nurse recheck now and order h ypoglycemia protocol -Patient has a mild leukocytosis, initial lactate of 2.6 --> 2.1 on repeat -Chest xray shows a left basilar opacity, CT of the abd/pelvis without signs of acute infection -Waiting on UA but his urine appears dark and bloody -Will obtain stat CT head wo con, procal, and full respiratory biofire for further evaluation -S/P 1L NSS and a dose of cefepime in the ED, will hold additional abx for now until the rest of his infectious workup is back -Will give 1L LR bolus on admission and continue maintenance fluids as he is significantly dehydrated on exam -Hold Remeron for now -Holding anticoagulation for now with gross hematuria and acute anemia -HH diet, 2gm sodium restriction, aspiration precautions -Fall precautions -AM CBC, CMP, mag, PT/INR (2) Urinary retention: Plan: -Has been dealing with 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 -Fermin cath replaced by Urology this am -Now draining dark, grossly bloody urine -Likely due to trauma from multiple unsuccessful attempts in [place] -Holding Eliquis for now -Continue fermin cath, will follow up on UA -Urology consulted to follow while admitted (3) Anemia: Plan: -Hgb of 9.9 today, down from 12 as of 02/22 -Likely due gross hematuria since pulling his fermin catheter out yesterday -Patient is currently stable -Will hold Eliquis for now -Will repeat another CBC this afternoon to monitor Hgb -Will obtain type/screen and blood consent on admission in case he requires transfusion -Spoke to his Daughter, Karin, who gave consent for blood transfusion if needed due to his acute confuison (4) Hypomagnesemia: Plan: -Noted to be 1.4 today -Appears to be acute on chronic -S/P 1 gm IV mag-sulfate -Will give additional 3 bags 1gm IV mag sulfate on admission -Continue to monitor on tele -Monitor am mag level (5) Atrial fibrillation: Plan: -Currently in rate controlled afib -Did not have am meds today -Dig level this am elevated at 2.2 -Will give am dose of metoprolol but hold dig until tomorrow am -Follow am dig level -Monitor on tele -Holding Eliquis for anemia and hematuria (6) Hematuria: Plan: -See anemia -Continue fermin catheter -Urology consult placed -Hold Eliquis (7) Dehydration: Plan: -Patient appears significantly dehydrated on exam -Likely the cause of his initial lactate elevation which has subsequently resolved -Will continue IV hydration today until he is tolerating consistent PO intake (8) Prostate cancer: Plan: -Continue to follow with Urology and Heme/onc (9) Chronic diastolic heart failure due to hypertrophic obstructive cardiomyopathy: Plan: -Currently dehydrated -Holding diuretics for now Plan The patient was discussed with Dr. Curry at the time of the admission History of Present Illness Chief Complaint: AMS, dehydration, need for catheter replacement Primary Care Provider: Shyann Kwon MD Last [place] is a 72-year-old male with a past medical history of gram- negative bacteremia, A-fib on Eliquis, prostate cancer currently receiving treatment, bladder retention now with chronic indwelling fermin, ascending aortic aneurysm and HFpEF who presented to the [facility] ED on 05/04 after his catheter was pulled out. In the ED he was initially noted to be hypotensive at 80/49, tachycardic at 100 BPM but otherwise stable. Labs were significant for a leukocytosis of 11, hgb of 9.9 (Down from 12.5 as of 02/22), BUN of 38, initial lactate of 2.6, mag of 1.4, and dig level of 2.2. Chest xray was read as 1. Cardiomegaly without acute process.2. Small left greater than right pleural effusions with mild left basilar opacities again noted.. CT of the abd/pelvis wo con was read as 1. No acute infectious or inflammatory findings are identified in the abdomen or pelvis. 2. No bowel obs truction. 3. There is retroperitoneal and iliac chain lymphadenopathy. This is new from 05/25/2022 and indicates progressive metastatic disease. 4. Extensive/diffuse osteoblastic metastatic disease has also progressed from previous. 5. Small right and moderate left pleural effusions with dependent consolidation. These are similar to the 04/06/[address] and new from 05/25/2022. 6. The liver is steatotic and cirrhotic in morphology. 7. Cardiomegaly with advanced coronary artery atherosclerosis. 8. There is aneurysmal dilatation of the ascending thoracic aorta which measures up to 4.6 cm. This is unchanged from the recent chest CT. 9. Additional findings as above.. Prior to admission the patient was given 1.5L NSS, a dose of cefepime, and 1gm IV mag. At the time of the exam the patient was lying in bed in no acute distress, he appears pleasantly confused. Unfortunately family had already left prior to my exam. The patient states that his fermin catheter came out earlier but was unable to provide additional information. His only complaint at this time is that "my butt is itchy". He denies any other complaints. I was able to speak with with his daughter/primary caregiver, Karin Post [phone], to obtain further information. She states that they initially brought the patient to the [place] ED because he pulled his fermin catheter out and had increased confused compared to baseline. At his baseline he is normally oriented to person, place, and at least month. [place] ED was unable to successfully replace the fermin and Dr. Manzanares or Urology accepted the patient for transfer to our ED for evaluation. The patient's fermin was successfully replaced by Urology. There were concerns for his clinical and mental change, because of this the ED was asked to evaluate the patient. She confirms that he had all of his medications yesterday, including his HS dose of Eliquis. They are aware of the progression of his prostate cancer, they are planning on having him evaluated at [facility] in the near future for further possible treatment options. He is a full code and she would make medical decisions for him while he cannot make his own medical decisions. Please refer to Dr. Curry's attesation for any changes to the treatment plan Allergies Allergy/AdvReac Type Severity Reaction Status Date / Time amiodarone AdvReac Severe Pneumonitis Unverified 05/04/23 10:20 Home Medications Medication Instructions Recorded Confirmed Type allopurinol 100 mg tablet 200 mg PO DAILY 10/21/19 05/04/23 History (Zyloprim) cholecalciferol (vitamin D3) 25 1,000 unit PO QAM 03/23/20 05/04/23 History mcg (1,000 unit) capsule (Vitamin D3) calcium carbonate 600 mg calcium 600 mg PO QAM 02/27/21 05/04/23 History (1,500 mg) tablet (Calcium) cyanocobalamin (vitamin B-12) 500 500 mcg PO QAM #30 tabs 03/05/21 05/04/23 Rx mcg tablet digoxin 125 mcg (0.125 mg) tablet 125 mcg PO DAILY 10/18/22 05/04/23 History lorazepam 1 mg tablet 0.5 - 1 mg PO Q6 PRN Anxiety 12/01/22 05/04/23 History Lactobacillus acidophilus 500 100 cell PO DAILY 05/04/23 05/04/23 History million cell capsule Super Mushroom 1 packet PO DAILY 05/04/23 05/04/23 History acetaminophen 500 mg tablet 500 mg PO Q6H PRN pain/fever 05/04/23 05/04/23 History apixaban 5 mg tablet (Eliquis) 5 mg PO BID 05/04/23 05/04/23 History folic acid 1 mg tablet 1 mg PO DAILY 05/04/23 05/04/23 History furosemide 40 mg tablet 40 mg PO QAM 05/04/23 05/04/23 History megestrol 400 mg/10 mL (40 mg/mL) 400 mg PO DAILY 05/04/23 05/04/23 History oral suspension metoprolol succinate 100 mg 100 mg PO DAILY 05/04/23 05/04/23 History tablet,extended release 24 hr mirtazapine 15 mg tablet 15 mg PO DAILY 05/04/23 05/04/23 History ondansetron 4 mg disintegrating 4 mg PO Q4H PRN Nausea And Vomiting 05/04/23 05/04/23 History tablet sodium di- and 1 tab PO DAILY 05/04/23 05/04/23 History monophosphate-potassium phos monobasic 250 mg tablet (Phospha Neutral) Past Med/Surg History Medical History Weakness Gout Pneumonia due to COVID-19 virus Chronic diastolic CHF (congestive heart failure) Restrictive lung disease Acute respiratory failure with hypoxia Hyponatremia Atrial fibrillation with RVR Basal cell carcinoma of dorsum of nose Congestive heart failure Idiopathic peripheral neuropathy Hyperlipidemia Polyp of colon BPH (benign prostatic hyperplasia) GERD (gastroesophageal reflux disease) Vitamin D deficiency 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 Father , age 41 complications of jungle rot WW2 Heart disease Son No problems noted. Son No problems noted. Daughter No problems noted. 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 Feels Safe at Home: Yes Childhood Exposure to Second-Hand Smoke: Yes Diet: regular caffeine: Yes (one cup coffee per day) during the past year weight has: remained stable Dental Care, Regularly: Yes Physical Activity Frequency: Daily Seatbelt Use: always Sunscreen Use: Yes Do you think of yourself as: straight/heterosexual Gender Identity: Male Assistive Devices: Walker Physical Exam Physical Exam: Physical Exam: General: In no acute distress, stated age, clinically ill appearing and cachectic HEENT: Normocephalic, atraumatic, no scleral icterus, pupils around round, symmetrical, and reactive to light, dry mucus membranes, trachea midline, no thyromegaly Chest/Pulm: Pectus excavatum present, No respiratory distress, symmetrical chest expansion, clear breath sounds throughout Cardiac: irregular rate and rhythm, no murmurs noted Abdomen: Negative for ascites and bruising, normoactive bowel sounds, soft, non-tender to palpation throughout Musculoskeletal: Symmetrical and without signs of acute trauma, upper and lower extremities with full ROM, no atrophy, spasticity, or flaccidity Extremities: Radial, dorsalis pedis, and posterior tibial pulses are intact and symmetrical, signs of BL chronic venous insufficiency Skin: Mild sacral pressure on the right buttocks without signs of acute infection Neuro: Alert and oriented to person only, no focal defects, CN II-XII tested and intact, negative cerebellar testing BL, no tremors noted Psych: No acute distress, calm and cooperative during the exam Results & Data Results & Data Vital Signs (Past 12 Hours) Vital Signs Temp Pulse Pulse Resp BP BP Pulse Ox 05/04/23 10:50 81 23 95 05/04/23 10:40 81 26 H 94 05/04/23 10:33 99/60 L 05/04/23 10:33 98 H 5 L 05/04/23 09:50 85 18 96 05/04/23 09:40 93 H 25 H 95 05/04/23 09:30 80 27 H 95 05/04/23 09:30 115/57 L 05/04/23 09:20 92 H 19 94 05/04/23 09:10 103 H 25 H 05/04/23 09:05 80 05/04/23 09:00 81 21 93 05/04/23 09:00 108/63 05/04/23 08:50 95 H 22 05/04/23 08:40 88 17 05/04/23 08:30 101/61 05/04/23 08:30 83 20 05/04/23 08:20 79 15 05/04/23 08:10 83 25 H 05/04/23 08:00 80 16 05/04/23 08:00 112/54 L 05/04/23 07:50 94 H 23 05/04/23 07:40 82 20 05/04/23 07:30 109/64 05/04/23 07:30 87 20 05/04/23 07:20 87 28 H 95 05/04/23 07:10 96 H 25 H 96 05/04/23 07:00 98/65 L 05/04/23 07:00 98 H 23 91 05/04/23 06:50 85 21 96 05/04/23 06:40 85 22 05/04/23 06:30 98/64 L 05/04/23 06:30 94 H 24 05/04/23 06:20 101 H 31 H 05/04/23 06:00 89 28 H 104/63 93 05/04/23 05:31 93 H 23 110/64 96 05/04/23 05:13 86 05/04/23 05:00 98 H 21 110/64 96 05/04/23 04:56 36.7 C 100 H 16 80/49 L 95 O2 Del Method 05/04/23 10:50 Room Air 05/04/23 10:40 05/04/23 10:33 05/04/23 10:33 05/04/23 09:50 05/04/23 09:40 05/04/23 09:30 05/04/23 09:30 05/04/23 09:20 05/04/23 09:10 05/04/23 09:05 05/04/23 09:00 05/04/23 09:00 05/04/23 08:50 05/04/23 08:40 05/04/23 08:30 05/04/23 08:30 05/04/23 08:20 05/04/23 08:10 05/04/23 08:00 05/04/23 08:00 05/04/23 07:50 05/04/23 07:40 05/04/23 07:30 05/04/23 07:30 05/04/23 07:20 05/04/23 07:10 05/04/23 07:00 05/04/23 07:00 05/04/23 06:50 05/04/23 06:40 05/04/23 06:30 05/04/23 06:30 05/04/23 06:20 05/04/23 06:00 Room Air 05/04/23 05:31 Room Air 05/04/23 05:13 05/04/23 05:00 Room Air 05/04/23 04:56 Room Air Laboratory Results Abnormal lab results 05/04/23 05/04/23 Range/Units 10:23 12:40 WBC 11.07 H (4.8-10.8) K/ul RBC 3.07 L (4.70-6.10) M/uL Hgb 9.9 L (14.0-18.0) g/dl Hct 28.8 L (42.0-52.0) % RDW Std Deviation 56.4 H (36.4-46.3) fL RDW Coeff of Phyllis 16.8 H (11.5-14.5) % MPV 8.7 L (9.4-12.4) fL Neut # (Auto) 7.39 H (1.40-6.50) K/uL Lake # (Auto) 1.53 H (0.11-0.59) K/uL Sodium 133 L (136-145) mmol/L Chloride 92 L (98-107) mmol/L BUN 38 H (6-23) mg/dl BUN/Creatinine Ratio 55.9 H (10-20) Lactate 2.6 H* 2.1 H* (0.4-2.0) mmol/L Calcium 8.3 L (8.6-10.3) mg/dl Magnesium 1.4 L (1.7-2.4) mg/dl AST 49 H (13-39) U/L Alkaline Phosphatase 295 H (34-104) U/L Albumin 2.1 L (3.4-5.0) gm/dl Globulin 4.1 H (2.5-4.0) gm/dl Albumin/Globulin Ratio 0.5 L (0.9-2) Digoxin 2.2 H (0.8-2.0) ng/ml Diagnostic Findings Abdomen/Pelvis CT 05/04/23 09:42 CT SCAN OF THE ABDOMEN AND PELVIS WITHOUT IV CONTRAST CLINICAL HISTORY: Generalized abdominal pain. Prostate cancer. COMPARISON STUDY: Abdominal CT dated 05/25/2022. Chest CT dated 04/06/2023. TECHNIQUE: CT scan of the abdomen and pelvis is performed from the lung bases to the proximal femora. Images are reviewed in the axial, sagittal, and coronal planes. IV contrast was not administered for this examination. Note that the examination was performed and significantly suboptimal fashion without oral and IV contrast. A dose lowering technique was utilized adhering to the principles of ALARA. CT DOSE: 1140.33 mGy.cm FINDINGS: Lung bases: The heart is enlarged and without pericardial effusion. The coronary arteries are densely calcified. There is aneurysmal dilatation of the ascending thoracic aorta which measures up to 4.6 cm in diameter. There are small right and moderate left pleural effusions with dependent consolidation. Liver: The unenhanced liver is cirrhotic in morphology and heterogeneous in attenuation. Attenuation is diffusely diminished indicating steatosis. Fatty sparing is seen adjacent to the gallbladder fossa. There is no intrahepatic biliary ductal dilatation. Coarse calcifications are seen in the right lobe. A 1.4 cm ovoid hyperdense focus in the left lobe on image #112 is nonspecific and could represent focal fatty sparing or hemangioma. Gallbladder: Unremarkable. Spleen: Normal in size and attenuation. Pancreas: The unenhanced pancreas is mildly atrophic and grossly unremarkable. Adrenal glands: Unremarkable. Kidneys: The unenhanced kidneys demonstrate mild cortical atrophy and are with out hydronephrosis. There are no renal calculi identified. There is no evidence of contour deforming renal mass lesion. Abdominal vasculature: The abdominal aorta is normal in course and caliber not ing mild to moderate atherosclerotic calcification. Bowel: There is no bowel obstruction. [id number] fecal retention is seen throughout the colon. The appendix is normal as visualized. Peritoneum: There is no intraperitoneal free air or abdominal ascites. There is a fat-containing umbilical hernia. Lymphadenopathy: There is bulky retroperitoneal lymphadenopathy which is new from 05/25/2022. A left periaortic geronimo aggregate on image #161 measures 2.7 x 2.4 cm. A left iliac chain node on image #220 measures 1.8 x 1.6 cm. Enlarged external iliac chain nodes are noted. The largest measures 1.4 x 1.3 cm. A prominent left groin node measures 1.4 x 1.2 cm. Pelvic viscera: The bladder is decompressed a round a Ferimn catheter and cannot be evaluated. Intraluminal gas is likely related to instrumentation. The prostate gland is diminutive and heterogeneous. Seminal vesicles are normal as imaged. Skeletal structures: There is extensive/diffuse multifocal osteoblastic metastatic disease, which has progressed from 05/25/2022. The largest lesion is centered in the left acetabulum, with a surrounding soft tissue component. There is moderate to advanced lumbosacral spondylosis. Bilateral pars defects are seen at L5. IMPRESSION: 1. No acute infectious or inflammatory findings are identified in the abdomen or pelvis. 2. No bowel obstruction. 3. There is retroperitoneal and iliac chain lymphadenopathy. This is new from 05/25/2022 and indicates progressive metastatic disease. 4. Extensive/diffuse osteoblastic metastatic disease has also progressed from previous. 5. Small right and moderate left pleural effusions with dependent consolidation. These are similar to the 04/06/[address] and new from 05/25/2022. 6. The liver is steatotic and cirrhotic in morphology. 7. Cardiomegaly with advanced coronary artery atherosclerosis. 8. There is aneurysmal dilatation of the ascending thoracic aorta which measures up to 4.6 cm. This is unchanged from the recent chest CT. 9. Additional findings as above. ACT 112: Negative or not required by law. Electronically signed by: New Hughes M.D. 05/04/2023 10:27 AM Chest X-Ray 05/04/23 09:42 XR chest 1V portable HISTORY: 72 years-old Male sob acute shortness of breath COMPARISON: Chest CT 04/06/2023 TECHNIQUE: AP view of the chest FINDINGS: Cardiac silhouette is enlarged. Small pleural effusions, left greater than right. No pneumothorax. Mild left basilar opacities. Degenerative changes of the shoulders and spine. IMPRESSION: 1. Cardiomegaly without acute process. 2. Small left greater than right pleural effusions with mild left basilar opacities again noted. ACT 112: Negative or not required by law. The above report was generated using voice recognition software. It may contain grammatical, syntax or spelling errors. Electronically signed by: Jose Molina M.D. 05/04/2023 10:21 AM ECG Additional Comments: Atrial fibrillation possible Inferior infarct , age undetermined Poor R wave progression, consider anterior SD vs. lead placement vs. LVH Abnormal ECG When compared with ECG of 01-DEC-2022 13:41, ST no longer depressed in Anterior leads Nonspecific T wave abnormality no longer evident in Anterior leads Confirmed by Emilio Lopez ([id number]) on 05/04/2023 11:15:05 AM Code Status & VTE Plan Code Status full code VTE Prophylaxis Plan VTE Prophylaxis will be ordered: Yes Supervising Physician Co-Signing Physician Notes Attending addendum: I have physically seen this patient, have supervised the DAKSHA's activities, and agree with the H&P unless as otherwise noted. Assessment and Plan: Altered mental status/confusion- [facility] urology placed Fermin catheter in ED after transfer from [place] ED Family reports that he is significantly disoriented from his baseline Potential contributing factors including not limited to hypoglycemia, sepsis due to UTI, cerebrovascular disease, potential brain metastases from prostate cancer, polypharmacy etc. Follow urine culture and sensitivity, urine looks like is probably the source Status post 1 L normal saline in ED and cefepime 2 g IV in the ED Given additional 1 L LR bolus now, and ordered maintenance fluids Holding mirtazapine due to potential for aggravating confusion Apixaban being held due to gross hematuria Follow serial CBC with differential, chemistry profile, magnesium and PT/INR Urology to continue to follow Atrial fibrillation/hypertrophic obstructive cardiomyopathy/chronic diastolic heart failure- Holding apixaban as noted Continue metoprolol succinate with hold parameters and digoxin Hold furosemide while rehydrating with IV fluids Remaining orders and notations as noted PG Care Time/CCT Total # of Minutes Spent Total Time Spent with Patient: Total time spent is greater than 50% in coordination of care (as documented) at patient's floor/unit and/or counseling patient: Coding [place] [address] INT INP/OBS CARE 3/75MIN Patient Type Established Medical Decision Making High Complexity Diagnoses AMS (altered mental status) R41.82 Urinary retention R33.9 Anemia D64.9 Hypomagnesemia E83.42 Atrial fibrillation I48.91 Hematuria R31.9 Dehydration E86.0 Prostate cancer C61 Chronic diastolic heart failure due to hypertrophic obstructive cardiomyopathy I50.32; I42.1
[2023-05-04] MEDS ORDERED: METOPROLOL SUCC 50MG EXT REL TAB PO STA (13:37)
[2023-05-04] MEDS ORDERED: GLUCOSE 40% GEL 15 GM TUBE PO PRN (13:40)
[2023-05-04] MEDS ORDERED: GLUCOSE 10 TAB/TUBE PO PRN (13:40)
[2023-05-04] MEDS ORDERED: GLUCAGON FOR INJ 1 MG VIAL SQ PRN (13:40)
[2023-05-04] MEDS ORDERED: CARBOHYDRATES FOR HYPOGLYCEMIA PO PRN (13:40)
[2023-05-04 13:52] LABS: INR 1.8 (0.9-1.1); Prothrombin Time 18.8 Seconds (9.0-12.0)
--- NOTE | 2023-05-04 14:06 | CT Scan Report ---
CT SCAN OF THE BRAIN WITHOUT IV CONTRAST CLINICAL HISTORY: Change in mental status. COMPARISON STUDY: CT of the brain dated 12/01/2022. TECHNIQUE: Unenhanced axial CT scan of the brain is performed from the vertex to the skull base. A do se lowering technique was utilized adhering to the principles of ALARA. CT DOSE: 625.8 mGy.cm FINDINGS: Brain parenchyma: There is age-related involutional change noting mild to moderate subcortical and pe riventricular microangiopathic disease. There is no hemorrhage, mass effect, or evidence of acute ter ritorial ischemia by CT criteria. Jo-white matter differentiation is preserved. No extra-axial flui d collection is seen. Ventricles, sulci, cisterns: Prominent secondary to involutional change. Intracranial vasculature: There is atherosclerotic calcification of the cavernous carotid and vertebr al arteries. Calvarium: Unremarkable. Sinuses and mastoids: The paranasal sinuses are clear. The mastoid air cells are well pneumatized. Orbits: The bony orbits are grossly intact. IMPRESSION: There is no hemorrhage, mass effect, or evidence of acute territorial ischemia by CT kelechi alex. ACT 112: Negative or not required by law. Electronically signed by: New Hughes M.D. 05/04/2023 2:05 PM
[2023-05-04] MEDS ORDERED: MAGNESIUM SULFATE / D5W 1 GM/100 ML BAG IV SCH (14:30)
[2023-05-04] MEDS: ALBUMIN 25% 25 GM/100 ML VIAL IV SCH ×2 (15:31→18:16)
[2023-05-04 16:30] LABS: Appearance Urine Cloudy (Clear); Bilirubin Urine 1+ (Negative); Blood Urine 3+ (Negative); Color Urine Brown; Glucose Urine UA Negative (Negative); Ketones Urine Trace (Negative); Leukocyte Esterase Urine Trace (Negative); Nitrite Urine Negative (Negative); Protein Urine 3+ (Negative); Urobilinogen Urine Negative (Negative); pH Urine 5.5 (4.5-7.5)
[2023-05-04 16:34] LABS: Bacteria Urine 3+ (Negative); Epithelial Cell Urine 0-5 /lpf (0-5); Hyaline Casts Urine 0-5 /lpf (0-5); RBC Urine >30 /hpf (0-4); WBC Urine >30 /hpf (0-5)
[2023-05-04] MEDS ORDERED: ACETAMINOPHEN 500 MG TAB PO PRN (16:38)
[2023-05-04 17:06] LABS: Hematocrit (blood only) 26.8 % (42.0-52.0); Hemoglobin 9.6 g/dl (14.0-18.0); Lymphocytes % (auto) 16.1 %; Mean Corpuscular Hemoglobin 33.2 pg (25.0-34.0); Mean Corpuscular Hgb Conc 35.8 g/dL (32.0-36.0); Mean Corpuscular Volume 92.7 fL (80.0-100.0); Mean Platelet Volume 8.5 fL (9.4-12.4); Neutrophils % (auto) 65.9 %; Platelet Count 259 K/uL (130-400); RDW Coefficient of Variation 17.2 % (11.5-14.5); RDW Standard Deviation 58.4 fL (36.4-46.3); Red Blood Count 2.89 M/uL (4.70-6.10); White Blood Count 9.38 K/ul (4.8-10.8)
[2023-05-04 17:07] LABS: Basophils # (auto) 0.03 K/uL (0.00-0.20); Basophils % (auto) 0.3 %; Eosinophils # (auto) 0.19 K/uL (0.00-0.50); Immature Granulocytes # (auto) 0.23 K/uL (0.01-0.20); Immature Granulocytes % (auto) 2.5 %; Lymphocytes # (auto) 1.51 K/uL (1.20-3.40); Monocytes # (auto) 1.24 K/uL (0.11-0.59); Monocytes % (auto) 13.2 %; Neutrophils # (auto) 6.18 K/uL (1.40-6.50)
[2023-05-04 18:16] LABS: Adenovirus PCR Not Detected (NotDetected); Bordetella parapertussis PCR Not Detected (NotDetected); Bordetella pertussis PCR Not Detected (NotDetected); Chlamydia pneumoniae PCR Not Detected (NotDetected); Coronavirus 229E PCR Not Detected (NotDetected); Coronavirus CoV-2 (COVID19)PCR Not Detected (NotDetected); Coronavirus HKU1 PCR Not Detected (NotDetected); Coronavirus NL63 PCR Not Detected (NotDetected); Coronavirus OC43PCR Not Detected (NotDetected); Human Metapneumovirus PCR Not Detected (NotDetected); Influenza A PCR Not Detected (NotDetected); Influenza B PCR Not Detected (NotDetected); Mycoplasma pneumoniae PCR Not Detected (NotDetected); Parainfluenza Virus 1 PCR Not Detected (NotDetected); Parainfluenza Virus 2 PCR Not Detected (NotDetected); Parainfluenza Virus 3 PCR Not Detected (NotDetected); Parainfluenza Virus 4 PCR Not Detected (NotDetected); Respiratory Syncytial VirusPCR Not Detected (NotDetected); Rhinovirus/Enterovirus PCR Not Detected (NotDetected)
[2023-05-04] MEDS: LACTATED RINGER'S 1,000 ML IV SCH (18:16)
[2023-05-04] MEDS: CEFEPIME 2,000 MG in SYRINGE 0 ML IV SCH (18:43)
[2023-05-05] MEDS ORDERED: 0.2 MICRON FILTER SET 1 EACH IV STA (01:38)
[2023-05-05] MEDS ORDERED: STAT IV Infusion **Titration per Protocol STA ×2 (01:38→01:40)
[2023-05-05] MEDS ORDERED: AMIODARONE IV BOLUS & DRIP IV STA (01:38)
[2023-05-05] MEDS ORDERED: AMIODARONE / D5W 150 MG/100 ML BAG IV STA (01:38)
[2023-05-05] MEDS ORDERED: AMIODARONE / D5W 360 MG/200 ML BAG IV ONE (01:49)
[2023-05-05] MEDS: CEFEPIME 2,000 MG in SYRINGE 0 ML IV SCH ×3 (02:21→18:35)
[2023-05-05] MEDS: ONDANSETRON INJ 2 MG/ML 2 ML VIAL IV PRN ×2 (02:21→21:02)
[2023-05-05] MEDS: ACETAMINOPHEN 1,000 MG/100 ML VIAL IV PRN (05:03)
[2023-05-05] MEDS: LACTATED RINGER'S 1,000 ML IV SCH (05:04)
[2023-05-05 06:08] LABS: Basophils # (auto) 0.04 K/uL (0.00-0.20); Basophils % (auto) 0.5 %; Eosinophils # (auto) 0.19 K/uL (0.00-0.50); Eosinophils % (auto) 2.3 %; Hemoglobin 8.1 g/dl (14.0-18.0); Immature Granulocytes # (auto) 0.22 K/uL (0.01-0.20); Immature Granulocytes % (auto) 2.7 %; Lymphocytes # (auto) 1.28 K/uL (1.20-3.40); Lymphocytes % (auto) 15.5 %; Mean Corpuscular Hemoglobin 33.9 pg (25.0-34.0); Mean Corpuscular Hgb Conc 36.8 g/dL (32.0-36.0); Mean Corpuscular Volume 92.1 fL (80.0-100.0); Mean Platelet Volume 8.6 fL (9.4-12.4); Monocytes # (auto) 1.21 K/uL (0.11-0.59); Monocytes % (auto) 14.6 %; Neutrophils # (auto) 5.34 K/uL (1.40-6.50); Neutrophils % (auto) 64.4 %; Platelet Count 225 K/uL (130-400); RDW Coefficient of Variation 16.9 % (11.5-14.5); RDW Standard Deviation 55.9 fL (36.4-46.3); Red Blood Count 2.39 M/uL (4.70-6.10); White Blood Count 8.28 K/ul (4.8-10.8)
[2023-05-05 06:26] LABS: Albumin Globulin Ratio 0.7 (0.9-2); Albumin Level 2.3 gm/dl (3.4-5.0); BUN Creatinine Ratio 64.3 (10-20); Calcium 8.3 mg/dl (8.6-10.3); Creatinine Clr Calc Pharmacy 130.9 ml/min; Est GFR (African American) 119.8 ml/min; Est GFR (Non-African American) 103.3 ml/min; Globulin 3.1 gm/dl (2.5-4.0); Magnesium 1.8 mg/dl (1.7-2.4); Potassium 3.5 mmol/L (3.5-5.1); Total Protein 5.4 gm/dl (6.0-8.3)
--- NOTE | 2023-05-05 06:42 | Hospitalist Progress Note ---
Date of Service May 05, 2023 Assessment & Plan (1) AMS (altered mental status): (2) Hypomagnesemia: (3) Anemia: (4) Malignant neoplasm of prostate metastatic to bone: (5) Atrial fibrillation with rapid ventricular response: (6) Prostate cancer: (7) Chronic diastolic heart failure due to hypertrophic obstructive cardiomyopathy: (8) Urinary retention: Plan Pt is a 72-year-old male with a past medical history of gram-negative bacteremia, A-fib on Eliquis, prostate cancer with mets currently receiving treatment, bladder retention now with chronic indwelling fermin, ascending aortic aneurysm and HFpEF who presented to the [facility] ED on 05/04 after his catheter was pulled out and admitted for AMS. Called Daughter Karin today. She states he became agitated forcibly removed the catheter yesterday and when prompted why he did not know why he did it. Family took him to [place] to have it replaced, but after several failed attempted they decided to bring him here. Daughter states he had metastatic disease for 4 years and finished chemotherapy in December. She states he has lost 80 lbs throughout this ordeal. Prompted her to come in so we can talk about goals of care. She states she will talk to one of her brothers and they can both come in to chat about goals of care in the coming days. Holding eliquis today still. Holding lasix. AMS (altered mental status) - family states he is oriented to person, place, and month typically, currently stable but pleasantly confused, only oriented to self - pt presented with high lactate, procal, leukocytosis, so suspect AMS may be entirely or partially due to acute infection with suspected source being urinary with chronic fermin - imaging findings include: advanced coronary disease, diffuse and extensive osteoblastic metastatic disease, L>R pleural effusions with bibasilar opacities, liver cirrhosis, CT head wnl - AMS likely multifactorial, infectious vs progression of extensive metastatic disease vs acute anemia vs polypharmacy - Hold Remeron for now - blood and urine cx pending - continue cefepime IV Prostate cancer with metastases - by our CT scan here compared to previous, metastatic disease is diffuse and extensive at this point - Continue to follow with Urology and Heme/onc Urinary retention with chronic fermin Hematuria -Has been dealing with 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 -Fermin cath replaced by Urology on admission, urology following -Likely due gross hematuria since pulling his fermin catheter out or from multiple unsuccessful attempts in [place] to replace -Holding Eliquis for now Anemia -Hgb 12 as of 02/22, 8.1 this morning -Patient is currently stable -Will hold Eliquis for now -Spoke to his Daughter, Karin, who gave consent for blood transfusion if needed due to his acute confusion Hypomagnesemia -Noted to be 1.4 on admission -Appears to be acute on chronic -S/P 1 gm IV mag-sulfate - stable 1.8 today Atrial fibrillation -Currently in rate controlled afib -Dig level this am elevated at 2.2, continue - dig level wnl Chronic diastolic heart failure due to hypertrophic obstructive cardiomyopathy -dehydrated on admission, IVF given - continue metoprolol -Holding diuretics for now as pt appeared clinically dehydrated on admission VTE Ppx: holding home eliquis due to acute hematuria on admission with anemia IVF: 100 LR/hr, to stop this afternoon Lines: fermin in place Admission and Anticipated Discharge Date Admission Date: May 04, 2023 Supervising Physician Co-Signing Physician Notes I personally examined the patient and verified lara points of history and exam, discussed case, and agree with decision making and plan documented by Dr. Marina coleman. Patient reports pain "all over" 02/13 in setting of metastatic prostate cancer. Jesús blood from fermin. Hemoglobin 8.1. Holding anticoagulation. Patient poor medical device. Medical team contacted family and will meet with family in next day or so. Subjective Pt is a 72-year-old male with a past medical history of gram-negative bacterem ia, A-fib on Eliquis, prostate cancer with mets currently receiving treatment, bladder retention now with chronic indwelling fermin, ascending aortic aneurysm and HFpEF who presented to the [facility] ED on 05/04 after his catheter was pulled out and admitted for AMS. Today, pt was seen laying comfortably in bed this morning. He denied pain anywhere. He could tell me is name but was not sure of where he was or the year or month. He states that he is not really sure why he is here and could not tell me about his chronic medical conditions. He states he lives with his family and his daughter makes medical decisions for him. No questions or complaints at this time. Review of Systems Review of Systems: As per HPI. Physical Exam Physical Exam: General:Alert and oriented to self only, no acute distress, overall appears fatigued HEENT: Normocephalic, moist oral mucosa, Cardio: Regular rate, irregularly irregular rhythm, no murmur appreciated Resp:Lungs clear to auscultation b/l, no increased work of breathing GI: Soft and nontender, bowel sounds active : fermin in place with bleeding around the urethral opening, draining straw colored urine this morning with some sediment noted in the fermin tubing Skin: Warm, dry, Results & Data Results & Data Vital Signs (Past 12 Hours) Vital Signs Temp Pulse Pulse Resp BP Pulse Ox O2 Del Method 05/05/23 03:48 36.5 C 92 H 18 107/60 94 Room Air 05/04/23 23:03 36.6 C 98 H 18 109/58 L 93 Room Air 05/04/23 22:32 98 H 05/04/23 19:50 36.6 C 90 18 109/60 97 Room Air Resident Activity Tracking Resident Involvement: Resident Care Provided Care Provided: Adult Hospital Medicine (3) Anemia Anemia type: unspecified type Qualified Code(s): D64.9 - Anemia, unspecified
[2023-05-05 06:44] LABS: INR 1.7 (0.9-1.1); Prothrombin Time 17.8 Seconds (9.0-12.0)
[2023-05-05] MEDS ORDERED: AMIODARONE / D5W 360 MG/200 ML BAG IV SCH (07:45)
[2023-05-05] MEDS ORDERED: LACTOBACILLUS ACIDOPHILUS PO SCH (09:00)
[2023-05-05] MEDS: METOPROLOL SUCC 50MG EXT REL TAB PO SCH (09:52)
[2023-05-05] MEDS: POT PHOSPHATE MONOBASIC W/ SOD TAB PO SCH (09:59)
[2023-05-05] MEDS: allopurinoL 100 MG TAB PO SCH (09:59)
[2023-05-05] MEDS: MEGESTROL ACETATE SUSP 400 MG/10 ML UDC PO SCH (09:59)
[2023-05-05] MEDS: FOLIC ACID 1 MG TAB PO SCH (09:59)
[2023-05-05] MEDS ORDERED: MoRPHine SULFATE 4 MG/ML 1 ML CARP\\VIAL IV STA (13:21)
[2023-05-05] MEDS: DIGOXIN 0.125 MG TAB PO SCH ×2 (16:48→18:34)
[2023-05-06] MEDS: CEFEPIME 2,000 MG in SYRINGE 0 ML IV SCH ×3 (02:25→18:59)
[2023-05-06 06:28] LABS: Albumin Globulin Ratio 0.7 (0.9-2); Albumin Level 2.1 gm/dl (3.4-5.0); BUN Creatinine Ratio 67.3 (10-20); Bilirubin,Total 0.8 mg/dl (0.2-1.0); Calcium 8.3 mg/dl (8.6-10.3); Creatinine Clr Calc Pharmacy 140.9 ml/min; Est GFR (African American) 123.5 ml/min; Est GFR (Non-African American) 106.5 ml/min; Globulin 3.2 gm/dl (2.5-4.0); Magnesium 1.8 mg/dl (1.7-2.4); Potassium 3.5 mmol/L (3.5-5.1); Total Protein 5.3 gm/dl (6.0-8.3)
[2023-05-06 06:30] LABS: Basophils # (auto) 0.04 K/uL (0.00-0.20); Basophils % (auto) 0.5 %; Eosinophils # (auto) 0.29 K/uL (0.00-0.50); Eosinophils % (auto) 3.5 %; Hematocrit (blood only) 23.4 % (42.0-52.0); Hemoglobin 8.1 g/dl (14.0-18.0); Immature Granulocytes # (auto) 0.18 K/uL (0.01-0.20); Immature Granulocytes % (auto) 2.2 %; Lymphocytes # (auto) 1.14 K/uL (1.20-3.40); Lymphocytes % (auto) 13.8 %; Mean Corpuscular Hemoglobin 32.9 pg (25.0-34.0); Mean Corpuscular Hgb Conc 34.6 g/dL (32.0-36.0); Mean Corpuscular Volume 95.1 fL (80.0-100.0); Mean Platelet Volume 8.7 fL (9.4-12.4); Monocytes # (auto) 1.33 K/uL (0.11-0.59); Monocytes % (auto) 16.1 %; Neutrophils # (auto) 5.29 K/uL (1.40-6.50); Neutrophils % (auto) 63.9 %; Nucleated RBC # (auto) 0.03 K/uL (0.00-0.12); Nucleated RBC % (auto) 0.4 %; Platelet Count 219 K/uL (130-400); RDW Coefficient of Variation 16.9 % (11.5-14.5); RDW Standard Deviation 58.4 fL (36.4-46.3); Red Blood Count 2.46 M/uL (4.70-6.10); White Blood Count 8.27 K/ul (4.8-10.8)
[2023-05-06 06:35] LABS: INR 1.7 (0.9-1.1); Prothrombin Time 17.6 Seconds (9.0-12.0)
--- NOTE | 2023-05-06 06:43 | Hospitalist Progress Note ---
Date of Service May 06, 2023 Assessment & Plan (1) AMS (altered mental status): (2) Hypomagnesemia: (3) Anemia: (4) Malignant neoplasm of prostate metastatic to bone: (5) Atrial fibrillation with rapid ventricular response: (6) Prostate cancer: (7) Chronic diastolic heart failure due to hypertrophic obstructive cardiomyopathy: (8) Urinary retention: Plan Pt is a 72-year-old male with a past medical history of gram-negative bacteremia, A-fib on Eliquis, prostate cancer with mets currently receiving treatment, bladder retention now with chronic indwelling fermin, ascending aortic aneurysm and HFpEF who presented to the [facility] ED on 05/04 after his catheter was pulled out and admitted for AMS. Today, still awaiting cultures and continuing cefepime. Urine cx reincubating, blood cx negative so far. Spoke to daughter last night and family friend. Palliative care consult placed. Still wishes for full code and to get him to [place] at some point for a second opinion from oncology about further tx options for his metastatic prostate cancer. Nursing staff later told me that pt attempting repeatedly to remove IV line and cardiac leads, so soft mitts ordered. Family told last night that in those with dementia or AMS at baseline, sometimes worse with hospitalization and there was possibility he may need mitts if he starts to tug at lines and daughter Karin was agreeable if needed. Also informed her hospital-induced delirium does not improve the longer someone is here and may take weeks at home to resolve. She voiced understanding. Holding eliquis today still. Holding lasix. Weight stable. AMS (altered mental status) - family states he is oriented to person, place, and month typically, currently stable but pleasantly confused, only oriented to self - pt presented with high lactate, procal, leukocytosis, so suspect AMS may be entirely or partially due to acute infection with suspected source being urinary with chronic fermin - imaging findings include: advanced coronary disease, diffuse and extensive osteoblastic metastatic disease, L>R pleural effusions with bibasilar opacities, liver cirrhosis, CT head wnl - AMS likely multifactorial, infectious vs progression of extensive metastatic disease vs acute anemia vs polypharmacy - Hold Remeron for now - blood and urine cx pending - continue cefepime IV Prostate cancer with metastases - by our CT scan here compared to previous, metastatic disease is diffuse and extensive at this point - Continue to follow with Urology and Heme/onc Urinary retention with chronic fermin Hematuria -Has been dealing with 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 -Fermin cath replaced by Urology on admission, urology following -Likely due gross hematuria since pulling his fermin catheter out or from multiple unsuccessful attempts in [place] to replace -Holding Eliquis for now Anemia -Hgb 12 as of 02/22, 8.1 this morning -Patient is currently stable -Will hold Eliquis for now -Spoke to his Daughter, Karin, who gave consent for blood transfusion if needed due to his acute confusion Hypomagnesemia -Noted to be 1.4 on admission -Appears to be acute on chronic -S/P 1 gm IV mag-sulfate - stable 1.8 today Atrial fibrillation -Currently in rate controlled afib - dig level wnl Chronic diastolic heart failure due to hypertrophic obstructive cardiomyopathy -dehydrated on admission, IVF given - continue metoprolol -Holding diuretics for now as pt appeared clinically dehydrated on admission VTE Ppx: holding home eliquis due to acute hematuria on admission with anemia IVF: 100 LR/hr, to stop this afternoon Lines: fermin in place Admission and Anticipated Discharge Date Admission Date: May 04, 2023 Supervising Physician Co-Signing Physician Notes I personally examined the patient and verified lara points of history and exam, discussed case, and agree with decision making and plan documented by Dr. Johnson. Patient with metastatic prostate cancer on admission for AMS and thai blood per chronic indwelling Fermin. Hemoglobin 8.1, was 9.9 on admission. Eliquis remains on hold. Patient and family interested in consultation at [facility]. Staph on preliminary UCx, on cefepime. [id number] blood cultures x2. Patient reports pain controlled with as needed morphine. Currently requiring mitts due to intermittent confusion and attempts to pull lines. Palliative care consult pending, medical team discussing goals with patient and family, will benefit from oncology input as well. Subjective Pt is a 72-year-old male with a past medical history of gram-negative bacteremia, A-fib on Eliquis, prostate cancer with mets currently receiving derik atment, bladder retention now with chronic indwelling fermin, ascending aortic aneurysm and HFpEF who presented to the [facility] ED on 05/04 after his catheter was pulled out and admitted for AMS. Today, pt states he feels okay. He is minimally conversational but awake and oriented to self and could tell me he is in a hospital but believes he is in [place] (which is reasonable given he was there before coming here.) He notes the only pain he has today is back pain that he states has been bothering him for a long time, but states he does not need anything for it since it is not worse than normal. He denies questions or complaints at this time. Nursing staff note he was pulling at his IV last night and has since stopped, but he has not fussed with his fermin catheter. They note he is still having some bleeding from his urethra at times and overnight had bloody urine. Review of Systems Review of Systems: As per HPI. Physical Exam Physical Exam: General:Oriented to self and knows he is in the hospital, no acute distress, overall appears sleepy again today Cardio: Regular rate, irregularly irregular rhythm, no murmur appreciated Resp:Lungs clear to auscultation b/l, no increased work of breathing GI: Soft and nontender, bowel sounds active : fermin in place with some blood oozing around the urethral opening, draining straw colored urine this morning with some sediment noted in the fermin tubing and bloody urine in the bag from last night Skin: Warm, dry, Results & Data Results & Data Vital Signs (Past 12 Hours) Vital Signs Temp Pulse Pulse Resp BP Pulse Ox O2 Del Method 05/06/23 03:29 36.6 C 62 16 101/60 93 Nasal Cannula 05/05/23 23:12 36.9 C 82 18 99/60 L 92 Nasal Cannula 05/05/23 21:57 88 05/05/23 20:59 87 99/56 L 95 Nasal Cannula 05/05/23 20:02 36.8 C 88 16 97/58 L 91 Nasal Cannula 05/05/23 20:00 Nasal Cannula O2 Flow Rate 05/06/23 03:29 1.5 05/05/23 23:12 1.5 05/05/23 21:57 05/05/23 20:59 1.5 05/05/23 20:02 1.5 05/05/23 20:00 1.5 Resident Activity Tracking Resident Involvement: Resident Care Provided Care Provided: Adult Hospital Medicine (3) Anemia Anemia type: unspecified type Qualified Code(s): D64.9 - Anemia, unspecified
[2023-05-06] MEDS: allopurinoL 100 MG TAB PO SCH (09:06)
[2023-05-06] MEDS: POT PHOSPHATE MONOBASIC W/ SOD TAB PO SCH (09:07)
[2023-05-06] MEDS: FOLIC ACID 1 MG TAB PO SCH (09:07)
[2023-05-06] MEDS: MEGESTROL ACETATE SUSP 400 MG/10 ML UDC PO SCH (09:07)
[2023-05-06] MEDS: METOPROLOL SUCC 50MG EXT REL TAB PO SCH (09:10)
[2023-05-06] MEDS: MoRPHine SULFATE 2 MG/ML CARP IV PRN (15:53)
[2023-05-06] MEDS: DIGOXIN 0.125 MG TAB PO SCH (15:56)
[2023-05-06] MEDS: DIGOXIN 125 MCG in SYRINGE 9.5 ML IV SCH (18:59)
[2023-05-07] MEDS: CEFEPIME 2,000 MG in SYRINGE 0 ML IV SCH ×2 (02:47→15:45)
[2023-05-07] MEDS: ACETAMINOPHEN 1,000 MG/100 ML VIAL IV PRN ×2 (02:55→18:45)
--- NOTE | 2023-05-07 06:54 | Hospitalist Progress Note ---
Date of Service May 07, 2023 Assessment & Plan (1) AMS (altered mental status): (2) Hypomagnesemia: (3) Anemia: (4) Malignant neoplasm of prostate metastatic to bone: (5) Atrial fibrillation with rapid ventricular response: (6) Prostate cancer: (7) Chronic diastolic heart failure due to hypertrophic obstructive cardiomyopathy: (8) Urinary retention: Plan Pt is a 72-year-old male with a past medical history of gram-negative bacteremia, A-fib on Eliquis, prostate cancer with mets currently receiving treatment, bladder retention now with chronic indwelling fermin, ascending aortic aneurysm and HFpEF who presented to the [facility] ED on 05/04 after his catheter was pulled out and admitted for AMS. Today, pt appears clinically dry. so will do IVF today. Stop after 2 bags. Urine cx also growing coag neg staph, likely a contaminant and with no systemic signs or white count, will d/c antibiotics. Attempted to call daughter Karin parnell today but no answer. Holding eliquis today still. Holding lasix. Weight stable. AMS (altered mental status) - family states he is oriented to person, place, and month typically, currently stable but pleasantly confused, only oriented to self - pt presented with high lactate, procal, leukocytosis, so suspect AMS may be entirely or partially due to acute infection with suspected source being urinary with chronic fermin - imaging findings include: advanced coronary disease, diffuse and extensive osteoblastic metastatic disease, L>R pleural effusions with bibasilar opacities, liver cirrhosis, CT head wnl - AMS likely multifactorial, infectious vs progression of extensive metastatic disease vs acute anemia vs polypharmacy - Hold Remeron for now - blood cx negative 48 hours, and urine cx staph, awaiting susceptibilities - continue cefepime IV Prostate cancer with metastases - by our CT scan here compared to previous, metastatic disease is diffuse and extensive at this point - Continue to follow with Urology and Heme/onc Urinary retention with chronic fermin Hematuria -Has been dealing with 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 -Fermin cath replaced by Urology on admission, urology following -Likely due gross hematuria since pulling his fermin catheter out or from multiple unsuccessful attempts in [place] to replace -Holding Eliquis for now Anemia -Hgb 12 as of 02/22, 8.1 this morning -Patient is currently stable -Will hold Eliquis for now -Spoke to his Daughter, Karin, who gave consent for blood transfusion if needed due to his acute confusion Atrial fibrillation -Currently in rate controlled afib - dig level wnl Chronic diastolic heart failure due to hypertrophic obstructive cardiomyopathy -dehydrated on admission, IVF given - continue metoprolol -Holding diuretics for now as pt appeared clinically dehydrated on admission VTE Ppx: holding home eliquis due to acute hematuria on admission with anemia IVF: 80 mL/hr LR to stop after 2 bags Lines: fermin in place Admission and Anticipated Discharge Date Admission Date: May 04, 2023 Supervising Physician Co-Signing Physician Notes I personally examined the patient and verified all lara points of history and exam, discussed case, and agree with decision making with Dr Denise no meaningful HPI or ROS obtainable. dr denise attempted to call family multiple times - no answer adaalfonso noted nad heent nc at mmm breathing unlabored no accessory muscles good effort skin no rashes no icterus delirium/metabolic encephalopathy- dehydration appears to be a big driving factor. fluids - poor PO intake at this time. supportive care. mets prostate ca - concerning - family would like opinion at [place] reportedly --> reasonable; will try to help facilitate as outpt otherwise as above Subjective Pt is a 72-year-old male with a past medical history of gram-negative bacteremia, A-fib on Eliquis, prostate cancer with mets currently receiving treatment, bladder retention now with chronic indwelling fermin, ascending aortic aneurysm and HFpEF who presented to the [facility] ED on 05/04 after his catheter was pulled out and admitted for AMS. Today, pt nonverbal and looks very fatigued. and clinically dry. No acute distress. Sleeping comfortably in bed. Nursing staff deny overnight events. Last dose of morphine yesterday at 4pm. Ativan prn not given. They note less clots in his fermin overnight than the previous night. Review of Systems Review of Systems: As per HPI. Physical Exam Physical Exam: General:Fatigued, opens eyes to sound but does not give verbal responses, appears clinically dry Cardio: Regular rate, irregularly irregular rhythm, no murmur appreciated Resp:Lungs clear to auscultation b/l, no increased work of breathing GI: Soft, bowel sounds active : fermin in place with some blood oozing around the urethral opening, draining straw colored urine this morning with some sediment noted in the fermin tubing and bloody urine in the bag from last night Ext: no swelling noted Skin: Warm, dry, Results & Data Results & Data Vital Signs (Past 12 Hours) Vital Signs Temp Pulse Pulse Resp BP Pulse Ox O2 Del Method 05/07/23 03:47 37 C 89 16 106/60 95 Nasal Cannula 05/06/23 23:29 36.9 C 84 16 101/70 95 Nasal Cannula 05/06/23 21:56 94 H 05/06/23 20:00 Nasal Cannula 05/06/23 19:40 37 C 92 H 16 103/61 95 Nasal Cannula 05/06/23 18:59 94 H O2 Flow Rate 05/07/23 03:47 1.5 05/06/23 23:29 1.5 05/06/23 21:56 05/06/23 20:00 1.5 05/06/23 19:40 1.5 05/06/23 18:59 Resident Activity Tracking Resident Involvement: Resident Care Provided Care Provided: Adult Hospital Medicine (3) Anemia Anemia type: unspecified type Qualified Code(s): D64.9 - Anemia, unspecified
[2023-05-07 09:43] LABS: Basophils # (auto) 0.06 K/uL (0.00-0.20); Basophils % (auto) 0.6 %; Eosinophils # (auto) 0.31 K/uL (0.00-0.50); Eosinophils % (auto) 3.3 %; Hematocrit (blood only) 24.6 % (42.0-52.0); Hemoglobin 8.4 g/dl (14.0-18.0); Immature Granulocytes # (auto) 0.36 K/uL (0.01-0.20); Immature Granulocytes % (auto) 3.8 %; Lymphocytes # (auto) 1.49 K/uL (1.20-3.40); Lymphocytes % (auto) 15.9 %; Mean Corpuscular Hemoglobin 32.7 pg (25.0-34.0); Mean Corpuscular Hgb Conc 34.1 g/dL (32.0-36.0); Mean Corpuscular Volume 95.7 fL (80.0-100.0); Mean Platelet Volume 8.8 fL (9.4-12.4); Monocytes % (auto) 12.8 %; Neutrophils # (auto) 5.97 K/uL (1.40-6.50); Neutrophils % (auto) 63.6 %; Nucleated RBC # (auto) 0.03 K/uL (0.00-0.12); Nucleated RBC % (auto) 0.3 %; Platelet Count 241 K/uL (130-400); RDW Coefficient of Variation 17.2 % (11.5-14.5); RDW Standard Deviation 59.9 fL (36.4-46.3); Red Blood Count 2.57 M/uL (4.70-6.10); White Blood Count 9.39 K/ul (4.8-10.8)
[2023-05-07 09:56] LABS: Albumin Globulin Ratio 0.6 (0.9-2); Albumin Level 2.2 gm/dl (3.4-5.0); BUN Creatinine Ratio 62.7 (10-20); Bilirubin,Total 0.7 mg/dl (0.2-1.0); Calcium 9.1 mg/dl (8.6-10.3); Creatinine Clr Calc Pharmacy 124.2 ml/min; Est GFR (African American) 117.2 ml/min; Est GFR (Non-African American) 101.1 ml/min; Globulin 3.4 gm/dl (2.5-4.0); Magnesium 1.8 mg/dl (1.7-2.4); Potassium 3.4 mmol/L (3.5-5.1); Total Protein 5.6 gm/dl (6.0-8.3)
[2023-05-07 10:09] LABS: INR 1.6 (0.9-1.1); Prothrombin Time 17.3 Seconds (9.0-12.0)
[2023-05-07] MEDS: FOLIC ACID 1 MG TAB PO SCH (12:30)
[2023-05-07] MEDS: allopurinoL 100 MG TAB PO SCH (12:30)
[2023-05-07] MEDS: MEGESTROL ACETATE SUSP 400 MG/10 ML UDC PO SCH (12:30)
[2023-05-07] MEDS: METOPROLOL SUCC 50MG EXT REL TAB PO SCH (12:31)
[2023-05-07] MEDS: POT PHOSPHATE MONOBASIC W/ SOD TAB PO SCH (12:31)
[2023-05-07] MEDS: LACTATED RINGER'S 1,000 ML IV SCH (13:08)
[2023-05-07] MEDS: DIGOXIN 125 MCG in SYRINGE 9.5 ML IV SCH (16:08)
--- NOTE | 2023-05-07 17:41 | Billing Data ---
Date of Service May 07, 2023 Coding Level of Care Code 72876 SUB INP/OBS CARE
[2023-05-07] MEDS: LORazepam 0.5 MG in SYRINGE 0.25 ML IV PRN (19:15)
[2023-05-07] MEDS: MoRPHine SULFATE 2 MG/ML CARP IV PRN (20:14)
[2023-05-08] MEDS: LACTATED RINGER'S 1,000 ML IV SCH ×2 (01:18→14:07)
--- NOTE | 2023-05-08 06:43 | Hospitalist Progress Note ---
Date of Service May 08, 2023 Assessment & Plan (1) AMS (altered mental status): (2) Hypomagnesemia: (3) Anemia: (4) Malignant neoplasm of prostate metastatic to bone: (5) Atrial fibrillation with rapid ventricular response: (6) Prostate cancer: (7) Chronic diastolic heart failure due to hypertrophic obstructive cardiomyopathy: (8) Urinary retention: Plan Pt is a 72-year-old male with a past medical history of gram-negative bacteremia, A-fib on Eliquis, prostate cancer with mets currently receiving treatment, bladder retention now with chronic indwelling fermin, ascending aortic aneurysm and HFpEF who presented to the [facility] ED on 05/04 after his catheter was pulled out and admitted for AMS. Today, pt continues to be altered but in the evening when seen appears more awake. Daughter spoke to Dr. Nieves and agreeable to NGT for feedings if pt still does not eat. As pt is more awake this evening, will attempt oral feeds again and only place NGT if pt does not tolerate feedings. IV cefepime D/C'ed yesterday afternoon as urine cx likely skin contaminant, robin ecially in the setting of repeat catheter placement. Blood cx negative. Holding eliquis today still. Holding lasix. Gained about 1 kg since yesterday. AMS (altered mental status) - family states he is oriented to person, place, and month typically, currently stable but pleasantly confused, only oriented to self - pt presented with high lactate, procal, leukocytosis, so suspect AMS may be entirely or partially due to acute infection with suspected source being urinary with chronic fermin - imaging findings include: advanced coronary disease, diffuse and extensive ost eoblastic metastatic disease, L>R pleural effusions with bibasilar opacities, liver cirrhosis, CT head wnl - AMS likely multifactorial, infectious vs progression of extensive metastatic disease vs acute anemia vs polypharmacy - Hold Remeron for now - blood cx negative 48 hours, and urine cx staph which is most likely skin jonna, no clear evidence of UTI, antibiotics have been stopped Prostate cancer with metastases - by our CT scan here compared to previous, metastatic disease is diffuse and extensive at this point - Continue to follow with Urology while inpatient Urinary retention with chronic fermin Hematuria -Has been dealing with 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 -Fermin cath replaced by Urology on admission, urology following -Likely due gross hematuria since pulling his fermin catheter out or from multiple unsuccessful attempts in [place] to replace -Holding Eliquis for now Anemia (likely partially dilutional, partially acute blood loss) -Hgb 12 as of 02/22, 8.1 this morning -Patient is currently stable -Will hold Eliquis for now -Spoke to his Daughter, Karin, who gave consent for blood transfusion if needed due to his acute confusion Atrial fibrillation -Currently in rate controlled afib - dig level wnl Chronic diastolic heart failure due to hypertrophic obstructive cardiomyopathy -dehydrated on admission, IVF given - continue metoprolol -Holding diuretics for now as pt appeared clinically dehydrated on admission VTE Ppx: holding home eliquis due to acute hematuria on admission with anemia IVF: 80 mL/hr LR maintenance fluids Lines: fermin in place Admission and Anticipated Discharge Date Admission Date: May 04, 2023 Supervising Physician Co-Signing Physician Notes I personally examined the patient and verified all lara points of history and exam, discussed case, and agree with decision making with Dr Johnson no meaningful HPI or ROS obtainable. Is opening eyes, moving around, making some eye contact and grunting a little, definitely not at all meaningful communication but also definitely progress from yesterday. rony noted nad heent nc at mmm breathing unlabored no accessory muscles good effort skin no rashes no icterus delirium/metabolic encephalopathy- dehydration appears to be a big driving factor. Poor p.o. intakemaintenance fluids until he shows inability to take in p.o. well enough. Certainly nutrition is of concern as wellafter palliative discussion with family and outlining goals of care, if he is not starting to eat as this afternoon progresses (which is now possible to happen given that he is more alert, but certainly not clearly a guarantee), family would like to proceed with NG tube for nutrition. Otherwise as above. otherwise as above Subjective Pt is a 72-year-old male with a past medical history of gram-negative bacteremia, A-fib on Eliquis, prostate cancer with mets currently receiving treatment, bladder retention now with chronic indwelling fermin, ascending aortic aneurysm and HFpEF who presented to the [facility] ED on 05/04 after his catheter was pulled out and admitted for AMS. Today, pt is still not giving verbal responses and appears very out of it today. No acute distress and does not appear to be in pain. Review of Systems Review of Systems: As per HPI. Physical Exam Physical Exam: General:Fatigued, opens eyes to sound but makes limited eye contact before closing them again, no acute distress, Cardio: Regular rate, irregularly irregular rhythm, no murmur appreciated Resp:Lungs clear to auscultation b/l, no increased work of breathing GI: Soft, bowel sounds active : fermin in place draining urine appropriately Ext: 1+ pitting edema of the legs noted Skin: Warm, dry, Results & Data Results & Data Vital Signs (Past 12 Hours) Vital Signs Temp Pulse Pulse Resp BP Pulse Ox O2 Del Method 05/08/23 04:20 36.3 C L 93 H 18 101/57 L 100 Nasal Cannula 05/08/23 04:09 87 05/08/23 00:38 Nasal Cannula 05/07/23 23:23 35.9 C L 96 H 18 110/64 100 Nasal Cannula 05/07/23 19:53 36.4 C L 91 H 16 106/61 93 Nasal Cannula O2 Flow Rate 05/08/23 04:20 2 05/08/23 04:09 05/08/23 00:38 2 05/07/23 23:23 2 05/07/23 19:53 2 Resident Activity Tracking Resident Involvement: Resident Care Provided Care Provided: Adult Hospital Medicine (3) Anemia Anemia type: unspecified type Qualified Code(s): D64.9 - Anemia, unspecified
[2023-05-08] MEDS: MEGESTROL ACETATE SUSP 400 MG/10 ML UDC PO SCH (07:42)
[2023-05-08] MEDS: METOPROLOL SUCC 50MG EXT REL TAB PO SCH (07:42)
[2023-05-08] MEDS: POT PHOSPHATE MONOBASIC W/ SOD TAB PO SCH (07:42)
[2023-05-08] MEDS: FOLIC ACID 1 MG TAB PO SCH (07:42)
[2023-05-08] MEDS: allopurinoL 100 MG TAB PO SCH (07:42)
[2023-05-08 10:05] LABS: Basophils # (auto) 0.07 K/uL (0.00-0.20); Basophils % (auto) 0.6 %; Eosinophils # (auto) 0.33 K/uL (0.00-0.50); Eosinophils % (auto) 2.8 %; Hematocrit (blood only) 25.4 % (42.0-52.0); Hemoglobin 8.5 g/dl (14.0-18.0); Immature Granulocytes # (auto) 0.47 K/uL (0.01-0.20); Lymphocytes # (auto) 1.48 K/uL (1.20-3.40); Lymphocytes % (auto) 12.7 %; Mean Corpuscular Hemoglobin 32.4 pg (25.0-34.0); Mean Corpuscular Hgb Conc 33.5 g/dL (32.0-36.0); Mean Corpuscular Volume 96.9 fL (80.0-100.0); Mean Platelet Volume 8.5 fL (9.4-12.4); Monocytes % (auto) 11.2 %; Neutrophils # (auto) 7.99 K/uL (1.40-6.50); Neutrophils % (auto) 68.7 %; Nucleated RBC # (auto) 0.03 K/uL (0.00-0.12); Nucleated RBC % (auto) 0.3 %; Platelet Count 220 K/uL (130-400); RDW Coefficient of Variation 17.4 % (11.5-14.5); RDW Standard Deviation 61.3 fL (36.4-46.3); Red Blood Count 2.62 M/uL (4.70-6.10); White Blood Count 11.64 K/ul (4.8-10.8)
--- NOTE | 2023-05-08 12:30 | Palliative Care Consultation ---
Date of Consultation May 08, 2023 Assessment & Plan (1) Cancer related pain: Patient has had 2 doses of IV morphine 2 mg in the past 72 hours. His continued and persistent lethargy, altered mental status and general decline is not due to these 2 as needed doses of opioid. (2) Weakness generalized: (3) Acute on chronic alteration in mental status: (4) Discussion about advance care planning held with family member: For Oncology Patients: Patient's Palliative Prognostic Score (PaP) Score = 13.5 points /Interpretation: 30-day survival probability <30% (0 - 5.5: 30-day survival probability >70% | 5.6 - 11.0: 30-day survival probability 30-70% | 11.1 - 17.5: 30-day survival probability <30%); learn more here: [email or web address] Patient's Palliative Prognostic Index (PPI) Score = 15 points/ Note:If the PPI is greater than 6.0, survival is less than three weeks (Sensitivity - 80%; Specificity - 85%). learn more here: [email or web address] I called Karin Post/pt daughter and SDM at [phone] (cell phone #) for a 30 min ACP by phone at her preference. I reviewed the medical findings to date and concerns re patient's mental status, functional decline/overall poor PS and new complications of he is not taking PO going on 3 days and we are at a crossroads of needing to make some major decisions. I shared with her my worry that he continues to decline in spite of escalating medical interventions since admission. Additionally, in spite of IV hydration and additional therapies, his mental status has not improved, his oral intake remains poor to none, and he is becoming more lethargic. We discussed CODE STATUS.I recommended no code and advised her of the palliative prognostic scores and overall poor outcome: I reviewed that only about 10% of patients who have pfm-rx-nkskuoza sudden cardiac arrest survive to hospital discharge, with many survivors having neurologic impairment. This rate is even lower among patients with serious coexisting conditions, ie chance of survival to hospital discharge for in-hospital CPR in older people is low to moderate (15%) and decreases with age, comorbidities, performance status and frailty: for pts > 70 yo, more than half of the patients who initially survived resuscitation in the hospital before hospital discharge. The pooled survival to discharge after in-hospital CPR was 18% for patients between 70 and 79 years old, 15% for patients between 80 and 89 years old and 11% for patients of 90 years and older. (Reji LEMUSY, Wero LJ, Anthony F, et al. Trends in short- and long-term survival among sgu-ak-ecebdtpu cardiac arrest patients alive at hospital arrival. Circulation 2014;130:3527-0429. AND Felicitas C, Idalia T, Brianne R, et al. Performance of clinical risk scores to predict mortality and neurological outcome in cardiac arrest patients. Resuscitation 2019;136:21-29.) I also advised I do not feel he would liberate from life support or recover to a better than current baseline. In fact, he would likely be in a much lower baseline and requires significantly more buqkja-paz-xbcrw care. She tell me she needs to discuss this more with additional family I will try to call the primary team or nursing later today with a decision. I also reviewed that we are at the junction of needing to decide if he should h ave an NGT trial vs feeding tube and is this something pt would want for himself. Karin states she would like a trial of nasogastric feedings because "we talked to a family friend who had his tongue cut out for cancer and he has a tube in his stomach and he's doing great!" I advised we could offer a time limited NGT trial: if no improvement in 3 days or he worsens in next 3 days in spite of NGT feeds and/or he has complications of it such as aspiration or he removes it etc., then we know it is not going to be a helpful intervention. I told her we should follow up afternoon with discussion about NGT helping/not helping. She says if he is worsening or NGT doesn't help she would want him home with hospice and she already spoke with Anita at [facility] who told Karin they would be able to accept him on service with their hospice team. We discussed the goals of hospice as a patient service and the goals of care; we discussed EOL trajectories and transitions robin the emotional impact of realizing mortality as a concrete reality from prior abstract considerations. Pt was reassured that no matter where they are along this trajectory, they are not alone - their medical team will remain by their side through their journey. Discussed the pros/cons of accepting help when especially weakened and distressed by pain-which would also help provide relief/decrease caregiver burden/strain. Karin shares that she believes in miracles and continues to hope that patient can improve. She states she wants him to live forever and she will care for him at home. I expressed my worry his care is beginning to exceed what can safely be given at home and he needs more technical care and support by licensed medical and nursing professionals. She also notes that he was fine for several years when he was on oral chemotherapy and injection therapy but the real issues and complications began when he started chemo. We discussed I would transition to chemotherapy was initiated when there was progression on his prior therapies and his overall goal at that time was to continue interventions that may help control, slow down or otherwise limit the speed of his disease progression. He resides at home with his daughter. She has been his primary caregiver for many years and tells me she has several private caregivers who assist in his care at her home. (5) Palliative care by specialist: Met with pt who is confused at baseline, there is no family present. I called his daughter Karin, who told nursing she preferred a phone call instead of any face to face meetings. Provided overview of Palliative Medicine, a subspecialty that provides specialized medical care for people living with a serious illness by offering a focus on quality of life. Palliative Medicine is often conflated with hospice: I advised patient/family that Palliative and hospice can be partners but we are not the same. It is important to understand the difference so that we may be informed, and not afraid. Palliative Medicine works to improve QOL through reduction of symptom burden/more control over their illness, for both the patient and family. Palliative medicine clinicians are board certified, specially-trained and another member of the patient's medical care team. We often provide an extra layer of support because our care is based on the needs of the patient, not the prognosis; as such, it's appropriate at any age/advancing stage of a serious illness and can be provided along with curative treatment. Palliative Medicine clinicians are also trained in advanced communication methodologies, to facilitate complex discussions about advanced illness planning, which are needed to help assure that the treatment choices match the patient's goals, aka delivering Goal Concordant care. Finally, we discussed that hospice is a visiting nurse service that focuses on care delivered at the very end of life for patients with terminal illness, with life expectancy less than 6 month. (6) Malignant neoplasm of prostate metastatic to bone: (7) Atrial fibrillation with rapid ventricular response: (8) Chronic diastolic heart failure due to hypertrophic obstructive cardiomyopathy: Plan See ACP discussion above pt has a worsening FTT and while dtr believes this is bc of chemo, I spent >15mi n trying to explain his advancing age, progressive cancer and declining PS are all contributing to his general downward spiral. He is not going to get "better" the way she expects even though she shared story of family friend w./ENT cancer who had a PEG after hypoglossal resection. Primary team updated Dtr to update primary team / nursing re code status decision There may be issues re secondary gain. Recc follow up meeting by afternoon - may need to be done with primary team as I will be in clinic all day. Thank you for allowing us to participate in the ongoing care of this patient. Please don't hesitate to call or page with any additional concerns. Dr. Staci Nieves DNP Director, Palliative Care History of Present Illness Reason for Consultation: Pt has prostate ca with extensive mets Attending Physician: Michael King DO History of Present Illness 05/04/23 admission Per admitting note: "Last [place] is a 72-year-old male with a past medical history of gram- negative bacteremia, A-fib on Eliquis, prostate cancer currently receiving treatment, bladder retention now with chronic indwelling fermin, ascending aortic aneurysm and HFpEF who presented to the [facility] ED on 05/04 after he pulled out his fermin catheter. In the ED he was initially noted to be hypotensive at 80/49, tachycardic at 100 BPM but otherwise stable. Labs were significant for a leukocytosis of 11, hgb of 9.9 (Down from 12.5 as of 02/22), BUN of 38, initial lactate of 2.6, mag of 1.4, and dig level of 2.2. Chest xray was read as 1. Cardiomegaly without acute process.2. Small left greater than right pleural effusions with mild left basilar opacities again noted. CT of the abd/pelvis wo con was read as 1. No acute infectious or inflammatory findings are identified in the abdomen or pelvis. 2. No bowel obstruction. 3. There is retroperitoneal and iliac chain lymphadenopathy. This is new from 05/25/2022 and indicates progressive metastatic disease. 4. Extensive/diffuse osteoblastic metastatic disease has also progressed from previous. 5. Small right and moderate left pleural effusions with dependent consolidation. These are similar to the 04/06/[address] and new from 05/25/2022. 6. The liver is steatotic and cirrhotic in morphology. 7. Cardiomegaly with advanced coronary artery atherosclerosis. 8. There is aneurysmal dilatation of the ascending thoracic aorta which measures up to 4.6 cm. This is unchanged from the recent chest CT. 9. Additional findings as above. Prior to admission the patient was given 1.5L NSS, a dose of cefepime, and 1gm IV mag. At the time of the exam the patient was lying in bed in no acute distress, he appears pleasantly confused. Unfortunately family had already left prior to my exam. The patient states that his fermin catheter came out earlier but was unable to provide additional information. His only complaint at this time is that "my butt is itchy". He denies any other complaints. I was able to speak with with his daughter/primary caregiver, Karin Post [phone], to obtain further information. She states that they initially brought the patient to the [facility] ED because he pulled his fermin catheter out and had increased confused compared to baseline. At his baseline he is normally oriented to person, place, and at least month. [facility] ED was unable to successfully replace the fermin and Dr. Manzanares or Urology accepted the patient for transfer to our ED for evaluation. The patient's fermin was successfully replaced by Urology. There were concerns for his clinical and mental change, because of this the ED was asked to evaluate the patient. She confirms that he had all of his medications yesterday, including his HS dose of Eliquis. They are aware of the progression of his prostate cancer, they are planning on having him evaluated at [facility] in the near future for further possible treatment options. He is a full code and she would make medical decisions for him while he cannot make his own medical decisions." Pt was transferred from OSH for fermin cath change which OSH could not do. His chronic urinary retention is due to his prostate cancer which recent imaging revealed to be progressing. He was evaluated in ED due to AMS and Abtx were started. The IV cefepime has been stopped given that urine cx Staph --> likely skin contaminant, especially in the setting of repeat catheter placement. Blood cx negative. He remains pleasantly confused Daughter is SDM and has advised prior providers plan is to re visit chemo and cancer directed therapy options at [facility] once stable from this admission. Allergies Allergy/AdvReac Type Severity Reaction Status Date / Time amiodarone AdvReac Severe Pneumonitis Unverified 05/04/23 10:20 Home Medications Medication Instructions Recorded Confirmed Type allopurinol 100 mg tablet 200 mg PO DAILY 10/21/19 05/04/23 History (Zyloprim) cholecalciferol (vitamin D3) 25 1,000 unit PO QAM 03/23/20 05/04/23 History mcg (1,000 unit) capsule (Vitamin D3) calcium carbonate 600 mg calcium 600 mg PO QAM 02/27/21 05/04/23 History (1,500 mg) tablet (Calcium) cyanocobalamin (vitamin B-12) 500 500 mcg PO QAM #30 tabs 03/05/21 05/04/23 Rx mcg tablet digoxin 125 mcg (0.125 mg) tablet 125 mcg PO DAILY 10/18/22 05/04/23 History lorazepam 1 mg tablet 0.5 - 1 mg PO Q6 PRN Anxiety 12/01/22 05/04/23 History Lactobacillus acidophilus 500 100 cell PO DAILY 05/04/23 05/04/23 History million cell capsule Super Mushroom 1 packet PO DAILY 05/04/23 05/04/23 History acetaminophen 500 mg tablet 500 mg PO Q6H PRN pain/fever 05/04/23 05/04/23 History apixaban 5 mg tablet (Eliquis) 5 mg PO BID 05/04/23 05/04/23 History folic acid 1 mg tablet 1 mg PO DAILY 05/04/23 05/04/23 History furosemide 40 mg tablet 40 mg PO QAM 05/04/23 05/04/23 History megestrol 400 mg/10 mL (40 mg/mL) 400 mg PO DAILY 05/04/23 05/04/23 History oral suspension metoprolol succinate 100 mg 100 mg PO DAILY 05/04/23 05/04/23 History tablet,extended release 24 hr mirtazapine 15 mg tablet 15 mg PO DAILY 05/04/23 05/04/23 History ondansetron 4 mg disintegrating 4 mg PO Q4H PRN Nausea And Vomiting 05/04/23 05/04/23 History tablet sodium di- and 1 tab PO DAILY 05/04/23 05/04/23 History monophosphate-potassium phos monobasic 250 mg tablet (Phospha Neutral) Patient History Medical History Weakness Gout Pneumonia due to COVID-19 virus Chronic diastolic CHF (congestive heart failure) Restrictive lung disease Acute respiratory failure with hypoxia Hyponatremia Atrial fibrillation with RVR Basal cell carcinoma of dorsum of nose Congestive heart failure Idiopathic peripheral neuropathy Hyperlipidemia Polyp of colon BPH (benign prostatic hyperplasia) GERD (gastroesophageal reflux disease) Vitamin D deficiency 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 Father , age 41 complications of jungle rot WW2 Heart disease Son No problems noted. Son No problems noted. Daughter No problems noted. 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 Feels Safe at Home: Yes Childhood Exposure to Second-Hand Smoke: Yes Diet: regular caffeine: Yes (one cup coffee per day) during the past year weight has: remained stable Dental Care, Regularly: Yes Physical Activity Frequency: Daily Seatbelt Use: always Sunscreen Use: Yes Do you think of yourself as: straight/heterosexual Gender Identity: Male Assistive Devices: Walker and Wheelchair Review of Systems Review of Systems: Unobtainable due to cognitive status Physical Exam Constitutional: + acute distress, + ill appearing, + alt ered mental status, + physical limitations, + in distress and + lethargic Eyes: PERRL ENMT: Mouth: + dry oral mucous membranes and + poor dentition Neck: trachea midline Respiratory: + uses accessory muscles, + cough and + prolonged expiratory phase Cardiovascular: Heart Sounds: normal S1 and normal S2 Extremities: + pedal edema Gastrointestinal (Abdomen): Inspection/Auscultation: + abdomen distended Percussion/Palpation: abdomen soft Musculoskeletal: Generalized weakness, unable to follow commands Skin: + Pale, + diaphoretic, scattered ecchymo ses Neurologic: Confused at baseline, unable to follow commands, unable to provide HPI. Results & Data Vital Signs (Past 12 Hours) Vital Signs Temp Pulse Pulse Resp BP Pulse Ox O2 Del Method 05/08/23 10:48 36.8 C 98 H 20 97/63 L 97 Nasal Cannula 05/08/23 07:30 Nasal Cannula 05/08/23 07:29 36.6 C 102 H 18 118/60 91 Nasal Cannula 05/08/23 05:58 96 H 05/08/23 04:20 36.3 C L 93 H 18 101/57 L 100 Nasal Cannula 05/08/23 04:09 87 05/08/23 00:38 Nasal Cannula O2 Flow Rate 05/08/23 10:48 2 05/08/23 07:30 2 05/08/23 07:29 2 05/08/23 05:58 05/08/23 04:20 2 05/08/23 04:09 05/08/23 00:38 2 Laboratory Results data reviewed, see HPI Diagnostic Findings data reviewed, see HPI PG Care Time/CCT Total # of Minutes Spent Total Time Spent: 100 Total Time Spent with Patient: Total time spent is greater than 50% in coordination of care (as documented) at patient's floor/unit and/or counseling patient: I spent 100 minutes overall addressing this complex case: 20 min in medical data review/discussion with referring provider(s) and/or preparation for the visit 20 min in direct interaction with the patient/exam 30 min in Advance Care Planning/Goals of Care discussions as detailed above in note (must be >16min) with daughter by phone,s ee above 15 min in subsequent review and synthesis of assessment and plan 15 min communicating with other providers regarding the patient's case: nursing, primary team Advanced Care Planning 60395 Advanced Care Planning 30 [place] [address] IN/OBS CONSULT LVL 5,80M Patient Type New Medical Decision Making High Complexity Diagnoses Cancer related pain G89.3 Weakness generalized R53.1 Acute on chronic alteration in mental status R41.82 Discussion about advance care planning held with family member Z71.0 Palliative care by specialist Z51.5 Malignant neoplasm of prostate metastatic to bone C61; C79.51 Atrial fibrillation with rapid ventricular response I48.91 Chronic diastolic heart failure due to hypertrophic obstructive cardiomyopathy I50.32; I42.1 Additional Codes Advanced Care Planning - 96442 Advanced Care Planning 30 Min: 80530 Advanced Care Planning 30 Min ([id number])
[2023-05-08] MEDS: DIGOXIN 125 MCG in SYRINGE 9.5 ML IV SCH (15:10)
[2023-05-08] MEDS: POTASSIUM CHLORIDE / WTR 10 MEQ/100 ML PLCT IV SCH ×4 (16:30→19:45)
--- NOTE | 2023-05-08 17:22 | Billing Data ---
Date of Service May 08, 2023 Coding Level of Care Code 91069 SUB INP/OBS CARE
[2023-05-08] MEDS ORDERED: FIBERSOURCE HN 1.2 CAL 1000 ML BAG NG SCH (18:30)
[2023-05-08] MEDS: MoRPHine SULFATE 2 MG/ML CARP IV PRN ×2 (18:31→22:24)
[2023-05-08] MEDS: LORazepam 0.5 MG in SYRINGE 0.25 ML IV PRN (19:59)
[2023-05-08] MEDS ORDERED: LORazepam 0.5 MG in SYRINGE 0.25 ML IV ONE (20:30)
[2023-05-09] MEDS: MoRPHine SULFATE 2 MG/ML CARP IV PRN ×3 (02:25→10:03)
[2023-05-09] MEDS: LACTATED RINGER'S 1,000 ML IV SCH ×2 (02:27→15:09)
[2023-05-09] MEDS ORDERED: LORazepam 0.5 MG in SYRINGE 0.25 ML IV STA (03:11)
--- NOTE | 2023-05-09 06:47 | Hospitalist Progress Note ---
Date of Service May 09, 2023 Assessment & Plan (1) AMS (altered mental status): (2) Hypomagnesemia: (3) Anemia: (4) Malignant neoplasm of prostate metastatic to bone: (5) Atrial fibrillation with rapid ventricular response: (6) Prostate cancer: (7) Chronic diastolic heart failure due to hypertrophic obstructive cardiomyopathy: (8) Urinary retention: Plan Pt is a 72-year-old male with a past medical history of gram-negative bacteremia, A-fib on Eliquis, prostate cancer with mets currently receiving treatment, bladder retention now with chronic indwelling fermin, ascending aortic aneurysm and HFpEF who presented to the [facility] ED on 05/04 after his catheter was pulled out and admitted for AMS. Today, NGT was unable to be placed last night as multiple attempts unsuccessful and lead to nose bleed. To reattempt today. Spoke to daughter over the phone and in person. Currently, she agrees with plan to reattempt and then will discuss alternative options if pt unable to tolerate NGT for feedings. 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 She will talk to family. Pt did have an increased WBC count 10 -> 14 with CXR showing increased edema an b/l pleural effusions. Mixed picture of pneumonia vs CHF fluid overload. Will monitor and labs and clinical status tomorrow will be telling for which direction it is taking. Pt currently on maintenance fluids 80/hr with hold of lasix since pt is not taking any intake by mouth due to acute delirium. Will do IV tylenol for pain, scheduled. Holding eliquis today still. Holding lasix. AMS (altered mental status) - family states he is oriented to person, place, and month typically, currently stable but pleasantly confused, only oriented to self - pt presented with high lactate, procal, leukocytosis, so suspect AMS may be entirely or partially due to acute infection with suspected source being urinary with chronic fermin - imaging findings include: advanced coronary disease, diffuse and extensive osteoblastic metastatic disease, L>R pleural effusions with bibasilar opacities, liver cirrhosis, CT head wnl - AMS likely multifactorial, infectious vs progression of extensive metastatic disease vs acute anemia vs polypharmacy - Hold Remeron for now - blood cx negative 48 hours, and urine cx staph which is most likely skin jonna, no clear evidence of UTI, antibiotics have been stopped - overall AMS likely from acute delirium secondary to dehydration in the context of a patient with extensive metastatic disease Prostate cancer with metastases - by our CT scan here compared to previous, metastatic disease is diffuse and extensive at this point - Continue to follow with Urology while inpatient Urinary retention with chronic fermin Hematuria -Has been dealing with 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 -Fermin cath replaced by Urology on admission, urology following -Likely due gross hematuria since pulling his fermin catheter out or from multiple unsuccessful attempts in [place] to replace -Holding Eliquis for now Anemia (likely partially dilutional, partially acute blood loss) -Hgb 12 as of 02/22, 8.1 this morning -Patient is currently stable -Will hold Eliquis for now -Spoke to his Daughter, Karin, who gave consent for blood transfusion if needed due to his acute confusion Atrial fibrillation -Currently in rate controlled afib - dig level wnl Chronic diastolic heart failure due to hypertrophic obstructive cardiomyopathy -dehydrated on admission, IVF given - continue metoprolol -Holding diuretics for now as pt appeared clinically dehydrated on admission VTE Ppx: holding home eliquis due to acute hematuria on admission with anemia IVF: 80 mL/hr LR maintenance fluids Lines: fermin in place Admission and Anticipated Discharge Date Admission Date: May 04, 2023 Supervising Physician Co-Signing Physician Notes I personally examined the patient and verified all lara points of history and exam, discussed case, and agree with decision making with Dr Johsnon no meaningful HPI or ROS obtainable. Daughter present at bedside. Extensive discussions in regards to acute diagnosis (predominantly delirium), acute management (predominantly centering on nutrition and hydration in the context of a delirious patient who is too hypotonic to be able to eat/drink for themselves), and overall chronic situation (got to this point of delirium largely from a failure to thrive phenotype that unfortunately appears to have largely been brought on by his baseline disease with cancer and its management. delirium/metabolic encephalopathy- dehydration appears to be the big driving factor prior to admission. given his ongoing poor p.o. intake and overall aggressive goals of careshe has been on maintenance fluid, we tried to pass an NG tube last night unsuccessfully, nursing will try again today. Discussed short-term and long-term goals of management, and how short-term, should his delirium clear and he is able to resume eating and drinking, certainly short- term course of nutrition/hydration support makes sense, discussed long-term how that is a much different and much more nuanced and difficult story. Daughter expressed some understanding, certainly right now would like to proceed with everything possible. In regards to his new oxygen requirementprobably new developing pneumonia, hard to rule out pulmonary edemaserial exams/labs/low threshold for CT to look at lung parenchyma in better detail. otherwise as above Subjective Pt is a 72-year-old male with a past medical history of gram-negative bacteremia, A-fib on Eliquis, prostate cancer with mets currently receiving treatment, bladder retention now with chronic indwelling fermin, ascending aortic aneurysm and HFpEF who presented to the [facility] ED on 05/04 after his catheter was pulled out and admitted for AMS. Today, pt moves about and looks about the room more than yesterday but does not give coherent verbal responses to any questions. No acute distress. Appears to be comfortably sleeping at this time. Review of Systems Review of Systems: As per HPI. Physical Exam Physical Exam: General:No acute distress, more awake and active this morning Cardio: Regular rate, irregularly irregular rhythm, no murmur appreciated Resp: no increased work of breathing, pt breathes with mouth wide open and maybe fine crackles heard on lower lung bases GI: Soft, bowel sounds active : fermin in place draining urine appropriately Ext: 2+ pitting edema of the legs noted Skin: Warm, dry, Results & Data Results & Data Vital Signs (Past 12 Hours) Vital Signs Temp Pulse Pulse Pulse Resp BP BP 05/09/23 04:02 99 H 05/09/23 03:05 37.1 C 109 H 18 124/83 05/08/23 23:47 36.2 C L 95 H 20 107/62 05/08/23 21:58 05/08/23 20:34 37.1 C 103 H 22 103/70 Pulse Ox O2 Del Method O2 Flow Rate 05/09/23 04:02 05/09/23 03:05 97 Nasal Cannula 2 05/08/23 23:47 100 Nasal Cannula 2 05/08/23 21:58 Nasal Cannula 2 05/08/23 20:34 95 Nasal Cannula 2 Resident Activity Tracking Resident Involvement: Resident Care Provided Care Provided: Adult Hospital Medicine (3) Anemia Anemia type: unspecified type Qualified Code(s): D64.9 - Anemia, unspecified
[2023-05-09] MEDS: ONDANSETRON INJ 2 MG/ML 2 ML VIAL IV PRN (07:33)
[2023-05-09 07:49] LABS: Basophils % (auto) 0.7 %; Eosinophils % (auto) 2.8 %; Hematocrit (blood only) 25.1 % (42.0-52.0); Hemoglobin 8.6 g/dl (14.0-18.0); Immature Granulocytes # (auto) 0.63 K/uL (0.01-0.20); Immature Granulocytes % (auto) 4.3 %; Lymphocytes # (auto) 2.14 K/uL (1.20-3.40); Lymphocytes % (auto) 14.7 %; Mean Corpuscular Hemoglobin 32.6 pg (25.0-34.0); Mean Corpuscular Hgb Conc 34.3 g/dL (32.0-36.0); Mean Corpuscular Volume 95.1 fL (80.0-100.0); Mean Platelet Volume 9.1 fL (9.4-12.4); Monocytes # (auto) 1.84 K/uL (0.11-0.59); Monocytes % (auto) 12.7 %; Neutrophils % (auto) 64.8 %; Nucleated RBC # (auto) 0.14 K/uL (0.00-0.12); Platelet Count 234 K/uL (130-400); RDW Coefficient of Variation 18.2 % (11.5-14.5); Red Blood Count 2.64 M/uL (4.70-6.10); White Blood Count 14.51 K/ul (4.8-10.8)
[2023-05-09 08:22] LABS: Alanine Aminotransferase 5 U/L (7-52); Albumin Globulin Ratio 0.6 (0.9-2); Alkaline Phosphatase 316 U/L (34-104); Anion Gap 10 (3-11); BUN Creatinine Ratio 62.7 (10-20); Bilirubin,Total 0.7 mg/dl (0.2-1.0); Blood Urea Nitrogen 37 mg/dl (6-23); Calcium 9.8 mg/dl (8.6-10.3); Carbon Dioxide 26 mmol/L (21-32); Chloride 104 mmol/L (98-107); Creatinine Clr Calc Pharmacy 124.2 ml/min; Est GFR (African American) 117.2 ml/min; Est GFR (Non-African American) 101.1 ml/min; Globulin 3.6 gm/dl (2.5-4.0); Glucose 68 mg/dl (70-99(Fasting)); Sodium 140 mmol/L (136-145); Total Protein 5.6 gm/dl (6.0-8.3)
[2023-05-09] MEDS: MEGESTROL ACETATE SUSP 400 MG/10 ML UDC PO SCH (09:05)
[2023-05-09] MEDS: allopurinoL 100 MG TAB PO SCH (09:05)
[2023-05-09] MEDS: FOLIC ACID 1 MG TAB PO SCH (09:05)
[2023-05-09] MEDS: METOPROLOL SUCC 50MG EXT REL TAB PO SCH (09:05)
[2023-05-09] MEDS: POT PHOSPHATE MONOBASIC W/ SOD TAB PO SCH (09:05)
[2023-05-09 09:28] LABS: Potassium 3.8 mmol/L (3.5-5.1)
[2023-05-09 09:46] LABS: C Reactive Protein 10.67 mg/dl (0-0.5)
--- NOTE | 2023-05-09 09:50 | XRay Report ---
XR chest 1V portable CLINICAL HISTORY: Increasing WBC count COMPARISON STUDY: Chest CT November 23, 2022. Chest radiograph May 04, 2023. FINDINGS: Multiple sclerotic skeletal lesions are present. There is no pneumothorax. Moderate bilater al pleural effusions, left larger than right, have significantly increased. Associated airspace opaci ties are present. Interstitial thickening has developed. Cardiomegaly is again noted. IMPRESSION: Interval development of pulmonary edema with moderate bilateral pleural effusions, left l arger than right. Associated airspace opacities could reflect pneumonia or atelectasis. ACT 112: Negative or not required by law. Electronically signed by: Fred Hensley M.D. 05/09/2023 9:48 AM
[2023-05-09] MEDS: ACETAMINOPHEN 1,000 MG/100 ML VIAL IV SCH ×2 (13:13→22:00)
--- NOTE | 2023-05-09 13:23 | XRay Report ---
KUB CLINICAL HISTORY: Enteric tube placement. FINDINGS: An AP, portable, supine view of the lower chest and upper abdomen is correlated with abdomi nal CT dated 05/04/2023. An enteric tube has been placed. The tip projects below the diaphragm over t he gastric fundus. There is no bowel obstruction. No evidence of intraperitoneal free air is seen in the upper abdomen. There are layering pleural effusions with dependent consolidation. Findings of ost eoblastic metastatic disease are again noted. IMPRESSION: 1. An enteric tube has been placed as above. 2. There is no evidence of bowel obstruction. 3. Layering pleural effusions with dependent consolidation. Electronically signed by: [place] Hughes M.D. 05/09/2023 1:22 PM
--- NOTE | 2023-05-09 14:54 | Billing Data ---
Date of Service May 09, 2023 Coding Level of Care Code 18367 SUB INP/OBS CARE
[2023-05-09] MEDS ORDERED: FIBERSOURCE HN 1.2 CAL 1000 ML BAG NG SCH (15:15)
[2023-05-09] MEDS: TUBE FEEDING WATER FLUSH NG SCH ×2 (16:01→22:01)
[2023-05-09] MEDS: DIGOXIN 125 MCG in SYRINGE 9.5 ML IV SCH (17:00)
[2023-05-09 17:27] LABS: Appearance Urine Cloudy (Clear); Bacteria Urine Automated Negative (Negative); Bilirubin Urine Negative (Negative); Blood Urine 3+ (Negative); Color Urine Dark Yellow; Epithelial Cell Urine Auto >30 /lpf (0-5); Glucose Urine UA Negative (Negative); Ketones Urine Trace (Negative); Leukocyte Esterase Urine Negative (Negative); Nitrite Urine Negative (Negative); Protein Urine 2+ (Negative); Specific Gravity Urine 1.024 (1.000-1.030); Urobilinogen Urine Negative (Negative)
[2023-05-10] MEDS: TUBE FEEDING WATER FLUSH NG SCH ×6 (01:09→18:44)
[2023-05-10] MEDS: LACTATED RINGER'S 1,000 ML IV SCH ×2 (02:56→15:38)
[2023-05-10] MEDS: ACETAMINOPHEN 1,000 MG/100 ML VIAL IV SCH ×3 (04:47→21:46)
--- NOTE | 2023-05-10 06:44 | Hospitalist Progress Note ---
Date of Service May 10, 2023 Assessment & Plan (1) AMS (altered mental status): (2) Hypomagnesemia: (3) Anemia: (4) Malignant neoplasm of prostate metastatic to bone: (5) Atrial fibrillation with rapid ventricular response: (6) Prostate cancer: (7) Chronic diastolic heart failure due to hypertrophic obstructive cardiomyopathy: (8) Urinary retention: Plan Pt is a 72-year-old male with a past medical history of gram-negative bacteremia, A-fib on Eliquis, prostate cancer with mets currently receiving treatment, bladder retention now with chronic indwelling fermin, ascending aortic aneurysm and HFpEF who presented to the [facility] ED on 05/04 after his catheter was pulled out and admitted for AMS. Today, will start zosyn and get repeat blood cultures with rising WBC count, tachycardia, and CXR suggestive of pneumonia. Will do IV tylenol for pain, scheduled. IV zofran prn for nausea/vomiting. Holding eliquis today still. Holding lasix. Continue maintenance IVF. AMS (altered mental status) - family states he is oriented to person, place, and month typically, currently stable but pleasantly confused, only oriented to self - pt presented with high lactate, procal, leukocytosis, so suspect AMS may be entirely or partially due to acute infection with suspected source being urinary with chronic fermin - imaging findings include: advanced coronary disease, diffuse and extensive osteoblastic metastatic disease, L>R pleural effusions with bibasilar opacities, liver cirrhosis, CT head wnl - AMS likely multifactorial, infectious vs progression of extensive metastatic disease vs acute anemia vs polypharmacy - Hold Remeron for now - blood cx negative 48 hours, and urine cx staph which is most likely skin jonna, no clear evidence of UTI as cause of AMS - overall AMS likely from acute delirium secondary to dehydration in the context of a patient with extensive metastatic disease Pneumonia - pt meets sepsis criteria, tachy with white count, but will not bolus pt at this time as BP is stable and concerns for fluid overload in pt with progressive and extensive disease with poor urine output - CXR yesterday with increased pulm edema and b/l effusions - with AMS and somnolence, concern for aspiration pneumonia cannot be excluded - repeat blood cx ordered - will start zosyn Prostate cancer with metastases - by our CT scan here compared to previous, metastatic disease is diffuse and extensive at this point - Continue to follow with Urology while inpatient Urinary retention with chronic fermin Hematuria -Has been dealing with 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 -Fermin cath replaced by Urology on admission, urology following -Likely due gross hematuria since pulling his fermin catheter out or from multiple unsuccessful attempts in [place] to replace -Holding Eliquis for now Anemia (likely partially dilutional, partially acute blood loss) -Hgb 12 as of 02/22, 8.1 this morning -Patient is currently stable -Will hold Eliquis for now -Spoke to his Daughter, Karin, who gave consent for blood transfusion if needed due to his acute confusion Atrial fibrillation -Currently in rate controlled afib - dig level wnl Chronic diastolic heart failure due to hypertrophic obstructive cardiomyopathy -dehydrated on admission, IVF given - continue metoprolol -Holding diuretics for now as pt appeared clinically dehydrated on admission VTE Ppx: holding home eliquis due to acute hematuria on admission with anemia IVF: 80 mL/hr LR maintenance fluids Lines: fermin in place Admission and Anticipated Discharge Date Admission Date: May 04, 2023 Supervising Physician Co-Signing Physician Notes I personally examined the patient and verified all lara points of history and exam, discussed case, and agree with decision making with Dr Johnson no meaningful HPI or ROS obtainable. NG in place, appears to be tolerating tube feeds without problem. vitals noted nad heent nc at mmm NG without obvious breakdown. breathing unlabored no appearance of respiratory distress/cough/labored breathing/accessory muscles when i'm in the room. delirium/metabolic encephalopathy- dehydration appears to be the big driving factor prior to admission. NGT feeds for now. pneumonia - started abx, continue supportive care, fortunately not appearing extremely ill/severe distress although does fit criteria for SIRS/sepsis. low UO - likely prerenal from poor PO intake - considered increasing IV fluids but since now getting tube feeds will keep fluids at current rate, follow on tube feeds, follow UO and BMP otherwise as above Subjective Pt is a 72-year-old male with a past medical history of gram-negative bacteremia, A-fib on Eliquis, prostate cancer with mets currently receiving treatment, bladder retention now with chronic indwelling fermin, ascending aortic aneurysm and HFpEF who presented to the [facility] ED on 05/04 after his catheter was pulled out and admitted for AMS. Today, pt is in soft restraints and keeps trying to reach at his fermin catheter. Does not give verbal responses at all and keeps his eyes closed. No acute respiratory distress. ROS unattainable as pt is nonverbal at this time. Nurse denies any acute overnight events but noted he put out 150mL urine in 8 hours and had 1 episode of emesis this morning when attempted to give meds. Review of Systems Review of Systems: As per HPI. Physical Exam Physical Exam: General:No acute distress, once again somnolent Cardio: Regular rate, irregularly irregular rhythm, no murmur appreciated Resp: no increased work of breathing, pt breathes with mouth wide open and maybe fine crackles heard on lower lung bases GI: Soft, bowel sounds active : fermin in place draining small amount of urine Ext: 2+ pitting edema of the legs noted Skin: Warm, dry, Results & Data Results & Data Vital Signs (Past 12 Hours) Vital Signs Temp Pulse Pulse Resp BP BP Pulse Ox 05/10/23 03:09 37.2 C 106 H 18 106/55 L 91 05/09/23 23:03 37.1 C 107 H 20 128/70 95 05/09/23 22:00 105 H 05/09/23 20:04 36.6 C 104 H 18 122/69 95 O2 Del Method O2 Flow Rate 05/10/23 03:09 Nasal Cannula 2 05/09/23 23:03 Nasal Cannula 2 05/09/23 22:00 05/09/23 20:04 Nasal Cannula 2 Resident Activity Tracking Resident Involvement: Resident Care Provided Care Provided: Adult Hospital Medicine (3) Anemia Anemia type: unspecified type Qualified Code(s): D64.9 - Anemia, unspecified
[2023-05-10 07:55] LABS: Basophils % (auto) 0.3 %; Eosinophils % (auto) 1.1 %; Hematocrit (blood only) 27.1 % (42.0-52.0); Hemoglobin 9.1 g/dl (14.0-18.0); Lymphocytes % (auto) 8.8 %; Mean Corpuscular Hemoglobin 32.5 pg (25.0-34.0); Mean Corpuscular Hgb Conc 33.6 g/dL (32.0-36.0); Mean Corpuscular Volume 96.8 fL (80.0-100.0); Mean Platelet Volume 8.6 fL (9.4-12.4); Monocytes % (auto) 7.1 %; Neutrophils % (auto) 79.4 %; Platelet Count 236 K/uL (130-400); RDW Coefficient of Variation 17.9 % (11.5-14.5); RDW Standard Deviation 61.9 fL (36.4-46.3); White Blood Count 20.38 K/ul (4.8-10.8)
[2023-05-10 07:56] LABS: Basophils # (auto) 0.07 K/uL (0.00-0.20); Eosinophils # (auto) 0.22 K/uL (0.00-0.50); Immature Granulocytes # (auto) 0.68 K/uL (0.01-0.20); Immature Granulocytes % (auto) 3.3 %; Monocytes # (auto) 1.45 K/uL (0.11-0.59); Neutrophils # (auto) 16.16 K/uL (1.40-6.50); Nucleated RBC # (auto) 0.21 K/uL (0.00-0.12)
[2023-05-10 08:05] LABS: Albumin Globulin Ratio 0.6 (0.9-2); Albumin Level 2.1 gm/dl (3.4-5.0); BUN Creatinine Ratio 59.4 (10-20); Bilirubin,Total 0.9 mg/dl (0.2-1.0); Calcium 10.1 mg/dl (8.6-10.3); Creatinine Clr Calc Pharmacy 106.2 ml/min; Est GFR (African American) 109.9 ml/min; Est GFR (Non-African American) 94.8 ml/min; Globulin 3.6 gm/dl (2.5-4.0); Potassium 3.6 mmol/L (3.5-5.1); Total Protein 5.7 gm/dl (6.0-8.3)
[2023-05-10] MEDS: MEGESTROL ACETATE SUSP 400 MG/10 ML UDC PO SCH (08:18)
[2023-05-10] MEDS: METOPROLOL SUCC 50MG EXT REL TAB PO SCH (08:19)
[2023-05-10] MEDS: allopurinoL 100 MG TAB PO SCH (08:19)
[2023-05-10] MEDS: POT PHOSPHATE MONOBASIC W/ SOD TAB PO SCH (08:19)
[2023-05-10] MEDS: FOLIC ACID 1 MG TAB PO SCH (08:19)
[2023-05-10] MEDS: ONDANSETRON INJ 2 MG/ML 2 ML VIAL IV PRN (08:54)
[2023-05-10] MEDS ORDERED: PIPER/TAZO 4.5g in D5W MINI-B 100 ML IV ONE (09:15)
[2023-05-10] MEDS: DEXTROSE 50% 50 ML SYRINGE IV PRN ×2 (12:42→17:03)
--- NOTE | 2023-05-10 12:44 | Billing Data ---
Date of Service May 10, 2023 Coding Level of Care Code 93813 SUB INP/OBS CARE
[2023-05-10] MEDS ORDERED: PIPERACILLIN/TAZOBACTAM 4.5 GM in DEXTROSE 5% MINI-B 100 ML IV SCH (15:00)
[2023-05-10] MEDS: DIGOXIN 125 MCG in SYRINGE 9.5 ML IV SCH ×2 (17:05→21:42)
[2023-05-10] MEDS ORDERED: D5W AND LACTATED RINGERS 1,000 ML IV SCH (17:15)
[2023-05-10] MEDS: PIPERACILLIN/TAZOBACTAM 4.5 GM in DEXTROSE 5% MINI-B 100 ML IV SCH (17:42)
[2023-05-10] MEDS ORDERED: ALBUTEROL 0.083% NEBU SOLN 3 ML VIAL NEB PRN ×2 (18:14→19:02)
--- NOTE | 2023-05-10 19:00 | XRay Report ---
XR chest 1V portable HISTORY: Shortness of breath. COMPARISON: Chest 05/09/2023. FINDINGS: There are low lung volumes. No pneumothorax. Nasogastric tube terminates in the stomach. Ca rdiomegaly again noted. Pulmonary edema, bilateral pleural effusions, bibasilar densities persist. No acute fractures. Degenerative changes within the shoulders. IMPRESSION: No significant change in the pulmonary edema, bilateral pleural effusions, and bibasilar densities. ACT 112: Negative or not required by law. Electronically signed by: Jefferson Gallagher M.D. 05/10/2023 6:59 PM
--- NOTE | 2023-05-10 19:01 | Communication Note ---
Date of Service: May 10, 2023 responded to code mike. pt had been doing well, sudden onset of wet cough and respiratory distress. pulse ox dropped to ~75% on what had been today's baseline O2 requirements, nursing quickly increased FiO2 and O2 numbers thalia to high 80's / low 90's. lungs coarse rhonchi far worse upper airway and mid chest far more than lower lung meyers (which were basically clear but quiet) RT suctioned --> lung exam improved and oxygenation stabilized; suctioned a second time with again an improvement in O2 saturations and lung exam --> exam improved to harsh but open sounding upper airway wheeze, clear lower lungs, far less respiratory distress. NGT turned to suction with almost 1L returned - predominantly tube feed appearing material CXR on view box looking extremely similar to yesterday's (will compare on computer shortly) already on zosyn for presumed pneumonia dtr and support system updated extensively, all questions answered to the best o f my ability and to their satisfaction pt appearing stable on oxymask O2 nebs ordered prn
[2023-05-10] MEDS ORDERED: SODIUM CHLORIDE 0.9% 1,000 ML IV ONE (19:43)
--- NOTE | 2023-05-10 20:22 | Communication Note ---
Date of Service: May 10, 2023 Notified at 1930 of patient's BP dropping to low 70s systolically with reactive tachycardia. He is also less responsive than during the code. Started 1L bolus. Labs pending. Will transfer to ICU for pressors as he is currently full code. Family friend at bedside. I did speak with the daughter over the phone and she will be coming back in shorty. Will further discuss code status at that time. Resident Activity Tracking Resident Involvement: Resident Care Provided Care Provided: Adult Hospital Medicine
--- NOTE | 2023-05-10 20:28 | Critical Care Consultation ---
Date of Consultation May 10, 2023 Assessment & Plan (1) Shock: (2) Aspiration of gastric contents: (3) Hypovolemia: (4) Encephalopathy: (5) Malignant neoplasm of prostate metastatic to bone: (6) Atrial fibrillation: (7) THOMAS (acute kidney injury): (8) Hypomagnesemia: (9) (HFpEF) heart failure with preserved ejection fraction: (10) Chronic indwelling Fermin catheter: Plan Reason Critically Ill: 72 YOM with metastatic prostate cancer, following aspiration event earlier is now with hypotension, elevated lactate, leukocytosis, and THOMAS/ARF. Neuro - Encephalopathy CAM ICU: [facility]MA[facility] - Patient with encephalopathy present since admission on - CT scan of head on admission was negative for acute process - MRI not performed secondary to declination from daughter- she currently voices as well that does not want to put him through MRI with his anxiety - Cefepime has been transitioned to Zosyn - Likely multifactorial to include but not limited to - poor nutrition, progression of underlying cancer and dying process, sepsis, hypoglycemia Cardiac - Shock unspecified, HFpEF, Aortic Aneurysm - Patient presents hypotensive and with elevated lactate following aspiration event- shock at this time multifactorial to likely represent hypovolemia and distributive from sepsis - he is with elevated WBC, elevated lactate and with organ dysfunction of - kidney, brain, liver - Blood cultures obtained, urine culture obtained earlier today- attempt at sputum collection - Bedside POCUS consistent with hypovolemia- will proved 1Liter of crystalloid followed by 5% 250 albumin- will need to follow respiratory status closely as he is with pulmonary edema and pleural effusions - Will add on Levophed peripherally to maintain MAPS >65 if needed - Follow urine output - Aortic Aneurysm 4.8cm - stable in size per radiology interpretation on 05/04 from 10/12 2022 - EKG on arrival to ICU is without STEMI Respiratory - Aspiration pneumonia/pneumonitis, pleural effusions - CXR post aspiration reviewed, low inspiratory volume noted with remaining bilateral pleural effusions- bilateral lower lobe opacifications - Continue with Zosyn - MRSA negative - Cough assist with secretion clearance - HFNC if needed - moderate consider evaluation for thoracentesis if assist with respiratory efforts - VBG on arrival with adequate PH, CO2, and HCo3 GI - Cirrhosis secondary to steatosis (CT scan) - Continue supportive efforts at this time- maintain MAPS >65 - INR is up to 1.9 - which may also be worsened secondary to nutritional status - If > 2.0 or active bleeding, will administer Vitamin K - He remains with high output from his NGT - once hemodynamics stable would obtain CT abdomen/pelvis to eval for any bowel ischemia with hypotension and lactate of 7 - Chronically elevated bilirubin RENAL/LYTES - THOMAS, hypomagnesemia, - THOMAS - currently with increase in BANK REPRESENTATIVE by 0.5 with no urine output - Fermin irrigated easily with return of irrigated volume- bladder scan with 0 reading - CT/AP abdomen and pelvis as above - Volume and vasopressors with hopeful return of some urine output - Prostate cancer, chronic Fermin - Fermin exchanged on arrival to [facility] on 05/04/23- previously draining without problems - see heme/below for further ENDO - Hypoglycemia - D5 Saline - multiple episodes of Glucose on the 60s today and was on enteral feeds- add dextrose to fluids- if unable to maintain will add D10 or steroid HEME - Anemia, Metastatic Prostate Cancer - Normocytic Normochromic- multifactorial but likely related to AOCD and/or nutritional component - Prostate Cancer Gabriela 4+4 IVB- multifocal metastatic geronimo and multifocal osteoblastic disease- PET 10/27 ID - Septic shock - Patient with aspiration event and chronic Fermin- sources at this time - pulmonary, GI, urine- or combination of any of the above- PCT elevated to 7.24 - Blood cultures pending- NGTD from 05/10/23 - Urine culture NGTD 05/09/23 - MRSA 05/10/23- NEGATIVE - Blood cultures 04/25/23- NGTD - Urine culture- 05/04/23- CONS - Previously received Cefepime empiric x2 days- Zosyn initiated on 05/10/23 following aspiration - Sputum pending collection - ABX- Zosyn and will add Doxycycline while cultures are pending LINES/IV ACCESS - PIV x3, NGT, Fermin Continue use of these lines DVT PROPHYLAXIS - SCDS, hold on chemoprophylaxis at this time with elevated INR DISPO: ICU while hypotensive until goals of care become more clear. Currently continue with supportive efforts with volume and vasopressors as long as clinical status does not deteriorate. I have personally spent 65 minutes of critical care time in the direct management of this patient. This is a life/limb threatening event. This includes time spent evaluating patient, direct bedside care, chart review, placing orders, interpretation of diagnostic studies, discussion with consultants, ailyne nt, and family members, as well as other required patient management activities. This time is exclusive of all separately billable procedures, and teaching time and separate from and in addition to any other critical care service time. Thank you for allowing us to participate in the care of this patient. Please refer to my attending physician's documentation for any further recommendations. History of Present Illness Reason for Consultation: Hypotension Requesting Physician: Vick Curry MD Attending Physician: Michael King DO History of Present Illness 72 YOM originally admitted on 05/04/23 for encephalopathy. He has medical history of Afib (on Eliquis), metastatic prostate cancer, chronic fermin, Ascending Aortic Aneurysm (4.6cm), HFpEF. He was initially worked of for sepsis and treated with Cefepime while cultures were pending, Appears he has continued with encephalopathy with bouts of agitation. Appears he has also remained with poor oral intake and had NGT placed, for which enteral feeds were initiated. Urine output has been minimal over the past 2 days. Patient had a CODE PURPLE for aspiration event on 05/10/23 and at that time he had been suctioned naso- tracheally, placed on oxygen, and had his NGT placed to suction, with 1.5 liters removed. CXR completed at that time with no acute worsening in findings. At 1955 was notified by primary service of acute hypotension to reported 60s/30s with HR in the 120s, Crystalloid infusion was started. Patient will be transferred to the ICU for continued support while clarifying goals of care with daughter, whom is on her way in. On arrival to the ICU he has some improvement in his BP with volume, bedside POCUS is consistent with hypovolemia appearance. Will provide albumin 5% 250 in addition. Obtain BMP, Lactate, Ammonia, VBG, and coags. Daughter has arrived at bedside and is able to provide some more history. He has been occasionally awake and following minimal commands, she refers to Sunday being a good day where he was more alert and actually conversant with her. She has been concerned with hydration status and was present earlier for his aspiration event. Currently she understands the severity of his current illness. We did discuss that he is currently responding to fluid boluses, however concern is that he would decline and need further support in regards to hemodynamic medications. We discussed the possibility of progression to multiorgan failure as well as respiratory failure secondary to cardiac failure in setting of volume replacement. She currently would like to continue with current care while more information becomes available and if worsening she understands that we can stop and make him comfortable at any time. She is unable to make decision on code status in event of respiratory failure and/or cardiac arrest. She request contacting her brother Rajat at [phone]. CODE: DNR/DNI via phone conversation with son Rajat and verified by ALYSE Pacheco at [phone] Allergies Allergy/AdvReac Type Severity Reaction Status Date / Time amiodarone AdvReac Severe Pneumonitis Unverified 05/04/23 10:20 Home Medications Medication Instructions Recorded Confirmed Type allopurinol 100 mg tablet 200 mg PO DAILY 10/21/19 05/04/23 History (Zyloprim) cholecalciferol (vitamin D3) 25 1,000 unit PO QAM 03/23/20 05/04/23 History mcg (1,000 unit) capsule (Vitamin D3) calcium carbonate 600 mg calcium 600 mg PO QAM 02/27/21 05/04/23 History (1,500 mg) tablet (Calcium) cyanocobalamin (vitamin B-12) 500 500 mcg PO QAM #30 tabs 03/05/21 05/04/23 Rx mcg tablet digoxin 125 mcg (0.125 mg) tablet 125 mcg PO DAILY 10/18/22 05/04/23 History lorazepam 1 mg tablet 0.5 - 1 mg PO Q6 PRN Anxiety 12/01/22 05/04/23 History Lactobacillus acidophilus 500 100 cell PO DAILY 05/04/23 05/04/23 History million cell capsule Super Mushroom 1 packet PO DAILY 05/04/23 05/04/23 History acetaminophen 500 mg tablet 500 mg PO Q6H PRN pain/fever 05/04/23 05/04/23 History apixaban 5 mg tablet (Eliquis) 5 mg PO BID 05/04/23 05/04/23 History folic acid 1 mg tablet 1 mg PO DAILY 05/04/23 05/04/23 History furosemide 40 mg tablet 40 mg PO QAM 05/04/23 05/04/23 History megestrol 400 mg/10 mL (40 mg/mL) 400 mg PO DAILY 05/04/23 05/04/23 History oral suspension metoprolol succinate 100 mg 100 mg PO DAILY 05/04/23 05/04/23 History tablet,extended release 24 hr mirtazapine 15 mg tablet 15 mg PO DAILY 05/04/23 05/04/23 History ondansetron 4 mg disintegrating 4 mg PO Q4H PRN Nausea And Vomiting 05/04/23 05/04/23 History tablet sodium di- and 1 tab PO DAILY 05/04/23 05/04/23 History monophosphate-potassium phos monobasic 250 mg tablet (Phospha Neutral) Patient History Medical History Weakness Gout Pneumonia due to COVID-19 virus Chronic diastolic CHF (congestive heart failure) Restrictive lung disease Acute respiratory failure with hypoxia Hyponatremia Atrial fibrillation with RVR Basal cell carcinoma of dorsum of nose Congestive heart failure Idiopathic peripheral neuropathy Hyperlipidemia Polyp of colon BPH (benign prostatic hyperplasia) GERD (gastroesophageal reflux disease) Vitamin D deficiency 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 Father , age 41 complications of jungle rot WW2 Heart disease Son No problems noted. Son No problems noted. Daughter No problems noted. 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 Feels Safe at Home: Yes Childhood Exposure to Second-Hand Smoke: Yes Diet: regular caffeine: Yes (one cup coffee per day) during the past year weight has: remained stable Dental Care, Regularly: Yes Physical Activity Frequency: Daily Seatbelt Use: always Sunscreen Use: Yes Do you think of yourself as: straight/heterosexual Gender Identity: Male Assistive Devices: Walker and Wheelchair Review of Systems Review of Systems: unable to obtain secondary to encephalopathy Physical Exam Physical Exam: PHYSICAL EXAM: General: Encephalopathic, awakens to voice, generally pain and says ouch wherever you touch him at Head: Normocephalic, atraumatic ENT: PERRLA, mucous membranes dry Neuro: Opens eyes to voice, does not follow commands, verbal response is inappropriate words, strength intact bilaterally 3/5, sensation intact with appropriate localization, Chest: equal rise and fall of the chest, no accessory muscle use, gurgling to upper airway, no heaves or thrills, scattered crackles, Cardiac: Irregular rate and rhythm, telemetry reviewed- afib, skin warm dry, cap refill <3 seconds, peripheral pulses +2 no JVD, no murmur, +2 edema to hands, and feet GI: NABS x 4 quadrants, soft, no guarding, NGT with bilious tube feed secretions : Fermin to gravity, Skin: multiple bruising to upper extremities. Results & Data Results & Data Vital Signs (Past 12 Hours) Vital Signs Temp Pulse Pulse Resp BP Pulse Ox O2 Del Method 05/10/23 19:56 106 H 72/34 L 97 Oxymask 05/10/23 19:30 67/38 L 97 Oxymask 05/10/23 19:15 71/45 L 05/10/23 19:00 37.5 C 110 H 20 71/45 L 96 Oxymask 05/10/23 18:05 90 Oxymask 05/10/23 18:00 75 L Nasal Cannula 05/10/23 17:28 80 05/10/23 15:44 36.4 C L 103 H 18 91/55 L 92 Nasal Cannula 05/10/23 12:07 102 H 40 H 108/66 93 Nasal Cannula 05/10/23 11:22 37.1 C 101 H 40 H 94/58 L 90 Nasal Cannula 05/10/23 10:30 Nasal Cannula O2 Flow Rate 05/10/23 19:56 15 05/10/23 19:30 15 05/10/23 19:15 05/10/23 19:00 15 05/10/23 18:05 15 05/10/23 18:00 4 05/10/23 17:28 05/10/23 15:44 2 05/10/23 12:07 2 05/10/23 11:22 2 05/10/23 10:30 2 Laboratory Results Abnormal lab results 05/10/23 05/10/23 05/10/23 Range/Units 07:15 12:28 12:30 WBC 20.38 H (4.8-10.8) K/ul RBC 2.80 L (4.70-6.10) M/uL Hgb 9.1 L (14.0-18.0) g/dl POC Hgb (14.0-18.0) g/dl Hct 27.1 L (42.0-52.0) % POC Hct (42-52) % RDW Std Deviation 61.9 H (36.4-46.3) fL RDW Coeff of Phyllis 17.9 H (11.5-14.5) % MPV 8.6 L (9.4-12.4) fL Neut # (Auto) 16.16 H (1.40-6.50) K/uL [place] # (Auto) 1.45 H (0.11-0.59) K/uL Immature Gran # (Auto) 0.68 H (0.01-0.20) K/uL Absolute Nucleated RBC 0.21 H (0.00-0.12) K/uL PT (9.0-12.0) Seconds INR (0.9-1.1) POC pO2 (80-95) mmHg POC ABG O2 Sat (90-95) % Anion Gap (3-11) BUN 41 H (6-23) mg/dl BUN/Creatinine Ratio 59.4 H (10-20) Glucose 64 L (70-99(Fasting)) mg/dl POC Glucose 63 L* 60 L* (70-99) mg/dl Lactate (0.4-2.0) mmol/L Magnesium (1.7-2.4) mg/dl AST 56 H (13-39) U/L Alkaline Phosphatase 351 H (34-104) U/L Total Protein 5.7 L (6.0-8.3) gm/dl Albumin 2.1 L (3.4-5.0) gm/dl Albumin/Globulin Ratio 0.6 L (0.9-2) 05/10/23 05/10/23 05/10/23 Range/Units 13:00 16:53 16:56 WBC (4.8-10.8) K/ul RBC (4.70-6.10) M/uL Hgb (14.0-18.0) g/dl POC Hgb (14.0-18.0) g/dl Hct (42.0-52.0) % POC Hct (42-52) % RDW Std Deviation (36.4-46.3) fL RDW Coeff of Phyllis (11.5-14.5) % MPV (9.4-12.4) fL Neut # (Auto) (1.40-6.50) K/uL [place] # (Auto) (0.11-0.59) K/uL Immature Gran # (Auto) (0.01-0.20) K/uL Absolute Nucleated RBC (0.00-0.12) K/uL PT (9.0-12.0) Seconds INR (0.9-1.1) POC pO2 (80-95) mmHg POC ABG O2 Sat (90-95) % Anion Gap (3-11) BUN (6-23) mg/dl BUN/Creatinine Ratio (10-20) Glucose (70-99(Fasting)) mg/dl POC Glucose 112 H 64 L* 66 L* (70-99) mg/dl Lactate (0.4-2.0) mmol/L Magnesium (1.7-2.4) mg/dl AST (13-39) U/L Alkaline Phosphatase (34-104) U/L Total Protein (6.0-8.3) gm/dl Albumin (3.4-5.0) gm/dl Albumin/Globulin Ratio (0.9-2) 05/10/23 05/10/23 05/10/23 Range/Units 20:16 20:28 20:32 WBC 24.30 H (4.8-10.8) K/ul RBC 2.67 L (4.70-6.10) M/uL Hgb 8.7 L (14.0-18.0) g/dl POC Hgb 8.8 L (14.0-18.0) g/dl Hct 25.5 L (42.0-52.0) % POC Hct 26 L (42-52) % RDW Std Deviation 63.7 H (36.4-46.3) fL RDW Coeff of Phyllis 18.5 H (11.5-14.5) % MPV 9.0 L (9.4-12.4) fL Neut # (Auto) 20.21 H (1.40-6.50) K/uL [place] # (Auto) 1.30 H (0.11-0.59) K/uL Immature Gran # (Auto) 0.85 H (0.01-0.20) K/uL Absolute Nucleated RBC 0.53 H (0.00-0.12) K/uL PT 20.3 H (9.0-12.0) Seconds INR 1.9 H (0.9-1.1) POC pO2 46 L (80-95) mmHg POC ABG O2 Sat 81.0 L (90-95) % Anion Gap 14 H (3-11) BUN 43 H (6-23) mg/dl BUN/Creatinine Ratio 37.4 H (10-20) Glucose (70-99(Fasting)) mg/dl POC Glucose (70-99) mg/dl Lactate 7.9 H* (0.4-2.0) mmol/L Magnesium 1.6 L (1.7-2.4) mg/dl AST (13-39) U/L Alkaline Phosphatase (34-104) U/L Total Protein (6.0-8.3) gm/dl Albumin (3.4-5.0) gm/dl Albumin/Globulin Ratio (0.9-2) Diagnostic Findings Chest X-Ray 05/10/23 18:13 XR chest 1V portable HISTORY: Shortness of breath. COMPARISON: Chest 05/09/2023. FINDINGS: There are low lung volumes. No pneumothorax. Nasogastric tube terminates in the stomach. Cardiomegaly again noted. Pulmonary edema, bilateral pleural effusions, bibasilar densities persist. No acute fractures. Degenerative changes within the shoulders. IMPRESSION: No significant change in the pulmonary edema, bilateral pleural effusions, and bibasilar densities. ACT 112: Negative or not required by law. Electronically signed by: Jefferson Gallagher M.D. 05/10/2023 6:59 PM Medications Administered Chest X-Ray 05/10/23 18:13 XR chest 1V portable HISTORY: Shortness of breath. COMPARISON: Chest 05/09/2023. FINDINGS: There are low lung volumes. No pneumothorax. Nasogastric tube terminates in the stomach. Cardiomegaly again noted. Pulmonary edema, bilateral pleural effusions, bibasilar densities persist. No acute fractures. Degenerative changes within the shoulders. IMPRESSION: No significant change in the pulmonary edema, bilateral pleural effusions, and bibasilar densities. ACT 112: Negative or not required by law. Electronically signed by: Jefferson Gallagher M.D. 05/10/2023 6:59 PM ECG Additional Comments: Current undetermined rhythm precludes rhythm comparison, needs review Nonspecific T wave abnormality, improved in Inferior leads Nonspecific T wave abnormality now evident in Anterior leads Coding Level of Care Code 31822 CRITICAL CARE 1ST 30-74M Diagnoses Shock R57.9 Aspiration of gastric contents T17.918A Hypovolemia E86.1 Encephalopathy G93.40 Malignant neoplasm of prostate metastatic to bone C61; C79.51 Atrial fibrillation I48.91 THOMAS (acute kidney injury) N17.9 Hypomagnesemia E83.42 (HFpEF) heart failure with preserved ejection fraction I50.30 Chronic indwelling Fermin catheter Z97.8
[2023-05-10] MEDS ORDERED: ALBUMIN 5% 250 ML IV ONE (20:30)
[2023-05-10 20:45] LABS: iSTAT Art Bld Gas pCO2 Correct 40 mmHg (35-46); iSTAT Art Bld Gas pH Corrected 7.393 (7.35-7.45); iSTAT Arterial Blood Gas HCO3 24 meg/L (19-24); iSTAT Arterial Blood Gas pCO2 40 mmHg (35-46); iSTAT Arterial Blood Gas pH 7.39 (7.35-7.45); iSTAT Arterial Blood Gas pO2 46 mmHg (80-95); iSTAT Arterial Blood Gas pO2 C 46; iSTAT Carbon Dioxide 25 mmol/L (24-31); iSTAT Hematocrit 26 % (42-52); iSTAT Hemoglobin 8.8 g/dl (14.0-18.0); iSTAT Potassium 3.4 mmol/L (3.3-5.0); iSTAT Site R Brachial; iSTAT Sodium 141 mmol/L (135-144)
[2023-05-10 21:06] LABS: Hematocrit (blood only) 25.5 % (42.0-52.0); Hemoglobin 8.7 g/dl (14.0-18.0); Mean Corpuscular Hemoglobin 32.6 pg (25.0-34.0); Mean Corpuscular Hgb Conc 34.1 g/dL (32.0-36.0); Mean Corpuscular Volume 95.5 fL (80.0-100.0); Nucleated RBC # (auto) 0.53 K/uL (0.00-0.12); Nucleated RBC % (auto) 2.2 %; Platelet Count 235 K/uL (130-400); RDW Coefficient of Variation 18.5 % (11.5-14.5); RDW Standard Deviation 63.7 fL (36.4-46.3); Red Blood Count 2.67 M/uL (4.70-6.10)
[2023-05-10 21:24] LABS: Basophils # (auto) 0.06 K/uL (0.00-0.20); Basophils % (auto) 0.2 %; Eosinophils # (auto) 0.09 K/uL (0.00-0.50); Eosinophils % (auto) 0.4 %; Immature Granulocytes # (auto) 0.85 K/uL (0.01-0.20); Immature Granulocytes % (auto) 3.5 %; Lymphocytes # (auto) 1.79 K/uL (1.20-3.40); Lymphocytes % (auto) 7.4 %; Monocytes % (auto) 5.3 %; Neutrophils # (auto) 20.21 K/uL (1.40-6.50); Neutrophils % (auto) 83.2 %; Polychromasia 1+; Target Cells 1+
[2023-05-10 21:32] LABS: INR 1.9 (0.9-1.1); Prothrombin Time 20.3 Seconds (9.0-12.0)
[2023-05-10 21:36] LABS: BUN Creatinine Ratio 37.4 (10-20); Calcium 10.2 mg/dl (8.6-10.3); Creatinine Clr Calc Pharmacy 63.7 ml/min; Est GFR (African American) 73.3 ml/min; Est GFR (Non-African American) 63.2 ml/min; Magnesium 1.6 mg/dl (1.7-2.4); Potassium 3.5 mmol/L (3.5-5.1)
[2023-05-10] MEDS ORDERED: ACETAMINOPHEN 1,000 MG/100 ML VIAL IV PRN (21:44)
[2023-05-10] MEDS: D5W AND NSS 1,000 ML IV SCH (21:49)
[2023-05-10] MEDS: MAGNESIUM SULFATE / D5W 1 GM/100 ML BAG IV SCH (22:09)
[2023-05-10] MEDS ORDERED: OPTIRAY 320 500ml IV ONE (22:51)
[2023-05-10] MEDS ORDERED: STAT IV Infusion **Titration per Protocol STA (23:40)
[2023-05-10] MEDS ORDERED: PLASMA-LYTE A 250 ML IV ONE (23:47)
--- NOTE | 2023-05-10 23:47 | CT Scan Report ---
Exam(s): CT ABDOMEN + PELVIS With Contrast IV Amt: 92 opti 320 EXAM: CT Abdomen and Pelvis With Intravenous Contrast CLINICAL HISTORY: Reason for exam: eval for ischemia/obstruction-. TECHNIQUE: Axial computed tomography images of the abdomen and pelvis with intravenous contrast. CTDI is 27.77 mGy and DLP is 1521.33 mGy-cm. Automated exposure control was utilized for the study. A dose lowering technique was utilized adhering to the principles of ALARA. CONTRAST: Patient received 92 opti 320 of IV contrast COMPARISON: No relevant prior studies available. FINDINGS: Lung bases: See below. Pleural space: Moderate bilateral pleural effusions. Airspace consolidations at the lung bases, consistent with multilobar pneumonia correlate for aspiration. Heart: Cardiomegaly. ABDOMEN: Liver: Hepatic steatosis and early hepatic cirrhosis. Gallbladder and bile ducts: Unremarkable. No calcified stones. No ductal dilation. Pancreas: Unremarkable. No mass. No ductal dilation. Spleen: Unremarkable. No splenomegaly. Adrenals: Unremarkable. No mass. Kidneys and ureters: Unremarkable. No solid mass. No hydronephrosis. Stomach and bowel: Wall thickening of the duodenum, consistent with duodenitis. Duodenal ulcer disease is suspected. Consider upper GI endoscopy. No obstruction. PELVIS: Appendix: No findings to suggest acute appendicitis. Bladder: Blood catheter terminates in the urinary bladder. Reproductive: Unremarkable as visualized. ABDOMEN and PELVIS: Intraperitoneal space: Unremarkable. No free air. No significant fluid collection. Bones/joints: Extensive osseous metastases, including extensive metastatic involvement of the LEFT iliac bone and acetabulum but there is also periosteal new bone formation. Correlate for primary malignancy. Degenerative changes of the spine. No acute fracture. Soft tissues: Unremarkable. Vasculature: Atherosclerotic changes of the aorta. No abdominal aortic aneurysm. Lymph nodes: Unremarkable. No enlarged lymph nodes. Tubes, lines and devices: Feeding tube terminates in the stomach. IMPRESSION: 1. Wall thickening of the duodenum, consistent with duodenitis. Duodenal ulcer disease is suspected. Consider upper GI endoscopy. 2. Moderate bilateral pleural effusions. Airspace consolidations at the lung bases, consistent with multilobar pneumonia correlate for aspiration. 3. Extensive osseous metastases, including extensive metastatic involvement of the LEFT iliac bone and acetabulum but there is also periosteal new bone formation. Correlate for primary malignancy. 4. Feeding tube terminates in the stomach. 5. Hepatic steatosis and early hepatic cirrhosis. Electronically signed by: Lizandro Graff MD 05/10/23 23:46 PM
[2023-05-10] MEDS: NOREPINEPHRINE/D5W 4 MG/250 ML PLCT IV SCH (23:49)
[2023-05-11] MEDS: PIPERACILLIN/TAZOBACTAM 4.5 GM in DEXTROSE 5% MINI-B 100 ML IV SCH ×3 (00:35→16:30)
[2023-05-11] MEDS: DOXYCYCLINE HYCLATE 100 MG in DEXTROSE 5% MINI-B 100 ML IV SCH ×2 (00:36→13:39)
[2023-05-11] MEDS: MAGNESIUM SULFATE / D5W 1 GM/100 ML BAG IV SCH (00:36)
[2023-05-11] MEDS ORDERED: PANTOprazole 40 MG in SYRINGE 0 ML IV ONE (00:45)
--- NOTE | 2023-05-11 04:24 | Communication Note ---
Date of Service: May 11, 2023 0400- Patient is with increasing vasopressor requirements to attempt to maintain MAP >65 and has been on maximum HFNC for maintaining oxygenation saturations. He continues with refractory lactic acidosis as well as remaining without urine output. Ventilation efforts are becoming more labored and he is also now progressing to periods of bradycardia with bi-geminy. and Daughter are at the bedside. I updated them on his clinical status again and stated that he is actively dying and not responding to therapy and that is likely imminent. In lieu of stopping vasopressor agents and providing comfort care, they wanted to continue with hemodynamic support with vasopressors. Anticipate that morning labs are going to continue to show worsening of multi organ failure. I feel that they understand the situation, however as stated earlier by daughter, that she don't want to be the one to make the decision. at bedside shakes head that she understands, but does not voice a decision either. 0500- AM labs return with worsening in renal function, and BP continues to need increasing support without urine. Will attempt 25GM Albumin. Discussed both with daughter and at bedside that despite volume, vasopressor support and oxygen support pateint continues to have multiorgan failure to include: Brain, Kidneys, Lungs, and likely liver. They understand that this is likely a temporizing measure, and also declined central line access for increasing vasopressor support, as this is unlikely to alter outcome. If this measure does not work to increase BP/Urine output,, they would progress to removing hemodynamic support and initiating comfort measures. Matthew ROBBINS
[2023-05-11 05:07] LABS: Albumin Globulin Ratio 0.6 (0.9-2); Albumin Level 2.3 gm/dl (3.4-5.0); BUN Creatinine Ratio 32.1 (10-20); Bilirubin,Total 0.5 mg/dl (0.2-1.0); Calcium 10.3 mg/dl (8.6-10.3); Creatinine Clr Calc Pharmacy 54.7 ml/min; Est GFR (African American) 60.9 ml/min; Est GFR (Non-African American) 52.6 ml/min; Globulin 3.6 gm/dl (2.5-4.0); Magnesium 2.2 mg/dl (1.7-2.4); Potassium 3.5 mmol/L (3.5-5.1); Total Protein 5.9 gm/dl (6.0-8.3)
[2023-05-11] MEDS: NOREPINEPHRINE/D5W 4 MG/250 ML PLCT IV SCH ×7 (05:11→15:40)
[2023-05-11] MEDS ORDERED: ALBUMIN 25% 25 GM/100 ML VIAL IV ONE (05:16)
[2023-05-11 05:17] LABS: Hemoglobin 9.2 g/dl (14.0-18.0); Mean Corpuscular Hemoglobin 32.4 pg (25.0-34.0); Mean Corpuscular Hgb Conc 31.7 g/dL (32.0-36.0); Mean Corpuscular Volume 102.1 fL (80.0-100.0); Nucleated RBC # (auto) 1.34 K/uL (0.00-0.12); Nucleated RBC % (auto) 4.6 %; Platelet Count 285 K/uL (130-400); RDW Coefficient of Variation 19.3 % (11.5-14.5); RDW Standard Deviation 71.2 fL (36.4-46.3); Red Blood Count 2.84 M/uL (4.70-6.10)
[2023-05-11 05:20] LABS: Basophils % (auto) 0.3 %; Eosinophils # (auto) 0.19 K/uL (0.00-0.50); Eosinophils % (auto) 0.7 %; Immature Granulocytes % (auto) 2.7 %; Lymphocytes # (auto) 3.04 K/uL (1.20-3.40); Lymphocytes % (auto) 10.4 %; Monocytes # (auto) 1.74 K/uL (0.11-0.59); Neutrophils # (auto) 23.33 K/uL (1.40-6.50); Neutrophils % (auto) 79.9 %; Polychromasia 2+
[2023-05-11] MEDS: POTASSIUM CHLORIDE / WTR 10 MEQ/100 ML PLCT IV SCH ×2 (05:31→06:38)
--- NOTE | 2023-05-11 06:49 | Hospitalist Progress Note ---
Date of Service May 11, 2023 Assessment & Plan (1) AMS (altered mental status): (2) Hypomagnesemia: (3) Anemia: (4) Malignant neoplasm of prostate metastatic to bone: (5) Atrial fibrillation with rapid ventricular response: (6) Prostate cancer: (7) Chronic diastolic heart failure due to hypertrophic obstructive cardiomyopathy: (8) Urinary retention: Plan Pt is a 72-year-old male with a past medical history of gram-negative bacteremia, A-fib on Eliquis, prostate cancer with mets currently receiving treatment, bladder retention now with chronic indwelling fermin, ascending aortic aneurysm and HFpEF who presented to the [facility] ED on 05/04 after his catheter was pulled out and admitted for AMS. Pt aspirated last night. Pt now in the ICU and requiring pressors with minimal help in meaningfully raising his BP. Pt appears to be in terminal state with multiorgan failure, no apparent distress or discomfort at this time. Family present. AMS (altered mental status) - family states he is oriented to person, place, and month typically, currently stable but pleasantly confused, only oriented to self - pt presented with high lactate, procal, leukocytosis, so suspect AMS may be entirely or partially due to acute infection with suspected source being urinary with chronic fermin - imaging findings include: advanced coronary disease, diffuse and extensive osteoblastic metastatic disease, L>R pleural effusions with bibasilar opacities, liver cirrhosis, CT head wnl - AMS likely multifactorial, infectious vs progression of extensive metastatic disease vs acute anemia vs polypharmacy - Hold Remeron for now - blood cx negative 48 hours, and urine cx staph which is most likely skin jonna, no clear evidence of UTI as cause of AMS - overall AMS likely from acute delirium secondary to dehydration in the context of a patient with extensive metastatic disease Pneumonia - pt meets sepsis criteria, tachy with white count, but will not bolus pt at this time as BP is stable and concerns for fluid overload in pt with progressive and extensive disease with poor urine output - CXR yesterday with increased pulm edema and b/l effusions - with AMS and somnolence, concern for aspiration pneumonia cannot be excluded - repeat blood cx ordered - pt on zosyn Prostate cancer with metastases - by our CT scan here compared to previous, metastatic disease is diffuse and e xtensive at this point - Continue to follow with Urology while inpatient Urinary retention with chronic fermin Hematuria -Has been dealing with 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 -Fermin cath replaced by Urology on admission, urology following -Likely due gross hematuria since pulling his fermin catheter out or from multiple unsuccessful attempts in [place] to replace -eliquis held Anemia (likely partially dilutional, partially acute blood loss) -Hgb 12 as of 02/22, -Will hold Eliquis Atrial fibrillation -Currently in rate controlled afib - dig level wnl Chronic diastolic heart failure due to hypertrophic obstructive cardiomyopathy -dehydrated on admission, IVF given - continue metoprolol -Holding diuretics for now as pt appeared clinically dehydrated on admission VTE Ppx: held home eliquis due to acute hematuria on admission with anemia Lines: fermin in place Admission and Anticipated Discharge Date Admission Date: May 04, 2023 Subjective Pt is a 72-year-old male with a past medical history of gram-negative bacteremia, A-fib on Eliquis, prostate cancer with mets currently receiving treatment, bladder retention now with chronic indwelling fermin, ascending aortic aneurysm and HFpEF who presented to the [facility] ED on 05/04 after his catheter was pulled out and admitted for AMS. Today, pt seen in the ICU surrounded by family. No apparent pain or distress at this time, although pt clearly progressing to multiorgan failure. Family has no questions for primary team at this time. Review of Systems Review of Systems: As per HPI. Physical Exam Physical Exam: General:Ashen appearing, no apparent pain, frail appearing older gentleman Skin: dry, pale Results & Data Results & Data Vital Signs (Past 12 Hours) Vital Signs Temp Pulse Pulse Resp BP BP Pulse Ox 05/11/23 05:45 79/45 L 05/11/23 05:45 88 24 86 L 05/11/23 05:30 74/39 L 05/11/23 05:30 82 25 H 86 L 05/11/23 05:15 79/38 L 05/11/23 05:15 82 33 H 86 L 05/11/23 05:00 78/42 L 05/11/23 05:00 87 26 H 86 L 05/11/23 04:45 98 H 26 H 87 L 05/11/23 04:45 87/39 L 05/11/23 04:30 80/41 L 05/11/23 04:30 88 26 H 83 L 05/11/23 04:23 73/37 L 05/11/23 04:23 92 H 28 H 05/11/23 04:15 89 27 H 86 L 05/11/23 04:05 82/48 L 05/11/23 04:05 71 28 H 87 L 05/11/23 04:00 73 27 H 86 L 05/11/23 04:00 78/49 L 05/11/23 03:45 87/42 L 05/11/23 03:45 87 28 H 87 L 05/11/23 03:30 88/45 L 05/11/23 03:30 91 H 27 H 87 L 05/11/23 03:16 91 H 26 H 87 L 05/11/23 03:16 80/44 L 05/11/23 03:15 81/43 L 05/11/23 03:15 92 H 27 H 87 L 05/11/23 03:08 87 20 83 L 05/11/23 03:00 78/42 L 05/11/23 03:00 81 27 H 86 L 05/11/23 02:45 90/46 L 05/11/23 02:45 89 28 H 88 L 05/11/23 02:30 97 H 29 H 88 L 05/11/23 02:30 94/48 L 05/11/23 02:15 96/47 L 05/11/23 02:15 94 H 26 H 89 L 05/11/23 02:05 99/53 L 05/11/23 02:05 102 H 29 H 88 L 05/11/23 02:01 81/44 L 05/11/23 02:01 96 H 29 H 64 L 05/11/23 02:00 87 32 H 71 L 05/11/23 01:45 123/55 L 05/11/23 01:45 87 33 H 87 L 05/11/23 01:40 121/52 L 05/11/23 01:40 94 H 27 H 92 05/11/23 01:30 101 H 27 H 97 05/11/23 01:30 115/57 L 05/11/23 01:20 115/49 L 05/11/23 01:20 100 H 32 H 96 05/11/23 01:10 116/65 05/11/23 01:10 98 H 25 H 94 05/11/23 01:00 97 H 28 H 97 05/11/23 01:00 109/58 L 05/11/23 00:45 116/94 05/11/23 00:45 103 H 31 H 92 05/11/23 00:40 104 H 32 H 92 05/11/23 00:40 82/62 L 05/11/23 00:30 102 H 30 H 92 05/11/23 00:25 110 H 31 H 95 05/11/23 00:25 103/64 05/11/23 00:20 109/82 05/11/23 00:20 98 H 28 H 95 05/11/23 00:15 103/69 05/11/23 00:15 103 H 29 H 94 05/11/23 00:10 114/57 L 05/11/23 00:10 102 H 27 H 93 05/11/23 00:05 96 H 27 H 93 05/11/23 00:05 125/59 L 05/11/23 00:00 92 H 05/11/23 00:00 115/55 L 05/11/23 00:00 91 H 28 H 86 L 05/10/23 23:55 101/46 L 05/10/23 23:55 93 H 29 H 81 L 05/10/23 23:54 100/48 L 05/10/23 23:54 82 28 H 74 L 05/10/23 23:51 74/39 L 05/10/23 23:51 70 29 H 70 L 05/10/23 23:50 79 19 91 05/10/23 23:45 82/41 L 05/10/23 23:45 83 30 H 72 L 05/10/23 23:30 92/46 L 05/10/23 23:30 93 H 27 H 89 L 05/10/23 23:15 91/50 L 05/10/23 23:15 92 H 29 H 85 L 05/10/23 23:01 108/61 05/10/23 23:01 92 H 31 H 05/10/23 23:00 90 26 H 92 05/10/23 22:30 103/61 05/10/23 22:30 103 H 29 H 94 05/10/23 22:15 99/44 L 05/10/23 22:15 94 H 32 H 90 05/10/23 22:00 99/51 L 05/10/23 22:00 95 H 30 H 93 05/10/23 21:45 104/49 L 05/10/23 21:45 94 H 25 H 92 05/10/23 21:30 112/58 L 05/10/23 21:30 95 H 32 H 94 05/10/23 21:15 108/59 L 05/10/23 21:15 95 H 32 H 93 05/10/23 21:00 05/10/23 21:00 37 C 05/10/23 21:00 92 H 05/10/23 19:56 106 H 72/34 L 97 05/10/23 19:30 67/38 L 97 05/10/23 19:15 71/45 L 05/10/23 19:00 37.5 C 110 H 20 71/45 L 96 O2 Del Method O2 Flow Rate FiO2 05/11/23 05:45 05/11/23 05:45 05/11/23 05:30 05/11/23 05:30 05/11/23 05:15 05/11/23 05:15 05/11/23 05:00 05/11/23 05:00 05/11/23 04:45 05/11/23 04:45 05/11/23 04:30 05/11/23 04:30 05/11/23 04:23 05/11/23 04:23 05/11/23 04:15 05/11/23 04:05 05/11/23 04:05 05/11/23 04:00 05/11/23 04:00 05/11/23 03:45 05/11/23 03:45 05/11/23 03:30 05/11/23 03:30 05/11/23 03:16 05/11/23 03:16 05/11/23 03:15 05/11/23 03:15 05/11/23 03:08 High Flow Nasal Cannula 40 100 05/11/23 03:00 05/11/23 03:00 05/11/23 02:45 05/11/23 02:45 05/11/23 02:30 05/11/23 02:30 05/11/23 02:15 05/11/23 02:15 05/11/23 02:05 05/11/23 02:05 05/11/23 02:01 05/11/23 02:01 High Flow Nasal Cannula 100 05/11/23 02:00 05/11/23 01:45 05/11/23 01:45 05/11/23 01:40 05/11/23 01:40 High Flow Nasal Cannula 80 05/11/23 01:30 05/11/23 01:30 05/11/23 01:20 05/11/23 01:20 05/11/23 01:10 05/11/23 01:10 05/11/23 01:00 05/11/23 01:00 05/11/23 00:45 05/11/23 00:45 05/11/23 00:40 05/11/23 00:40 05/11/23 00:30 05/11/23 00:25 05/11/23 00:25 05/11/23 00:20 05/11/23 00:20 05/11/23 00:15 05/11/23 00:15 05/11/23 00:10 05/11/23 00:10 05/11/23 00:05 05/11/23 00:05 05/11/23 00:00 05/11/23 00:00 05/11/23 00:00 05/10/23 23:55 05/10/23 23:55 05/10/23 23:54 05/10/23 23:54 05/10/23 23:51 05/10/23 23:51 High Flow Nasal Cannula 100 05/10/23 23:50 High Flow Nasal Cannula 40 100 05/10/23 23:45 05/10/23 23:45 05/10/23 23:30 05/10/23 23:30 05/10/23 23:15 05/10/23 23:15 05/10/23 23:01 05/10/23 23:01 05/10/23 23:00 05/10/23 22:30 05/10/23 22:30 05/10/23 22:15 05/10/23 22:15 05/10/23 22:00 05/10/23 22:00 05/10/23 21:45 05/10/23 21:45 05/10/23 21:30 05/10/23 21:30 05/10/23 21:15 05/10/23 21:15 Nasal Cannula 6 05/10/23 21:00 Nasal Cannula 6 05/10/23 21:00 05/10/23 21:00 05/10/23 19:56 Oxymask 15 05/10/23 19:30 Oxymask 15 05/10/23 19:15 05/10/23 19:00 Oxymask 15 Resident Activity Tracking Resident Involvement: Resident Care Provided Care Provided: Adult Hospital Medicine (3) Anemia Anemia type: unspecified type Qualified Code(s): D64.9 - Anemia, unspecified
[2023-05-11] MEDS: FOLIC ACID 1 MG TAB PO SCH (08:00)
[2023-05-11] MEDS: D5W AND NSS 1,000 ML IV SCH (08:23)
--- NOTE | 2023-05-11 08:57 | Critical Care Progress Note ---
Date of Service May 11, 2023 Assessment & Plan (1) Shock: (2) Aspiration of gastric contents: (3) Hypovolemia: (4) Encephalopathy: (5) Malignant neoplasm of prostate metastatic to bone: (6) Atrial fibrillation: (7) THOMAS (acute kidney injury): (8) Hypomagnesemia: (9) (HFpEF) heart failure with preserved ejection fraction: (10) Chronic indwelling Jarrett catheter: Plan Reason Critically Ill: 72 YOM with metastatic prostate cancer, following aspiration event earlier is now with hypotension, elevated lactate, leukocytosis, and THOMAS/ARF. Neuro - Encephalopathy CAM ICU: PADMAJA - Patient with encephalopathy present since admission on - CT scan of head on admission was negative for acute process - MRI not performed secondary to declination from daughter- she currently voices as well that does not want to put him through MRI with his anxiety - Cefepime has been transitioned to Zosyn - Likely multifactorial to include but not limited to - poor nutrition, progression of underlying cancer and dying process, sepsis, hypoglycemia -Worsening encephalopathy, difficulty with urinary secretions, and mentation likely worsened in the setting of profound hypotension with severe sepsis and anoxia from aspiration event. Cardiac - Shock unspecified, HFpEF, Aortic Aneurysm - Patient presents hypotensive and with elevated lactate following aspiration event- shock at this time multifactorial to likely represent hypovolemia and distributive from sepsis - he is with elevated WBC, elevated lactate and with organ dysfunction of - kidney, brain, liver - Blood cultures obtained, urine culture obtained earlier today- attempt at sputum collection - Bedside POCUS consistent with hypovolemia- will proved 1Liter of crystalloid followed by 5% 250 albumin- will need to follow respiratory status closely as he is with pulmonary edema and pleural effusions - Will add on Levophed peripherally to maintain MAPS >65 if needed - Follow urine output - Aortic Aneurysm 4.8cm - stable in size per radiology interpretation on 05/04 from 10/12 2022 - EKG on arrival to ICU is without STEMI -Patient requiring escalating doses of vasopressors. Please refer to discussion with family below. Respiratory - Aspiration pneumonia/pneumonitis, pleural effusions - CXR post aspiration reviewed, low inspiratory volume noted with remaining bilateral pleural effusions- bilateral lower lobe opacifications - Continue with Zosyn - MRSA negative - Cough assist with secretion clearance - HFNC if needed - moderate consider evaluation for thoracentesis if assist with respiratory efforts - VBG on arrival with adequate PH, CO2, and HCo3 -Worsening hypoxia on high flow nasal cannula with oxy mask. Despite this, patient maintaining saturations in the low 80s. Patient DNI at this point. GI - Cirrhosis secondary to steatosis (CT scan) - Continue supportive efforts at this time- maintain MAPS >65 - INR is up to 1.9 - which may also be worsened secondary to nutritional status - If > 2.0 or active bleeding, will administer Vitamin K - He remains with high output from his NGT - once hemodynamics stable would obtain CT abdomen/pelvis to eval for any bowel ischemia with hypotension and lactate of 7 - Chronically elevated bilirubin RENAL/LYTES - THOMAS, hypomagnesemia, - THOMAS - currently with increase in [employer] by 0.5 with no urine output - Jarrett irrigated easily with return of irrigated volume- bladder scan with 0 reading - CT/AP abdomen and pelvis as above - Volume and vasopressors with hopeful return of some urine output -Poor urine output at this time likely precipitated by profound hypotensive and likely developing acidemia. Morning labs showed doubling of the baseline creatinine. Coupled with profound hypotension and decreased urine output despite aggressive fluid resuscitation and vasopressor support suggest progression towards renal failure. - Prostate cancer, chronic Jarrett - Jarrett exchanged on arrival to [facility] on 05/04/23- previously draining without problems - see heme/below for further ENDO - Hypoglycemia - D5 Saline - multiple episodes of Glucose on the 60s today and was on enteral feeds- add dextrose to fluids- if unable to maintain will add D10 or steroid HEME - Anemia, Metastatic Prostate Cancer - Normocytic Normochromic- multifactorial but likely related to AOCD and/or nutritional component - Prostate Cancer Wilmot 4+4 IVB- multifocal metastatic geronimo and multifocal osteoblastic disease- PET 10/27 ID - Septic shock - Patient with aspiration event and chronic Jarrett- sources at this time - pulmonary, GI, urine- or combination of any of the above- PCT elevated to 7.24 - Blood cultures pending- NGTD from 05/10/23 - Urine culture NGTD 05/09/23 - MRSA 05/10/23- NEGATIVE - Blood cultures 04/25/23- NGTD - Urine culture- 05/04/23- CONS - Previously received Cefepime empiric x2 days- Zosyn initiated on 1/4/24 following aspiration - Sputum pending collection - ABX- Zosyn and will add Doxycycline while cultures are pending LINES/IV ACCESS - PIV x3, NGT, Jarrett Continue use of these lines -Family had previously declined central line or other advanced access at this point. DVT PROPHYLAXIS - SCDS, hold on chemoprophylaxis at this time with elevated INR CODE STATUS - -Had a lengthy discussion with the patient's family at bedside including his daughter, , and friends. Daughter is endorsing guilt from decisions that had been made regarding the patient's cancer treatments prior to arrival at this institution. Additionally, she is uncertain of making decisions moving forward. I reiterated to them the conversation that was had last night that the patient's condition continues to decline despite aggressive management with aggressive IV fluids and vasopressor support. I did explain that the patient is now representing multi organ dysfunction/failure representing little chance of survivability. Additionally, given the patient's prior DO NOT RESUSCITATE status, I am uncertain whether escalating care at this point is consistent with what the patient would wish. This information was discussed with the family at great length. We reviewed options moving forward including escalation of care no escalation of care at this point, and comfort measures only. All family questions were answered to the best of my ability. We will ho-chunk back to this conversation as I am concerned the patient is representing an end-stage process and decision making regarding his end-of-life care are imperative at this point. I did express this to the family who acknowledged their understanding. We will continue with no escalation of care at the request of the patient's . We will review further goals of care during follow-up meeting. I have personally spent 55 minutes of critical care time in the direct management of this patient. This is a life/limb threatening event. This includes time spent evaluating patient, direct bedside care, chart review, placing orders, interpretation of diagnostic studies, discussion with consultants, patient, and family members, as well as other required patient management activities. This time is exclusive of all separately billable procedures, and teaching time and separate from and in addition to any other critical care service time. Thank you for allowing us to participate in the care of this patient. Please refer to my attending physician's documentation for any further recommendations. Admission and Anticipated Discharge Date Admission Date: May 04, 2023 Supervising Physician Co-Signing Physician Notes I have personally evaluated and examined this patient. I agree with assessment and plan of Mira Keenan PA-C. Progressing multisystem organ failure; patient is in an end-stage terminal condition without meaningful chance of recovery. Subjective Patient seen and evaluated at bedside at the request of nursing staff who is noted that he is required escalating pressor support with ongoing profound hypotension and hypoxemia. Review of Systems Review of Systems: unable to obtain secondary to encephalopathy Physical Exam Physical Exam: Please refer to consultation note. Results & Data Results & Data Vital Signs (Past 12 Hours) Vital Signs Temp Pulse Pulse Resp BP Pulse Ox O2 Del Method 05/11/23 08:21 76 26 H 81 L High Flow Nasal Cannula 05/11/23 05:45 79/45 L 05/11/23 05:45 88 24 86 L 05/11/23 05:30 74/39 L 05/11/23 05:30 82 25 H 86 L 05/11/23 05:15 79/38 L 05/11/23 05:15 82 33 H 86 L 05/11/23 05:00 78/42 L 05/11/23 05:00 87 26 H 86 L 05/11/23 04:45 98 H 26 H 87 L 05/11/23 04:45 87/39 L 05/11/23 04:30 80/41 L 05/11/23 04:30 88 26 H 83 L 05/11/23 04:23 73/37 L 05/11/23 04:23 92 H 28 H 05/11/23 04:15 89 27 H 86 L 05/11/23 04:05 82/48 L 05/11/23 04:05 71 28 H 87 L 05/11/23 04:00 73 27 H 86 L 05/11/23 04:00 78/49 L 05/11/23 03:45 87/42 L 05/11/23 03:45 87 28 H 87 L 05/11/23 03:30 88/45 L 05/11/23 03:30 91 H 27 H 87 L 05/11/23 03:16 91 H 26 H 87 L 05/11/23 03:16 80/44 L 05/11/23 03:15 81/43 L 05/11/23 03:15 92 H 27 H 87 L 05/11/23 03:08 87 20 83 L High Flow Nasal Cannula 05/11/23 03:00 78/42 L 05/11/23 03:00 81 27 H 86 L 05/11/23 02:45 90/46 L 05/11/23 02:45 89 28 H 88 L 05/11/23 02:30 97 H 29 H 88 L 05/11/23 02:30 94/48 L 05/11/23 02:15 96/47 L 05/11/23 02:15 94 H 26 H 89 L 05/11/23 02:05 99/53 L 05/11/23 02:05 102 H 29 H 88 L 05/11/23 02:01 81/44 L 05/11/23 02:01 96 H 29 H 64 L High Flow Nasal Cannula 05/11/23 02:00 87 32 H 71 L 05/11/23 01:45 123/55 L 05/11/23 01:45 87 33 H 87 L 05/11/23 01:40 121/52 L 05/11/23 01:40 94 H 27 H 92 High Flow Nasal Cannula 05/11/23 01:30 101 H 27 H 97 05/11/23 01:30 115/57 L 05/11/23 01:20 115/49 L 05/11/23 01:20 100 H 32 H 96 05/11/23 01:10 116/65 05/11/23 01:10 98 H 25 H 94 05/11/23 01:00 97 H 28 H 97 05/11/23 01:00 109/58 L 05/11/23 00:45 116/94 05/11/23 00:45 103 H 31 H 92 05/11/23 00:40 104 H 32 H 92 05/11/23 00:40 82/62 L 05/11/23 00:30 102 H 30 H 92 05/11/23 00:25 110 H 31 H 95 05/11/23 00:25 103/64 05/11/23 00:20 109/82 05/11/23 00:20 98 H 28 H 95 05/11/23 00:15 103/69 05/11/23 00:15 103 H 29 H 94 05/11/23 00:10 114/57 L 05/11/23 00:10 102 H 27 H 93 05/11/23 00:05 96 H 27 H 93 05/11/23 00:05 125/59 L 05/11/23 00:00 92 H 05/11/23 00:00 115/55 L 05/11/23 00:00 91 H 28 H 86 L 05/10/23 23:55 101/46 L 05/10/23 23:55 93 H 29 H 81 L 05/10/23 23:54 100/48 L 05/10/23 23:54 82 28 H 74 L 05/10/23 23:51 74/39 L 05/10/23 23:51 70 29 H 70 L High Flow Nasal Cannula 05/10/23 23:50 79 19 91 High Flow Nasal Cannula 05/10/23 23:45 82/41 L 05/10/23 23:45 83 30 H 72 L 05/10/23 23:30 92/46 L 05/10/23 23:30 93 H 27 H 89 L 05/10/23 23:15 91/50 L 05/10/23 23:15 92 H 29 H 85 L 05/10/23 23:01 108/61 05/10/23 23:01 92 H 31 H 05/10/23 23:00 90 26 H 92 05/10/23 22:30 103/61 05/10/23 22:30 103 H 29 H 94 05/10/23 22:15 99/44 L 05/10/23 22:15 94 H 32 H 90 05/10/23 22:00 99/51 L 05/10/23 22:00 95 H 30 H 93 05/10/23 21:45 104/49 L 05/10/23 21:45 94 H 25 H 92 05/10/23 21:30 112/58 L 05/10/23 21:30 95 H 32 H 94 05/10/23 21:15 108/59 L 05/10/23 21:15 95 H 32 H 93 Nasal Cannula 05/10/23 21:00 Nasal Cannula 05/10/23 21:00 37 C 05/10/23 21:00 92 H O2 Flow Rate FiO2 05/11/23 08:21 40 100 05/11/23 05:45 05/11/23 05:45 05/11/23 05:30 05/11/23 05:30 05/11/23 05:15 05/11/23 05:15 05/11/23 05:00 05/11/23 05:00 05/11/23 04:45 05/11/23 04:45 05/11/23 04:30 05/11/23 04:30 05/11/23 04:23 05/11/23 04:23 05/11/23 04:15 05/11/23 04:05 05/11/23 04:05 05/11/23 04:00 05/11/23 04:00 05/11/23 03:45 05/11/23 03:45 05/11/23 03:30 05/11/23 03:30 05/11/23 03:16 05/11/23 03:16 05/11/23 03:15 05/11/23 03:15 05/11/23 03:08 40 100 05/11/23 03:00 05/11/23 03:00 05/11/23 02:45 05/11/23 02:45 05/11/23 02:30 05/11/23 02:30 05/11/23 02:15 05/11/23 02:15 05/11/23 02:05 05/11/23 02:05 05/11/23 02:01 05/11/23 02:01 100 05/11/23 02:00 05/11/23 01:45 05/11/23 01:45 05/11/23 01:40 05/11/23 01:40 80 05/11/23 01:30 05/11/23 01:30 05/11/23 01:20 05/11/23 01:20 05/11/23 01:10 05/11/23 01:10 05/11/23 01:00 05/11/23 01:00 05/11/23 00:45 05/11/23 00:45 05/11/23 00:40 05/11/23 00:40 05/11/23 00:30 05/11/23 00:25 05/11/23 00:25 05/11/23 00:20 05/11/23 00:20 05/11/23 00:15 05/11/23 00:15 05/11/23 00:10 05/11/23 00:10 05/11/23 00:05 05/11/23 00:05 05/11/23 00:00 05/11/23 00:00 05/11/23 00:00 05/10/23 23:55 05/10/23 23:55 05/10/23 23:54 05/10/23 23:54 05/10/23 23:51 05/10/23 23:51 100 05/10/23 23:50 40 100 05/10/23 23:45 05/10/23 23:45 05/10/23 23:30 05/10/23 23:30 05/10/23 23:15 05/10/23 23:15 05/10/23 23:01 05/10/23 23:01 05/10/23 23:00 05/10/23 22:30 05/10/23 22:30 05/10/23 22:15 05/10/23 22:15 05/10/23 22:00 05/10/23 22:00 05/10/23 21:45 05/10/23 21:45 05/10/23 21:30 05/10/23 21:30 05/10/23 21:15 05/10/23 21:15 6 05/10/23 21:00 6 05/10/23 21:00 05/10/23 21:00 Coding Level of Care Code 26614 CRITICAL CARE 1ST 30-74M Diagnoses Shock R57.9 Aspiration of gastric contents T17.918A Hypovolemia E86.1 Encephalopathy G93.40 Malignant neoplasm of prostate metastatic to bone C61; C79.51 Atrial fibrillation I48.91 THOMAS (acute kidney injury) N17.9 Hypomagnesemia E83.42 (HFpEF) heart failure with preserved ejection fraction I50.30 Chronic indwelling Jarrett catheter Z97.8
[2023-05-11] MEDS ORDERED: PANTOprazole 40 MG in SYRINGE 0 ML IV SCH (09:00)
--- NOTE | 2023-05-11 11:34 | Electrocardiogram Report ---
Test Reason : Blood Pressure : / mmHG Vent. Rate : 092 BPM Atrial Rate : 049 BPM P-R Int : 000 ms QRS Dur : 104 ms QT Int : 446 ms P-R-T Axes : 000 -25 -20 degrees QTc Int : 551 ms Atrial fibrillation Inferior infarct (cited on or before 04-MAY-2023) Prolonged QT Nonspecific T wave abnormality Abnormal ECG When compared with ECG of 04-MAY-2023 10:31, Nonspecific T wave abnormality now evident in Anterior leads Nonspecific T wave abnormality, improved in Lateral leads QT has lengthened Confirmed by Walter Hobson ([id number]) on 05/11/2023 11:33:47 AM Referred By: REFERRED SELF Confirmed By:Walter Hobson
[2023-05-11] MEDS ORDERED: MoRPHine SULFATE 4 MG/ML 1 ML CARP\\VIAL IV STA (17:11)
--- NOTE | 2023-05-11 17:40 | Death Pronouncement Note ---
Date of Service May 11, 2023 Pronouncement Note Admission Date May 04, 2023 Date and Time of Date of : 05/11/23 Time of : 17:23 Preliminary Cause of (1) Aspiration of gastric contents: (2) Prostate cancer: (3) Acute confusion: (4) Weakness generalized: Summary Called to pronounce. No response to verbal or noxious stimuli. No heart tones or pulses. No breath sounds or spontaneous respirations. Pupils fixed and nonreactive to light. Time of 5:23 pm. Additional Data Attending physician: Michael King DO
--- NOTE | 2023-05-11 19:52 | Billing Data ---
Date of Service May 11, 2023 Coding Level of Care Code 08694 IN/OBS DISCH 30 MIN/LESS
--- NOTE | 2023-05-11 19:52 | Discharge Summary ---
Date of Service May 11, 2023 Admission HPI Per Admitting Provider Last [place] is a 72-year-old male with a past medical history of gram- negative bacteremia, A-fib on Eliquis, prostate cancer currently receiving treatment, bladder retention now with chronic indwelling fermin, ascending aortic aneurysm and HFpEF who presented to the [facility] ED on 05/04 after his catheter was pulled out. In the ED he was initially noted to be hypotensive at 80/49, tachycardic at 100 BPM but otherwise stable. Labs were significant for a leukocytosis of 11, hgb of 9.9 (Down from 12.5 as of 02/22), BUN of 38, initial lactate of 2.6, mag of 1.4, and dig level of 2.2. Chest xray was read as 1. Cardiomegaly without acute process.2. Small left greater than right pleural effusions with mild left basilar opacities again noted.. CT of the abd/pelvis wo con was read as 1. No acute infectious or inflammatory findings are identified in the abdomen or pelvis. 2. No bowel obstruction. 3. There is retroperitoneal and iliac chain lymphadenopathy. This is new from 05/25/2022 and indicates progressive metastatic disease. 4. Extensive/diffuse osteoblastic metastatic disease has also progressed from previous. 5. Small right and moderate left pleural effusions with dependent consolidation. These are similar to the 04/06/[address] and new from 05/25/2022. 6. The liver is steatotic and cirrhotic in morphology. 7. Cardiomegaly with advanced coronary artery atherosclerosis. 8. There is ane urysmal dilatation of the ascending thoracic aorta which measures up to 4.6 cm. This is unchanged from the recent chest CT. 9. Additional findings as above.. Prior to admission the patient was given 1.5L NSS, a dose of cefepime, and 1gm IV mag. At the time of the exam the patient was lying in bed in no acute distress, he appears pleasantly confused. Unfortunately family had already left prior to my exam. The patient states that his fermin catheter came out earlier but was unable to provide additional information. His only complaint at this time is that "my butt is itchy". He denies any other complaints. I was able to speak with with his daughter/primary caregiver, Karin Post [phone], to obtain further information. She states that they initially brought the patient to the [facility] ED because he pulled his fermin catheter out and had increased confused compared to baseline. At his baseline he is normally oriented to person, place, and at least month. [place] [facility] was unable to successfully replace the fermin and Dr. Manzanares or Urology accepted the patient for transfer to our ED for evaluation. The patient's fermin was successfully replaced by Urology. There were concerns for his clinical and mental change, because of this the ED was asked to evaluate the patient. She confirms that he had all of his medications yesterday, including his HS dose of Eliquis. They are aware of the progression of his prostate cancer, they are planning on having him evaluated at in the near future for further possible treatment options. He is a full code and she would make medical decisions for him while he cannot make his own medical decisions. Please refer to Dr. Curry's attesation for any changes to the treatment plan Principal Diagnosis Metastatic prostate cancer, dehydration, failure to thrive, hypoactive delirium. Discharge Exam Was frail and ashen whenever I saw him, labored shallow respirations. Offered empathy and support to daughter. See pronouncement note as well as resident physician progress note for further details. Discharge Data Allergies Allergy/AdvReac Type Severity Reaction Status Date / Time amiodarone AdvReac Severe Pneumonitis Unverified 05/04/23 10:20 Consultations 05/04/23 11:50 ED Decision to Admit Stat 05/04/23 13:05 Consult Urology Routine 05/05/23 18:23 Consult Palliative Care Routine Ordered Studies 05/04/23 09:42 CT abd pelvis wo con Stat 05/04/23 12:39 CT head/brain wo con Stat 05/10/23 22:46 CT abd pelvis IV con only Stat Hospital Course (1) Prostate cancer: See resident physician progress notes for details of the day earlier. Patient presented weak lethargic confused/deliriousdaughter thought he was probably dehydrated at home. She appeared to be correct. He was brought into the hospital IV fluids started, on further evaluation and getting more background details, unfortunately it sounds like he has had a bad failure to thrive for months related to prostate cancer and treatmentdaughter noted that he had probably not eaten truly solid food since about December existing on protein shakes. His delirium was fairly profound and very hypoactiveto the point that he would not eat or drink meaningfully. When extensive discussion of risk/benefits with the daughter, and she felt that her father would want to try everythingso with him not eating or drinking, and knowing that his delirium would only worsen with worsening malnutrition, while we were maintaining him on IV fluids, she opted (understandably) to have us place an NG tube and trial tube feeding. Initially he was tolerating feeds well, actually per the daughter was waking up a little bit more, and then on the evening of 05/10 had a rather significant aspiration event. Initially was stabilized on and only required somewhat more supplemental oxygen, unfortunately later (in spite of already being on broad antibiotics) he showed rather significant septic physiologygiven that she felt his wishes would be to do everything at that point he was transferred to the ICU and pressors were initiated, and he continued a spiral of decline. She expressed understanding of his severe state, I discussed that I really felt that this was the end result of his prostate cancer/frailty/deconditioning, as she was blaming herself for feeling like the NG tube would be in his best interest. I discussed that I really felt that he was going to pass this admission either way given how quickly his body declinedand the only real difference would be whether or not he was in a hypotonic/delirious state with a slightly slower fade but no meaningful ability to communicate over a few more days, versus his aspiration event and septic type physiology. Offered empathy and support. Patient passed 5:23 PM 05/11/2023. Total Time Total Time Spent Total Time Spent (In Minutes): Less than 30 Discharge Plan Discharge Items Patient Disposition: Other Date/Time: 05/11/23 15:23 Coding Level of Care Code 54249 IN/OBS DISCH 30 MIN/LESS Diagnoses Prostate cancer C61
== END 2023-05-11 18:15 | disposition expired | DRG 698 ==
LOC: ED 04:47 → 2N 13:01 → SUATTDRO 13:01 → 2N 15:53 → 1E 05-10 20:25